=== PATIENT | male | born 1930 | race Caucasian/White ===

== ENCOUNTER 2018-03-15 15:57 | Emergency (ER) | END 2018-03-15 19:38 | disposition home or self-care (01) ==

== ENCOUNTER 2018-03-19 08:24 | Emergency (ER) | END 2018-03-19 12:03 | disposition home or self-care (01) ==

== ENCOUNTER 2018-10-06 16:06 | Inpatient (IN) | END 2018-10-08 11:30 | disposition home or self-care (01) | DRG 872 ==

== ENCOUNTER 2019-02-11 10:04 | Inpatient (IN) | payer MEDICARE, OTHER ==
[~2019-02-11] VITALS: Ht 182.9 cm; Wt 86.4 kg
[~2019-02-11 10:04] MED LIST: INSU100I12 SQ; LANT3I SC; METF-849 PO; OLME5TAB4 PO; SITA1TAB PO; TAMS-14 PO
[2019-02-11] MEDS ORDERED: FUROSEMIDE 40 MG INJ IV STA (10:15)
[2019-02-11] MEDS ORDERED: ASPIRIN 81 MG TAB PO STA (10:15)
[2019-02-11] MEDS ORDERED: NITROGLYCERIN 2% 1 GM OINT PKT TD STA (10:55)
[2019-02-11] MEDS ORDERED: METF500T24 PO (10:59)
[2019-02-11] MEDS ORDERED: INSU100I12 SQ (10:59)
[2019-02-11] MEDS ORDERED: LANT3I SC ×2 (10:59)
[2019-02-11] MEDS ORDERED: CARV6.25 PO (11:00)
[2019-02-11] MEDS ORDERED: TAMS0.4C2 PO (11:00)
[2019-02-11] MEDS ORDERED: LOSA50TA2 PO (11:00)
[2019-02-11] MEDS ORDERED: ONDANSETRON 4 MG INJ IV PRN ×2 (13:00→13:30)
[2019-02-11] MEDS ORDERED: DEXTROSE 50% 50 ML SYRINGE IV PRN ×2 (13:00)
[2019-02-11] MEDS ORDERED: NITROGLYCERIN (SL) 0.4 MG TAB SL PRN (13:00)
[2019-02-11] MEDS ORDERED: hydrALAzine 20 MG INJ IV PRN (13:00)
[2019-02-11] MEDS ORDERED: ACETAMINOPHEN 325 MG TAB PO PRN ×2 (13:00→13:30)
[2019-02-11] MEDS ORDERED: morphine 2 MG INJ IV PRN (13:00)
[2019-02-11] MEDS ORDERED: MAGNESIUM HYDROXIDE 30ML CUP PO PRN (13:00)
[2019-02-11] MEDS ORDERED: LORAZEPAM 2 MG INJ IV PRN (13:00)
[2019-02-11] MEDS ORDERED: HYDROCODONE/APAP (5/325) TAB PO PRN (13:00)
[2019-02-11] MEDS ORDERED: ALBUTEROL/IPRATROPIUM (NEB) 3 ML AMP HHN PRN (13:00)
[2019-02-11] MEDS ORDERED: GLUCAGON 1 MG INJ IM PRN (13:00)
[2019-02-11] MEDS ORDERED: GLUCOSE GEL 15 GRAM TUBE BUCCAL PRN (13:00)
[2019-02-11] MEDS ORDERED: DOCUSATE SODIUM 100 MG CAP PO PRN (13:00)
[2019-02-11] MEDS ORDERED: NACL 0.9% 3 ML SYG IV SCH (13:00)
[2019-02-11] MEDS ORDERED: GLUCOSE GEL 15 GRAM TUBE PO PRN ×2 (13:00)
--- NOTE | 2019-02-11 13:38 | ERD ---
ER Documentation Chief Complaint Chief Complaint cough, sob, x 1 month. recently dx with pna. HPI 88-year-old male who presents to the emergency room with proximal he 1 month of PND orthopnea lower extremity swelling. He was told that he might have pneumonia but had an abnormal EKG and went to a talcer. The patient has worsening symptoms over the past 24 hours without chest pain. She denies any pleuritic pain. Family reports that he does have a known history of prostate CA but is not currently being treated and he does not know or want to know about this diagnosis. ROS All systems reviewed and are negative except as per history of present illness. Medications Home Meds Reported Medications Carvedilol* (Coreg*) 6.25 Mg Tablet, 6.25 MG PO BID, #60 TAB 02/11/19 Losartan Potassium* (Cozaar*) 50 Mg Tablet, 50 MG PO DAILY, #30 TAB 02/11/19 Tamsulosin Hcl* (Tamsulosin Hcl*) 0.4 Mg Cap.er.24h, 0.4 MG PO HS, CAP 02/11/19 Metformin Hcl* (Metformin Hcl*) 500 Mg Tablet, 500 MG PO WITH BREAKFAST DINNE, #60 TAB 02/11/19 Insulin Lispro (Humalog Kwikpen U-100) 100 Unit/1 Ml Insuln.pen, 10 UNIT SQ AC E, EA 02/11/19 Insulin Glargine* (Lantus*) 100 Unit/Ml Soln, 15-20 UNIT SC QHS, #1 VIAL 02/11/19 Insulin Glargine* (Lantus*) 100 Unit/Ml Soln, 35 UNIT SC QAM, #1 VIAL 02/11/19 Discontinued Reported Medications Olmesartan Medoxomil (Benicar) Unknown Strength Tablet, PO DAILY, #30 TAB 10/05/18 Tamsulosin Hcl* (Flomax*) 0.4 Mg Cap.er.24h, 0.4 MG PO HS, CAP 10/05/18 Metformin* (Glucophage*) 500 Mg Tab, 500 MG PO WITH BREAKFAST DINNE, #30 TAB 10/05/18 Insulin Glargine* (Lantus*) Unknown Strength Soln, SC QHS, #1 VIAL 10/05/18 Insulin Lispro (Humalog Kwikpen U-100) Unknown Strength Insuln.pen, SQ, EA 10/05/18 Sitagliptin Phos/Metformin HCl (Janumet 50-500 mg Tablet) Unknown Strength Tablet, PO, TAB 10/05/18 Allergies Allergies: Coded Allergies: No Known Allergy (Unverified , 02/11/19) PMhx/Soc Medical and Surgical Hx: pt denies Medical Hx, pt denies Surgical Hx History of Surgery: Yes Anesthesia Reaction: No Hx Neurological Disorder: No Hx Respiratory Disorders: No Hx Cardiac Disorders: Yes (chf, htn) Hx Psychiatric Problems: No Hx Miscellaneous Medical Probl: Yes (dm) Hx Alcohol Use: No Hx Substance Use: No Hx Tobacco Use: No Smoking Status: Never smoker FmHx Family History: No diabetes Physical Exam Vitals Vital Signs Date Temp Pulse Resp B/P (MAP) Pulse Ox O2 O2 Flow FiO2 Time Delivery Rate 02/11/19 94 22 122/82 100 Nasal 12:39 (95) Cannula 02/11/19 101 28 133/84 100 Nasal 11:40 (100) Cannula 02/11/19 98.0 101 18 138/89 Room Air 10:59 (105) 02/11/19 Nasal 2 10:18 Cannula 02/11/19 Nasal 2.0 10:18 Cannula 02/11/19 97.7 105 19 139/80 97 10:16 (99) Physical Exam General: Well developed, well nourished, no acute distress Head: Normocephalic, atraumatic. Eyes: Pupils equally reactive, EOM intact ENT: Moist mucous membranes Neck: Supple, no lymphadenopathy Respiratory: No distress, rales at the bases bilaterally Cardiovascular: RRR, no murmurs, rubs, or gallops Abdominal: Soft, non-tender, non-distended, no peritoneal signs : Deferred MSK: Bilateral lower extremity pitting edema, no unilateral swelling, 5/5 strength Neurologic: Alert and oriented, moving all extremities, normal speech, no focal weakness, no cerebellar signs Skin: No rash Psych: Normal mood Result Diagram: 02/11/19 1018 02/11/19 1018 Results 24 hrs Laboratory Tests Test 02/11/19 10:18 White Blood Count 9.0 10^3/ul Red Blood Count 4.08 10^6/ul Hemoglobin 9.9 g/dl Hematocrit 32.9 % Mean Corpuscular Volume 80.6 fl Mean Corpuscular Hemoglobin 24.3 pg Mean Corpuscular Hemoglobin Concent 30.1 g/dl Red Cell Distribution Width 15.2 % Platelet Count 360 10^3/UL Mean Platelet Volume 9.9 fl Immature Granulocytes % 0.400 % Neutrophils % 68.9 % Lymphocytes % 21.8 % Monocytes % 6.7 % Eosinophils % 1.5 % Basophils % 0.7 % Nucleated Red Blood Cells % 0.0 /100WBC Immature Granulocytes # 0.040 10^3/ul Neutrophils # 6.2 10^3/ul Lymphocytes # 2.0 10^3/ul Monocytes # 0.6 10^3/ul Eosinophils # 0.1 10^3/ul Basophils # 0.1 10^3/ul Nucleated Red Blood Cells # 0.0 10^3/ul Prothrombin Time 11.9 Sec Prothrombin Time Ratio 0.9 INR International Normalized Ratio 0.87 Activated Partial Thromboplast Time 27.5 Sec Sodium Level 139 mmol/L Potassium Level 4.2 mmol/L Chloride Level 102 mmol/L Carbon Dioxide Level 28 mmol/L Anion Gap 9 Blood Urea Nitrogen 26 mg/dl Creatinine 1.76 mg/dl Est Glomerular Filtrat Rate mL/min mL/min Glucose Level 315 mg/dl Calcium Level 8.7 mg/dl Troponin I < 0.012 ng/ml B-Type Natriuretic Peptide 6640 PG/ML Current Medications Medications Dose Sig/Clare Start Time Status Last (Trade) Ordered Route PRN Stop Time Admin Dose Reason Admin Aspirin 162 mg ONCE STAT 02/11/19 DC 02/11/19 (Aspirin) PO 10:15 10:35 02/11/19 10:16 Furosemide 40 mg ONCE STAT 02/11/19 DC 02/11/19 (Lasix) IV 10:15 10:42 02/11/19 10:16 1 inch ONCE STAT 02/11/19 DC 02/11/19 Nitroglycerin TD 10:55 11:08 02/11/19 10:56 (Nitroglyceri n 2% Oint) IV Flush 3 ml PER 02/11/19 (NS 3 ml) PROTOCOL IV 13:00 Ondansetron 4 mg Q6H PRN 02/11/19 HCl (Zofran IV 13:00 Inj) NAUSEA/VOMITI NG 650 mg Q6H PRN 02/11/19 Acetaminophen PO .PAIN 1-3 13:00 (Tylenol OR TEMP Tab) 1 tab Q6H PRN 02/11/19 Acetaminophen PO .MOD PAIN 13:00 / 4-6 Hydrocodone Bitart (Seibert (5/325)) Morphine 2 mg Q4H PRN 02/11/19 Sulfate IV .SEVERE 13:00 (morphine) PAIN 7-10 Docusate 100 mg Q12H PRN 02/11/19 Sodium PO 13:00 (Colace) .CONSTIPATION Magnesium 30 ml DAILY PRN 02/11/19 Hydroxide PO 13:00 (Milk Of Mag) .CONSTIPATION 40 mg DAILY@06 02/12/19 Pantoprazole PO 06:00 (Protonix Tab) Heparin 5,000 unit Q12 SC 02/11/19 DC Sodium 21:00 (Porcine) 02/11/19 21:00 (Heparin (5000 Units/1ml)) Lorazepam 0.5 mg Q6H PRN 02/11/19 (Ativan) IV ANXIETY 13:00 Albuterol/ 3 ml Q4H RESP 02/11/19 Ipratropium THERAPY PRN 13:00 (Duoneb) HHN SHORTNESS OF BREATH Hydralazine 10 mg Q6H PRN 02/11/19 HCl IV ELEVATED 13:00 (Apresoline) BLOOD PRESSURE 1 tab Q5M PRN 02/11/19 Nitroglycerin SL ANGINA 13:00 (Nitroglyceri n (Sl Tab) 0.4 Mg) Carvedilol 3.125 mg BID PO 02/11/19 (Coreg) 21:00 Insulin 15 units QHS SC 02/11/19 Glargine 21:00 (Lantus) Insulin 35 units QAM SC 02/12/19 Glargine 09:00 (Lantus) Tamsulosin 0.4 mg HS PO 02/11/19 HCl 21:00 (Flomax) Furosemide 40 mg DAILY IV 02/12/19 (Lasix) 09:00 1 ea NOTE XX 02/11/19 Miscellaneous 13:00 Information Glucose 15 gm Q15M PRN 02/11/19 (Glutose) PO DECREASED 13:00 GLUCOSE Glucose 22.5 gm Q15M PRN 02/11/19 (Glutose) PO DECREASED 13:00 GLUCOSE Dextrose 25 ml Q15M PRN 02/11/19 (D50w IV DECREASED 13:00 Syringe) GLUCOSE Dextrose 50 ml Q15M PRN 02/11/19 (D50w IV DECREASED 13:00 Syringe) GLUCOSE Glucagon 1 mg Q15M PRN 02/11/19 (Glucagen) IM DECREASED 13:00 GLUCOSE Glucose 15 gm Q15M PRN 02/11/19 (Glutose) BUCCAL 13:00 DECREASED GLUCOSE 750 mg DAILY@06 02/12/19 UNV Levofloxacin PO 06:00 (Levaquin) Ondansetron 4 mg ER BRIDGE 02/11/19 HCl (Zofran PRN IV 13:30 Inj) NAUSEA/VOMITI 02/12/19 13:29 NG 650 mg ER BRIDGE 02/11/19 Acetaminophen PRN PO 13:30 (Tylenol .MILD PAIN 02/12/19 13:29 Tab) 1-3 OR TEMP Discontinue ONCE ONCE 02/11/19 DC Miscellaneous current oral XX 13:30 sulfonylur... 02/11/19 13:33 Information (* Miscellaneous Pharmacy Order) Diagnostic 1 ea 02 XX 02/12/19 Test (Pha) 02:00 (Accu-Chek) ONCE ONCE 02/11/19 DC Miscellaneous HYPOGLYCEMIA XX 13:30 PROTOCOL 02/11/19 13:33 Information w... (* Miscellaneous Pharmacy Order) Insulin NOVOLOG WITH MEALS 02/11/19 Aspart *MILD* BEDTIME SC 18:00 (Novolog ALGORITHM Insulin Pen) Discontinue ONCE ONCE 02/11/19 DC Miscellaneous all previ... XX 13:30 02/11/19 13:33 Information (* Miscellaneous Pharmacy Order) Procedures/MDM EKG, MONITORS, & DIAGNOSTIC IMAGING: EKG: I reviewed and interpreted a 12-lead EKG. Rhythm: Normal sinus rhythm ST Changes: No contiguous ST segment elevations T waves: No contiguous T wave inversions Impression: [No evidence of acute cardiac ischemia] Chest x-ray: I reviewed and interpreted a 1 view of the chest Mediastinum: No enlargement Cardiac silhouette: cardiomegaly Airspace: Pulmonary edema bilaterally Bones: No evidence of fracture LAB INTERPRETATION: I reviewed the laboratory testing and it shows negative troponin, elevated BNP MEDICAL DECISION MAKING: Clinical signs and symptoms are very consistent with CHF that would likely be a new diagnosis. I do not believe this is consistent with pneumonia given no fever and no significant cough. Patient has clinical evidence of volume overload. I believe the patient would benefit from diuresis, preload and afterload redu ction and inpatient hospitalization for further workup of new onset CHF ER COURSE: * Aspirin provided, Lasix and nitroglycerin applied. * Patient is stabilized and does not require nitroglycerin drip or positive pressure ventilation. CONSULTATION: [None] DISPOSITION PLAN: Accepting care team and consultations: I discussed the current laboratory data, diagnostic imaging and emergency care provided. Admitting team: Dr. Aaron Admitting team indication: Insurance directed Departure Diagnosis: Primary Impression: New onset of congestive heart failure Additional Impressions: Acute renal insufficiency Anemia Anemia type: unspecified type Qualified Codes: D64.9 - Anemia, unspecified Condition: Stable BRANDI DELGADO MD Feb 11, 2019 13:38
--- NOTE | 2019-02-11 14:22 | HP ---
DATE OF ADMISSION: 02/11/2019 IDENTIFICATION: This is an 88-year-old male. CHIEF COMPLAINT: Shortness of breath. HISTORY OF PRESENT ILLNESS: An 88-year-old male with past medical history of type 2 diabetes, prior urinary tract infection, history of prostate issue possibly cancer status post TURP in the past, hype rtension, who has been having shortness of breath. Per patient and family, he has been having these symptoms off and on for the last 2 weeks, getting progressively worse. He has also noted some increa sing lower extremity swelling. Family does state that at one point they do not remember when he star quinn it, but he was supposed to be taking Lasix at home, but he has not been taking it and only takes it as needed for unclear reasons. Apparently, he does not like to "take a lot of medicines at home." In any event, he has been having some nausea symptoms. No vomiting. No fevers or chills. No uppe r or lower GI bleeding. No diarrhea or constipation. When he came in today, he was found on labs wi th an elevated BNP of 6600 and his chest x-ray did show signs of mild cardiomegaly with pulmonary vas cular congestion. He was given a dose of Lasix in the ER. Family does state the patient was recentl y treated as an outpatient with [facility] for minor upper respiratory infection, possible mild pneumonia. The patient was last here at our hospital from 10/06/2018 to 10/08/2018. At that time, he was tiana quinn for gross hematuria. PAST MEDICAL HISTORY: As stated above. ALLERGIES: NO KNOWN DRUG ALLERGIES. HOME MEDICATIONS: 1. Flomax 0.4 mg at bedtime. 2. Coreg 6.25 mg b.i.d. 3. Cozaar 50 mg daily. 4. Lantus 35 units in the morning and 15 to 20 units at night. 5. Lispro insulin 10 units subcutaneous. 6. Metformin 500 mg b.i.d. PAST SURGICAL HISTORY: TURP in 2014. SOCIAL HISTORY: Occasional alcohol use. Denies any IV drug abuse or smoking history. FAMILY HISTORY: Noncontributory. PHYSICAL EXAMINATION: VITAL SIGNS: Today, T-max 98.0, pulse 101 to 94, respirations 18 to 28, blood pressure is 138 to 122 systolic over 89 to 82 diastolic, satting 100% on 2 liters nasal cannula. GENERAL: The patient is sitting up in bed, family members at the bedside, alert and oriented x3, in no acute distress. HEENT: Pupils are equal, round, react to light. Extraocular muscles are intact. NECK: Supple. No thyromegaly. LUNGS: Slightly decreased breath sounds to bilateral bases. CARDIOVASCULAR: S1, S2 heard. No rubs or gallops. ABDOMEN: Soft, nontender, nondistended. Normal bowel sounds. No rebound or guarding. MUSCULOSKELETAL: A 1+ pitting edema to bilateral lower extremities to the mid calves. NEUROLOGIC: No focal deficits. LABORATORIES: CBC is completely normal. Sodium is 139, potassium 4.2, chloride 102, CO2 of 28, BUN 26, creatinine 1.76, glucose 315. Troponin is negative x1. BNP 6640. Coags are normal. DIAGNOSTIC DATA: We mentioned the chest x-ray results. ASSESSMENT AND PLAN: An 88-year-old male coming in with shortness of breath off and on for the last 2 weeks with signs of acute on likely chronic congestive heart failure exacerbation. 1. Shortness of breath again likely secondary to congestive heart failure exacerbation given his noe st x-ray findings, lower extremity pitting edema and the fact that he has not been taking Lasix regul noah at home. We do not have an echocardiogram on record however. We will admit the patient, keep t he head of the bed greater than 30 degrees, put him on Lasix, morphine, oxygen, nitroglycerin p.r.n. Monitor ins and outs. Get PT consult as well and OT consult. 2. History of likely prostate cancer with TURP in the past. Continue Flomax. Monitor for now. 3. History of type 2 diabetes. Sugars were elevated when he came in the mid 200 range, but no signs of diabetic ketoacidosis. Last A1c back in 09/2018 he was 8.9. We will follow up A1c. Put him brennan k on his home Lantus medications and sliding scale insulin. Monitor sugars carefully. 4. Hypertension. Again, see #1. Blood pressure is presently stable. Put him on low-dose Coreg. H old his ARB medication since he does have renal insufficiency for now. He will be on Lasix as well. 5. Prior history of urinary tract infection. No present issues. Continue to monitor for now. 6. Gastrointestinal prophylaxis. PPI. 7. Deep venous thrombosis prophylaxis. SCDs given his prior history of hematuria, although none pre sently. He was put on SCDs for now. Dictated By: BERTHA DAVIS Conf#: [id number] DID#: [id number] CC: BRANDI DELGADO MD;*End*
[2019-02-11 14:30] VITALS: Ht 182.9 cm; Wt 86.4 kg
[2019-02-11] MEDS ORDERED: LEVOFLOXACIN 750 MG TABLET PO SCH (15:00)
[2019-02-11 15:05] VITALS: PULSE 100
[2019-02-11 16:13] VITALS: PULSE 94
[2019-02-11 16:18] VITALS: BP 131/72; PULSE 96; RESP 22
--- NOTE | 2019-02-11 17:35 | RADRPT ---
Echocardiogram Report Patient Name: KESHIA BLACKWELLPatient ID: [id number] : 1930 (88y 9m)Study Date: 02/11/2019 1:12:02 PM Gender: MAccession #: [id number] Tech: Paul Aguilar RDCS Location: ER Ref.Physician: BERTHA FERRARI Height(Cm): BSA: Weight(Kg): Quality: Technically Difficult StudyAccount #: Procedures: Echocardiographic Report: Transthoracic echocardiogram with complete 2D, M-Mode, and doppler examination. Indications: Congestive Heart Failure. Measurements: 2D/M Mode Doppler Measurement Value Normal Range Measurement Value Normal Range LVIDd 2D 5.9 [ 4.2 - 5.8 ] cm AV Peak Marino 1.2 [ 100.0 - 170.0 ] cm/se c LVIDs 2D 4.9 [ 2.5 - 4.0 ] cm AV Peak PG 6.0 [ 2.0 - 9.0 ] mmHg LVPWd 2D 1.2 [ 0.6 - 1.0 ] cm LVOT Peak Marino 0.7 [ 70.0 - 110.0 ] cm/sec IVSd 2D 1.0 [ 0.6 - 1.0 ] cm LVOT Peak PG 2.0 [ 2.0 - 6.0 ] mmHg AoR Diam 2D 2.8 [ 2.6 - 3.4 ] cm MV E Peak Marino 0.8 [ 60.0 - 130.0 ] cm/sec EDV 2D 173.0 [ 62.0 - 150.0 ] ml MV A Peak Marino 0.7 [ 100.0 - 120.0 ] cm/se c ESV 2D 114.0 [ 21.0 - 61.0 ] ml MV E/A 1.1 [ 0.8 - 1.5 ] ratio EF 2D 34.1 [ 52.0 - 72.0 ] percent MV PHT 43.0 [ 20.0 - 100.0 ] msec LA Dimen 2D 3.9 [ 3.0 - 4.0 ] cm MV Decel Time 148 [ 104 - 258 ] msec MV Decel Chaves 5 Lat E` Marino 0.1 [ 10.0 - 15.0 ] cm/sec Lateral E/E` 12.1 [ 1.0 - 2.0 ] ratio Med E` Marino 0.1 cm/sec MV E/A 1.1 [ 0.8 - 1.5 ] ratio MVA PHT 5.1 [ 2.0 - 4.0 ] cm2 TR Peak Marino 2.1 [ 100.0 - 280.0 ] cm/se c TR Peak PG 18.0 mmHg PV Peak Marino 1.1 [ 40.0 - 80.0 ] cm/sec PV Peak PG 4.0 mmHg Findings: Left Ventricle: Normal left ventricular cavity size. Severe global left ventricular systolic dysfunction. Ejection fraction is visually estimated at 25-30 %. Tissue Doppler/Mitral Doppler indices are consistent with pseudonormalization with mildly elevated left atrial pressure (Stage II diastolic dysfunction). Right Ventricle: Normal right ventricular size. Normal right ventricular systolic function. Left Atrium: The left atrium is normal in size. Right Atrium: The right atrium is normal in size. Atrial Septum: Normal atrial septum. Ventricular septum: Normal/intact ventricular septum. Mitral Valve: Normal appearance of the mitral valve. Trace mitral regurgitation. Aortic Valve: Normal appearance of the aortic valve. Trace aortic valve regurgitation. Tricuspid Valve: Normal appearance of the tricuspid valve. Unable to obtain RVSP due to minimal presence of tricuspid regurgitation. Estimated peak PA systolic pressure 18 mmHg. There is trace tricuspid regurgitation. Pulmonic Valve: Normal pulmonic valve appearance. There is trace pulmonic regurgitation. Pericardium: Pleural effusion seen. Aorta: Normal aortic root. IVC: The IVC is not well visualized. Conclusions: Severe global left ventricular systolic dysfunction. Tissue Doppler/Mitral Doppler indices are consistent with pseudonormalization with mildly elevated left atrial pressure (Stage II diastolic dysfunction). Electronically Signed By: Ventura Garcia 2019-02-11 17:34:47 PDT
[2019-02-11] MEDS: INSULIN ASPART [NOVOLOG] 3 ML PEN SC SCH ×4 (18:03→21:44)
[2019-02-11 20:00] VITALS: PULSE 95
[2019-02-11] MEDS ORDERED: HEPARIN 5,000 UNIT/1 ML VIAL SC SCH (21:00)
[2019-02-11] MEDS: TAMSULOSIN (SR) 0.4 MG CAP PO SCH (21:30)
[2019-02-11] MEDS: INSULIN GLARGINE [LANTus] (100 UNITS/ML) SYG SC SCH (21:44)
[2019-02-12] VITALS (9 sets, daily range): BP systolic 104–133; BP diastolic 54–65; PULSE 90–102; RESP 18
[2019-02-12] MEDS: ACCU-CHEK XX SCH (02:00)
[2019-02-12] MEDS: PANTOPRAZOLE (EC) 40 MG TAB PO SCH (05:35)
[2019-02-12] MEDS: INSULIN ASPART [NOVOLOG] 3 ML PEN SC SCH ×8 (08:06→20:50)
[2019-02-12] MEDS ORDERED: FUROSEMIDE 40 MG INJ IV SCH (09:00)
--- NOTE | 2019-02-12 13:16 | PN ---
Date/Time of Note Date/Time of Note DATE: 02/12/19 TIME: 13:14 Assessment/Plan VTE Prophylaxis Risk score (from Ns)>0 risk: 4 SCD applied (from Ns): Yes Pharmacological prophylaxis: heparin Lines/Catheters IV Catheter Type (from Rust): Saline Lock Urinary Cath still in place: No Assessment/Plan Assessment/Plan 1. CHF, systolic, acute on chronic, lasix, coreg, losartan 2. Dilated cardiomyopathy, ?etiology, TSH, cardiology consultation 3. HTN, controlled 4. DM, on insulin 5. History of likely prostate cancer with TURP in the past. Continue Flomax. Monitor for now.\ 6. Acute renal failure, US 7. Microcytic anemia, chronic, iron panel 8. DVT prophylaxis: heparin Result Diagram: 02/12/198 02/12/198 Results 24hrs Laboratory Tests Test 02/11/19 16:28 02/11/19 17:33 02/11/19 21:28 02/11/19 22:27 Creatine Kinase 61 65 Creatine Kinase 1.6 1.6 Index Creatinine Kinase MB 0.96 1.06 (Mass) Troponin I < 0.012 < 0.012 Bedside Glucose 367 H 222 H Test 02/12/19 02:22 02/12/19 04:58 02/12/19 05:58 02/12/19 08:00 Bedside Glucose 247 H 291 H 308 H White Blood Count 7.1 # Red Blood Count 2.96 #L Hemoglobin 7.3 #L Hematocrit 23.7 #L Mean Corpuscular 80.1 L Volume Mean Corpuscular 24.7 L Hemoglobin Mean Corpuscular 30.8 L Hemoglobin Concent Red Cell 15.4 H Distribution Width Platelet Count 247 # Mean Platelet Volume 10.5 H Immature 0.300 Granulocytes % Neutrophils % 61.9 Lymphocytes % 28.5 Monocytes % 7.9 Eosinophils % 1.0 Basophils % 0.4 Nucleated Red Blood 0.0 Cells % Immature 0.020 Granulocytes # Neutrophils # 4.4 Lymphocytes # 2.0 Monocytes # 0.6 Eosinophils # 0.1 Basophils # 0.0 Nucleated Red Blood 0.0 Cells # Sodium Level 143 Potassium Level 4.2 Chloride Level 105 Carbon Dioxide Level 26 Anion Gap 12 Blood Urea Nitrogen 51 H Creatinine 1.86 H Est Glomerular Filtrat Rate mL/min Glucose Level 276 H Hemoglobin A1c 9.6 H Calcium Level 8.3 L Phosphorus Level 3.6 Magnesium Level 1.9 Triglycerides Level 203 H Cholesterol Level 159 LDL Cholesterol, 94 Calculated HDL Cholesterol 24 L Cholesterol/HDL 6.6 Ratio Thyroid Stimulating 1.540 Hormone (TSH) Test 02/12/19 11:46 Bedside Glucose 357 H Subjective 24 Hr Interval Summary Free Text/Dictation shortness of breath Exam/Review of Systems Exam Vitals Vital Signs Date Temp Pulse Resp B/P (MAP) Pulse Ox O2 O2 Flow FiO2 Time Delivery Rate 02/12/19 93 12:22 02/12/19 97.6 18 106/56 100 Nasal 11:16 (73) Cannula 02/11/19 2.0 21:00 02/11/19 27 20:11 Intake and Output 02/11/19 02/11/19 02/12/19 1515:00 23:00 07:00 IntakeIntake Total 360 ml 710 ml OutputOutput Total 320 ml 650 ml 1000 ml BalanceBalance -320 ml -290 ml -290 ml Constitutional: alert, oriented, well developed Psych: no complaints, nl mood/affect Head: normocephalic, atraumatic Eyes: nl conjunctiva, EOMI, nl lids, PERRL ENMT: nl external ears & nose, nl lips & teeth, nl nasal mucosa & septum Neck: supple, non-tender Respiratory: clear to auscultation, normal air movement; No congested cough, No crackles/rales, No diminished breath sounds, No intercostal retraction, No labored breathing, No respirations, No tactile fremit us, No wheezing, No other Cardiovascular: regular rate and rhythm, nl pulses; No bruits, No diastolic murmur, No edema, No gallop, No irregular rhythm, No jugular venous distention (JVD), No murmurs/extra sounds, No rub, No systolic murmur, No S3, No S4, No other Gastrointestinal: soft, nl liver, spleen, non-tender Musculoskeletal: nl extremities to inspection, nl gait and stance Extremities: normal pulses; No calf tenderness, No cyanosis, No clubbing, No pitting pedal edema, No palpable cord, No tenderness, No other Neurological: RECEIVING CHECKER II-XII intact, nl mental status, nl speech, nl strength Results Results 24hrs Laboratory Tests Test 02/11/19 16:28 02/11/19 17:33 02/11/19 21:28 02/11/19 22:27 Creatine Kinase 61 65 Creatine Kinase 1.6 1.6 Index Creatinine Kinase MB 0.96 1.06 (Mass) Troponin I < 0.012 < 0.012 Bedside Glucose 367 H 222 H Test 02/12/19 02:22 02/12/19 04:58 02/12/19 05:58 02/12/19 08:00 Bedside Glucose 247 H 291 H 308 H White Blood Count 7.1 # Red Blood Count 2.96 #L Hemoglobin 7.3 #L Hematocrit 23.7 #L Mean Corpuscular 80.1 L Volume Mean Corpuscular 24.7 L Hemoglobin Mean Corpuscular 30.8 L Hemoglobin Concent Red Cell 15.4 H Distribution Width Platelet Count 247 # Mean Platelet Volume 10.5 H Immature 0.300 Granulocytes % Neutrophils % 61.9 Lymphocytes % 28.5 Monocytes % 7.9 Eosinophils % 1.0 Basophils % 0.4 Nucleated Red Blood 0.0 Cells % Immature 0.020 Granulocytes # Neutrophils # 4.4 Lymphocytes # 2.0 Monocytes # 0.6 Eosinophils # 0.1 Basophils # 0.0 Nucleated Red Blood 0.0 Cells # Sodium Level 143 Potassium Level 4.2 Chloride Level 105 Carbon Dioxide Level 26 Anion Gap 12 Blood Urea Nitrogen 51 H Creatinine 1.86 H Est Glomerular Filtrat Rate mL/min Glucose Level 276 H Hemoglobin A1c 9.6 H Calcium Level 8.3 L Phosphorus Level 3.6 Magnesium Level 1.9 Triglycerides Level 203 H Cholesterol Level 159 LDL Cholesterol, 94 Calculated HDL Cholesterol 24 L Cholesterol/HDL 6.6 Ratio Thyroid Stimulating 1.540 Hormone (TSH) Test 02/12/19 11:46 Bedside Glucose 357 H Medications Medication Current Medications IV Flush (NS 3 ml) 3 ml PER PROTOCOL IV ; Start 02/11/19 at 13:00 Ondansetron HCl (Zofran Inj) 4 mg Q6H PRN IV NAUSEA/VOMITING; Start 02/11/19 at 13:00 Acetaminophen (Tylenol Tab) 650 mg Q6H PRN PO .PAIN 1-3 OR TEMP; Start 02/11/19 at 13:00 Acetaminophen/ Hydrocodone Bitart ([place] (5/325)) 1 tab Q6H PRN PO .MOD PAIN 4- 6; Start 02/11/19 at 13:00 Morphine Sulfate (morphine) 2 mg Q4H PRN IV .SEVERE PAIN 7-10; Start 02/11/19 at 13:00 Docusate Sodium (Colace) 100 mg Q12H PRN PO .CONSTIPATION; Start 02/11/19 at 13:00 Magnesium Hydroxide (Milk Of Mag) 30 ml DAILY PRN PO .CONSTIPATION; Start 02/11/19 at 13:00 Pantoprazole (Protonix Tab) 40 mg DAILY@06 PO Last administered on 02/12/19at 05:35; Admin Dose 40 MG; Start 02/12/19 at 06:00 Lorazepam (Ativan) 0.5 mg Q6H PRN IV ANXIETY; Start 02/11/19 at 13:00 Albuterol/ Ipratropium (Duoneb) 3 ml Q4H RESP THERAPY PRN HHN SHORTNESS OF BREATH; Start 02/11/19 at 13:00 Hydralazine HCl (Apresoline) 10 mg Q6H PRN IV ELEVATED BLOOD PRESSURE; Start 02/11/19 at 13:00 Nitroglycerin (Nitroglycerin (Sl Tab) 0.4 Mg) 1 tab Q5M PRN SL ANGINA; Start 02/11/19 at 13:00 Carvedilol (Coreg) 3.125 mg BID PO Last administered on 02/12/19at 08:47; Admin Dose 3.125 MG; Start 02/11/19 at 21:00 Insulin Glargine (Lantus) 15 units QHS SC Last administered on 02/11/19at 21:44; Admin Dose 15 UNITS; Start 02/11/19 at 21:00 Insulin Glargine (Lantus) 35 units QAM SC ; Start 02/12/19 at 09:00 Tamsulosin HCl (Flomax) 0.4 mg HS PO Last administered on 02/11/19at 21:30; Admin Dose 0.4 MG; Start 02/11/19 at 21:00 Furosemide (Lasix) 40 mg DAILY IV Last administered on 02/12/19at 08:47; Admin Dose 40 MG; Start 02/12/19 at 09:00 Miscellaneous Information 1 ea NOTE XX ; Start 02/11/19 at 13:00 Glucose (Glutose) 15 gm Q15M PRN PO DECREASED GLUCOSE; Start 02/11/19 at 13:00 Glucose (Glutose) 22.5 gm Q15M PRN PO DECREASED GLUCOSE; Start 02/11/19 at 13:00 Dextrose (D50w Syringe) 25 ml Q15M PRN IV DECREASED GLUCOSE; Start 02/11/19 at 13:00 Dextrose (D50w Syringe) 50 ml Q15M PRN IV DECREASED GLUCOSE; Start 02/11/19 at 13:00 Glucagon (Glucagen) 1 mg Q15M PRN IM DECREASED GLUCOSE; Start 02/11/19 at 13:00 Glucose (Glutose) 15 gm Q15M PRN BUCCAL DECREASED GLUCOSE; Start 02/11/19 at 13:00 Levofloxacin (Levaquin) 750 mg Q2D PO Last administered on 02/11/19at 16:19; Admin Dose 750 MG; Start 02/11/19 at 15:00 Ondansetron HCl (Zofran Inj) 4 mg ER BRIDGE PRN IV NAUSEA/VOMITING; Start 02/11/19 at 13:30; Stop 02/12/19 at 13:29 Acetaminophen (Tylenol Tab) 650 mg ER BRIDGE PRN PO .MILD PAIN 1-3 OR TEMP; Start 02/11/19 at 13:30; Stop 02/12/19 at 13:29 Diagnostic Test (Pha) (Accu-Chek) 1 ea 02 XX ; Start 02/12/19 at 02:00 Insulin Aspart (Novolog Insulin Pen) NOVOLOG *MILD* ALGORITHM WITH MEALS BEDTIME SC Last administered on 02/12/19at 11:52; Admin Dose 7 UNIT; Start 02/11/19 at 18:00 Insulin Aspart (Novolog Insulin Pen) 10 unit WITH MEALS BEDTIME SC Last administered on 02/12/19at 12:04; Admin Dose 10 UNIT; Start 02/11/19 at 18:00 HUSSEIN SHUKLA MD Feb 12, 2019 13:16
[2019-02-12] MEDS: LOSARTAN 25 MG TAB PO SCH (14:05)
[2019-02-12] MEDS: INSULIN GLARGINE [LANTus] (100 UNITS/ML) SYG SC SCH ×2 (14:31→22:07)
--- NOTE | 2019-02-12 15:48 | CONS ---
Assessment/Plan Assessment/Plan Hospital Course (Demo Recall) 1. Congestive heart failure: Acute secondary systolic heart failure 2. 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 Diabetes 4. Hypertension 5. 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 Abnormal EKG consistent with prior MIs 7. Rule out dyslipidemia 8. Dyspnea due to above 9. Renal failure 10. Anemia Commendations: Patient was started on aspirin daily. Monitor for bleeding including hematuria that he has had before with Written appropriate medical therapy including Coreg losartan and Lasix. I would also add Aldactone to his regimen Continue with diuresis and once his orthopnea has resolved we will schedule him for Lexiscan stress test to rule out significant reversible ischemia Thank you for his referral. We will continue to follow along with you [facility] Consultation Date/Type/Reason Admit Date/Time Feb 11, 2019 at 13:21 Date of Consultation: Feb 12, 2019 Type of Consult Cardiology Reason for Consultation CHF Requesting Provider: HUSSEIN SHUKLA MD Date/Time of Note DATE: 02/12/19 TIME: 15:38 Hx of Present Illness Interventional cardiology consultation note Chief complaint: SOB Reason for consult: History of present illness: Thank you for this referral. This is an 78-year-old male (patient reported that he is actually 78 and 988 as documented in his record and his records have been changed when he went to [place] as a child) with past medical history of type 2 diabetes, prior urinary tract infection, history of prostate issue prostate cancer status post TURP in the past pre review of old chart (although patient believes that he had no cancer) , hypertension, who came to emergency room with increasing shortness of breath. The breathing is worse when he lies down and sleeps at nighttime. When he is sitting he is okay. He states that he does not have any chest pain or pressure in activity when he lies down he feels pressure in his chest still. H is echo was obtained which showed ejection fraction 25-30%. Was kindly asked to evaluate his severe cardiomyopathy and CHF. Patient is unaware of any history of AL in the past His old records were reviewed. Patient has been admitted previously with hematuria has resolved PAST MEDICAL HISTORY: Hypertension, diabetes, prostate issues including BPH and probably prostate cancer per review of the old records status post TURP ALLERGIES: NO KNOWN DRUG ALLERGIES. HOME MEDICATIONS: 1. Flomax 0.4 mg at bedtime. 2. Coreg 6.25 mg b.i.d. 3. Cozaar 50 mg daily. 4. Lantus 35 units in the morning and 15 to 20 units at night. 5. Lispro insulin 10 units subcutaneous. 6. Metformin 500 mg b.i.d. PAST SURGICAL HISTORY: TURP in 2015. SOCIAL HISTORY: Occasional alcohol use. Denies any IV drug abuse or smoking history. Was born in [place]. Has [place] origin. Had moved to [place] when he was young FAMILY HISTORY: No history of early coronary artery disease Review of system: Patient denies all others except for above-mentioned Past Medical History Home Meds Reported Medications Carvedilol* (Coreg*) 6.25 Mg Tablet, 6.25 MG PO BID, #60 TAB 02/11/19 Losartan Potassium* (Cozaar*) 50 Mg Tablet, 50 MG PO DAILY, #30 TAB 02/11/19 Tamsulosin Hcl* (Tamsulosin Hcl*) 0.4 Mg Cap.er.24h, 0.4 MG PO HS, CAP 02/11/19 Metformin Hcl* (Metformin Hcl*) 500 Mg Tablet, 500 MG PO WITH BREAKFAST DINNE, # 60 TAB 02/11/19 Insulin Lispro (Humalog Kwikpen U-100) 100 Unit/1 Ml Insuln.pen, 10 UNIT SQ AC E, EA 02/11/19 Insulin Glargine* (Lantus*) 100 Unit/Ml Soln, 15-20 UNIT SC QHS, #1 VIAL 02/11/19 Insulin Glargine* (Lantus*) 100 Unit/Ml Soln, 35 UNIT SC QAM, #1 VIAL 02/11/19 Discontinued Reported Medications Olmesartan Medoxomil (Benicar) Unknown Strength Tablet, PO DAILY, #30 TAB 10/05/18 Tamsulosin Hcl* (Flomax*) 0.4 Mg Cap.er.24h, 0.4 MG PO HS, CAP 10/05/18 Metformin* (Glucophage*) 500 Mg Tab, 500 MG PO WITH BREAKFAST DINNE, #30 TAB 10/05/18 Insulin Glargine* (Lantus*) Unknown Strength Soln, SC QHS, #1 VIAL 10/05/18 Insulin Lispro (Humalog Kwikpen U-100) Unknown Strength Insuln.pen, SQ, EA 10/05/18 Sitagliptin Phos/Metformin HCl (Janumet 50-500 mg Tablet) Unknown Strength Tablet, PO, TAB 10/05/18 Medications Current Medications IV Flush (NS 3 ml) 3 ml PER PROTOCOL IV ; Start 02/11/19 at 13:00 Ondansetron HCl (Zofran Inj) 4 mg Q6H PRN IV NAUSEA/VOMITING; Start 02/11/19 at 13:00 Acetaminophen (Tylenol Tab) 650 mg Q6H PRN PO .PAIN 1-3 OR TEMP; Start 02/11/19 at 13:00 Acetaminophen/ Hydrocodone Bitart ([place] (5/325)) 1 tab Q6H PRN PO .MOD PAIN 4- 6; Start 02/11/19 at 13:00 Morphine Sulfate (morphine) 2 mg Q4H PRN IV .SEVERE PAIN 7-10; Start 02/11/19 a t 13:00 Docusate Sodium (Colace) 100 mg Q12H PRN PO .CONSTIPATION; Start 02/11/19 at 13:00 Magnesium Hydroxide (Milk Of Mag) 30 ml DAILY PRN PO .CONSTIPATION; Start 02/11/19 at 13:00 Pantoprazole (Protonix Tab) 40 mg DAILY@06 PO Last administered on 02/12/19at 05:35; Admin Dose 40 MG; Start 02/12/19 at 06:00 Lorazepam (Ativan) 0.5 mg Q6H PRN IV ANXIETY; Start 02/11/19 at 13:00 Albuterol/ Ipratropium (Duoneb) 3 ml Q4H RESP THERAPY PRN HHN SHORTNESS OF BREATH; Start 02/11/19 at 13:00 Hydralazine HCl (Apresoline) 10 mg Q6H PRN IV ELEVATED BLOOD PRESSURE; Start 02/11/19 at 13:00 Nitroglycerin (Nitroglycerin (Sl Tab) 0.4 Mg) 1 tab Q5M PRN SL ANGINA; Start 02/11/19 at 13:00 Carvedilol (Coreg) 3.125 mg BID PO Last administered on 02/12/19at 08:47; Admin Dose 3.125 MG; Start 02/11/19 at 21:00 Insulin Glargine (Lantus) 15 units QHS SC Last administered on 02/11/19at 21:44; Admin Dose 15 UNITS; Start 02/11/19 at 21:00 Insulin Glargine (Lantus) 35 units QAM SC Last administered on 02/12/19at 14:31; Admin Dose 35 UNITS; Start 02/12/19 at 09:00 Tamsulosin HCl (Flomax) 0.4 mg HS PO Last administered on 02/11/19at 21:30; Admin Dose 0.4 MG; Start 02/11/19 at 21:00 Miscellaneous Information 1 ea NOTE XX ; Start 02/11/19 at 13:00 Glucose (Glutose) 15 gm Q15M PRN PO DECREASED GLUCOSE; Start 02/11/19 at 13:00 Glucose (Glutose) 22.5 gm Q15M PRN PO DECREASED GLUCOSE; Start 02/11/19 at 13:00 Dextrose (D50w Syringe) 25 ml Q15M PRN IV DECREASED GLUCOSE; Start 02/11/19 at 13:00 Dextrose (D50w Syringe) 50 ml Q15M PRN IV DECREASED GLUCOSE; Start 02/11/19 at 13:00 Glucagon (Glucagen) 1 mg Q15M PRN IM DECREASED GLUCOSE; Start 02/11/19 at 13:00 Glucose (Glutose) 15 gm Q15M PRN BUCCAL DECREASED GLUCOSE; Start 02/11/19 at 13:00 Diagnostic Test (Pha) (Accu-Chek) 1 ea 02 XX ; Start 02/12/19 at 02:00 Insulin Aspart (Novolog Insulin Pen) NOVOLOG *MILD* ALGORITHM WITH MEALS BEDTIME SC Last administered on 02/12/19at 11:52; Admin Dose 7 UNIT; Start 02/11/19 at 18:00 Insulin Aspart (Novolog Insulin Pen) 10 unit WITH MEALS BEDTIME SC Last administered on 02/12/19at 12:04; Admin Dose 10 UNIT; Start 02/11/19 at 18:00 Furosemide (Lasix) 40 mg BID DIURETICS IV ; Start 02/12/19 at 18:00 Losartan Potassium (Cozaar) 25 mg DAILY PO Last administered on 02/12/19at 14:05; Admin Dose 25 MG; Start 02/12/19 at 13:30 Aspirin (Halfprin) 81 mg DAILY PO ; Start 02/12/19 at 16:00; Status UNV Allergies: Coded Allergies: No Known Allergy (Unverified , 02/11/19) Past Surgical History Past Surgical Hx: other Social History Smoking Status: Never smoker Exam/Review of Systems Vital Signs Vitals Vital Signs Date Temp Pulse Resp B/P (MAP) Pulse Ox O2 O2 Flow FiO2 Time Delivery Rate 02/12/19 97.5 95 18 104/59 97 Nasal 15:15 (74) Cannula 02/12/19 2.0 08:00 02/11/19 27 20:11 Intake and Output 02/11/19 02/11/19 02/12/19 1515:00 23:00 07:00 IntakeIntake Total 360 ml 710 ml OutputOutput Total 320 ml 650 ml 1000 ml BalanceBalance -320 ml -290 ml -290 ml Exam Exam General: no acute distress HEENT: NC/AT. pupils are equal. round. NECK: . no stridor. CV: RRR. systolic murmur; no gallop or rubs. PULM: no wheezing, rhonchi at the base. GI: SOFT, NT, ND, no rebound or guarding Extremity: 1+ B/L LE edema. no clubbing. neuro: awake and alert, OX3. Psych: calm and pleasant rectal: deferred : normal EKG done February 11, 2019 suddenly reviewed and shows: Normal sinus rhythm. Anteroseptal infarct age undetermined. PVC Echocardiogram done February 11, [address] Kaminski shows: Severe global left ventricular systolic dysfunction. Tissue Doppler/Mitral Doppler indices are consistent with pseudonormalization with mildly elevated left atrial pressure (Stage II diastolic dysfunction). Chest x-ray done February 01, 2019 shows:Mild cardiomegaly with pulmonary vascular congestion. Labs Result Diagram: 02/12/19 0458 02/12/19 0458 Results 24hrs Laboratory Tests Test 02/11/19 16:28 02/11/19 17:33 02/11/19 21:28 02/11/19 22:27 Creatine Kinase 61 65 Creatine Kinase 1.6 1.6 Index Creatinine Kinase MB 0.96 1.06 (Mass) Troponin I < 0.012 < 0.012 Bedside Glucose 367 H 222 H Test 02/12/19 02:22 02/12/19 04:58 02/12/19 05:58 02/12/19 08:00 Bedside Glucose 247 H 291 H 308 H White Blood Count 7.1 # Red Blood Count 2.96 #L Hemoglobin 7.3 #L Hematocrit 23.7 #L Mean Corpuscular 80.1 L Volume Mean Corpuscular 24.7 L Hemoglobin Mean Corpuscular 30.8 L Hemoglobin Concent Red Cell 15.4 H Distribution Width Platelet Count 247 # Mean Platelet Volume 10.5 H Immature 0.300 Granulocytes % Neutrophils % 61.9 Lymphocytes % 28.5 Monocytes % 7.9 Eosinophils % 1.0 Basophils % 0.4 Nucleated Red Blood 0.0 Cells % Immature 0.020 Granulocytes # Neutrophils # 4.4 Lymphocytes # 2.0 Monocytes # 0.6 Eosinophils # 0.1 Basophils # 0.0 Nucleated Red Blood 0.0 Cells # Sodium Level 143 Potassium Level 4.2 Chloride Level 105 Carbon Dioxide Level 26 Anion Gap 12 Blood Urea Nitrogen 51 H Creatinine 1.86 H Est Glomerular Filtrat Rate mL/min Glucose Level 276 H Hemoglobin A1c 9.6 H Calcium Level 8.3 L Phosphorus Level 3.6 Magnesium Level 1.9 Triglycerides Level 203 H Cholesterol Level 159 LDL Cholesterol, 94 Calculated HDL Cholesterol 24 L Cholesterol/HDL 6.6 Ratio Thyroid Stimulating 1.540 Hormone (TSH) Test 02/12/19 11:46 Bedside Glucose 357 H Medications Medications Current Medications IV Flush (NS 3 ml) 3 ml PER PROTOCOL IV ; Start 02/11/19 at 13:00 Ondansetron HCl (Zofran Inj) 4 mg Q6H PRN IV NAUSEA/VOMITING; Start 02/11/19 at 13:00 Acetaminophen (Tylenol Tab) 650 mg Q6H PRN PO .PAIN 1-3 OR TEMP; Start 02/11/19 at 13:00 Acetaminophen/ Hydrocodone Bitart ([place] (5/325)) 1 tab Q6H PRN PO .MOD PAIN 4- 6; Start 02/11/19 at 13:00 Morphine Sulfate (morphine) 2 mg Q4H PRN IV .SEVERE PAIN 7-10; Start 02/11/19 at 13:00 Docusate Sodium (Colace) 100 mg Q12H PRN PO .CONSTIPATION; Start 02/11/19 at 13:00 Magnesium Hydroxide (Milk Of Mag) 30 ml DAILY PRN PO .CONSTIPATION; Start 02/11/19 at 13:00 Pantoprazole (Protonix Tab) 40 mg DAILY@06 PO Last administered on 02/12/19at 05:35; Admin Dose 40 MG; Start 02/12/19 at 06:00 Lorazepam (Ativan) 0.5 mg Q6H PRN IV ANXIETY; Start 02/11/19 at 13:00 Albuterol/ Ipratropium (Duoneb) 3 ml Q4H RESP THERAPY PRN HHN SHORTNESS OF BREATH; Start 02/11/19 at 13:00 Hydralazine HCl (Apresoline) 10 mg Q6H PRN IV ELEVATED BLOOD PRESSURE; Start 02/11/19 at 13:00 Nitroglycerin (Nitroglycerin (Sl Tab) 0.4 Mg) 1 tab Q5M PRN SL ANGINA; Start 02/11/19 at 13:00 Carvedilol (Coreg) 3.125 mg BID PO Last administered on 02/12/19at 08:47; Admin Dose 3.125 MG; Start 02/11/19 at 21:00 Insulin Glargine (Lantus) 15 units QHS SC Last administered on 02/11/19at 21:44; Admin Dose 15 UNITS; Start 02/11/19 at 21:00 Insulin Glargine (Lantus) 35 units QAM SC Last administered on 02/12/19at 14:31; Admin Dose 35 UNITS; Start 02/12/19 at 09:00 Tamsulosin HCl (Flomax) 0.4 mg HS PO Last administered on 02/11/19at 21:30; Admin Dose 0.4 MG; Start 02/11/19 at 21:00 Miscellaneous Information 1 ea NOTE XX ; Start 02/11/19 at 13:00 Glucose (Glutose) 15 gm Q15M PRN PO DECREASED GLUCOSE; Start 02/11/19 at 13:00 Glucose (Glutose) 22.5 gm Q15M PRN PO DECREASED GLUCOSE; Start 02/11/19 at 13:00 Dextrose (D50w Syringe) 25 ml Q15M PRN IV DECREASED GLUCOSE; Start 02/11/19 at 13:00 Dextrose (D50w Syringe) 50 ml Q15M PRN IV DECREASED GLUCOSE; Start 02/11/19 at 13:00 Glucagon (Glucagen) 1 mg Q15M PRN IM DECREASED GLUCOSE; Start 02/11/19 at 13:00 Glucose (Glutose) 15 gm Q15M PRN BUCCAL DECREASED GLUCOSE; Start 02/11/19 at 13:00 Diagnostic Test (Pha) (Accu-Chek) 1 ea 02 XX ; Start 02/12/19 at 02:00 Insulin Aspart (Novolog Insulin Pen) NOVOLOG *MILD* ALGORITHM WITH MEALS BEDTIME SC Last administered on 02/12/19at 11:52; Admin Dose 7 UNIT; Start 02/11/19 at 18:00 Insulin Aspart (Novolog Insulin Pen) 10 unit WITH MEALS BEDTIME SC Last administered on 02/12/19at 12:04; Admin Dose 10 UNIT; Start 02/11/19 at 18:00 Furosemide (Lasix) 40 mg BID DIURETICS IV ; Start 02/12/19 at 18:00 Losartan Potassium (Cozaar) 25 mg DAILY PO Last administered on 02/12/19at 14:05; Admin Dose 25 MG; Start 02/12/19 at 13:30 Aspirin (Halfprin) 81 mg DAILY PO ; Start 02/12/19 at 16:00; Status PARTH GOMEZ MD Feb 12, 2019 15:48
[2019-02-12] MEDS: ASPIRIN (EC) 81 MG TAB PO SCH (16:24)
[2019-02-12] MEDS: FUROSEMIDE 40 MG INJ IV SCH (17:49)
[2019-02-12] MEDS: TAMSULOSIN (SR) 0.4 MG CAP PO SCH (20:18)
[2019-02-13] VITALS (12 sets, daily range): BP systolic 96–119; BP diastolic 53–62; PULSE 81–109; RESP 16–20
[2019-02-13] MEDS ORDERED: SOD CHLORIDE 0.9% 500 ML IV ONE (01:00)
[2019-02-13] MEDS: ACCU-CHEK XX SCH (01:24)
[2019-02-13] MEDS: FUROSEMIDE 40 MG INJ IV SCH (05:45)
[2019-02-13] MEDS: PANTOPRAZOLE (EC) 40 MG TAB PO SCH (05:45)
[2019-02-13] MEDS: INSULIN ASPART [NOVOLOG] 3 ML PEN SC SCH ×8 (08:08→22:17)
[2019-02-13] MEDS: LOSARTAN 25 MG TAB PO SCH (08:47)
[2019-02-13] MEDS: ASPIRIN (EC) 81 MG TAB PO SCH (08:47)
[2019-02-13] MEDS: SPIRONOLACTONE 25 MG TAB PO SCH (08:53)
[2019-02-13] MEDS: INSULIN GLARGINE [LANTus] (100 UNITS/ML) SYG SC SCH ×2 (10:31→22:17)
--- NOTE | 2019-02-13 12:59 | CONS ---
Consult Date/Type/Reason Admit Date/Time Feb 11, 2019 at 13:21 Initial Consult Date 02/12/19 Type of Consultation: cv Requesting Provider: HUSSEIN SHUKLA MD Date/Time of Note DATE: 02/13/19 TIME: 12:57 Subjective Cardiology follow-up progress note Subjective: Discussed with the staff and telemetry was reviewed. Patient with no chest pain or pressure. At this point denies any more PND orthopnea feels much better Patient denies any active bleeding to me \ Objective: General: no acute distress HEENT: NC/AT. pupils are equal. round. NECK: . no stridor. CV: RRR. systolic murmur; no gallop or rubs. PULM: no wheezing, rhonchi at the base. GI: SOFT, NT, ND, no rebound or guarding Extremity: 1+ B/L LE edema. no clubbing. neuro: awake and alert, OX3. Psych: calm and pleasant rectal: deferred : normal EKG done February 11, 2019 suddenly reviewed and shows: Normal sinus rhythm. Anteroseptal infarct age undetermined. PVC Echocardiogram done February 11, [address] Kaminski shows: Severe global left ventricular systolic dysfunction. Tissue Doppler/Mitral Doppler indices are consistent with pseudonormalization with mildly elevated left atrial pressure (Stage II diastolic dysfunction). Chest x-ray done February 01, 2019 shows:Mild cardiomegaly with pulmonary vascular congestion. Objective Vitals Vital Signs Date Temp Pulse Resp B/P (MAP) Pulse Ox O2 O2 Flow FiO2 Time Delivery Rate 02/13/19 81 12:15 02/13/19 97.5 18 116/58 98 Nasal 11:34 (77) Cannula 02/13/19 2.0 08:00 02/11/19 27 20:11 Intake and Output 02/12/19 02/12/19 02/13/19 1515:00 23:00 07:00 IntakeIntake Total 250 ml 750 ml 740 ml OutputOutput Total 800 ml 500 ml BalanceBalance 250 ml -50 ml 240 ml Results/Medications Result Diagram: 02/13/19 0541 02/13/19 0541 Results 24 hrs Laboratory Tests Test 02/12/19 17:47 02/12/19 20:17 02/13/19 01:20 02/13/19 05:41 Bedside Glucose 292 H 193 97 White Blood Count 6.1 Red Blood Count 2.43 L Hemoglobin 5.9 *L Hematocrit 19.8 L Mean Corpuscular 81.5 L Volume Mean Corpuscular 24.3 L Hemoglobin Mean Corpuscular 29.8 L Hemoglobin Concent Red Cell 15.8 H Distribution Width Platelet Count 236 Mean Platelet Volume 11.0 H Immature 0.300 Granulocytes % Neutrophils % 62.2 Lymphocytes % 30.1 Monocytes % 6.2 Eosinophils % 1.0 Basophils % 0.2 Nucleated Red Blood 0.0 Cells % Immature 0.020 Granulocytes # Neutrophils # 3.8 Lymphocytes # 1.8 Monocytes # 0.4 Eosinophils # 0.1 Basophils # 0.0 Nucleated Red Blood 0.0 Cells # Sodium Level 144 Potassium Level 4.0 Chloride Level 105 Carbon Dioxide Level 27 Anion Gap 12 Blood Urea Nitrogen 66 H Creatinine 2.14 H Est Glomerular Filtrat Rate mL/min Glucose Level 142 # Calcium Level 8.4 Magnesium Level 1.9 Iron Level 25 L Total Iron Binding 284 Capacity Percent Iron 9 L Saturation Total Bilirubin 0.1 L Direct Bilirubin 0.00 Indirect Bilirubin 0.1 Aspartate Amino 15 Transf (AST/SGOT) Alanine 17 Aminotransferase (AL T/SGPT) Alkaline Phosphatase 64 Creatine Kinase 37 Creatine Kinase 2.0 Index Creatinine Kinase MB 0.74 (Mass) Troponin I < 0.012 B-Type Natriuretic 5330 H Peptide Total Protein 6.1 Albumin 3.1 L Globulin 3.00 Albumin/Globulin 1.03 Ratio Thyroid Stimulating 2.670 Hormone (TSH) Free Thyroxine 1.24 Test 02/13/19 08:06 Bedside Glucose 250 H Home Meds Reported Medications Carvedilol* (Coreg*) 6.25 Mg Tablet, 6.25 MG PO BID, #60 TAB 02/11/19 Losartan Potassium* (Cozaar*) 50 Mg Tablet, 50 MG PO DAILY, #30 TAB 02/11/19 Tamsulosin Hcl* (Tamsulosin Hcl*) 0.4 Mg Cap.er.24h, 0.4 MG PO HS, CAP 02/11/19 Metformin Hcl* (Metformin Hcl*) 500 Mg Tablet, 500 MG PO WITH BREAKFAST DINNE, #60 TAB 02/11/19 Insulin Lispro (Humalog Kwikpen U-100) 100 Unit/1 Ml Insuln.pen, 10 UNIT SQ AC E, EA 3/17/19 Insulin Glargine* (Lantus*) 100 Unit/Ml Soln, 15-20 UNIT SC QHS, #1 VIAL 02/11/19 Insulin Glargine* (Lantus*) 100 Unit/Ml Soln, 35 UNIT SC QAM, #1 VIAL 02/11/19 Discontinued Reported Medications Olmesartan Medoxomil (Benicar) Unknown Strength Tablet, PO DAILY, #30 TAB 10/05/18 Tamsulosin Hcl* (Flomax*) 0.4 Mg Cap.er.24h, 0.4 MG PO HS, CAP 10/05/18 Metformin* (Glucophage*) 500 Mg Tab, 500 MG PO WITH BREAKFAST DINNE, #30 TAB 10/05/18 Insulin Glargine* (Lantus*) Unknown Strength Soln, SC QHS, #1 VIAL 10/05/18 Insulin Lispro (Humalog Kwikpen U-100) Unknown Strength Insuln.pen, SQ, EA 10/05/18 Sitagliptin Phos/Metformin HCl (Janumet 50-500 mg Tablet) Unknown Strength Tablet, PO, TAB 10/05/18 Medications Current Medications IV Flush (NS 3 ml) 3 ml PER PROTOCOL IV ; Start 02/11/19 at 13:00 Ondansetron HCl (Zofran Inj) 4 mg Q6H PRN IV NAUSEA/VOMITING; Start 02/11/19 at 13:00 Acetaminophen (Tylenol Tab) 650 mg Q6H PRN PO .PAIN 1-3 OR TEMP; Start 02/11/19 at 13:00 Acetaminophen/ Hydrocodone Bitart ([place] (5/325)) 1 tab Q6H PRN PO .MOD PAIN 4- 6; Start 02/11/19 at 13:00 Morphine Sulfate (morphine) 2 mg Q4H PRN IV .SEVERE PAIN 7-10; Start 02/11/19 at 13:00 Docusate Sodium (Colace) 100 mg Q12H PRN PO .CONSTIPATION; Start 02/11/19 at 13:00 Magnesium Hydroxide (Milk Of Mag) 30 ml DAILY PRN PO .CONSTIPATION; Start 02/11/19 at 13:00 Pantoprazole (Protonix Tab) 40 mg DAILY@06 PO Last administered on 02/13/19at 05:45; Admin Dose 40 MG; Start 02/12/19 at 06:00 Lorazepam (Ativan) 0.5 mg Q6H PRN IV ANXIETY; Start 02/11/19 at 13:00 Albuterol/ Ipratropium (Duoneb) 3 ml Q4H RESP THERAPY PRN HHN SHORTNESS OF BREATH; Start 02/11/19 at 13:00 Hydralazine HCl (Apresoline) 10 mg Q6H PRN IV ELEVATED BLOOD PRESSURE; Start 02/11/19 at 13:00 Nitroglycerin (Nitroglycerin (Sl Tab) 0.4 Mg) 1 tab Q5M PRN SL ANGINA; Start 02/11/19 at 13:00 Carvedilol (Coreg) 3.125 mg BID PO Last administered on 02/13/19at 08:48; Admin Dose 3.125 MG; Start 02/11/19 at 21:00 Insulin Glargine (Lantus) 15 units QHS SC Last administered on 02/12/19at 22:07; Admin Dose 15 UNITS; Start 02/11/19 at 21:00 Insulin Glargine (Lantus) 35 units QAM SC Last administered on 02/13/19at 10:31; Admin Dose 35 UNITS; Start 02/12/19 at 09:00 Tamsulosin HCl (Flomax) 0.4 mg HS PO Last administered on 02/12/19at 20:18; Admin Dose 0.4 MG; Start 02/11/19 at 21:00 Miscellaneous Information 1 ea NOTE XX ; Start 02/11/19 at 13:00 Glucose (Glutose) 15 gm Q15M PRN PO DECREASED GLUCOSE; Start 02/11/19 at 13:00 Glucose (Glutose) 22.5 gm Q15M PRN PO DECREASED GLUCOSE; Start 02/11/19 at 13:00 Dextrose (D50w Syringe) 25 ml Q15M PRN IV DECREASED GLUCOSE; Start 02/11/19 at 13:00 Dextrose (D50w Syringe) 50 ml Q15M PRN IV DECREASED GLUCOSE; Start 02/11/19 at 13:00 Glucagon (Glucagen) 1 mg Q15M PRN IM DECREASED GLUCOSE; Start 02/11/19 at 13:00 Glucose (Glutose) 15 gm Q15M PRN BUCCAL DECREASED GLUCOSE; Start 02/11/19 at 13:00 Diagnostic Test (Pha) (Accu-Chek) 1 ea 02 XX Last administered on 02/13/19 01:24; Admin Dose 1 EA; Start 02/12/19 at 02:00 Insulin Aspart (Novolog Insulin Pen) NOVOLOG *MILD* ALGORITHM WITH MEALS BEDTIME SC Last administered on 02/13/19 08:08; Admin Dose 3 UNIT; Start 02/11/19 at 18:00 Insulin Aspart (Novolog Insulin Pen) 10 unit WITH MEALS BEDTIME SC Last admini stered on 02/13/19 08:09; Admin Dose 10 UNIT; Start 02/11/19 at 18:00 Furosemide (Lasix) 40 mg BID DIURETICS IV Last administered on 02/13/19 05:45; Admin Dose 40 MG; Start 02/12/19 at 18:00 Losartan Potassium (Cozaar) 25 mg DAILY PO Last administered on 02/13/19 08:47; Admin Dose 25 MG; Start 02/12/19 at 13:30 Aspirin (Halfprin) 81 mg DAILY PO Last administered on 02/13/19 08:47; Admin Dose 81 MG; Start 02/12/19 at 16:00 Spironolactone (Aldactone) 25 mg DAILY PO Last administered on 02/13/19 08:53; Admin Dose 25 MG; Start 02/13/19 at 09:00 Assessment/Plan Hospital Course (Demo Recall) 1. Congestive heart failure: Acute secondary systolic heart failure 2. 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 Diabetes 4. Hypertension 5. 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 Abnormal EKG consistent with prior MIs 7. Rule out dyslipidemia 8. Dyspnea due to above 9. Renal failure 10. Severe and worsening anemia Commendations: We will hold aspirin given his worsening anemia Continue with Coreg will hold losartan and dec Lasix qd only . cont Aldactone \will hold off on ischemic work up until anemia has resolved. Consider renal consultation as well Thank you for his referral. We will continue to follow along with you PAR[facility] MERCER MD [facility] PARTH MERCER MD Feb 13, 2019 12:59
--- NOTE | 2019-02-13 14:13 | PN ---
Date/Time of Note Date/Time of Note DATE: 02/13/19 TIME: 14:01 Assessment/Plan VTE Prophylaxis Risk score (from [facility] [place]0 risk: 4 SCD applied (from [facility] [place]): Yes Pharmacological prophylaxis: other Pharm contraindication: other Lines/Catheters IV Catheter Type (from [facility] [place] Lock Urinary Cath still in place: No Assessment/Plan Assessment/Plan 1. CHF, systolic, acute on chronic, lasix, coreg, losartan, aldactone 2. Dilated cardiomyopathy, ?etiology, TSH, cardiology consultation 3. HTN, controlled 4. DM, on insulin, decrease evening lantus 5. History of likely prostate cancer with TURP in the past. Continue Flomax. Monitor for now.\ 6. Acute renal failure, US 7. Iron deficiency anemia, chronic, s/p 1 unti PRBC on 02/13/2019, GI consult Result Diagram: 02/13/19 0541 02/13/19 0541 Results 24hrs Laboratory Tests Test 02/12/19 17:47 02/12/19 20:17 02/13/19 01:20 02/13/19 05:41 Bedside Glucose 292 H 193 97 White Blood Count 6.1 Red Blood Count 2.43 L Hemoglobin 5.9 *L Hematocrit 19.8 L Mean Corpuscular 81.5 L Volume Mean Corpuscular 24.3 L Hemoglobin Mean Corpuscular 29.8 L Hemoglobin Concent Red Cell 15.8 H Distribution Width Platelet Count 236 Mean Platelet Volume 11.0 H Immature 0.300 Granulocytes % Neutrophils % 62.2 Lymphocytes % 30.1 Monocytes % 6.2 Eosinophils % 1.0 Basophils % 0.2 Nucleated Red Blood 0.0 Cells % Immature 0.020 Granulocytes # Neutrophils # 3.8 Lymphocytes # 1.8 Monocytes # 0.4 Eosinophils # 0.1 Basophils # 0.0 Nucleated Red Blood 0.0 Cells # Sodium Level 144 Potassium Level 4.0 Chloride Level 105 Carbon Dioxide Level 27 Anion Gap 12 Blood Urea Nitrogen 66 H Creatinine 2.14 H Est Glomerular Filtrat Rate mL/min Glucose Level 142 # Calcium Level 8.4 Magnesium Level 1.9 Iron Level 25 L Total Iron Binding 284 Capacity Percent Iron 9 L Saturation Total Bilirubin 0.1 L Direct Bilirubin 0.00 Indirect Bilirubin 0.1 Aspartate Amino 15 Transf (AST/SGOT) Alanine 17 Aminotransferase (AL T/SGPT) Alkaline Phosphatase 64 Creatine Kinase 37 Creatine Kinase 2.0 Index Creatinine Kinase MB 0.74 (Mass) Troponin I < 0.012 B-Type Natriuretic 5330 H Peptide Total Protein 6.1 Albumin 3.1 L Globulin 3.00 Albumin/Globulin 1.03 Ratio Thyroid Stimulating 2.670 Hormone (TSH) Free Thyroxine 1.24 Test 02/13/19 08:06 02/13/19 12:55 Bedside Glucose 250 H 111 Subjective 24 Hr Interval Summary Free Text/Dictation less shortness of breath. no black or bloody stool Exam/Review of Systems Exam Vitals Vital Signs Date Temp Pulse Resp B/P (MAP) Pulse Ox O2 O2 Flow FiO2 Time Delivery Rate 02/13/19 81 12:15 02/13/19 97.5 18 116/58 98 Nasal 11:34 (77) Cannula 02/13/19 2.0 08:00 02/11/19 27 20:11 Intake and Output 02/12/19 02/12/19 02/13/19 1515:00 23:00 07:00 IntakeIntake Total 250 ml 750 ml 740 ml OutputOutput Total 800 ml 500 ml BalanceBalance 250 ml -50 ml 240 ml Constitutional: alert, oriented, well developed Psych: no complaints, nl mood/affect Head: normocephalic, atraumatic Eyes: nl conjunctiva, EOMI, nl lids, PERRL ENMT: nl external ears & nose, nl lips & teeth, nl nasal mucosa & septum Neck: supple, non-tender Respiratory: clear to auscultation, normal air movement; No congested cough, No crackles/rales, No diminished breath sounds, No intercostal retraction, No labored breathing, No respirations, No tactile fremitus, No wheezing, No other Cardiovascular: regular rate and rhythm, nl pulses; No bruits, No diastolic murmur, No edema, No gallop, No irregular rhythm, No jugular venous distention (JVD), No murmurs/extra sounds, No rub, No systolic murmur, No S3, No S4, No other Gastrointestinal: soft, nl liver, spleen Musculoskeletal: nl extremities to inspection Extremities: normal pulses; No calf tenderness, No cyanosis, No clubbing, No edema, No pitting pedal edema, No palpable cord, No tenderness, No other Neurological: LEATHER REPAIRER II-XII intact, nl mental status, nl speech, nl strength Results Results 24hrs Laboratory Tests Test 02/12/19 17:47 02/12/19 20:17 02/13/19 01:20 02/13/19 05:41 Bedside Glucose 292 H 193 97 White Blood Count 6.1 Red Blood Count 2.43 L Hemoglobin 5.9 *L Hematocrit 19.8 L Mean Corpuscular 81.5 L Volume Mean Corpuscular 24.3 L Hemoglobin Mean Corpuscular 29.8 L Hemoglobin Concent Red Cell 15.8 H Distribution Width Platelet Count 236 Mean Platelet Volume 11.0 H Immature 0.300 Granulocytes % Neutrophils % 62.2 Lymphocytes % 30.1 Monocytes % 6.2 Eosinophils % 1.0 Basophils % 0.2 Nucleated Red Blood 0.0 Cells % Immature 0.020 Granulocytes # Neutrophils # 3.8 Lymphocytes # 1.8 Monocytes # 0.4 Eosinophils # 0.1 Basophils # 0.0 Nucleated Red Blood 0.0 Cells # Sodium Level 144 Potassium Level 4.0 Chloride Level 105 Carbon Dioxide Level 27 Anion Gap 12 Blood Urea Nitrogen 66 H Creatinine 2.14 H Est Glomerular Filtrat Rate mL/min Glucose Level 142 # Calcium Level 8.4 Magnesium Level 1.9 Iron Level 25 L Total Iron Binding 284 Capacity Percent Iron 9 L Saturation Total Bilirubin 0.1 L Direct Bilirubin 0.00 Indirect Bilirubin 0.1 Aspartate Amino 15 Transf (AST/SGOT) Alanine 17 Aminotransferase (AL T/SGPT) Alkaline Phosphatase 64 Creatine Kinase 37 Creatine Kinase 2.0 Index Creatinine Kinase MB 0.74 (Mass) Troponin I < 0.012 B-Type Natriuretic 5330 H Peptide Total Protein 6.1 Albumin 3.1 L Globulin 3.00 Albumin/Globulin 1.03 Ratio Thyroid Stimulating 2.670 Hormone (TSH) Free Thyroxine 1.24 Test 02/13/19 08:06 02/13/19 12:55 Bedside Glucose 250 H 111 Medications Medication Current Medications IV Flush (NS 3 ml) 3 ml PER PROTOCOL IV ; Start 02/11/19 at 13:00 Ondansetron HCl (Zofran Inj) 4 mg Q6H PRN IV NAUSEA/VOMITING; Start 02/11/19 at 13:00 Acetaminophen (Tylenol Tab) 650 mg Q6H PRN PO .PAIN 1-3 OR TEMP; Start 02/11/19 at 13:00 Acetaminophen/ Hydrocodone Bitart ([place] (5/325)) 1 tab Q6H PRN PO .MOD PAIN 4- 6; Start 02/11/19 at 13:00 Morphine Sulfate (morphine) 2 mg Q4H PRN IV .SEVERE PAIN 7-10; Start 02/11/19 at 13:00 Docusate Sodium (Colace) 100 mg Q12H PRN PO .CONSTIPATION; Start 02/11/19 at 13:00 Magnesium Hydroxide (Milk Of Mag) 30 ml DAILY PRN PO .CONSTIPATION; Start 02/11/19 at 13:00 Pantoprazole (Protonix Tab) 40 mg DAILY@06 PO Last administered on 02/13/19at 05:45; Admin Dose 40 MG; Start 02/12/19 at 06:00 Lorazepam (Ativan) 0.5 mg Q6H PRN IV ANXIETY; Start 02/11/19 at 13:00 Albuterol/ Ipratropium (Duoneb) 3 ml Q4H RESP THERAPY PRN HHN SHORTNESS OF BREATH; Start 02/11/19 at 13:00 Hydralazine HCl (Apresoline) 10 mg Q6H PRN IV ELEVATED BLOOD PRESSURE; Start 02/11/19 at 13:00 Nitroglycerin (Nitroglycerin (Sl Tab) 0.4 Mg) 1 tab Q5M PRN SL ANGINA; Start 02/11/19 at 13:00 Carvedilol (Coreg) 3.125 mg BID PO Last administered on 02/13/19at 08:48; Admin Dose 3.125 MG; Start 02/11/19 at 21:00 Insulin Glargine (Lantus) 15 units QHS SC Last administered on 02/12/19at 22:07; Admin Dose 15 UNITS; Start 02/11/19 at 21:00 Insulin Glargine (Lantus) 35 units QAM SC Last administered on 02/13/19at 10:31; Admin Dose 35 UNITS; Start 02/12/19 at 09:00 Tamsulosin HCl (Flomax) 0.4 mg HS PO Last administered on 02/12/19at 20:18; Admin Dose 0.4 MG; Start 02/11/19 at 21:00 Miscellaneous Information 1 ea NOTE XX ; Start 02/11/19 at 13:00 Glucose (Glutose) 15 gm Q15M PRN PO DECREASED GLUCOSE; Start 02/11/19 at 13:00 Glucose (Glutose) 22.5 gm Q15M PRN PO DECREASED GLUCOSE; Start 02/11/19 at 13:00 Dextrose (D50w Syringe) 25 ml Q15M PRN IV DECREASED GLUCOSE; Start 02/11/19 at 13:00 Dextrose (D50w Syringe) 50 ml Q15M PRN IV DECREASED GLUCOSE; Start 02/11/19 at 13:00 Glucagon (Glucagen) 1 mg Q15M PRN IM DECREASED GLUCOSE; Start 02/11/19 at 13:00 Glucose (Glutose) 15 gm Q15M PRN BUCCAL DECREASED GLUCOSE; Start 02/11/19 at 13:00 Diagnostic Test (Pha) (Accu-Chek) 1 ea 02 XX Last administered on 02/13/19at 01:24; Admin Dose 1 EA; Start 02/12/19 at 02:00 Insulin Aspart (Novolog Insulin Pen) NOVOLOG *MILD* ALGORITHM WITH MEALS BEDTIME SC Last administered on 02/13/19 08:08; Admin Dose 3 UNIT; Start 02/11/19 at 18:00 Insulin Aspart (Novolog Insulin Pen) 10 unit WITH MEALS BEDTIME SC Last administered on 02/13/19 08:09; Admin Dose 10 UNIT; Start 02/11/19 at 18:00 Losartan Potassium (Cozaar) 25 mg DAILY PO Last administered on 02/13/19 08:47; Admin Dose 25 MG; Start 02/12/19 at 13:30 Aspirin (Halfprin) 81 mg DAILY PO Last administered on 02/13/19 08:47; Admin Dose 81 MG; Start 02/12/19 at 16:00; Status Hold Spironolactone (Aldactone) 25 mg DAILY PO Last administered on 02/13/19 08:53; Admin Dose 25 MG; Start 02/13/19 at 09:00 Furosemide (Lasix) 40 mg DAILY IV ; Start 02/14/19 at 09:00 HUSSEIN SHUKLA MD Feb 13, 2019 14:12
--- NOTE | 2019-02-13 14:48 | CONS ---
Assessment/Plan Assessment/Plan Hospital Course (Demo Recall) Summary Assessment and Plan: Assessment: Microcytic anemia-likely multifactorial Congestive heart failure: Acute secondary systolic heart failure Cardiomyopathy EF 25-30% CHF, systolic HTN DM Renal insufficiency Plan: Stool for OB Monitor h/h, transfuse as needed Patient declines EGD/colonoscopy Patient seen in collaboration with Dr. Layne CC: MATIAS LAYNE MD ; Consultation Date/Type/Reason Admit Date/Time Feb 11, 2019 at 13:21 Date of Consultation: Feb 13, 2019 Type of Consult GI Reason for Consultation Microcytic anemia Date/Time of Note DATE: 02/13/19 TIME: 14:38 Hx of Present Illness This is a 78-year-old male (according to records patient actually reports that he is 78 years old documentations were changed when he went to [place] as a child) past medical history of type 2 diabetes, hypertension who presented to the hospital with complaints of shortness of breath workup revealed patient with CHF and cardiomyopathy additionally patient has renal insufficiency during hospitalization patient with hemoglobin trending down today was five-point 9 GI has been consulted for further evaluation. At time evaluation patient denies overt signs of GI bleed including hematemesis, melena, hematochezia confirmed with nursing staff who also denies overt signs of GI bleed he additionally denies nausea/vomiting, abdominal pain, diarrhea. Family at bedside to help translate. Discussed possibility for endoscopic evaluation to r/o GI source for anemia. Pt will decline at this time. However if overt signs of GI bleed occur. pt will consider endoscopies. Currently we will just order stool for OB. Review of Systems: A 12 system, review was conducted and is negative except as noted in the HPI or here. Past Medical History Home Meds Reported Medications Carvedilol* (Coreg*) 6.25 Mg Tablet, 6.25 MG PO BID, #60 TAB 02/11/19 Losartan Potassium* (Cozaar*) 50 Mg Tablet, 50 MG PO DAILY, #30 TAB 02/11/19 Tamsulosin Hcl* (Tamsulosin Hcl*) 0.4 Mg Cap.er.24h, 0.4 MG PO HS, CAP 02/11/19 Metformin Hcl* (Metformin Hcl*) 500 Mg Tablet, 500 MG PO WITH BREAKFAST DINNE, #60 TAB 02/11/19 Insulin Lispro (Humalog Kwikpen U-100) 100 Unit/1 Ml Insuln.pen, 10 UNIT SQ AC E, EA 02/11/19 Insulin Glargine* (Lantus*) 100 Unit/Ml Soln, 15-20 UNIT SC QHS, #1 VIAL 02/11/19 Insulin Glargine* (Lantus*) 100 Unit/Ml Soln, 35 UNIT SC QAM, #1 VIAL 02/11/19 Discontinued Reported Medications Olmesartan Medoxomil (Benicar) Unknown Strength Tablet, PO DAILY, #30 TAB 10/05/18 Tamsulosin Hcl* (Flomax*) 0.4 Mg Cap.er.24h, 0.4 MG PO HS, CAP 10/05/18 Metformin* (Glucophage*) 500 Mg Tab, 500 MG PO WITH BREAKFAST DINNE, #30 TAB 10/05/18 Insulin Glargine* (Lantus*) Unknown Strength Soln, SC QHS, #1 VIAL 10/05/18 Insulin Lispro (Humalog Kwikpen U-100) Unknown Strength Insuln.pen, SQ, EA 10/05/18 Sitagliptin Phos/Metformin HCl (Janumet 50-500 mg Tablet) Unknown Strength Tablet, PO, TAB 10/05/18 Medications Current Medications IV Flush (NS 3 ml) 3 ml PER PROTOCOL IV ; Start 02/11/19 at 13:00 Ondansetron HCl (Zofran Inj) 4 mg Q6H PRN IV NAUSEA/VOMITING; Start 02/11/19 at 13:00 Acetaminophen (Tylenol Tab) 650 mg Q6H PRN PO .PAIN 1-3 OR TEMP; Start 02/11/19 at 13:00 Acetaminophen/ Hydrocodone Bitart (Buhl (5/325)) 1 tab Q6H PRN PO .MOD PAIN 4- 6; Start 02/11/19 at 13:00 Morphine Sulfate (morphine) 2 mg Q4H PRN IV .SEVERE PAIN 7-10; Start 02/11/19 at 13:00 Docusate Sodium (Colace) 100 mg Q12H PRN PO .CONSTIPATION; Start 02/11/19 at 13:00 Magnesium Hydroxide (Milk Of Mag) 30 ml DAILY PRN PO .CONSTIPATION; Start 02/11/19 at 13:00 Pantoprazole (Protonix Tab) 40 mg DAILY@06 PO Last administered on 02/13/19at 05:45; Admin Dose 40 MG; Start 02/12/19 at 06:00 Lorazepam (Ativan) 0.5 mg Q6H PRN IV ANXIETY; Start 02/11/19 at 13:00 Albuterol/ Ipratropium (Duoneb) 3 ml Q4H RESP THERAPY PRN HHN SHORTNESS OF B REATH; Start 02/11/19 at 13:00 Hydralazine HCl (Apresoline) 10 mg Q6H PRN IV ELEVATED BLOOD PRESSURE; Start 02/11/19 at 13:00 Nitroglycerin (Nitroglycerin (Sl Tab) 0.4 Mg) 1 tab Q5M PRN SL ANGINA; Start 02/11/19 at 13:00 Carvedilol (Coreg) 3.125 mg BID PO Last administered on 02/13/19at 08:48; Admin Dose 3.125 MG; Start 02/11/19 at 21:00 Insulin Glargine (Lantus) 35 units QAM SC Last administered on 02/13/19at 10:31; Admin Dose 35 UNITS; Start 02/12/19 at 09:00 Tamsulosin HCl (Flomax) 0.4 mg HS PO Last administered on 02/12/19at 20:18; Admin Dose 0.4 MG; Start 02/11/19 at 21:00 Miscellaneous Information 1 ea NOTE XX ; Start 02/11/19 at 13:00 Glucose (Glutose) 15 gm Q15M PRN PO DECREASED GLUCOSE; Start 02/11/19 at 13:00 Glucose (Glutose) 22.5 gm Q15M PRN PO DECREASED GLUCOSE; Start 02/11/19 at 13:00 Dextrose (D50w Syringe) 25 ml Q15M PRN IV DECREASED GLUCOSE; Start 02/11/19 at 13:00 Dextrose (D50w Syringe) 50 ml Q15M PRN IV DECREASED GLUCOSE; Start 02/11/19 at 13:00 Glucagon (Glucagen) 1 mg Q15M PRN IM DECREASED GLUCOSE; Start 02/11/19 at 13:00 Glucose (Glutose) 15 gm Q15M PRN BUCCAL DECREASED GLUCOSE; Start 02/11/19 at 13:00 Diagnostic Test (Pha) (Accu-Chek) 1 ea 02 XX Last administered on 02/13/19at 01:24; Admin Dose 1 EA; Start 02/12/19 at 02:00 Insulin Aspart (Novolog Insulin Pen) NOVOLOG *MILD* ALGORITHM WITH MEALS BEDTIME SC Last administered on 02/13/19at 08:08; Admin Dose 3 UNIT; Start 02/11/19 at 18:00 Insulin Aspart (Novolog Insulin Pen) 10 unit WITH MEALS BEDTIME SC Last administered on 02/13/19at 14:00; Admin Dose 10 UNIT; Start 02/11/19 at 18:00 Losartan Potassium (Cozaar) 25 mg DAILY PO Last administered on 02/13/19 08:47; Admin Dose 25 MG; Start 02/12/19 at 13:30 Aspirin (Halfprin) 81 mg DAILY PO Last administered on 02/13/19 08:47; Admin Dose 81 MG; Start 02/12/19 at 16:00; Status Hold Spironolactone (Aldactone) 25 mg DAILY PO Last administered on 02/13/19 08:53; Admin Dose 25 MG; Start 02/13/19 at 09:00 Furosemide (Lasix) 40 mg DAILY IV ; Start 02/14/19 at 09:00 Insulin Glargine (Lantus) 10 units QHS SC ; Start 02/13/19 at 21:00 Allergies: Coded Allergies: No Known Allergy (Unverified , 02/11/19) Past Surgical History Past Surgical Hx: other Social History Smoking Status: Never smoker Exam/Review of Systems Exam Vitals Vital Signs Date Temp Pulse Resp B/P (MAP) Pulse Ox O2 O2 Flow FiO2 Time Delivery Rate 02/13/19 81 12:15 02/13/19 97.5 18 116/58 98 Nasal 11:34 (77) Cannula 02/13/19 2.0 08:00 02/11/19 27 20:11 Intake and Output 02/12/19 02/12/19 02/13/19 1515:00 23:00 07:00 IntakeIntake Total 250 ml 750 ml 740 ml OutputOutput Total 800 ml 500 ml BalanceBalance 250 ml -50 ml 240 ml Exam PHYSICAL EXAMINATION: GENERAL: Well developed, well nourished, alert & oriented x 3, O2 in place SKIN: No lesions HEAD: Normocephalic, atraumatic, no tenderness. EYES: Pupils equal reactive to light, no discharge. EARS/NOSE AND THROAT: Ears normal, nose normal NECK: Supple, no masses CHEST: Inspection within normal limits. CARDIOVASCULAR: Heart: Regular rate and rhythm RESPIRATORY: Lungs clear to auscultation s GASTROINTESTINAL AND LIVER: Abdomen: Soft, non tenderness, mildly distended, no hernias, no masses, no organomegaly, no ascites, no guarding, no rebound tenderness, normoactive bowel sounds. Rectal: Deferred. EXTREMITIES: No cyanosis, clubbing or edema. Results Result Diagram: 02/13/19 0541 02/13/19 0541 Results 24hrs Laboratory Tests Test 02/12/19 17:47 02/12/19 20:17 02/13/19 01:20 02/13/19 05:41 Bedside Glucose 292 H 193 97 White Blood Count 6.1 Red Blood Count 2.43 L Hemoglobin 5.9 *L Hematocrit 19.8 L Mean Corpuscular 81.5 L Volume Mean Corpuscular 24.3 L Hemoglobin Mean Corpuscular 29.8 L Hemoglobin Concent Red Cell 15.8 H Distribution Width Platelet Count 236 Mean Platelet Volume 11.0 H Immature 0.300 Granulocytes % Neutrophils % 62.2 Lymphocytes % 30.1 Monocytes % 6.2 Eosinophils % 1.0 Basophils % 0.2 Nucleated Red Blood 0.0 Cells % Immature 0.020 Granulocytes # Neutrophils # 3.8 Lymphocytes # 1.8 Monocytes # 0.4 Eosinophils # 0.1 Basophils # 0.0 Nucleated Red Blood 0.0 Cells # Sodium Level 144 Potassium Level 4.0 Chloride Level 105 Carbon Dioxide Level 27 Anion Gap 12 Blood Urea Nitrogen 66 H Creatinine 2.14 H Est Glomerular Filtrat Rate mL/min Glucose Level 142 # Calcium Level 8.4 Magnesium Level 1.9 Iron Level 25 L Total Iron Binding 284 Capacity Percent Iron 9 L Saturation Total Bilirubin 0.1 L Direct Bilirubin 0.00 Indirect Bilirubin 0.1 Aspartate Amino 15 Transf (AST/SGOT) Alanine 17 Aminotransferase (AL T/SGPT) Alkaline Phosphatase 64 Creatine Kinase 37 Creatine Kinase 2.0 Index Creatinine Kinase MB 0.74 (Mass) Troponin I < 0.012 B-Type Natriuretic 5330 H Peptide Total Protein 6.1 Albumin 3.1 L Globulin 3.00 Albumin/Globulin 1.03 Ratio Thyroid Stimulating 2.670 Hormone (TSH) Free Thyroxine 1.24 Test 02/13/19 08:06 02/13/19 12:55 02/13/19 13:56 02/13/19 14:31 Bedside Glucose 250 H 111 234 H White Blood Count Pending Red Blood Count Pending Hemoglobin Pending Hematocrit Pending Mean Corpuscular Pending Volume Mean Corpuscular Pending Hemoglobin Mean Corpuscular Pending Hemoglobin Concent Red Cell Pending Distribution Width Platelet Count Pending Mean Platelet Volume Pending Medications Medication Current Medications IV Flush (NS 3 ml) 3 ml PER PROTOCOL IV ; Start 02/11/19 at 13:00 Ondansetron HCl (Zofran Inj) 4 mg Q6H PRN IV NAUSEA/VOMITING; Start 02/11/19 at 13:00 Acetaminophen (Tylenol Tab) 650 mg Q6H PRN PO .PAIN 1-3 OR TEMP; Start 02/11/19 at 13:00 Acetaminophen/ Hydrocodone Bitart (Buhl (5/325)) 1 tab Q6H PRN PO .MOD PAIN 4- 6; Start 02/11/19 at 13:00 Morphine Sulfate (morphine) 2 mg Q4H PRN IV .SEVERE PAIN 7-10; Start 02/11/19 at 13:00 Docusate Sodium (Colace) 100 mg Q12H PRN PO .CONSTIPATION; Start 02/11/19 at 13:00 Magnesium Hydroxide (Milk Of Mag) 30 ml DAILY PRN PO .CONSTIPATION; Start 02/11/19 at 13:00 Pantoprazole (Protonix Tab) 40 mg DAILY@06 PO Last administered on 02/13/19at 05:45; Admin Dose 40 MG; Start 02/12/19 at 06:00 Lorazepam (Ativan) 0.5 mg Q6H PRN IV ANXIETY; Start 02/11/19 at 13:00 Albuterol/ Ipratropium (Duoneb) 3 ml Q4H RESP THERAPY PRN HHN SHORTNESS OF BREATH; Start 02/11/19 at 13:00 Hydralazine HCl (Apresoline) 10 mg Q6H PRN IV ELEVATED BLOOD PRESSURE; Start 02/11/19 at 13:00 Nitroglycerin (Nitroglycerin (Sl Tab) 0.4 Mg) 1 tab Q5M PRN SL ANGINA; Start 02/11/19 at 13:00 Carvedilol (Coreg) 3.125 mg BID PO Last administered on 02/13/19at 08:48; Admin Dose 3.125 MG; Start 02/11/19 at 21:00 Insulin Glargine (Lantus) 35 units QAM SC Last administered on 02/13/19at 10:31; Admin Dose 35 UNITS; Start 02/12/19 at 09:00 Tamsulosin HCl (Flomax) 0.4 mg HS PO Last administered on 02/12/19at 20:18; Admin Dose 0.4 MG; Start 02/11/19 at 21:00 Miscellaneous Information 1 ea NOTE XX ; Start 02/11/19 at 13:00 Glucose (Glutose) 15 gm Q15M PRN PO DECREASED GLUCOSE; Start 02/11/19 at 13:00 Glucose (Glutose) 22.5 gm Q15M PRN PO DECREASED GLUCOSE; Start 02/11/19 at 13:00 Dextrose (D50w Syringe) 25 ml Q15M PRN IV DECREASED GLUCOSE; Start 02/11/19 at 13:00 Dextrose (D50w Syringe) 50 ml Q15M PRN IV DECREASED GLUCOSE; Start 02/11/19 at 13:00 Glucagon (Glucagen) 1 mg Q15M PRN IM DECREASED GLUCOSE; Start 02/11/19 at 13:00 Glucose (Glutose) 15 gm Q15M PRN BUCCAL DECREASED GLUCOSE; Start 02/11/19 at 13:00 Diagnostic Test (Pha) (Accu-Chek) 1 ea 02 XX Last administered on 02/13/19at 0 1:24; Admin Dose 1 EA; Start 02/12/19 at 02:00 Insulin Aspart (Novolog Insulin Pen) NOVOLOG *MILD* ALGORITHM WITH MEALS BEDTIME SC Last administered on 02/13/19at 08:08; Admin Dose 3 UNIT; Start 01/26 06/15 at 18:00 Insulin Aspart (Novolog Insulin Pen) 10 unit WITH MEALS BEDTIME SC Last administered on 02/13/19at 14:00; Admin Dose 10 UNIT; Start 02/11/19 at 18:00 Losartan Potassium (Cozaar) 25 mg DAILY PO Last administered on 02/13/19at 08:47; Admin Dose 25 MG; Start 02/12/19 at 13:30 Aspirin (Halfprin) 81 mg DAILY PO Last administered on 02/13/19at 08:47; Admin Dose 81 MG; Start 02/12/19 at 16:00; Status Hold Spironolactone (Aldactone) 25 mg DAILY PO Last administered on 02/13/19at 08:53; Admin Dose 25 MG; Start 02/13/19 at 09:00 Furosemide (Lasix) 40 mg DAILY IV ; Start 02/14/19 at 09:00 Insulin Glargine (Lantus) 10 units QHS SC ; Start 02/13/19 at 21:00 FLACA ANTONY Feb 13, 2019 14:48
[2019-02-13] MEDS: POLYETHYLENE GLYCOL 17 GM PACKET NGT SCH (16:17)
--- NOTE | 2019-02-13 19:41 | CONS ---
DATE OF ADMISSION: 02/11/2019 DATE OF CONSULTATION: TYPE OF CONSULTATION: Nephrology. REASON FOR CONSULTATION: Acute kidney injury. PHYSICIAN REQUESTING CONSULT: Franklin Shukla MD HISTORY OF PRESENT ILLNESS: This is an 88-year-old male with past medical history of diabetes, histo ry of CKD with previous baseline creatinine around 1.1 to 1.4 mg/dL, history of prostatic cancer stat us post TURP, history of hypertension, who presents to [facility] with shortness of breath. The patient states over the past 2 weeks he has been having progressive shortness of breath , increased lower extremity edema, dyspnea on exertion, paroxysmal nocturnal dyspnea. The patient st ates that he has also been taking Lasix at home, but he was not taking it. The patient has also been complaining about nausea. Upon arrival to the emergency room, the patient had a chest x-ray which s howed findings of cardiomegaly and heart failure. The patient was subsequently admitted to telemetry and was started on diuretic therapy. In terms of patient's renal history, the patient's previous baseline creatinine ranges about 1.4 mg/d L. On admission, the patient's creatinine was 1.76 mg/dL which is increased to 2.14 mg/dL. During t his time, the patient has had hemodynamic fluctuations, has been on diuretic therapy. There have bee n no reports of any hemoptysis, hematemesis, hematochezia. PAST MEDICAL HISTORY: History of CKD, history of diabetes, history of hypertension, history of diabe tic retinopathy, history of prostate cancer. PAST SURGICAL HISTORY: Status post TURP. SOCIAL HISTORY: Does not drink, smoke or do drugs. MEDICATIONS: Have been reviewed. REVIEW OF SYSTEMS: A 14-point review of systems conducted. Pertinent positives stated in HPI, other hernandez negative. PHYSICAL EXAMINATION: VITAL SIGNS: Blood pressure is 119/59, respiration 18, pulse 97, temperature 97.8. HEENT: Head is normocephalic. NECK: Supple. HEART: Regular rate. LUNGS: Show diminished breath sounds at the base. ABDOMEN: Soft, nontender to palpation without rebound or guarding. EXTREMITIES: Negative for clubbing, cyanosis. Positive edema. DERMATOLOGIC: No rashes. MUSCULOSKELETAL: No joint effusions. NEUROLOGIC: No focal deficits. LABORATORY DATA: Show white count 8.8, hemoglobin 7.5, platelet count is 245. The patient's BMP was reviewed. IMAGING STUDIES: Renal ultrasound shows moderate bilateral hydronephrosis which is secondary to blad jey mass, echogenic vascular mass along the anterior bladder, may represent bladder neoplasm with inv asion to prostate, incidental bilateral pleural effusions, hepatomegaly and fatty changes. DIAGNOSTIC DATA: The patient's 2D echo showed global systolic function, mildly elevated left atrial pressure, type 2 diastolic dysfunction. ASSESSMENT AND PLAN: This is an 88-year-old male who presents with: 1. Nonoliguric acute kidney injury on top of chronic kidney disease with a baseline creatinine of 1. 4 mg/dL. Etiology of acute kidney injury is likely secondary to obstructive uropathy. The patient's renal ultrasound shows moderate bilateral hydronephrosis likely due to bladder mass. Recommendation at this point would be to get a CT scan of abdomen and pelvis for further delineation of mass. I wo amosd also recommend a urology evaluation. We will place a possible Martins catheter and/or possible nep hrostomy tubes. We would otherwise continue current treatment plan, supportive care and renally dose all medications. We will check UA with microanalysis to see if there are any contributing factors s uch as tubular injury or interstitial nephritis. 2. Acute heart failure. The patient's 2D echo showed significant systolic dysfunction. The patient is undergoing full evaluation. We will follow up with cardiology for recommendations. The patient will require ischemic workup once clinically stable. 3. Mineral bone disorder. Monitor calcium and phosphorus levels. 4. Anemia. The patient is microcytic. Etiology is unclear. Workup is ongoing. The patient's stoo l for OB is pending. GI evaluation is pending. Continue to monitor hemoglobin and hematocrit levels , transfuse as needed. 5. Hypertension. Continue current blood pressure regimen. 6. Diabetes. Continue current insulin regimen. 7. History of prostate cancer, now with bladder mass and renal ultrasound concerning for possible re currence of tumor. We would check a PSA level. Follow up a CT scan and consider urology evaluation. Thank you, Dr. Shukla, for this interesting consult. It will be a pleasure to follow the patient with you throughout the hospital course. Dictated By: MARTÍN BEAN/CATHI Conf#: [id number] DID#: [id number] CC: BERTHA FERRARI; FRANKLIN SHUKLA MD;*[facility]*
[2019-02-13] MEDS: TAMSULOSIN (SR) 0.4 MG CAP PO SCH (21:34)
[2019-02-14] VITALS (11 sets, daily range): BP systolic 93–125; BP diastolic 52–66; PULSE 19–111; RESP 18–20
[2019-02-14] MEDS: ACCU-CHEK XX SCH (02:00)
[2019-02-14] MEDS: PANTOPRAZOLE (EC) 40 MG TAB PO SCH (05:47)
[2019-02-14] MEDS: INSULIN ASPART [NOVOLOG] 3 ML PEN SC SCH ×8 (08:00→20:44)
[2019-02-14] MEDS ORDERED: SOD CHLORIDE 0.9% 250 ML IV* ONE (08:54)
--- NOTE | 2019-02-14 08:56 | CONS ---
Consult Date/Type/Reason Admit Date/Time Feb 11, 2019 at 13:21 Initial Consult Date 02/12/19 Type of Consultation: cv Requesting Provider: HUSSEIN SHUKLA MD Date/Time of Note DATE: 02/14/19 TIME: 08:55 Subjective Cardiology follow-up progress note Subjective: Discussed with the staff and telemetry was reviewed. Patient with no chest pain or pressure. He has no more PND orthopnea and feels much better Patient denies any active bleeding to me Patient states that he is able to urinate with no hematuria Objective: General: no acute distress HEENT: NC/AT. pupils are equal. round. NECK: . no stridor. CV: RRR. systolic murmur; no gallop or rubs. PULM: no wheezing, rhonchi at the base. GI: SOFT, NT, ND, no rebound or guarding Extremity: 1+ B/L LE edema. no clubbing. neuro: awake and alert, OX3. Psych: calm and pleasant rectal: deferred : normal EKG done February 11, 2019 suddenly reviewed and shows: Normal sinus rhythm. Anteroseptal infarct age undetermined. PVC Echocardiogram done February 11, [address] Kaminski shows: Severe global left ventricular systolic dysfunction. Tissue Doppler/Mitral Doppler indices are consistent with pseudonormalization with mildly elevated left atrial pressure (Stage II diastolic dysfunction). Chest x-ray done February 01, 2019 shows:Mild cardiomegaly with pulmonary vascular congestion. Objective Vitals Vital Signs Date Temp Pulse Resp B/P (MAP) Pulse Ox O2 O2 Flow FiO2 Time Delivery Rate 02/14/19 98.2 72 18 93/52 (66) 94 Nasal 07:38 Cannula 02/13/19 2.0 20:00 02/11/19 27 20:11 Intake and Output 02/13/19 02/13/19 02/14/19 1515:00 23:00 07:00 IntakeIntake Total 1150 ml 480 ml OutputOutput Total 320 ml 900 ml 600 ml BalanceBalance -320 ml 250 ml -120 ml Results/Medications Result Diagram: 02/14/19 0529 02/14/19 0529 Results 24 hrs Laboratory Tests Test 02/13/19 12:55 02/13/19 13:56 02/13/19 14:31 02/13/19 17:27 Bedside Glucose 111 234 H 226 H White Blood Count 8.8 # Red Blood Count 3.10 #L Hemoglobin 7.5 #L Hematocrit 24.9 #L Mean Corpuscular 80.3 L Volume Mean Corpuscular 24.2 L Hemoglobin Mean Corpuscular 30.1 L Hemoglobin Concent Red Cell 15.7 H Distribution Width Platelet Count 245 Mean Platelet Volume 10.2 Immature 0.300 Granulocytes % Neutrophils % 76.0 Lymphocytes % 17.1 Monocytes % 5.6 Eosinophils % 0.7 Basophils % 0.3 Nucleated Red Blood 0.0 Cells % Immature 0.030 Granulocytes # Neutrophils # 6.7 Lymphocytes # 1.5 Monocytes # 0.5 Eosinophils # 0.1 Basophils # 0.0 Nucleated Red Blood 0.0 Cells # Test 02/13/19 21:29 02/13/19 21:45 02/14/19 01:27 02/14/19 05:29 Bedside Glucose 216 96 Stool Occult Blood POSITIVE White Blood Count 6.5 # Red Blood Count 2.73 L Hemoglobin 6.9 *L Hematocrit 22.3 L Mean Corpuscular 81.7 L Volume Mean Corpuscular 25.3 L Hemoglobin Mean Corpuscular 30.9 L Hemoglobin Concent Red Cell 15.6 H Distribution Width Platelet Count 223 Mean Platelet Volume 11.2 H Immature 0.500 H Granulocytes % Neutrophils % 61.6 Lymphocytes % 27.6 Monocytes % 8.3 Eosinophils % 1.7 Basophils % 0.3 Nucleated Red Blood 0.0 Cells % Immature 0.030 Granulocytes # Neutrophils # 4.0 Lymphocytes # 1.8 Monocytes # 0.5 Eosinophils # 0.1 Basophils # 0.0 Nucleated Red Blood 0.0 Cells # Sodium Level 143 Potassium Level 4.3 Chloride Level 108 Carbon Dioxide Level 25 Anion Gap 10 Blood Urea Nitrogen 58 H Creatinine 2.26 H Est Glomerular Filtrat Rate mL/min Glucose Level 95 # Calcium Level 8.3 L Test 02/14/19 05:48 B-Type Natriuretic 4160 H Peptide Home Meds Reported Medications Carvedilol* (Coreg*) 6.25 Mg Tablet, 6.25 MG PO BID, #60 TAB 02/11/19 Losartan Potassium* (Cozaar*) 50 Mg Tablet, 50 MG PO DAILY, #30 TAB 02/11/19 Tamsulosin Hcl* (Tamsulosin Hcl*) 0.4 Mg Cap.er.24h, 0.4 MG PO HS, CAP 02/11/19 Metformin Hcl* (Metformin Hcl*) 500 Mg Tablet, 500 MG PO WITH BREAKFAST DINNE, #60 TAB 02/11/19 Insulin Lispro (Humalog Kwikpen U-100) 100 Unit/1 Ml Insuln.pen, 10 UNIT SQ AC E, EA 02/11/19 Insulin Glargine* (Lantus*) 100 Unit/Ml Soln, 15-20 UNIT SC QHS, #1 VIAL 02/11/19 Insulin Glargine* (Lantus*) 100 Unit/Ml Soln, 35 UNIT SC QAM, #1 VIAL 02/11/19 Discontinued Reported Medications Olmesartan Medoxomil (Benicar) Unknown Strength Tablet, PO DAILY, #30 TAB 10/05/18 Tamsulosin Hcl* (Flomax*) 0.4 Mg Cap.er.24h, 0.4 MG PO HS, CAP 10/05/18 Metformin* (Glucophage*) 500 Mg Tab, 500 MG PO WITH BREAKFAST DINNE, #30 TAB 10/05/18 Insulin Glargine* (Lantus*) Unknown Strength Soln, SC QHS, #1 VIAL 10/05/18 Insulin Lispro (Humalog Kwikpen U-100) Unknown Strength Insuln.pen, SQ, EA 10/05/18 Sitagliptin Phos/Metformin HCl (Janumet 50-500 mg Tablet) Unknown Strength Tablet, PO, TAB 10/05/18 Medications Current Medications IV Flush (NS 3 ml) 3 ml PER PROTOCOL IV ; Start 02/11/19 at 13:00 Ondansetron HCl (Zofran Inj) 4 mg Q6H PRN IV NAUSEA/VOMITING; Start 02/11/19 at 13:00 Acetaminophen (Tylenol Tab) 650 mg Q6H PRN PO .PAIN 1-3 OR TEMP; Start 02/11/19 at 13:00 Acetaminophen/ Hydrocodone Bitart ([place] (5/325)) 1 tab Q6H PRN PO .MOD PAIN 4- 6; Start 02/11/19 at 13:00 Morphine Sulfate (morphine) 2 mg Q4H PRN IV .SEVERE PAIN 7-10; Start 02/11/19 at 13:00 Docusate Sodium (Colace) 100 mg Q12H PRN PO .CONSTIPATION; Start 02/11/19 at 13:00 Magnesium Hydroxide (Milk Of Mag) 30 ml DAILY PRN PO .CONSTIPATION; Start 02/11/19 at 13:00 Pantoprazole (Protonix Tab) 40 mg DAILY@06 PO Last administered on 02/14/19at 05:47; Admin Dose 40 MG; Start 02/12/19 at 06:00 Lorazepam (Ativan) 0.5 mg Q6H PRN IV ANXIETY; Start 02/11/19 at 13:00 Albuterol/ Ipratropium (Duoneb) 3 ml Q4H RESP THERAPY PRN HHN SHORTNESS OF BREATH; Start 02/11/19 at 13:00 Hydralazine HCl (Apresoline) 10 mg Q6H PRN IV ELEVATED BLOOD PRESSURE; Start 02/11/19 at 13:00 Nitroglycerin (Nitroglycerin (Sl Tab) 0.4 Mg) 1 tab Q5M PRN SL ANGINA; Start 02/11/19 at 13:00 Carvedilol (Coreg) 3.125 mg BID PO Last administered on 02/13/19at 21:33; Admin Dose 3.125 MG; Start 02/11/19 at 21:00 Insulin Glargine (Lantus) 35 units QAM SC Last administered on 02/13/19at 10:31; Admin Dose 35 UNITS; Start 02/12/19 at 09:00 Tamsulosin HCl (Flomax) 0.4 mg HS PO Last administered on 02/13/19at 21:34; Admin Dose 0.4 MG; Start 02/11/19 at 21:00 Miscellaneous Information 1 ea NOTE XX ; Start 02/11/19 at 13:00 Glucose (Glutose) 15 gm Q15M PRN PO DECREASED GLUCOSE; Start 02/11/19 at 13:00 Glucose (Glutose) 22.5 gm Q15M PRN PO DECREASED GLUCOSE; Start 02/11/19 at 13:00 Dextrose (D50w Syringe) 25 ml Q15M PRN IV DECREASED GLUCOSE; Start 02/11/19 at 13:00 Dextrose (D50w Syringe) 50 ml Q15M PRN IV DECREASED GLUCOSE; Start 02/11/19 at 13:00 Glucagon (Glucagen) 1 mg Q15M PRN IM DECREASED GLUCOSE; Start 02/11/19 at 13:00 Glucose (Glutose) 15 gm Q15M PRN BUCCAL DECREASED GLUCOSE; Start 02/11/19 at 13:00 Diagnostic Test (Pha) (Accu-Chek) 1 ea 02 XX Last administered on 02/13/19 01:24; Admin Dose 1 EA; Start 02/12/19 at 02:00 Insulin Aspart (Novolog Insulin Pen) NOVOLOG *MILD* ALGORITHM WITH MEALS BEDTIME SC Last administered on 02/13/19 22:17; Admin Dose 1 UNIT; Start 02/11/19 at 18:00 Insulin Aspart (Novolog Insulin Pen) 10 unit WITH MEALS BEDTIME SC Last administered on 02/13/19 22:17; Admin Dose 10 UNIT; Start 02/11/19 at 18:00 Losartan Potassium (Cozaar) 25 mg DAILY PO Last administered on 02/13/19 08:47; Admin Dose 25 MG; Start 02/12/19 at 13:30; Status Hold Aspirin (Halfprin) 81 mg DAILY PO Last administered on 02/13/19 08:47; Admin Dose 81 MG; Start 02/12/19 at 16:00; Status Hold Spironolactone (Aldactone) 25 mg DAILY PO Last administered on 02/13/19 08:53; Admin Dose 25 MG; Start 02/13/19 at 09:00 Furosemide (Lasix) 40 mg DAILY IV ; Start 02/14/19 at 09:00 Insulin Glargine (Lantus) 10 units QHS SC Last administered on 02/13/19 22:17; Admin Dose 10 UNITS; Start 02/13/19 at 21:00 Polyethylene Glycol (Miralax) 17 gm DAILY NGT Last administered on 02/13/19at 16:17; Admin Dose 17 GM; Start 02/13/19 at 16:00 Assessment/Plan Hospital Course (Demo Recall) 1. Congestive heart failure: Acute secondary systolic heart failure 2. 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 Diabetes 4. Hypertension 5. 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 Abnormal EKG consistent with prior MIs 7. Rule out dyslipidemia 8. Dyspnea due to above 9. Renal failure 10. Severe and worsening anemia Commendations: Aspirin is on hold due to severe anemia Continue with Coreg will hold losartan and dec Lasix qd only . Recommendations cont Aldactone \will hold off on ischemic work up until anemia has resolved. Thank you for his referral. We will continue to follow along with you PAR[facility] MERCER MD [facility] PAR[facility] MERCER MD Feb 14, 2019 08:56
[2019-02-14] MEDS ORDERED: FUROSEMIDE 40 MG INJ IV PRN (09:00)
--- NOTE | 2019-02-14 09:47 | PN ---
DATE: 02/14/2019 SUBJECTIVE: The patient is stable, no events overnight. No fevers, chills, nausea, vomiting. OBJECTIVE: VITAL SIGNS: Blood pressure is 93/52, respiration 18, pulse 72, temperature 98.2. HEENT: Head is normocephalic. NECK: Supple. HEART: Regular rate. LUNGS: Show diminished breath sounds at the base. ABDOMEN: Soft, nontender to palpation without rebound or guarding. EXTREMITIES: Negative for clubbing, cyanosis, no edema. DERMATOLOGIC: No rashes. MUSCULOSKELETAL: No joint effusion. NEUROLOGIC: No change in exam. MEDICATIONS: The patient's medications have been reviewed. LABORATORY DATA: Shows a BUN 15, creatinine 2.26. White count 6.5. Hemoglobin 6.9, platelet count is 223. Imaging studies were reviewed. Urinalysis is pending. ASSESSMENT AND PLAN: 1. Nonoliguric acute kidney injury on top of chronic kidney disease with previous baseline creatinin e 1.4 mg/dL. Etiology of acute kidney injury is likely multifactorial secondary to hemodynamics from diuretic therapy with possible component of obstructive uropathy. The patient's renal ultrasound sh ows bilateral hydronephrosis secondary to bladder mass. The plan at this point is to get a CT scan o f abdomen and pelvis for further evaluation of hydronephrosis and bladder mass. Will consider urolog ic evaluation. Would consider a Martins catheter placement. Would otherwise continue current treatmen t plan, supportive care, renally dose all meds. We will follow up urinalysis. Agree with deescalatin g diuretic therapy. 2. Bilateral hydronephrosis. Etiology secondary to bladder mass, possible prostate cancer. The maxwell ent is pending CT scan of the abdomen and pelvis. Urology consult is pending. Will discuss with serena quiroz for possible placement of Martins catheter. 3. Acute heart failure. The patient is clinically improving. Continue medical management. 4. Mineral bone disorder, monitor calcium and phosphorus levels. 5. Anemia, microcytic, etiology is unclear. GI workup is ongoing. Follow up stool for OB. 6. Hypertension. Continue current blood pressure regimen. 7. Diabetes. Continue current insulin regimen. 8. History of prostate cancer, now with bladder mass concerning for possible metastatic disease. We will follow SENIOR ARCHITECT/DESIGN MANAGER level and followup CT scan. Dictated By: MARTÍN BEAN/CATHI Conf#: [id number] [facility]#: [id number] CC: HUSSEIN SHUKLA MD; BERTHA FERRARI;*End*
[2019-02-14] MEDS: POLYETHYLENE GLYCOL 17 GM PACKET NGT SCH (10:44)
[2019-02-14] MEDS: SPIRONOLACTONE 25 MG TAB PO SCH (10:49)
[2019-02-14] MEDS: FUROSEMIDE 40 MG INJ IV SCH (11:04)
--- NOTE | 2019-02-14 12:54 | PN ---
Date/Time of Note Date/Time of Note DATE: 02/14/19 TIME: 12:43 Assessment/Plan VTE Prophylaxis Risk score (from [facility] [place]0 risk: 4 SCD applied (from [facility] [place]): Yes Pharmacological prophylaxis: other Pharm contraindication: bleeding Lines/Catheters IV Catheter Type (from [facility]): [place] Lock Urinary Cath still in place: No Assessment/Plan Assessment/Plan 1. Upper GI melissa, protonix and follow up with GI 2. Iron deficiency anemia, acute on chronic, upper GI bleeding, follow up with H/H, transfusion as needed 3. CHF, systolic, acute on chronic, lasix, coreg, losartan, aldactone 4. Dilated cardiomyopathy, ?etiology, follow up with cardiology 5. Bladder mass with bilateral hydro, urology consultation, called 6. Acute renal failure, follow up with nephrology 7. HTN, controlled 8. DM, on insulin, decrease evening lantus 9. History of likely prostate cancer with TURP in the past. Continue Flomax. Monitor for now.\ Result Diagram: 02/14/19 0529 02/14/19 0529 Results 24hrs Laboratory Tests Test 02/13/19 12:55 02/13/19 13:56 02/13/19 14:31 02/13/19 17:27 Bedside Glucose 111 234 H 226 H White Blood Count 8.8 # Red Blood Count 3.10 #L Hemoglobin 7.5 #L Hematocrit 24.9 #L Mean Corpuscular 80.3 L Volume Mean Corpuscular 24.2 L Hemoglobin Mean Corpuscular 30.1 L Hemoglobin Concent Red Cell 15.7 H Distribution Width Platelet Count 245 Mean Platelet Volume 10.2 Immature 0.300 Granulocytes % Neutrophils % 76.0 Lymphocytes % 17.1 Monocytes % 5.6 Eosinophils % 0.7 Basophils % 0.3 Nucleated Red Blood 0.0 Cells % Immature 0.030 Granulocytes # Neutrophils # 6.7 Lymphocytes # 1.5 Monocytes # 0.5 Eosinophils # 0.1 Basophils # 0.0 Nucleated Red Blood 0.0 Cells # Test 02/13/19 21:29 02/13/19 21:45 02/14/19 01:27 02/14/19 05:29 Bedside Glucose 216 96 Stool Occult Blood POSITIVE White Blood Count 6.5 # Red Blood Count 2.73 L Hemoglobin 6.9 *L Hematocrit 22.3 L Mean Corpuscular 81.7 L Volume Mean Corpuscular 25.3 L Hemoglobin Mean Corpuscular 30.9 L Hemoglobin Concent Red Cell 15.6 H Distribution Width Platelet Count 223 Mean Platelet Volume 11.2 H Immature 0.500 H Granulocytes % Neutrophils % 61.6 Lymphocytes % 27.6 Monocytes % 8.3 Eosinophils % 1.7 Basophils % 0.3 Nucleated Red Blood 0.0 Cells % Immature 0.030 Granulocytes # Neutrophils # 4.0 Lymphocytes # 1.8 Monocytes # 0.5 Eosinophils # 0.1 Basophils # 0.0 Nucleated Red Blood 0.0 Cells # Sodium Level 143 Potassium Level 4.3 Chloride Level 108 Carbon Dioxide Level 25 Anion Gap 10 Blood Urea Nitrogen 58 H Creatinine 2.26 H Est Glomerular Filtrat Rate mL/min Glucose Level 95 # Calcium Level 8.3 L Test 02/14/19 05:48 02/14/19 10:42 B-Type Natriuretic 4160 H Peptide Bedside Glucose 189 Subjective 24 Hr Interval Summary Free Text/Dictation admitted black stool after admission that he denies when I asked him in the last two days Exam/Review of Systems Exam Vitals Vital Signs Date Temp Pulse Resp B/P (MAP) Pulse Ox O2 O2 Flow FiO2 Time Delivery Rate 02/14/19 97.8 69 18 124/60 94 Room Air 11:30 (81) 02/13/19 2.0 20:00 02/11/19 27 20:11 Intake and Output 02/13/19 02/13/19 02/14/19 1414:59 22:59 06:59 IntakeIntake Total 1150 ml 480 ml OutputOutput Total 320 ml 900 ml 600 ml BalanceBalance -320 ml 250 ml -120 ml Constitutional: alert, oriented, well developed Psych: no complaints, nl mood/affect Head: normocephalic, atraumatic Eyes: nl conjunctiva, EOMI, nl lids ENMT: nl external ears & nose, nl lips & teeth, nl nasal mucosa & septum Neck: supple, non-tender Respiratory: clear to auscultation, normal air movement; No congested cough, No crackles/rales, No diminished breath sounds, No intercostal retraction, No labored breathing, No respirations, No tactile fremitus, No wheezing, No other Cardiovascular: regular rate and rhythm, nl pulses; No bruits, No diastolic murmur, No edema, No gallop, No irregular rhythm, No jugular venous distention (JVD), No murmurs/extra sounds, No rub, No systolic murmur, No S3, No S4, No other Gastrointestinal: soft, nl liver, spleen, non-tender Musculoskeletal: nl extremities to inspection Extremities: normal pulses; No calf tenderness, No cyanosis, No clubbing, No edema, No pitting pedal edema, No palpable cord, No tenderness, No other Neurological: SUPERVISOR DUMPING II-XII intact, nl mental status, nl speech, nl strength Results Results 24hrs Laboratory Tests Test 02/13/19 12:55 02/13/19 13:56 02/13/19 14:31 02/13/19 17:27 Bedside Glucose 111 234 H 226 H White Blood Count 8.8 # Red Blood Count 3.10 #L Hemoglobin 7.5 #L Hematocrit 24.9 #L Mean Corpuscular 80.3 L Volume Mean Corpuscular 24.2 L Hemoglobin Mean Corpuscular 30.1 L Hemoglobin Concent Red Cell 15.7 H Distribution Width Platelet Count 245 Mean Platelet Volume 10.2 Immature 0.300 Granulocytes % Neutrophils % 76.0 Lymphocytes % 17.1 Monocytes % 5.6 Eosinophils % 0.7 Basophils % 0.3 Nucleated Red Blood 0.0 Cells % Immature 0.030 Granulocytes # Neutrophils # 6.7 Lymphocytes # 1.5 Monocytes # 0.5 Eosinophils # 0.1 Basophils # 0.0 Nucleated Red Blood 0.0 Cells # Test 02/13/19 21:29 02/13/19 21:45 02/14/19 01:27 02/14/19 05:29 Bedside Glucose 216 96 Stool Occult Blood POSITIVE White Blood Count 6.5 # Red Blood Count 2.73 L Hemoglobin 6.9 *L Hematocrit 22.3 L Mean Corpuscular 81.7 L Volume Mean Corpuscular 25.3 L Hemoglobin Mean Corpuscular 30.9 L Hemoglobin Concent Red Cell 15.6 H Distribution Width Platelet Count 223 Mean Platelet Volume 11.2 H Immature 0.500 H Granulocytes % Neutrophils % 61.6 Lymphocytes % 27.6 Monocytes % 8.3 Eosinophils % 1.7 Basophils % 0.3 Nucleated Red Blood 0.0 Cells % Immature 0.030 Granulocytes # Neutrophils # 4.0 Lymphocytes # 1.8 Monocytes # 0.5 Eosinophils # 0.1 Basophils # 0.0 Nucleated Red Blood 0.0 Cells # Sodium Level 143 Potassium Level 4.3 Chloride Level 108 Carbon Dioxide Level 25 Anion Gap 10 Blood Urea Nitrogen 58 H Creatinine 2.26 H Est Glomerular Filtrat Rate mL/min Glucose Level 95 # Calcium Level 8.3 L Test 02/14/19 05:48 02/14/19 10:42 B-Type Natriuretic 4160 H Peptide Bedside Glucose 189 Medications Medication Current Medications IV Flush (NS 3 ml) 3 ml PER PROTOCOL IV ; Start 02/11/19 at 13:00 Ondansetron HCl (Zofran Inj) 4 mg Q6H PRN IV NAUSEA/VOMITING; Start 02/11/19 at 13:00 Acetaminophen (Tylenol Tab) 650 mg Q6H PRN PO .PAIN 1-3 OR TEMP; Start 02/11/19 at 13:00 Acetaminophen/ Hydrocodone Bitart ([place] (5/325)) 1 tab Q6H PRN PO .MOD PAIN 4- 6; Start 02/11/19 at 13:00 Morphine Sulfate (morphine) 2 mg Q4H PRN IV .SEVERE PAIN 7-10; Start 02/11/19 at 13:00 Docusate Sodium (Colace) 100 mg Q12H PRN PO .CONSTIPATION; Start 02/11/19 at 13:00 Magnesium Hydroxide (Milk Of Mag) 30 ml DAILY PRN PO .CONSTIPATION; Start 02/11/19 at 13:00 Pantoprazole (Protonix Tab) 40 mg DAILY@06 PO Last administered on 02/14/19at 05:47; Admin Dose 40 MG; Start 02/12/19 at 06:00 Lorazepam (Ativan) 0.5 mg Q6H PRN IV ANXIETY; Start 02/11/19 at 13:00 Albuterol/ Ipratropium (Duoneb) 3 ml Q4H RESP THERAPY PRN HHN SHORTNESS OF BREATH; Start 02/11/19 at 13:00 Hydralazine HCl (Apresoline) 10 mg Q6H PRN IV ELEVATED BLOOD PRESSURE; Start 02/11/19 at 13:00 Nitroglycerin (Nitroglycerin (Sl Tab) 0.4 Mg) 1 tab Q5M PRN SL ANGINA; Start 02/11/19 at 13:00 Carvedilol (Coreg) 3.125 mg BID PO Last administered on 02/14/19 11:05; Admin Dose 3.125 MG; Start 02/11/19 at 21:00 Insulin Glargine (Lantus) 35 units QAM SC Last administered on 02/13/19 10:31; Admin Dose 35 UNITS; Start 02/12/19 at 09:00 Tamsulosin HCl (Flomax) 0.4 mg HS PO Last administered on 02/13/19 21:34; Admin Dose 0.4 MG; Start 02/11/19 at 21:00 Miscellaneous Information 1 ea NOTE XX ; Start 02/11/19 at 13:00 Glucose (Glutose) 15 gm Q15M PRN PO DECREASED GLUCOSE; Start 02/11/19 at 13:00 Glucose (Glutose) 22.5 gm Q15M PRN PO DECREASED GLUCOSE; Start 02/11/19 at 13:00 Dextrose (D50w Syringe) 25 ml Q15M PRN IV DECREASED GLUCOSE; Start 02/11/19 at 13:00 Dextrose (D50w Syringe) 50 ml Q15M PRN IV DECREASED GLUCOSE; Start 02/11/19 at 13:00 Glucagon (Glucagen) 1 mg Q15M PRN IM DECREASED GLUCOSE; Start 02/11/19 at 13:00 Glucose (Glutose) 15 gm Q15M PRN BUCCAL DECREASED GLUCOSE; Start 02/11/19 at 13:00 Diagnostic Test (Pha) (Accu-Chek) 1 ea 02 XX Last administered on 02/13/19 01:24; Admin Dose 1 EA; Start 02/12/19 at 02:00 Insulin Aspart (Novolog Insulin Pen) NOVOLOG *MILD* ALGORITHM WITH MEALS BEDT AILEEN SC Last administered on 02/14/19 11:33; Admin Dose 3 UNIT; Start 02/11/19 at 18:00 Insulin Aspart (Novolog Insulin Pen) 10 unit WITH MEALS BEDTIME SC Last administered on 02/13/19 22:17; Admin Dose 10 UNIT; Start 02/11/19 at 18:00 Losartan Potassium (Cozaar) 25 mg DAILY PO Last administered on 02/13/19 08:47; Admin Dose 25 MG; Start 02/12/19 at 13:30; Status Hold Aspirin (Halfprin) 81 mg DAILY PO Last administered on 02/13/19 08:47; Admin Dose 81 MG; Start 02/12/19 at 16:00; Status Hold Spironolactone (Aldactone) 25 mg DAILY PO Last administered on 02/14/19at 10:49; Admin Dose 25 MG; Start 02/13/19 at 09:00 Furosemide (Lasix) 40 mg DAILY IV Last administered on 02/14/19at 11:04; Admin Dose 40 MG; Start 02/14/19 at 09:00 Insulin Glargine (Lantus) 10 units QHS SC Last administered on 02/13/19at 22:17; Admin Dose 10 UNITS; Start 02/13/19 at 21:00 Polyethylene Glycol (Miralax) 17 gm DAILY NGT Last administered on 02/14/19at 10:44; Admin Dose 17 GM; Start 02/13/19 at 16:00 Furosemide (Lasix) 20 mg ONCE PRN IV AFTER TRANSFUSION; Start 02/14/19 at 09:00; Stop 02/15/19 at 08:59 HUSSEIN SHUKLA MD Feb 14, 2019 12:53
--- NOTE | 2019-02-14 14:23 | PN ---
Date/Time of Note Date/Time of Note DATE: 02/14/19 TIME: 14:20 Assessment/Plan VTE Prophylaxis Risk score (from Ns)>0 risk: 4 SCD applied (from Ns): Yes Pharmacological prophylaxis: other (scds) Lines/[facility] Urinary Cath still in place: No Assessment/Plan Hospital Course Summary Assessment and Plan: Assessment: Microcytic anemia-likely multifactorial Congestive heart failure: Acute secondary systolic heart failure Cardiomyopathy EF 25-30% CHF, systolic HTN DM Renal insufficiency Plan: Stool for OB- positive- I spoke to the patient's daughter Marilyn- to discuss stool ob + and hgb- currently pt will continue to decline EGD/colonoscopy However she will speak to him tonight. to reassess Monitor h/h, transfuse as needed Patient declines EGD/colonoscopy Patient seen in collaboration with Dr. Layne Subjective: Course reviewed with nursing staff Patient interviewed and examined All labs, imaging and other results reviewed The patient resting in bed, appears comfortable No c/o n/v or abd pain. Currently receiving his 1st unit of PRBCs Will continue to monitor PHYSICAL EXAMINATION: GENERAL: Well developed, well nourished, alert & oriented x 3, O2 in place SKIN: No lesions HEAD: Normocephalic, atraumatic, no tenderness. EYES: Pupils equal reactive to light, no discharge. EARS/NOSE AND THROAT: Ears normal, nose normal NECK: Supple, no masses CHEST: Inspection within normal limits. CARDIOVASCULAR: Heart: Regular rate and rhythm RESPIRATORY: Lungs clear to auscultation s GASTROINTESTINAL AND LIVER: Abdomen: Soft, non tenderness, mildly distended, no hernias, no masses, no organomegaly, no ascites, no guarding, no rebound tenderness, normoactive bowel sounds. Rectal: Deferred. EXTREMITIES: No cyanosis, clubbing or edema. Result Diagram: 02/14/19 0529 02/14/1929 Results 24hrs Laboratory Tests Test 02/13/19 14:31 02/13/19 17:27 02/13/19 21:29 02/13/19 21:45 White Blood Count 8.8 # Red Blood Count 3.10 #L Hemoglobin 7.5 #L Hematocrit 24.9 #L Mean Corpuscular 80.3 L Volume Mean Corpuscular 24.2 L Hemoglobin Mean Corpuscular 30.1 L Hemoglobin Concent Red Cell 15.7 H Distribution Width Platelet Count 245 Mean Platelet Volume 10.2 Immature 0.300 Granulocytes % Neutrophils % 76.0 Lymphocytes % 17.1 Monocytes % 5.6 Eosinophils % 0.7 Basophils % 0.3 Nucleated Red Blood 0.0 Cells % Immature 0.030 Granulocytes # Neutrophils # 6.7 Lymphocytes # 1.5 Monocytes # 0.5 Eosinophils # 0.1 Basophils # 0.0 Nucleated Red Blood 0.0 Cells # Bedside Glucose 226 H 216 Stool Occult Blood POSITIVE Test 02/14/19 01:27 02/14/19 05:29 02/14/19 05:48 02/14/19 10:42 Bedside Glucose 96 189 White Blood Count 6.5 # Red Blood Count 2.73 L Hemoglobin 6.9 *L Hematocrit 22.3 L Mean Corpuscular 81.7 L Volume Mean Corpuscular 25.3 L Hemoglobin Mean Corpuscular 30.9 L Hemoglobin Concent Red Cell 15.6 H Distribution Width Platelet Count 223 Mean Platelet Volume 11.2 H Immature 0.500 H Granulocytes % Neutrophils % 61.6 Lymphocytes % 27.6 Monocytes % 8.3 Eosinophils % 1.7 Basophils % 0.3 Nucleated Red Blood 0.0 Cells % Immature 0.030 Granulocytes # Neutrophils # 4.0 Lymphocytes # 1.8 Monocytes # 0.5 Eosinophils # 0.1 Basophils # 0.0 Nucleated Red Blood 0.0 Cells # Sodium Level 143 Potassium Level 4.3 Chloride Level 108 Carbon Dioxide Level 25 Anion Gap 10 Blood Urea Nitrogen 58 H Creatinine 2.26 H Est Glomerular Filtrat Rate mL/min Glucose Level 95 # Calcium Level 8.3 L B-Type Natriuretic 4160 H Peptide Test 02/14/19 13:21 Bedside Glucose 292 H Exam/Review of Systems Exam Vitals Vital Signs Date Temp Pulse Resp B/P (MAP) Pulse Ox O2 O2 Flow FiO2 Time Delivery Rate 02/14/19 102 12:00 02/14/19 97.8 18 124/60 94 Room Air 11:30 (81) 02/13/19 2.0 20:00 02/11/19 27 20:11 Intake and Output 02/13/19 02/13/19 02/14/19 1515:00 23:00 07:00 IntakeIntake Total 1150 ml 480 ml OutputOutput Total 320 ml 900 ml 600 ml BalanceBalance -320 ml 250 ml -120 ml Results Results 24hrs Laboratory Tests Test 02/13/19 14:31 02/13/19 17:27 02/13/19 21:29 02/13/19 21:45 White Blood Count 8.8 # Red Blood Count 3.10 #L Hemoglobin 7.5 #L Hematocrit 24.9 #L Mean Corpuscular 80.3 L Volume Mean Corpuscular 24.2 L Hemoglobin Mean Corpuscular 30.1 L Hemoglobin Concent Red Cell 15.7 H Distribution Width Platelet Count 245 Mean Platelet Volume 10.2 Immature 0.300 Granulocytes % Neutrophils % 76.0 Lymphocytes % 17.1 Monocytes % 5.6 Eosinophils % 0.7 Basophils % 0.3 Nucleated Red Blood 0.0 Cells % Immature 0.030 Granulocytes # Neutrophils # 6.7 Lymphocytes # 1.5 Monocytes # 0.5 Eosinophils # 0.1 Basophils # 0.0 Nucleated Red Blood 0.0 Cells # Bedside Glucose 226 H 216 Stool Occult Blood POSITIVE Test 02/14/19 01:27 02/14/19 05:29 02/14/19 05:48 02/14/19 10:42 Bedside Glucose 96 189 White Blood Count 6.5 # Red Blood Count 2.73 L Hemoglobin 6.9 *L Hematocrit 22.3 L Mean Corpuscular 81.7 L Volume Mean Corpuscular 25.3 L Hemoglobin Mean Corpuscular 30.9 L Hemoglobin Concent Red Cell 15.6 H Distribution Width Platelet Count 223 Mean Platelet Volume 11.2 H Immature 0.500 H Granulocytes % Neutrophils % 61.6 Lymphocytes % 27.6 Monocytes % 8.3 Eosinophils % 1.7 Basophils % 0.3 Nucleated Red Blood 0.0 Cells % Immature 0.030 Granulocytes # Neutrophils # 4.0 Lymphocytes # 1.8 Monocytes # 0.5 Eosinophils # 0.1 Basophils # 0.0 Nucleated Red Blood 0.0 Cells # Sodium Level 143 Potassium Level 4.3 Chloride Level 108 Carbon Dioxide Level 25 Anion Gap 10 Blood Urea Nitrogen 58 H Creatinine 2.26 H Est Glomerular Filtrat Rate mL/min Glucose Level 95 # Calcium Level 8.3 L B-Type Natriuretic 4160 H Peptide Test 02/14/19 13:21 Bedside Glucose 292 H Medications Medication Current Medications IV Flush (NS 3 ml) 3 ml PER PROTOCOL IV ; Start 02/11/19 at 13:00 Ondansetron HCl (Zofran Inj) 4 mg Q6H PRN IV NAUSEA/VOMITING; Start 02/11/19 at 13:00 Acetaminophen (Tylenol Tab) 650 mg Q6H PRN PO .PAIN 1-3 OR TEMP; Start 02/11/19 at 13:00 Acetaminophen/ Hydrocodone Bitart ([place] (5/325)) 1 tab Q6H PRN PO .MOD PAIN 4- 6; Start 02/11/19 at 13:00 Morphine Sulfate (morphine) 2 mg Q4H PRN IV .SEVERE PAIN 7-10; Start 02/11/19 at 13:00 Docusate Sodium (Colace) 100 mg Q12H PRN PO .CONSTIPATION; Start 02/11/19 at 13:00 Magnesium Hydroxide (Milk Of Mag) 30 ml DAILY PRN PO .CONSTIPATION; Start at 13:00 Lorazepam (Ativan) 0.5 mg Q6H PRN IV ANXIETY; Start 02/11/19 at 13:00 Albuterol/ Ipratropium (Duoneb) 3 ml Q4H RESP THERAPY PRN HHN SHORTNESS OF BREATH; Start 02/11/19 at 13:00 Hydralazine HCl (Apresoline) 10 mg Q6H PRN IV ELEVATED BLOOD PRESSURE; Start 02/11/19 at 13:00 Nitroglycerin (Nitroglycerin (Sl Tab) 0.4 Mg) 1 tab Q5M PRN SL ANGINA; Start 02/11/19 at 13:00 Carvedilol (Coreg) 3.125 mg BID PO Last administered on 02/14/19at 11:05; Admin Dose 3.125 MG; Start 02/11/19 at 21:00 Insulin Glargine (Lantus) 35 units QAM SC Last administered on 02/13/19at 10:31; Admin Dose 35 UNITS; Start 02/12/19 at 09:00 Tamsulosin HCl (Flomax) 0.4 mg HS PO Last administered on 02/13/19at 21:34; Admin Dose 0.4 MG; Start 02/11/19 at 21:00 Miscellaneous Information 1 ea NOTE XX ; Start 02/11/19 at 13:00 Glucose (Glutose) 15 gm Q15M PRN PO DECREASED GLUCOSE; Start 02/11/19 at 13:00 Glucose (Glutose) 22.5 gm Q15M PRN PO DECREASED GLUCOSE; Start 02/11/19 at 13:00 Dextrose (D50w Syringe) 25 ml Q15M PRN IV DECREASED GLUCOSE; Start 02/11/19 at 13:00 Dextrose (D50w Syringe) 50 ml Q15M PRN IV DECREASED GLUCOSE; Start 02/11/19 at 13:00 Glucagon (Glucagen) 1 mg Q15M PRN IM DECREASED GLUCOSE; Start 02/11/19 at 13:00 Glucose (Glutose) 15 gm Q15M PRN BUCCAL DECREASED GLUCOSE; Start 02/11/19 at 13:00 Diagnostic Test (Pha) (Accu-Chek) 1 ea 02 XX Last administered on 02/13/19at 01:24; Admin Dose 1 EA; Start 02/12/19 at 02:00 Insulin Aspart (Novolog Insulin Pen) NOVOLOG *MILD* ALGORITHM WITH MEALS BEDTIME SC Last administered on 02/14/19 13:30; Admin Dose 4 UNIT; Start 02/11/19 at 18:00 Insulin Aspart (Novolog Insulin Pen) 10 unit WITH MEALS BEDTIME SC Last administered on 02/14/19 13:30; Admin Dose 10 UNIT; Start 02/11/19 at 18:00 Losartan Potassium (Cozaar) 25 mg DAILY PO Last administered on 02/13/19 08:47; Admin Dose 25 MG; Start 02/12/19 at 13:30; Status Hold Spironolactone (Aldactone) 25 mg DAILY PO Last administered on 02/14/19at 10:49; Admin Dose 25 MG; Start 02/13/19 at 09:00 Furosemide (Lasix) 40 mg DAILY IV Last administered on 02/14/19at 11:04; Admin Dose 40 MG; Start 02/14/19 at 09:00 Insulin Glargine (Lantus) 10 units QHS SC Last administered on 02/13/19 22:17; Admin Dose 10 UNITS; Start 02/13/19 at 21:00 Polyethylene Glycol (Miralax) 17 gm DAILY NGT Last administered on 02/14/19at 10:44; Admin Dose 17 GM; Start 02/13/19 at 16:00 Furosemide (Lasix) 20 mg ONCE PRN IV AFTER TRANSFUSION; Start 02/14/19 at 09:00; Stop 02/15/19 at 08:59 Pantoprazole (Protonix Iv) 40 mg BID@06,18 IV ; Start 02/14/19 at 18:00 Potassium Chloride/Dextrose/ Sod Cl 1,000 ml @ 50 mls/hr Q20H IV ; Start 02/14/19 at 14:30 FLACA ANTONY Feb 14, 2019 14:23
[2019-02-14] MEDS: PANTOPRAZOLE 40 MG INJ IV SCH (18:41)
[2019-02-14] MEDS: INSULIN GLARGINE [LANTus] (100 UNITS/ML) SYG SC SCH ×3 (18:53→21:50)
[2019-02-14] MEDS: D5W-0.45 NACL + KCL 10 MEQ 1,000 ML IV SCH (19:04)
[2019-02-14] MEDS: TAMSULOSIN (SR) 0.4 MG CAP PO SCH (20:16)
--- NOTE | 2019-02-14 20:23 | CONS ---
Assessment/Plan Assessment/Plan Hospital Course (Demo Recall) 88-year-old male, his real age is 78 but on his papers it is 88, presented to the hospital with congestive heart failure. His creatinine was elevated. He had renal ultrasound and that showed a bladder mass in addition to bilateral hydronephrosis. The patient was here in September and I have seen him at that time. He is known to have a history of prostate cancer. He is under the care of a urologist in [place]. (DR Garcia) and has been getting Lupron injection one every 6 months. His next injection is due in March 2019. Patient now is voiding and his urine is clear. On the ultrasound it did not appear that he has urinary retention. His PSA is 534. He did have a CT scan of the abdomen and pelvis after and that still show large prostate growing into the bladder. The report is still pending. 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 The patient is on hormonal therapy but that is not controlling the cancer. He should continue the Lupron Depo injections and I will add bicalutamide for him 50 mg daily. He may need to also to follow-up with an oncologist. His urologist has recommended him to undergo another TURP to open the urethra but the patient did refuse. Consultation Date/Type/Reason Admit Date/Time Feb 11, 2019 at 13:21 Date of Consultation: Feb 14, 2019 Type of Consult Urology Reason for Consultation Bladder mass Requesting Provider: HUSSEIN SHUKLA MD Date/Time of Note DATE: 02/14/19 TIME: 20:12 Hx of Present Illness 88-year-old male, his real age is 78 but on his papers it is 88, presented to the hospital with congestive heart failure. His creatinine was elevated. He had renal ultrasound and that showed a bladder mass in addition to bilateral hydronephrosis. The patient was here in September and I have seen him at that time. He is known to have a history of prostate cancer. He is under the care of a urologist in [place]. (DR Garcai) and has been getting Lupron injection one every 6 months. His next injection is due in March 2019. Patient now is voiding and his urine is clear. On the ultrasound it did not appear that he has urinary retention. Constitutional: no complaints Eyes: no complaints ENT: no complaints Respiratory: No shortness of breath Gastrointestinal: no complaints Genitourinary: other (As per history of present illness); No dysuria, No hematuria Musculoskeletal: no complaints Skin: no complaints Neurologic: no complaints Endocrine: no complaints Lymphatic: no complaints Psychological: no complaints Past Medical History Medical History: congestive heart failure, diabetes, hypertension Home Meds Reported Medications Carvedilol* (Coreg*) 6.25 Mg Tablet, 6.25 MG PO BID, #60 TAB 02/11/19 Losartan Potassium* (Cozaar*) 50 Mg Tablet, 50 MG PO DAILY, #30 TAB 02/11/19 Tamsulosin Hcl* (Tamsulosin Hcl*) 0.4 Mg Cap.er.24h, 0.4 MG PO HS, CAP 02/11/19 Metformin Hcl* (Metformin Hcl*) 500 Mg Tablet, 500 MG PO WITH BREAKFAST DINNE, #60 TAB 02/11/19 Insulin Lispro (Humalog Kwikpen U-100) 100 Unit/1 Ml Insuln.pen, 10 UNIT SQ AC E, EA 02/11/19 Insulin Glargine* (Lantus*) 100 Unit/Ml Soln, 15-20 UNIT SC QHS, #1 VIAL 02/11/19 Insulin Glargine* (Lantus*) 100 Unit/Ml Soln, 35 UNIT SC QAM, #1 VIAL 02/11/19 Discontinued Reported Medications Olmesartan Medoxomil (Benicar) Unknown Strength Tablet, PO DAILY, #30 TAB 10/05/18 Tamsulosin Hcl* (Flomax*) 0.4 Mg Cap.er.24h, 0.4 MG PO HS, CAP 10/05/18 Metformin* (Glucophage*) 500 Mg Tab, 500 MG PO WITH BREAKFAST DINNE, #30 TAB 10/05/18 Insulin Glargine* (Lantus*) Unknown Strength Soln, SC QHS, #1 VIAL 10/05/18 Insulin Lispro (Humalog Kwikpen U-100) Unknown Strength Insuln.pen, SQ, EA 10/05/18 Sitagliptin Phos/Metformin HCl (Janumet 50-500 mg Tablet) Unknown Strength Tablet, PO, TAB 10/05/18 Medications Current Medications IV Flush (NS 3 ml) 3 ml PER PROTOCOL IV ; Start 02/11/19 at 13:00 Ondansetron HCl (Zofran Inj) 4 mg Q6H PRN IV NAUSEA/VOMITING; Start 02/11/19 at 13:00 Acetaminophen (Tylenol Tab) 650 mg Q6H PRN PO .PAIN 1-3 OR TEMP; Start 02/11/19 at 13:00 Acetaminophen/ Hydrocodone Bitart ([place] (5/325)) 1 tab Q6H PRN PO .MOD PAIN 4- 6; Start 02/11/19 at 13:00 Morphine Sulfate (morphine) 2 mg Q4H PRN IV .SEVERE PAIN 7-10; Start 02/11/19 at 13:00 Docusate Sodium (Colace) 100 mg Q12H PRN PO .CONSTIPATION; Start 02/11/19 at 13:00 Magnesium Hydroxide (Milk Of Mag) 30 ml DAILY PRN PO .CONSTIPATION; Start 02/11/19 at 13:00 Lorazepam (Ativan) 0.5 mg Q6H PRN IV ANXIETY; Start 02/11/19 at 13:00 Albuterol/ Ipratropium (Duoneb) 3 ml Q4H RESP THERAPY PRN HHN SHORTNESS OF BREATH; Start 02/11/19 at 13:00 Hydralazine HCl (Apresoline) 10 mg Q6H PRN IV ELEVATED BLOOD PRESSURE; Start 02/11/19 at 13:00 Nitroglycerin (Nitroglycerin (Sl Tab) 0.4 Mg) 1 tab Q5M PRN SL ANGINA; Start 02/11/19 at 13:00 Carvedilol (Coreg) 3.125 mg BID PO Last administered on 02/14/19at 11:05; Admin Dose 3.125 MG; Start 02/11/19 at 21:00 Insulin Glargine (Lantus) 35 units QAM SC Last administered on 02/14/19at 18:53; Admin Dose 35 UNITS; Start 02/12/19 at 09:00 Tamsulosin HCl (Flomax) 0.4 mg HS PO Last administered on 02/13/19at 21:34; Admin Dose 0.4 MG; Start 02/11/19 at 21:00 Miscellaneous Information 1 ea NOTE XX ; Start 02/11/19 at 13:00 Glucose (Glutose) 15 gm Q15M PRN PO DECREASED GLUCOSE; Start 02/11/19 at 13:00 Glucose (Glutose) 22.5 gm Q15M PRN PO DECREASED GLUCOSE; Start 02/11/19 at 13:00 Dextrose (D50w Syringe) 25 ml Q15M PRN IV DECREASED GLUCOSE; Start 02/11/19 at 13:00 Dextrose (D50w Syringe) 50 ml Q15M PRN IV DECREASED GLUCOSE; Start 02/11/19 at 13:00 Glucagon (Glucagen) 1 mg Q15M PRN IM DECREASED GLUCOSE; Start 02/11/19 at 13:00 Glucose (Glutose) 15 gm Q15M PRN BUCCAL DECREASED GLUCOSE; Start 02/11/19 at 13:00 Diagnostic Test (Pha) (Accu-Chek) 1 ea 02 XX Last administered on 02/13/19at 0 1:24; Admin Dose 1 EA; Start 02/12/19 at 02:00 Insulin Aspart (Novolog Insulin Pen) NOVOLOG *MILD* ALGORITHM WITH MEALS BEDTIME SC Last administered on 02/14/19 13:30; Admin Dose 4 UNIT; Start 01/26 06/15 at 18:00 Insulin Aspart (Novolog Insulin Pen) 10 unit WITH MEALS BEDTIME SC Last administered on 02/14/19 13:30; Admin Dose 10 UNIT; Start 02/11/19 at 18:00 Losartan Potassium (Cozaar) 25 mg DAILY PO Last administered on 02/13/19 08:47; Admin Dose 25 MG; Start 02/12/19 at 13:30; Status Hold Spironolactone (Aldactone) 25 mg DAILY PO Last administered on 02/14/19 10:49; Admin Dose 25 MG; Start 02/13/19 at 09:00 Furosemide (Lasix) 40 mg DAILY IV Last administered on 02/14/19at 11:04; Admin Dose 40 MG; Start 02/14/19 at 09:00 Insulin Glargine (Lantus) 10 units QHS SC Last administered on 02/13/19 22:17; Admin Dose 10 UNITS; Start 02/13/19 at 21:00 Polyethylene Glycol (Miralax) 17 gm DAILY NGT Last administered on 02/14/19at 10:44; Admin Dose 17 GM; Start 02/13/19 at 16:00 Furosemide (Lasix) 20 mg ONCE PRN IV AFTER TRANSFUSION; Start 02/14/19 at 09:00; Stop 02/15/19 at 08:59 Pantoprazole (Protonix Iv) 40 mg BID@06,18 IV Last administered on 02/14/19at 18:41; Admin Dose 40 MG; Start 02/14/19 at 18:00 Potassium Chloride/Dextrose/ Sod Cl 1,000 ml @ 50 mls/hr Q20H IV Last ad ministered on 02/14/19at 19:04; Admin Dose 50 MLS/HR; Start 02/14/19 at 14:30 Allergies: Coded Allergies: No Known Allergy (Unverified , 02/11/19) Past Surgical History Past Surgical Hx: other (History of TURP, his urologist has recommended to do another one but the patient refused) Social History Alcohol Use: none Smoking Status: Never smoker Exam/Review of Systems Exam Vitals Vital Signs Date Temp Pulse Resp B/P (MAP) Pulse Ox O2 O2 Flow FiO2 Time Delivery Rate 02/14/19 98.0 111 19 125/66 100 20:01 (85) 02/14/19 Room Air 15:22 02/14/19 2.0 09:00 02/11/19 27 20:11 Intake and Output 02/13/19 02/13/19 02/14/19 1515:00 23:00 07:00 IntakeIntake Total 1150 ml 480 ml OutputOutput Total 320 ml 900 ml 600 ml BalanceBalance -320 ml 250 ml -120 ml Constitutional: alert, oriented Psych: no complaints Head: normocephalic Eyes: other (Looks pale anemic) ENMT: nl external ears & nose Neck: supple Respiratory: normal air movement; No wheezing Cardiovascular: No jugular venous distention (JVD) Gastrointestinal: soft Genitourinary - Male: other (Rectal exam: Hard prostate and large); No CVA tenderness Musculoskeletal: nl extremities to inspection Extremities: No calf tenderness Results Result Diagram: 02/14/19 0529 02/14/19 0529 Results 24hrs Laboratory Tests Test 02/13/19 21:29 02/13/19 21:45 02/14/19 01:27 02/14/19 05:29 Bedside Glucose 216 96 Stool Occult Blood POSITIVE White Blood Count 6.5 # Red Blood Count 2.73 L Hemoglobin 6.9 *L Hematocrit 22.3 L Mean Corpuscular 81.7 L Volume Mean Corpuscular 25.3 L Hemoglobin Mean Corpuscular 30.9 L Hemoglobin Concent Red Cell 15.6 H Distribution Width Platelet Count 223 Mean Platelet Volume 11.2 H Immature 0.500 H Granulocytes % Neutrophils % 61.6 Lymphocytes % 27.6 Monocytes % 8.3 Eosinophils % 1.7 Basophils % 0.3 Nucleated Red Blood 0.0 Cells % Immature 0.030 Granulocytes # Neutrophils # 4.0 Lymphocytes # 1.8 Monocytes # 0.5 Eosinophils # 0.1 Basophils # 0.0 Nucleated Red Blood 0.0 Cells # Sodium Level 143 Potassium Level 4.3 Chloride Level 108 Carbon Dioxide Level 25 Anion Gap 10 Blood Urea Nitrogen 58 H Creatinine 2.26 H Est Glomerular Filtrat Rate mL/min Glucose Level 95 # Calcium Level 8.3 L Test 02/14/19 05:48 02/14/19 10:42 02/14/19 13:21 02/14/19 18:11 B-Type Natriuretic 4160 H Peptide Bedside Glucose 189 292 H 96 Serum PSA:534 Imaging Imaging Renal ultrasound: 1. Moderate bilateral hydronephrosis which is likely secondary to bladder mass. 2. 6 x 4.5 x 6 cm echogenic vascular mass along the inferior bladder. This may represent primary bladder neoplasm, or invasion from the prostate mass. Correlation with CT scan , cystoscopy, and PSA level is recommended. 3. Incidental bilateral pleural effusions. 4. Hepatomegaly and fatty change of the liver Medications Medication Current Medications IV Flush (NS 3 ml) 3 ml PER PROTOCOL IV ; Start 02/11/19 at 13:00 Ondansetron HCl (Zofran Inj) 4 mg Q6H PRN IV NAUSEA/VOMITING; Start 02/11/19 at 13:00 Acetaminophen (Tylenol Tab) 650 mg Q6H PRN PO .PAIN 1-3 OR TEMP; Start 02/11/19 at 13:00 Acetaminophen/ Hydrocodone Bitart ([place] (5/325)) 1 tab Q6H PRN PO .MOD PAIN 4- 6; Start 02/11/19 at 13:00 Morphine Sulfate (morphine) 2 mg Q4H PRN IV .SEVERE PAIN 7-10; Start 02/11/19 at 13:00 Docusate Sodium (Colace) 100 mg Q12H PRN PO .CONSTIPATION; Start 02/11/19 at 13:00 Magnesium Hydroxide (Milk Of Mag) 30 ml DAILY PRN PO .CONSTIPATION; Start 02/11/19 at 13:00 Lorazepam (Ativan) 0.5 mg Q6H PRN IV ANXIETY; Start 02/11/19 at 13:00 Albuterol/ Ipratropium (Duoneb) 3 ml Q4H RESP THERAPY PRN HHN SHORTNESS OF BREATH; Start 02/11/19 at 13:00 Hydralazine HCl (Apresoline) 10 mg Q6H PRN IV ELEVATED BLOOD PRESSURE; Start 02/11/19 at 13:00 Nitroglycerin (Nitroglycerin (Sl Tab) 0.4 Mg) 1 tab Q5M PRN SL ANGINA; Start 02/11/19 at 13:00 Carvedilol (Coreg) 3.125 mg BID PO Last administered on 02/14/19at 11:05; Admin Dose 3.125 MG; Start 02/11/19 at 21:00 Insulin Glargine (Lantus) 35 units QAM SC Last administered on 02/14/19at 18:53; Admin Dose 35 UNITS; Start 02/12/19 at 09:00 Tamsulosin HCl (Flomax) 0.4 mg HS PO Last administered on 02/13/19at 21:34; Admin Dose 0.4 MG; Start 02/11/19 at 21:00 Miscellaneous Information 1 ea NOTE XX ; Start 02/11/19 at 13:00 Glucose (Glutose) 15 gm Q15M PRN PO DECREASED GLUCOSE; Start 02/11/19 at 13:00 Glucose (Glutose) 22.5 gm Q15M PRN PO DECREASED GLUCOSE; Start 02/11/19 at 13:00 Dextrose (D50w Syringe) 25 ml Q15M PRN IV DECREASED GLUCOSE; Start 02/11/19 at 13:00 Dextrose (D50w Syringe) 50 ml Q15M PRN IV DECREASED GLUCOSE; Start 02/11/19 at 13:00 Glucagon (Glucagen) 1 mg Q15M PRN IM DECREASED GLUCOSE; Start 02/11/19 at 13:00 Glucose (Glutose) 15 gm Q15M PRN BUCCAL DECREASED GLUCOSE; Start 02/11/19 at 13:00 Diagnostic Test (Pha) (Accu-Chek) 1 ea 02 XX Last administered on 02/13/19at 01:24; Admin Dose 1 EA; Start 02/12/19 at 02:00 Insulin Aspart (Novolog Insulin Pen) NOVOLOG *MILD* ALGORITHM WITH MEALS BEDTIME SC Last administered on 02/14/19 13:30; Admin Dose 4 UNIT; Start 02/11/19 at 18:00 Insulin Aspart (Novolog Insulin Pen) 10 unit WITH MEALS BEDTIME SC Last administered on 02/14/19 13:30; Admin Dose 10 UNIT; Start 02/11/19 at 18:00 Losartan Potassium (Cozaar) 25 mg DAILY PO Last administered on 02/13/19 08:47; Admin Dose 25 MG; Start 02/12/19 at 13:30; Status Hold Spironolactone (Aldactone) 25 mg DAILY PO Last administered on 02/14/19 10:49; Admin Dose 25 MG; Start 02/13/19 at 09:00 Furosemide (Lasix) 40 mg DAILY IV Last administered on 02/14/19 11:04; Admin Dose 40 MG; Start 02/14/19 at 09:00 Insulin Glargine (Lantus) 10 units QHS SC Last administered on 02/13/19 22:17; Admin Dose 10 UNITS; Start 02/13/19 at 21:00 Polyethylene Glycol (Miralax) 17 gm DAILY NGT Last administered on 02/14/19 10:44; Admin Dose 17 GM; Start 02/13/19 at 16:00 Furosemide (Lasix) 20 mg ONCE PRN IV AFTER TRANSFUSION; Start 02/14/19 at 09:00; Stop 02/15/19 at 08:59 Pantoprazole (Protonix Iv) 40 mg BID@06,18 IV Last administered on 02/14/19 18:41; Admin Dose 40 MG; Start 02/14/19 at 18:00 Potassium Chloride/Dextrose/ Sod Cl 1,000 ml @ 50 mls/hr Q20H IV Last admin istered on 02/14/19 19:04; Admin Dose 50 MLS/HR; Start 02/14/19 at 14:30 SPARKLE BARBER MD Feb 14, 2019 20:23
[2019-02-14] MEDS: BICALUTAMIDE 50 MG TAB PO SCH (21:45)
[2019-02-15] VITALS (12 sets, daily range): BP systolic 94–119; BP diastolic 53–64; PULSE 81–103; RESP 18–19
[2019-02-15] MEDS: ACCU-CHEK XX SCH (02:34)
[2019-02-15] MEDS: PANTOPRAZOLE 40 MG INJ IV SCH ×2 (06:02→17:08)
[2019-02-15] MEDS: INSULIN ASPART [NOVOLOG] 3 ML PEN SC SCH ×8 (07:55→20:45)
[2019-02-15] MEDS: SPIRONOLACTONE 25 MG TAB PO SCH (07:58)
[2019-02-15] MEDS: POLYETHYLENE GLYCOL 17 GM PACKET NGT SCH (07:58)
[2019-02-15] MEDS: FUROSEMIDE 40 MG INJ IV SCH (07:58)
[2019-02-15] MEDS: BICALUTAMIDE 50 MG TAB PO SCH (08:00)
--- NOTE | 2019-02-15 09:36 | PN ---
DATE: 02/15/2019 SUBJECTIVE: The patient yesterday had CT scan of abdomen and pelvis, which showed [id number] bilateral hydronephrosis and hydroureter with a mass in the urinary bladder, extending to the ureter ovesical junction, soft tissue attenuating lesion at level of the prostate gland. Extensive retroper itoneal lymphadenopathy representing metastatic lymphadenopathy and diverticulosis with thickening of the sigmoid colon. The patient was seen by urology. No other events noted. OBJECTIVE: VITAL SIGNS: Blood pressure is 94/53, respirations 18, pulse 94, temperature 98.2. HEENT: Head is normocephalic. NECK: Supple. HEART: Regular rate. LUNGS: Show diminished breath sounds at the base. ABDOMEN: Soft, nontender to palpation without rebound or guarding. EXTREMITIES: Negative for clubbing, cyanosis. Trace edema. DERMATOLOGIC: No rashes. MUSCULOSKELETAL: No joint effusion. NEUROLOGIC: No change in exam. MEDICATIONS: Reviewed. LABORATORY DATA: Reviewed. ASSESSMENT AND PLAN: 1. Nonoliguric acute kidney injury on top of chronic kidney disease with previous baseline creatinin e of 1.4 mg/dL. Etiology of acute kidney injury is multifactorial secondary to obstructive uropathy due to bladder mass, prostate cancer. The patient's CT scan, renal ultrasound shows bilateral severe hydroureteronephrosis. Hemodynamics is also a contributing factor. The patient's renal function massey s improved in last 24 hours after being started on IV fluids. Recommendation at this point is to con tinue current medical management. We will follow up with urology to see if the patient is a candidat e for either a nephrostomy tube placement or Martins catheter placement. We will monitor closely. 2. Bilateral hydronephrosis. Etiology is secondary to prostate mass, bladder mass. The patient is seen by urology, we will follow up recommendations. 3. Acute heart failure. The patient appears compensated. Monitor closely and IV fluids. 4. Mineral bone disorder. Monitor calcium and phosphorus levels. 5. Anemia. Continue to monitor hemoglobin and hematocrit levels. 6. Hypertension. Continue current blood pressure regimen. 7. Diabetes. Continue current insulin regimen. 8. Metastatic prostate cancer. Continue medical management. Follow up with Urology. Dictated By: MARTÍN BEAN/CATHI Conf#: [id number] DID#: [id number] CC: BERTHA FERRARI; SPARKLE BARBER MD; HUSSEIN SHUKLA MD;*End*
--- NOTE | 2019-02-15 09:53 | CONS ---
Consult Date/Type/Reason Admit Date/Time Feb 11, 2019 at 13:21 Initial Consult Date 02/12/19 Type of Consultation: cv Requesting Provider: HUSSEIN SHUKLA MD Date/Time of Note DATE: 02/15/19 TIME: 09:46 Subjective Cardiology follow-up progress note Subjective: Discussed with the staff and telemetry was reviewed. Patient with no chest pain or pressure. He has no more PND orthopnea HE states he feels much better Patient denies any active bleeding to me Patient states that he is able to urinate with no hematuria Objective: General: no acute distress HEENT: NC/AT. pupils are equal. round. NECK: . no stridor. CV: RRR. systolic murmur; no gallop or rubs. PULM: no wheezing, rhonchi at the base. GI: SOFT, NT, ND, no rebound or guarding Extremity: 1+ B/L LE edema. no clubbing. neuro: awake and alert, OX3. Psych: calm and pleasant rectal: deferred : normal EKG done February 11, 2019 suddenly reviewed and shows: Normal sinus rhythm. Anteroseptal infarct age undetermined. PVC Echocardiogram done February 11, [address] Kaminski shows: Severe global left ventricular systolic dysfunction. Tissue Doppler/Mitral Doppler indices are consistent with pseudonormalization with mildly elevated left atrial pressure (Stage II diastolic dysfunction). Chest x-ray done February 01, 2019 shows:Mild cardiomegaly with pulmonary vascular congestion. Objective Vitals Vital Signs Date Temp Pulse Resp B/P (MAP) Pulse Ox O2 O2 Flow FiO2 Time Delivery Rate 02/15/19 98.2 94 18 94/53 (67) 100 Nasal 07:40 Cannula 02/15/19 2.0 02:00 02/11/19 27 20:11 Intake and Output 02/14/19 02/14/19 02/15/19 1515:00 23:00 07:00 IntakeIntake Total 1530 ml 1180 ml OutputOutput Total 400 ml 275 ml 1250 ml BalanceBalance -400 ml 1255 ml -70 ml Results/Medications Result Diagram: 02/15/19 0510 02/15/19 0510 Results 24 hrs Laboratory Tests Test 02/14/19 10:42 02/14/19 13:21 02/14/19 18:11 02/14/19 20:11 Bedside Glucose 189 292 H 96 193 Test 02/15/19 02:29 02/15/19 02:46 02/15/19 03:32 02/15/19 05:10 Bedside Glucose 47 *L 57 L 121 White Blood Count 9.5 # Red Blood Count 3.69 #L Hemoglobin 9.6 #L Hematocrit 30.4 #L Mean Corpuscular 82.4 Volume Mean Corpuscular 26.0 L Hemoglobin Mean Corpuscular 31.6 L Hemoglobin Concen t Red Cell 15.8 H Distribution Width Platelet Count 233 Mean Platelet 10.9 H Volume Immature 0.400 Granulocytes % Neutrophils % 77.8 H Lymphocytes % 14.8 L Monocytes % 6.5 Eosinophils % 0.2 Basophils % 0.3 Nucleated Red 0.0 Blood Cells % Immature 0.040 H Granulocytes # Neutrophils # 7.4 Lymphocytes # 1.4 Monocytes # 0.6 Eosinophils # 0.0 Basophils # 0.0 Nucleated Red 0.0 Blood Cells # Sodium Level 144 Potassium Level 4.4 Chloride Level 105 Carbon Dioxide 27 Level Anion Gap 12 Blood Urea 47 #H Nitrogen Creatinine 1.93 H Est Glomerular Filtrat Rate mL/min Glucose Level 105 Calcium Level 8.6 Test 02/15/19 07:53 02/15/19 08:25 Bedside Glucose 97 Lab Scanned BLOOD TRANSFUSIO Report N Home Meds Reported Medications Carvedilol* (Coreg*) 6.25 Mg Tablet, 6.25 MG PO BID, #60 TAB 02/11/19 Losartan Potassium* (Cozaar*) 50 Mg Tablet, 50 MG PO DAILY, #30 TAB 02/11/19 Tamsulosin Hcl* (Tamsulosin Hcl*) 0.4 Mg Cap.er.24h, 0.4 MG PO HS, CAP 02/11/19 Metformin Hcl* (Metformin Hcl*) 500 Mg Tablet, 500 MG PO WITH BREAKFAST DINNE, #60 TAB 02/11/19 Insulin Lispro (Humalog Kwikpen U-100) 100 Unit/1 Ml Insuln.pen, 10 UNIT SQ AC E, EA 02/11/19 Insulin Glargine* (Lantus*) 100 Unit/Ml Soln, 15-20 UNIT SC QHS, #1 VIAL 02/11/19 Insulin Glargine* (Lantus*) 100 Unit/Ml Soln, 35 UNIT SC QAM, #1 VIAL 02/11/19 Discontinued Reported Medications Olmesartan Medoxomil (Benicar) Unknown Strength Tablet, PO DAILY, #30 TAB 10/05/18 Tamsulosin Hcl* (Flomax*) 0.4 Mg Cap.er.24h, 0.4 MG PO HS, CAP 10/05/18 Metformin* (Glucophage*) 500 Mg Tab, 500 MG PO WITH BREAKFAST DINNE, #30 TAB 10/05/18 Insulin Glargine* (Lantus*) Unknown Strength Soln, SC QHS, #1 VIAL 10/05/18 Insulin Lispro (Humalog Kwikpen U-100) Unknown Strength Insuln.pen, SQ, EA 10/05/18 Sitagliptin Phos/Metformin HCl (Janumet 50-500 mg Tablet) Unknown Strength Tablet, PO, TAB 10/05/18 Medications Current Medications IV Flush (NS 3 ml) 3 ml PER PROTOCOL IV ; Start 02/11/19 at 13:00 Ondansetron HCl (Zofran Inj) 4 mg Q6H PRN IV NAUSEA/VOMITING; Start 02/11/19 at 13:00 Acetaminophen (Tylenol Tab) 650 mg Q6H PRN PO .PAIN 1-3 OR TEMP; Start 02/11/19 at 13:00 Acetaminophen/ Hydrocodone Bitart ([place] (5/325)) 1 tab Q6H PRN PO .MOD PAIN 4- 6; Start 02/11/19 at 13:00 Morphine Sulfate (morphine) 2 mg Q4H PRN IV .SEVERE PAIN 7-10; Start 02/11/19 at 13:00 Docusate Sodium (Colace) 100 mg Q12H PRN PO .CONSTIPATION; Start 02/11/19 at 13:00 Magnesium Hydroxide (Milk Of Mag) 30 ml DAILY PRN PO .CONSTIPATION; Start 02/11/19 at 13:00 Lorazepam (Ativan) 0.5 mg Q6H PRN IV ANXIETY; Start 02/11/19 at 13:00 Albuterol/ Ipratropium (Duoneb) 3 ml Q4H RESP THERAPY PRN HHN SHORTNESS OF BREATH; Start 02/11/19 at 13:00 Hydralazine HCl (Apresoline) 10 mg Q6H PRN IV ELEVATED BLOOD PRESSURE; Start 02/11/19 at 13:00 Nitroglycerin (Nitroglycerin (Sl Tab) 0.4 Mg) 1 tab Q5M PRN SL ANGINA; Start 02/11/19 at 13:00 Carvedilol (Coreg) 3.125 mg BID PO Last administered on 02/15/19at 07:58; Admin Dose 3.125 MG; Start 02/11/19 at 21:00 Insulin Glargine (Lantus) 35 units QAM SC Last administered on 02/14/19at 20:44; Admin Dose 35 UNITS; Start 02/12/19 at 09:00 Tamsulosin HCl (Flomax) 0.4 mg HS PO Last administered on 02/14/19at 20:16; Admin Dose 0.4 MG; Start 02/11/19 at 21:00 Miscellaneous Information 1 ea NOTE XX ; Start 02/11/19 at 13:00 Glucose (Glutose) 15 gm Q15M PRN PO DECREASED GLUCOSE; Start 02/11/19 at 13:00 Glucose (Glutose) 22.5 gm Q15M PRN PO DECREASED GLUCOSE; Start 02/11/19 at 13:00 Dextrose (D50w Syringe) 25 ml Q15M PRN IV DECREASED GLUCOSE; Start 02/11/19 at 13:00 Dextrose (D50w Syringe) 50 ml Q15M PRN IV DECREASED GLUCOSE; Start 02/11/19 at 13:00 Glucagon (Glucagen) 1 mg Q15M PRN IM DECREASED GLUCOSE; Start 02/11/19 at 13:00 Glucose (Glutose) 15 gm Q15M PRN BUCCAL DECREASED GLUCOSE; Start 02/11/19 at 13:00 Diagnostic Test (Pha) (Accu-Chek) 1 ea 02 XX Last administered on 02/15/19at 02:34; Admin Dose 1 EA; Start 02/12/19 at 02:00 Insulin Aspart (Novolog Insulin Pen) NOVOLOG *MILD* ALGORITHM WITH MEALS BED TIME SC Last administered on 02/14/19at 20:44; Admin Dose 1 UNIT; Start 02/11/19 at 18:00 Insulin Aspart (Novolog Insulin Pen) 10 unit WITH MEALS BEDTIME SC Last administered on 02/14/19at 20:44; Admin Dose 10 UNIT; Start 02/11/19 at 18:00 Losartan Potassium (Cozaar) 25 mg DAILY PO Last administered on 02/13/19 08:47; Admin Dose 25 MG; Start 02/12/19 at 13:30; Status Hold Spironolactone (Aldactone) 25 mg DAILY PO Last administered on 02/15/19 07:58; Admin Dose 25 MG; Start 02/13/19 at 09:00 Furosemide (Lasix) 40 mg DAILY IV Last administered on 02/15/19 07:58; Admin Dose 40 MG; Start 02/14/19 at 09:00 Insulin Glargine (Lantus) 10 units QHS SC Last administered on 02/14/19 21:50; Admin Dose 10 UNITS; Start 02/13/19 at 21:00 Polyethylene Glycol (Miralax) 17 gm DAILY NGT Last administered on 02/15/19 07:58; Admin Dose 17 GM; Start 02/13/19 at 16:00 Pantoprazole (Protonix Iv) 40 mg BID@06,18 IV Last administered on 02/15/19 06:02; Admin Dose 40 MG; Start 02/14/19 at 18:00 Potassium Chloride/Dextrose/ Sod Cl 1,000 ml @ 50 mls/hr Q20H IV Last administered on 02/14/19 19:04; Admin Dose 50 MLS/HR; Start 02/14/19 at 14:30 Bicalutamide (Casodex) 50 mg DAILY PO Last administered on 02/15/19 08:00; Admin Dose 50 MG; Start 02/14/19 at 20:30 Assessment/Plan Hospital Course (Demo Recall) 1. Congestive heart failure: Acute secondary systolic heart failure 2. 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 Diabetes 4. Hypertension 5. 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 Abnormal EKG consistent with prior MIs 7. Rule out dyslipidemia 8. Dyspnea due to above 9. Renal failure 10. Severe and worsening anemia Commendations: Aspirin is on hold due to severe anemia Continue with Coreg will hold losartan cont Lasix qd only . cont Aldactone will hold off on ischemic work up until anemia has resolved. F/U / GI rec but pt is refusing to accept he has prostate cancer even. Thank you for his referral. We will continue to follow along with you PARTH MERCER MD [facility] PARTH MERCER MD Feb 15, 2019 09:53
[2019-02-15] MEDS: D5W-0.45 NACL + KCL 10 MEQ 1,000 ML IV SCH (10:30)
--- NOTE | 2019-02-15 11:08 | PN ---
Date/Time of Note Date/Time of Note DATE: 02/15/19 TIME: 11:05 Assessment/Plan VTE Prophylaxis Risk score (from Ns)>0 risk: 6 SCD applied (from Ns): No SCD contraindicated: other (scds) Pharmacological prophylaxis: other (scds) Lines/Catheters IV [facility]ter [facility] (from [facility] Peripheral IV Urinary Cath still in place: No Assessment/Plan Hospital Course Summary Assessment and Plan: Assessment: Microcytic anemia-likely multifactorial Congestive heart failure: Acute secondary systolic heart failure Cardiomyopathy EF 25-30% CHF, systolic HTN DM Renal insufficiency Plan: family requesting bleeding scan- if positive will likely move forward with endoscopic evaluation. Monitor h/h, transfuse as needed Patient seen in collaboration with Dr. Layne/Kym Subjective: Course reviewed with nursing staff Patient interviewed and examined All labs, imaging and other results reviewed Diet as tolerated, I spoke to Marilyn in depth regarding father and plan. No overt signs of GI bleed, noted, HGB responded appropriately to blood transfusions. PHYSICAL EXAMINATION: GENERAL: Well developed, well nourished, alert & oriented x 3, O2 in place SKIN: No lesions HEAD: Normocephalic, atraumatic, no tenderness. EYES: Pupils equal reactive to light, no discharge. EARS/NOSE AND THROAT: Ears normal, nose normal NECK: Supple, no masses CHEST: Inspection within normal limits. CARDIOVASCULAR: Heart: Regular rate and rhythm RESPIRATORY: Lungs clear to auscultation s GASTROINTESTINAL AND LIVER: Abdomen: Soft, non tenderness, mildly distended, no hernias, no masses, no organomegaly, no ascites, no guarding, no rebound tenderness, normoactive bowel sounds. Rectal: Deferred. EXTREMITIES: No cyanosis, clubbing or edema. Result Diagram: 02/15/1910 02/15/1910 Results 24hrs Laboratory Tests Test 02/14/19 13:21 02/14/19 18:11 02/14/19 20:11 02/15/19 02:29 Bedside Glucose 292 H 96 193 47 *L Test 02/15/19 02:46 02/15/19 03:32 02/15/19 05:10 02/15/19 07:53 Bedside Glucose 57 L 121 97 White Blood Count 9.5 # Red Blood Count 3.69 #L Hemoglobin 9.6 #L Hematocrit 30.4 #L Mean Corpuscular 82.4 Volume Mean Corpuscular 26.0 L Hemoglobin Mean Corpuscular 31.6 L Hemoglobin Concen t Red Cell 15.8 H Distribution Width Platelet Count 233 Mean Platelet 10.9 H Volume Immature 0.400 Granulocytes % Neutrophils % 77.8 H Lymphocytes % 14.8 L Monocytes % 6.5 Eosinophils % 0.2 Basophils % 0.3 Nucleated Red 0.0 Blood Cells % Immature 0.040 H Granulocytes # Neutrophils # 7.4 Lymphocytes # 1.4 Monocytes # 0.6 Eosinophils # 0.0 Basophils # 0.0 Nucleated Red 0.0 Blood Cells # Sodium Level 144 Potassium Level 4.4 Chloride Level 105 Carbon Dioxide 27 Level Anion Gap 12 Blood Urea 47 #H Nitrogen Creatinine 1.93 H Est Glomerular Filtrat Rate mL/min Glucose Level 105 Calcium Level 8.6 Test 02/15/19 08:25 Lab Scanned BLOOD TRANSFUSIO Report N Exam/Review of Systems Exam Vitals Vital Signs Date Temp Pulse Resp B/P (MAP) Pulse Ox O2 O2 Flow FiO2 Time Delivery Rate 02/15/19 93 08:00 02/15/19 Nasal 2.0 08:00 Cannula 02/15/19 98.2 18 94/53 (67) 100 07:40 02/11/19 27 20:11 Intake and Output 02/14/19 02/14/19 02/15/19 1515:00 23:00 07:00 IntakeIntake Total 1530 ml 1180 ml OutputOutput Total 400 ml 275 ml 1250 ml BalanceBalance -400 ml 1255 ml -70 ml Results Results 24hrs Laboratory Tests Test 02/14/19 13:21 02/14/19 18:11 02/14/19 20:11 02/15/19 02:29 Bedside Glucose 292 H 96 193 47 *L Test 02/15/19 02:46 02/15/19 03:32 02/15/19 05:10 02/15/19 07:53 Bedside Glucose 57 L 121 97 White Blood Count 9.5 # Red Blood Count 3.69 #L Hemoglobin 9.6 #L Hematocrit 30.4 #L Mean Corpuscular 82.4 Volume Mean Corpuscular 26.0 L Hemoglobin Mean Corpuscular 31.6 L Hemoglobin Concen t Red Cell 15.8 H Distribution Width Platelet Count 233 Mean Platelet 10.9 H Volume Immature 0.400 Granulocytes % Neutrophils % 77.8 H Lymphocytes % 14.8 L Monocytes % 6.5 Eosinophils % 0.2 Basophils % 0.3 Nucleated Red 0.0 Blood Cells % Immature 0.040 H Granulocytes # Neutrophils # 7.4 Lymphocytes # 1.4 Monocytes # 0.6 Eosinophils # 0.0 Basophils # 0.0 Nucleated Red 0.0 Blood Cells # Sodium Level 144 Potassium Level 4.4 Chloride Level 105 Carbon Dioxide 27 Level Anion Gap 12 Blood Urea 47 #H Nitrogen Creatinine 1.93 H Est Glomerular Filtrat Rate mL/min Glucose Level 105 Calcium Level 8.6 Test 02/15/19 08:25 Lab Scanned BLOOD TRANSFUSIO Report N Medications Medication Current Medications IV Flush (NS 3 ml) 3 ml PER PROTOCOL IV ; Start 02/11/19 at 13:00 Ondansetron HCl (Zofran Inj) 4 mg Q6H PRN IV NAUSEA/VOMITING; Start 02/11/19 at 13:00 Acetaminophen (Tylenol Tab) 650 mg Q6H PRN PO .PAIN 1-3 OR TEMP; Start 02/11/19 at 13:00 Acetaminophen/ Hydrocodone Bitart ([place] (5/325)) 1 tab Q6H PRN PO .MOD PAIN 4- 6; Start 02/11/19 at 13:00 Morphine Sulfate (morphine) 2 mg Q4H PRN IV .SEVERE PAIN 7-10; Start 02/11/19 at 13:00 Docusate Sodium (Colace) 100 mg Q12H PRN PO .CONSTIPATION; Start 02/11/19 at 13:00 Magnesium Hydroxide (Milk Of Mag) 30 ml DAILY PRN PO .CONSTIPATION; Start at 13:00 Lorazepam (Ativan) 0.5 mg Q6H PRN IV ANXIETY; Start 02/11/19 at 13:00 Albuterol/ Ipratropium (Duoneb) 3 ml Q4H RESP THERAPY PRN HHN SHORTNESS OF BREATH; Start 02/11/19 at 13:00 Hydralazine HCl (Apresoline) 10 mg Q6H PRN IV ELEVATED BLOOD PRESSURE; Start 02/11/19 at 13:00 Nitroglycerin (Nitroglycerin (Sl Tab) 0.4 Mg) 1 tab Q5M PRN SL ANGINA; Start 02/11/19 at 13:00 Carvedilol (Coreg) 3.125 mg BID PO Last administered on 02/15/19at 07:58; Admin Dose 3.125 MG; Start 02/11/19 at 21:00 Insulin Glargine (Lantus) 35 units QAM SC Last administered on 02/14/19 20:44; Admin Dose 35 UNITS; Start 02/12/19 at 09:00 Tamsulosin HCl (Flomax) 0.4 mg HS PO Last administered on 02/14/19 20:16; Admin Dose 0.4 MG; Start 02/11/19 at 21:00 Miscellaneous Information 1 ea NOTE XX ; Start 02/11/19 at 13:00 Glucose (Glutose) 15 gm Q15M PRN PO DECREASED GLUCOSE; Start 02/11/19 at 13:00 Glucose (Glutose) 22.5 gm Q15M PRN PO DECREASED GLUCOSE; Start 02/11/19 at 13:00 Dextrose (D50w Syringe) 25 ml Q15M PRN IV DECREASED GLUCOSE; Start 02/11/19 at 13:00 Dextrose (D50w Syringe) 50 ml Q15M PRN IV DECREASED GLUCOSE; Start 02/11/19 at 13:00 Glucagon (Glucagen) 1 mg Q15M PRN IM DECREASED GLUCOSE; Start 02/11/19 at 13:00 Glucose (Glutose) 15 gm Q15M PRN BUCCAL DECREASED GLUCOSE; Start 02/11/19 at 13:00 Diagnostic Test (Pha) (Accu-Chek) 1 ea 02 XX Last administered on 02/15/19at 02:34; Admin Dose 1 EA; Start 02/12/19 at 02:00 Insulin Aspart (Novolog Insulin Pen) NOVOLOG *MILD* ALGORITHM WITH MEALS BEDTIME SC Last administered on 02/14/19at 20:44; Admin Dose 1 UNIT; Start 02/11/19 at 18:00 Insulin Aspart (Novolog Insulin Pen) 10 unit WITH MEALS BEDTIME SC Last administered on 02/14/19 20:44; Admin Dose 10 UNIT; Start 02/11/19 at 18:00 Losartan Potassium (Cozaar) 25 mg DAILY PO Last administered on 02/13/19 08:47; Admin Dose 25 MG; Start 02/12/19 at 13:30; Status Hold Spironolactone (Aldactone) 25 mg DAILY PO Last administered on 02/15/19 07:58; Admin Dose 25 MG; Start 02/13/19 at 09:00 Furosemide (Lasix) 40 mg DAILY IV Last administered on 02/15/19 07:58; Admin Dose 40 MG; Start 02/14/19 at 09:00 Insulin Glargine (Lantus) 10 units QHS SC Last administered on 02/14/19 21:50; Admin Dose 10 UNITS; Start 02/13/19 at 21:00 Polyethylene Glycol (Miralax) 17 gm DAILY NGT Last administered on 02/15/19 07:58; Admin Dose 17 GM; Start 02/13/19 at 16:00 Pantoprazole (Protonix Iv) 40 mg BID@06,18 IV Last administered on 02/15/19 06:02; Admin Dose 40 MG; Start 02/14/19 at 18:00 Potassium Chloride/Dextrose/ Sod Cl 1,000 ml @ 50 mls/hr Q20H IV Last administered on 02/14/19 19:04; Admin Dose 50 MLS/HR; Start 02/14/19 at 14:30 Bicalutamide (Casodex) 50 mg DAILY PO Last administered on 02/15/19 08:00; Admin Dose 50 MG; Start 02/14/19 at 20:30 FLACA ANTONY Feb 15, 2019 11:08
--- NOTE | 2019-02-15 13:44 | PN ---
Date/Time of Note Date/Time of Note DATE: 02/15/19 TIME: 13:36 Assessment/Plan VTE [place] [facility] [place]: 6 [place] [facility] [place] Yes Pharmacological prophylaxis: other Pharm contraindication: bleeding Lines/Catheters IV Catheter Type (from [facility]): Peripheral IV Urinary Cath still in place: No Assessment/Plan Assessment/Plan 1. Iron deficiency anemia, acute on chronic, likely upper GI bleeding, follow up with H/H, transfusion as needed, bleeding scan as requested, follow up with GI 2. CHF, systolic, acute on chronic, lasix, coreg, aldactone, losartan is held due to renal failure 3. Dilated cardiomyopathy, ?etiology, follow up with cardiology 4. 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 Acute renal failure, due to hydro, follow up with nephrology 7. HTN, controlled 8. DM, on insulin, decrease lantus due to renal failure Result Diagram: 02/15/19 0510 02/15/19 0510 Results 24hrs Laboratory Tests Test 02/14/19 18:11 02/14/19 20:11 02/15/19 02:29 02/15/19 02:46 Bedside Glucose 96 193 47 *L 57 L Test 02/15/19 03:32 02/15/19 05:10 02/15/19 07:53 02/15/19 08:25 Bedside Glucose 121 97 White Blood Count 9.5 # Red Blood Count 3.69 #L Hemoglobin 9.6 #L Hematocrit 30.4 #L Mean Corpuscular 82.4 Volume Mean Corpuscular 26.0 L Hemoglobin Mean Corpuscular 31.6 L Hemoglobin Concen t Red Cell 15.8 H Distribution Width Platelet Count 233 Mean Platelet 10.9 H Volume Immature 0.400 Granulocytes % Neutrophils % 77.8 H Lymphocytes % 14.8 L Monocytes % 6.5 Eosinophils % 0.2 Basophils % 0.3 Nucleated Red 0.0 Blood Cells % Immature 0.040 H Granulocytes # Neutrophils # 7.4 Lymphocytes # 1.4 Monocytes # 0.6 Eosinophils # 0.0 Basophils # 0.0 Nucleated Red 0.0 Blood Cells # Sodium Level 144 Potassium Level 4.4 Chloride Level 105 Carbon Dioxide 27 Level Anion Gap 12 Blood Urea 47 #H Nitrogen Creatinine 1.93 H Est Glomerular Filtrat Rate mL/min Glucose Level 105 Calcium Level 8.6 Lab Scanned BLOOD TRANSFUSIO Report N Test 02/15/19 12:00 Bedside Glucose 83 Subjective 24 Hr Interval Summary Free Text/Dictation no shortness of breath, no chest pain declines endoscopy, requests bleeding scan Exam/Review of Systems Exam Vitals Vital Signs Date Temp Pulse Resp B/P (MAP) Pulse Ox O2 O2 Flow FiO2 Time Delivery Rate 02/15/19 98.5 93 18 114/60 99 Room Air 11:27 (78) 02/15/19 2.0 08:00 02/11/19 27 20:11 Intake and Output 02/14/19 02/14/19 02/15/19 1515:00 23:00 07:00 IntakeIntake Total 1530 ml 1180 ml OutputOutput Total 400 ml 275 ml 1250 ml BalanceBalance -400 ml 1255 ml -70 ml Constitutional: alert, oriented, well developed Head: normocephalic, atraumatic Eyes: nl conjunctiva, EOMI, nl lids, PERRL ENMT: nl external ears & nose, nl lips & teeth, nl nasal mucosa & septum Neck: supple, non-tender Respiratory: clear to auscultation, normal air movement; No congested cough, No crackles/rales, No diminished breath sounds, No intercostal retraction, No labored breathing, No respirations, No tactile fremitus, No wheezing, No other Cardiovascular: regular rate and rhythm, nl pulses; No bruits, No diastolic murmur, No edema, No gallop, No irregular rhythm, No jugular venous distention (JVD), No murmurs/extra sounds, No rub, No systolic murmur, No S3, No S4, No other Gastrointestinal: soft, nl liver, spleen Musculoskeletal: nl extremities to inspection Extremities: normal pulses; No calf tenderness, No cyanosis, No clubbing, No edema, No pitting pedal edema, No palpable cord, No tenderness, No other Neurological: [employer]IST[employer] ASSOCIATE II-XII intact, nl mental status, nl speech, nl strength Results Results 24hrs Laboratory Tests Test 02/14/19 18:11 02/14/19 20:11 02/15/19 02:29 02/15/19 02:46 Bedside Glucose 96 193 47 *L 57 L Test 02/15/19 03:32 02/15/19 05:10 02/15/19 07:53 02/15/19 08:25 Bedside Glucose 121 97 White Blood Count 9.5 # Red Blood Count 3.69 #L Hemoglobin 9.6 #L Hematocrit 30.4 #L Mean Corpuscular 82.4 Volume Mean Corpuscular 26.0 L Hemoglobin Mean Corpuscular 31.6 L Hemoglobin Concen t Red Cell 15.8 H Distribution Width Platelet Count 233 Mean Platelet 10.9 H Volume Immature 0.400 Granulocytes % Neutrophils % 77.8 H Lymphocytes % 14.8 L Monocytes % 6.5 Eosinophils % 0.2 Basophils % 0.3 Nucleated Red 0.0 Blood Cells % Immature 0.040 H Granulocytes # Neutrophils # 7.4 Lymphocytes # 1.4 Monocytes # 0.6 Eosinophils # 0.0 Basophils # 0.0 Nucleated Red 0.0 Blood Cells # Sodium Level 144 Potassium Level 4.4 Chloride Level 105 Carbon Dioxide 27 Level Anion Gap 12 Blood Urea 47 #H Nitrogen Creatinine 1.93 H Est Glomerular Filtrat Rate mL/min Glucose Level 105 Calcium Level 8.6 Lab Scanned BLOOD TRANSFUSIO Report N Test 02/15/19 12:00 Bedside Glucose 83 Medications Medication Current Medications IV Flush (NS 3 ml) 3 ml PER PROTOCOL IV ; Start 02/11/19 at 13:00 Ondansetron HCl (Zofran Inj) 4 mg Q6H PRN IV NAUSEA/VOMITING; Start 02/11/19 at 13:00 Acetaminophen (Tylenol Tab) 650 mg Q6H PRN PO .PAIN 1-3 OR TEMP; Start 02/11/19 at 13:00 Acetaminophen/ Hydrocodone Bitart ([place] (5/325)) 1 tab Q6H PRN PO .MOD PAIN 4- 6; Start 02/11/19 at 13:00 Morphine Sulfate (morphine) 2 mg Q4H PRN IV .SEVERE PAIN 7-10; Start 02/11/19 at 13:00 Docusate Sodium (Colace) 100 mg Q12H PRN PO .CONSTIPATION; Start 02/11/19 at 13:00 Magnesium Hydroxide (Milk Of Mag) 30 ml DAILY PRN PO .CONSTIPATION; Start 02/11/19 at 13:00 Lorazepam (Ativan) 0.5 mg Q6H PRN IV ANXIETY; Start 02/11/19 at 13:00 Albuterol/ Ipratropium (Duoneb) 3 ml Q4H RESP THERAPY PRN HHN SHORTNESS OF B REATH; Start 02/11/19 at 13:00 Hydralazine HCl (Apresoline) 10 mg Q6H PRN IV ELEVATED BLOOD PRESSURE; Start 02/11/19 at 13:00 Nitroglycerin (Nitroglycerin (Sl Tab) 0.4 Mg) 1 tab Q5M PRN SL ANGINA; Start 02/11/19 at 13:00 Carvedilol (Coreg) 3.125 mg BID PO Last administered on 02/15/19at 07:58; Admin Dose 3.125 MG; Start 02/11/19 at 21:00 Insulin Glargine (Lantus) 35 units QAM SC Last administered on 02/14/19at 20:44; Admin Dose 35 UNITS; Start 02/12/19 at 09:00 Tamsulosin HCl (Flomax) 0.4 mg HS PO Last administered on 02/14/19at 20:16; Admin Dose 0.4 MG; Start 02/11/19 at 21:00 Miscellaneous Information 1 ea NOTE XX ; Start 02/11/19 at 13:00 Glucose (Glutose) 15 gm Q15M PRN PO DECREASED GLUCOSE; Start 02/11/19 at 13:00 Glucose (Glutose) 22.5 gm Q15M PRN PO DECREASED GLUCOSE; Start 02/11/19 at 13:00 Dextrose (D50w Syringe) 25 ml Q15M PRN IV DECREASED GLUCOSE; Start 02/11/19 at 13:00 Dextrose (D50w Syringe) 50 ml Q15M PRN IV DECREASED GLUCOSE; Start 02/11/19 at 13:00 Glucagon (Glucagen) 1 mg Q15M PRN IM DECREASED GLUCOSE; Start 02/11/19 at 13:00 Glucose (Glutose) 15 gm Q15M PRN BUCCAL DECREASED GLUCOSE; Start 02/11/19 at 13:00 Diagnostic Test (Pha) (Accu-Chek) 1 ea 02 XX Last administered on 02/15/19at 02:34; Admin Dose 1 EA; Start 02/12/19 at 02:00 Insulin Aspart (Novolog Insulin Pen) NOVOLOG *MILD* ALGORITHM WITH MEALS BEDTIME SC Last administered on 02/14/19at 20:44; Admin Dose 1 UNIT; Start 02/11/19 at 18:00 Insulin Aspart (Novolog Insulin Pen) 10 unit WITH MEALS BEDTIME SC Last administered on 02/14/19 20:44; Admin Dose 10 UNIT; Start 02/11/19 at 18:00 Losartan Potassium (Cozaar) 25 mg DAILY PO Last administered on 02/13/19 08:47; Admin Dose 25 MG; Start 02/12/19 at 13:30; Status Hold Spironolactone (Aldactone) 25 mg DAILY PO Last administered on 02/15/19 07:58; Admin Dose 25 MG; Start 02/13/19 at 09:00 Furosemide (Lasix) 40 mg DAILY IV Last administered on 02/15/19 07:58; Admin Dose 40 MG; Start 02/14/19 at 09:00 Insulin Glargine (Lantus) 10 units QHS SC Last administered on 02/14/19 21:50; Admin Dose 10 UNITS; Start 02/13/19 at 21:00 Polyethylene Glycol (Miralax) 17 gm DAILY NGT Last administered on 02/15/19 07:58; Admin Dose 17 GM; Start 02/13/19 at 16:00 Pantoprazole (Protonix Iv) 40 mg BID@06,18 IV Last administered on 02/15/19 06:02; Admin Dose 40 MG; Start 02/14/19 at 18:00 Potassium Chloride/Dextrose/ Sod Cl 1,000 ml @ 50 mls/hr Q20H IV Last administered on 02/14/19 19:04; Admin Dose 50 MLS/HR; Start 02/14/19 at 14:30 Bicalutamide (Casodex) 50 mg DAILY PO Last administered on 02/15/19 08:00; Admin Dose 50 MG; Start 02/14/19 at 20:30 HUSSEIN SHUKLA MD Feb 15, 2019 13:44
[2019-02-15] MEDS: TAMSULOSIN (SR) 0.4 MG CAP PO SCH (20:29)
[2019-02-15] MEDS: INSULIN GLARGINE [LANTus] (100 UNITS/ML) SYG SC SCH (20:45)
[2019-02-16] VITALS (10 sets, daily range): BP systolic 95–134; BP diastolic 55–69; PULSE 77–113; RESP 18–19
[2019-02-16] MEDS: ACCU-CHEK XX SCH (02:32)
[2019-02-16] MEDS: PANTOPRAZOLE 40 MG INJ IV SCH (06:11)
[2019-02-16] MEDS: INSULIN ASPART [NOVOLOG] 3 ML PEN SC SCH ×4 (08:00→12:12)
[2019-02-16] MEDS: SPIRONOLACTONE 25 MG TAB PO SCH (08:11)
[2019-02-16] MEDS: FUROSEMIDE 40 MG INJ IV SCH (08:11)
[2019-02-16] MEDS: POLYETHYLENE GLYCOL 17 GM PACKET NGT SCH (08:11)
[2019-02-16] MEDS: BICALUTAMIDE 50 MG TAB PO SCH (08:32)
[2019-02-16] MEDS ORDERED: INSULIN GLARGINE [LANTus] (100 UNITS/ML) SYG SC SCH (09:00)
--- NOTE | 2019-02-16 09:20 | PN ---
DATE: 02/16/2019 SUBJECTIVE: The patient is stable, no events overnight. No fevers, chills, nausea, or vomiting. OBJECTIVE: VITAL SIGNS: Blood pressure is 95/69, respirations 18, pulse 77, temperature 98.0. HEENT: Head is normocephalic. NECK: Supple. HEART: Regular rate. LUNGS: Show diminished breath sounds at the base. ABDOMEN: Soft, nontender to palpation without rebound or guarding. EXTREMITIES: Negative for clubbing, cyanosis, no edema. DERMATOLOGIC: No rashes. MUSCULOSKELETAL: No joint effusion. NEUROLOGIC: No change in exam. MEDICATIONS: Reviewed. LABORATORY DATA: Reviewed. Sodium 145, BUN 40, creatinine 2.0. CBC was reviewed. ASSESSMENT AND PLAN: 1. Nonoliguric acute kidney injury on top of chronic kidney disease with previous baseline creatinin e of 1.4 mg/dL. Etiology of acute kidney injury is multifactorial secondary to obstructive uropathy due to bladder mass, possible prostate cancer and hemodynamics. The patient's renal function has bee n fluctuating but appears to be stabilizing around a creatinine of 2.0 mg/dL. At this point, we woul d continue current treatment plan, supportive care, renally dose all medicines, monitor closely. The patient's ARB is currently on hold. 2. Bilateral hydronephrosis secondary to bladder mass, possibly metastatic prostate cancer. The pat ient has been seen by urology for followup recommendations. 3. Acute heart failure. The patient appears compensated. Continue medical management. 4. Mineral bone disorder, monitor calcium and phosphorus levels. 5. Anemia. Continue to monitor hemoglobin and hematocrit levels. 6. Hypertension. Continue current blood pressure regimen. 7. Diabetes. Continue current insulin regimen. 8. Metastatic prostate cancer. Continue chemotherapy and medical management. Follow up with urolog y. Dictated By: MARTÍN COSME DO NR/NTS Conf#: [id number] DID#: [id number] CC: SPARKLE BARBER MD; HUSSEIN SHUKLA MD; BERTHA FERRARI;*EndCC*
--- NOTE | 2019-02-16 15:16 | PN ---
Date/Time of Note Date/Time of Note DATE: 02/16/19 TIME: 15:10 Assessment/Plan VTE Prophylaxis Risk score (from [facility] [place]0 risk: 6 SCD applied (from [facility] [place]): No SCD contraindicated: low risk/ambulating Pharmacological prophylaxis: NA/contraindicated Pharm contraindication: bleeding Lines/Catheters [facility] (from [facility] Peripheral IV Urinary Cath still in place: No Assessment/Plan Assessment/Plan Assessment: Microcytic anemia-likely multifactorial Congestive heart failure: Acute secondary systolic heart failure Cardiomyopathy EF 25-30% CHF, systolic HTN DM Renal insufficiency Plan: Bleeding scan was negative Monitor h/h, transfuse as needed With no signs of overt GI bleeding endoscopic interventions are not warranted GI will sign off at this time. Patient seen in collaboration with Subjective: Course reviewed with nursing staff Patient interviewed and examined All labs, imaging and other results reviewed Patient is not feeling well. He requests to be seen by lead care manager. There is no signs of overt GI bleeding. Hemoglobin is stable. Results of bleeding scan reviewed with the patient has been negative. With no further recommendations GI will sign off and will be available to reconsult upon request. PHYSICAL EXAMINATION: GENERAL: Well developed, well nourished, alert & oriented x 3 SKIN: No lesions HEAD: Normocephalic, atraumatic, no tenderness. EYES: Pupils equal reactive to light, no discharge. EARS/NOSE AND THROAT: Ears normal, nose normal NECK: Supple, no masses CHEST: Inspection within normal limits. CARDIOVASCULAR: Heart: Regular rate and rhythm RESPIRATORY: Lungs clear to auscultation s GASTROINTESTINAL AND LIVER: Abdomen: Soft, non tenderness, mildly distended, no hernias, no masses, no organomegaly, no ascites, no guarding, no rebound tenderness, normoactive bowel sounds. Rectal: Deferred. EXTREMITIES: No cyanosis, clubbing or edema. Result Diagram: 02/16/19 0538 02/16/19 0538 Results 24hrs Laboratory Tests Test 02/15/19 17:07 02/15/19 20:27 02/16/19 01:45 02/16/19 03:44 Bedside Glucose 151 213 136 83 Test 02/16/19 05:38 02/16/19 08:08 02/16/19 11:55 White Blood Count 8.9 Red Blood Count 3.61 L Hemoglobin 9.4 L Hematocrit 30.4 L Mean Corpuscular 84.2 Volume Mean Corpuscular 26.0 L Hemoglobin Mean Corpuscular 30.9 L Hemoglobin Concent Red Cell 16.4 H Distribution Width Platelet Count 240 Mean Platelet Volume 10.9 H Immature 0.300 Granulocytes % Neutrophils % 63.9 Lymphocytes % 24.4 Monocytes % 9.3 Eosinophils % 1.5 Basophils % 0.6 Nucleated Red Blood 0.0 Cells % Immature 0.030 Granulocytes # Neutrophils # 5.7 Lymphocytes # 2.2 Monocytes # 0.8 Eosinophils # 0.1 Basophils # 0.1 Nucleated Red Blood 0.0 Cells # Sodium Level 145 H Potassium Level 4.6 Chloride Level 105 Carbon Dioxide Level 30 Anion Gap 10 Blood Urea Nitrogen 40 H Creatinine 2.00 H Est Glomerular Filtrat Rate mL/min Glucose Level 60 #L Calcium Level 8.7 Bedside Glucose 93 172 CC: UMM SANCHEZ ; Exam/Review of Systems Exam Vitals Vital Signs Date Temp Pulse Resp B/P (MAP) Pulse Ox O2 O2 Flow FiO2 Time Delivery Rate 02/16/19 96 12:00 02/16/19 98.1 19 112/62 99 11:36 (79) 02/16/19 Nasal 2.0 07:47 Cannula Intake and Output 02/15/19 02/15/19 02/16/19 1515:00 23:00 07:00 IntakeIntake Total 350 ml 350 ml OutputOutput Total 800 ml 500 ml BalanceBalance -450 ml -150 ml Results Results 24hrs Laboratory Tests Test 02/15/19 17:07 02/15/19 20:27 02/16/19 01:45 02/16/19 03:44 Bedside Glucose 151 213 136 83 Test 02/16/19 05:38 02/16/19 08:08 02/16/19 11:55 White Blood Count 8.9 Red Blood Count 3.61 L Hemoglobin 9.4 L Hematocrit 30.4 L Mean Corpuscular 84.2 Volume Mean Corpuscular 26.0 L Hemoglobin Mean Corpuscular 30.9 L Hemoglobin Concent Red Cell 16.4 H Distribution Width Platelet Count 240 Mean Platelet Volume 10.9 H Immature 0.300 Granulocytes % Neutrophils % 63.9 Lymphocytes % 24.4 Monocytes % 9.3 Eosinophils % 1.5 Basophils % 0.6 Nucleated Red Blood 0.0 Cells % Immature 0.030 Granulocytes # Neutrophils # 5.7 Lymphocytes # 2.2 Monocytes # 0.8 Eosinophils # 0.1 Basophils # 0.1 Nucleated Red Blood 0.0 Cells # Sodium Level 145 H Potassium Level 4.6 Chloride Level 105 Carbon Dioxide Level 30 Anion Gap 10 Blood Urea Nitrogen 40 H Creatinine 2.00 H Est Glomerular Filtrat Rate mL/min Glucose Level 60 #L Calcium Level 8.7 Bedside Glucose 93 172 Medications Medication Current Medications IV Flush (NS 3 ml) 3 ml PER PROTOCOL IV ; Start 02/11/19 at 13:00 Ondansetron HCl (Zofran Inj) 4 mg Q6H PRN IV NAUSEA/VOMITING; Start 02/11/19 at 13:00 Acetaminophen (Tylenol Tab) 650 mg Q6H PRN PO .PAIN 1-3 OR TEMP; Start 02/11/19 at 13:00 Acetaminophen/ Hydrocodone Bitart ([place] (5/325)) 1 tab Q6H PRN PO .MOD PAIN 4- 6; Start 02/11/19 at 13:00 Morphine Sulfate (morphine) 2 mg Q4H PRN IV .SEVERE PAIN 7-10; Start 02/11/19 at 13:00 Docusate Sodium (Colace) 100 mg Q12H PRN PO .CONSTIPATION; Start 02/11/19 at 13:00 Magnesium Hydroxide (Milk Of Mag) 30 ml DAILY PRN PO .CONSTIPATION; Start 02/11/19 at 13:00 Lorazepam (Ativan) 0.5 mg Q6H PRN IV ANXIETY; Start 02/11/19 at 13:00 Albuterol/ Ipratropium (Duoneb) 3 ml Q4H RESP THERAPY PRN HHN SHORTNESS OF BREATH; Start 02/11/19 at 13:00 Hydralazine HCl (Apresoline) 10 mg Q6H PRN IV ELEVATED BLOOD PRESSURE; Start 02/11/19 at 13:00 Nitroglycerin (Nitroglycerin (Sl Tab) 0.4 Mg) 1 tab Q5M PRN SL ANGINA; Start 02/11/19 at 13:00 Carvedilol (Coreg) 3.125 mg BID PO Last administered on 02/16/19at 08:12; Admin Dose 3.125 MG; Start 02/11/19 at 21:00 Tamsulosin HCl (Flomax) 0.4 mg HS PO Last administered on 02/15/19 20:29; Admin Dose 0.4 MG; Start 02/11/19 at 21:00 Miscellaneous Information 1 ea NOTE XX ; Start 02/11/19 at 13:00 Glucose (Glutose) 15 gm Q15M PRN PO DECREASED GLUCOSE; Start 02/11/19 at 13:00 Glucose (Glutose) 22.5 gm Q15M PRN PO DECREASED GLUCOSE; Start 02/11/19 at 13:00 Dextrose (D50w Syringe) 25 ml Q15M PRN IV DECREASED GLUCOSE; Start 02/11/19 at 13:00 Dextrose (D50w Syringe) 50 ml Q15M PRN IV DECREASED GLUCOSE; Start 02/11/19 at 13:00 Glucagon (Glucagen) 1 mg Q15M PRN IM DECREASED GLUCOSE; Start 02/11/19 at 13:00 Glucose (Glutose) 15 gm Q15M PRN BUCCAL DECREASED GLUCOSE; Start 02/11/19 at 13:00 Diagnostic Test (Pha) (Accu-Chek) 1 ea 02 XX Last administered on 02/16/19at 02:32; Admin Dose 1 EA; Start 02/12/19 at 02:00 Insulin Aspart (Novolog Insulin Pen) NOVOLOG *MILD* ALGORITHM WITH MEALS BEDTIME SC Last administered on 02/16/19 12:12; Admin Dose 1 UNIT; Start 02/11/19 at 18:00 Insulin Aspart (Novolog Insulin Pen) 10 unit WITH MEALS BEDTIME SC Last administered on 02/16/19 12:12; Admin Dose 10 UNIT; Start 02/11/19 at 18:00 Losartan Potassium (Cozaar) 25 mg DAILY PO Last administered on 02/13/19 08:47; Admin Dose 25 MG; Start 02/12/19 at 13:30; Status Hold Spironolactone (Aldactone) 25 mg DAILY PO Last administered on 02/16/19 08:11; Admin Dose 25 MG; Start 02/13/19 at 09:00 Furosemide (Lasix) 40 mg DAILY IV Last administered on 02/16/19 08:11; Admin Dose 40 MG; Start 02/14/19 at 09:00 Insulin Glargine (Lantus) 10 units QHS SC Last administered on 02/15/19at 20:45; Admin Dose 10 UNITS; Start 02/13/19 at 21:00 Polyethylene Glycol (Miralax) 17 gm DAILY NGT Last administered on 02/16/19at 08:11; Admin Dose 17 GM; Start 02/13/19 at 16:00 Bicalutamide (Casodex) 50 mg DAILY PO Last administered on 02/16/19at 08:32; Admin Dose 50 MG; Start 02/14/19 at 20:30 Insulin Glargine (Lantus) 30 units QAM SC Last administered on 02/16/19at 08:31; Admin Dose 30 UNITS; Start 02/16/19 at 09:00 Pantoprazole (Protonix Tab) 40 mg BID@0600,1800 PO ; Start 02/16/19 at 18:00 JAYESH BROOKS NP Feb 16, 2019 15:16
--- NOTE | 2019-02-16 15:24 | CONS ---
Consult Date/Type/Reason Admit Date/Time Feb 11, 2019 at 13:21 Initial Consult Date 02/12/19 Type of Consultation: cv Requesting Provider: HUSSEIN BRADLEY MD Date/Time of Note DATE: 02/16/19 TIME: 15:22 Subjective Cardiology follow-up progress note Subjective: Discussed with the staff and telemetry was reviewed. d/w Dr Bradley Patient with no chest pain or pressure. He has no more PND orthopnea HE states he feels much better Patient denies any active bleeding to me Patient states that he is able to urinate with no hematuria pt states he wants to go home Objective: General: no acute distress HEENT: NC/AT. pupils are equal. round. NECK: . no stridor. CV: RRR. systolic murmur; no gallop or rubs. PULM: no wheezing, rhonchi at the base. GI: SOFT, NT, ND, no rebound or guarding Extremity: 1+ B/L LE edema. no clubbing. neuro: awake and alert, OX3. Psych: calm and pleasant rectal: deferred : normal EKG done February 11, 2019 suddenly reviewed and shows: Normal sinus rhythm. Anteroseptal infarct age undetermined. PVC Echocardiogram done February 11, [address] Kaminski shows: Severe global left ventricular systolic dysfunction. Tissue Doppler/Mitral Doppler indices are consistent with pseudonormalization with mildly elevated left atrial pressure (Stage II diastolic dysfunction). Chest x-ray done February 01, 2019 shows:Mild cardiomegaly with pulmonary vascular congestion. Objective Vitals Vital Signs Date Temp Pulse Resp B/P (MAP) Pulse Ox O2 O2 Flow FiO2 Time Delivery Rate 02/16/19 96 12:00 02/16/19 98.1 19 112/62 99 11:36 (79) 02/16/19 Nasal 2.0 07:47 Cannula Intake and Output 02/15/19 02/15/19 02/16/19 1414:59 22:59 06:59 IntakeIntake Total 350 ml 350 ml OutputOutput Total 800 ml 500 ml BalanceBalance -450 ml -150 ml Results/Medications Result Diagram: 02/16/19 0538 02/16/19 0538 Results 24 hrs Laboratory Tests Test 02/15/19 17:07 02/15/19 20:27 02/16/19 01:45 02/16/19 03:44 Bedside Glucose 151 213 136 83 Test 02/16/19 05:38 02/16/19 08:08 02/16/19 11:55 White Blood Count 8.9 Red Blood Count 3.61 L Hemoglobin 9.4 L Hematocrit 30.4 L Mean Corpuscular 84.2 Volume Mean Corpuscular 26.0 L Hemoglobin Mean Corpuscular 30.9 L Hemoglobin Concent Red Cell 16.4 H Distribution Width Platelet Count 240 Mean Platelet Volume 10.9 H Immature 0.300 Granulocytes % Neutrophils % 63.9 Lymphocytes % 24.4 Monocytes % 9.3 Eosinophils % 1.5 Basophils % 0.6 Nucleated Red Blood 0.0 Cells % Immature 0.030 Granulocytes # Neutrophils # 5.7 Lymphocytes # 2.2 Monocytes # 0.8 Eosinophils # 0.1 Basophils # 0.1 Nucleated Red Blood 0.0 Cells # Sodium Level 145 H Potassium Level 4.6 Chloride Level 105 Carbon Dioxide Level 30 Anion Gap 10 Blood Urea Nitrogen 40 H Creatinine 2.00 H Est Glomerular Filtrat Rate mL/min Glucose Level 60 #L Calcium Level 8.7 Bedside Glucose 93 172 Home Meds Reported Medications Carvedilol* (Coreg*) 6.25 Mg Tablet, 6.25 MG PO BID, #60 TAB 02/11/19 Losartan Potassium* (Cozaar*) 50 Mg Tablet, 50 MG PO DAILY, #30 TAB 02/11/19 Tamsulosin Hcl* (Tamsulosin Hcl*) 0.4 Mg Cap.er.24h, 0.4 MG PO HS, CAP 02/11/19 Metformin Hcl* (Metformin Hcl*) 500 Mg Tablet, 500 MG PO WITH BREAKFAST DINNE, #60 TAB 02/11/19 Insulin Lispro (Humalog Kwikpen U-100) 100 Unit/1 Ml Insuln.pen, 10 UNIT SQ AC E, EA 02/11/19 Insulin Glargine* (Lantus*) 100 Unit/Ml Soln, 15-20 UNIT SC QHS, #1 VIAL 02/11/19 Insulin Glargine* (Lantus*) 100 Unit/Ml Soln, 35 UNIT SC QAM, #1 VIAL 02/11/19 Discontinued Reported Medications Olmesartan Medoxomil (Benicar) Unknown Strength Tablet, PO DAILY, #30 TAB 10/05/18 Tamsulosin Hcl* (Flomax*) 0.4 Mg Cap.er.24h, 0.4 MG PO HS, CAP 10/05/18 Metformin* (Glucophage*) 500 Mg Tab, 500 MG PO WITH BREAKFAST DINNE, #30 TAB 10/05/18 Insulin Glargine* (Lantus*) Unknown Strength Soln, SC QHS, #1 VIAL 10/05/18 Insulin Lispro (Humalog Kwikpen U-100) Unknown Strength Insuln.pen, SQ, EA 10/05/18 Sitagliptin Phos/Metformin HCl (Janumet 50-500 mg Tablet) Unknown Strength Tablet, PO, TAB 10/05/18 Medications Current Medications IV Flush (NS 3 ml) 3 ml PER PROTOCOL IV ; Start 02/11/19 at 13:00 Ondansetron HCl (Zofran Inj) 4 mg Q6H PRN IV NAUSEA/VOMITING; Start 02/11/19 at 13:00 Acetaminophen (Tylenol Tab) 650 mg Q6H PRN PO .PAIN 1-3 OR TEMP; Start 02/11/19 at 13:00 Acetaminophen/ Hydrocodone Bitart ([place] (5/325)) 1 tab Q6H PRN PO .MOD PAIN 4- 6; Start 02/11/19 at 13:00 Morphine Sulfate (morphine) 2 mg Q4H PRN IV .SEVERE PAIN 7-10; Start 02/11/19 at 13:00 Docusate Sodium (Colace) 100 mg Q12H PRN PO .CONSTIPATION; Start 02/11/19 at 13:00 Magnesium Hydroxide (Milk Of Mag) 30 ml DAILY PRN PO .CONSTIPATION; Start 02/11/19 at 13:00 Lorazepam (Ativan) 0.5 mg Q6H PRN IV ANXIETY; Start 02/11/19 at 13:00 Albuterol/ Ipratropium (Duoneb) 3 ml Q4H RESP THERAPY PRN HHN SHORTNESS OF BREATH; Start 02/11/19 at 13:00 Hydralazine HCl (Apresoline) 10 mg Q6H PRN IV ELEVATED BLOOD PRESSURE; Start 02/11/19 at 13:00 Nitroglycerin (Nitroglycerin (Sl Tab) 0.4 Mg) 1 tab Q5M PRN SL ANGINA; Start 02/11/19 at 13:00 Carvedilol (Coreg) 3.125 mg BID PO Last administered on 02/16/19 08:12; Admin Dose 3.125 MG; Start 02/11/19 at 21:00 Tamsulosin HCl (Flomax) 0.4 mg HS PO Last administered on 02/15/19 20:29; Admin Dose 0.4 MG; Start 02/11/19 at 21:00 Miscellaneous Information 1 ea NOTE XX ; Start 02/11/19 at 13:00 Glucose (Glutose) 15 gm Q15M PRN PO DECREASED GLUCOSE; Start 02/11/19 at 13:00 Glucose (Glutose) 22.5 gm Q15M PRN PO DECREASED GLUCOSE; Start 02/11/19 at 13:00 Dextrose (D50w Syringe) 25 ml Q15M PRN IV DECREASED GLUCOSE; Start 02/11/19 at 13:00 Dextrose (D50w Syringe) 50 ml Q15M PRN IV DECREASED GLUCOSE; Start 02/11/19 at 13:00 Glucagon (Glucagen) 1 mg Q15M PRN IM DECREASED GLUCOSE; Start 02/11/19 at 13:00 Glucose (Glutose) 15 gm Q15M PRN BUCCAL DECREASED GLUCOSE; Start 02/11/19 at 13:00 Diagnostic Test (Pha) (Accu-Chek) 1 ea 02 XX Last administered on 02/16/19at 02:32; Admin Dose 1 EA; Start 02/12/19 at 02:00 Insulin Aspart (Novolog Insulin Pen) NOVOLOG *MILD* ALGORITHM WITH MEALS BEDTIME SC Last administered on 02/16/19 12:12; Admin Dose 1 UNIT; Start 02/11/19 at 18:00 Insulin Aspart (Novolog Insulin Pen) 10 unit WITH MEALS BEDTIME SC Last administered on 02/16/19 12:12; Admin Dose 10 UNIT; Start 02/11/19 at 18:00 Losartan Potassium (Cozaar) 25 mg DAILY PO Last administered on 02/13/19 08:47; Admin Dose 25 MG; Start 02/12/19 at 13:30; Status Hold Spironolactone (Aldactone) 25 mg DAILY PO Last administered on 02/16/19 08:11; Admin Dose 25 MG; Start 02/13/19 at 09:00 Furosemide (Lasix) 40 mg DAILY IV Last administered on 3/22/19at 08:11; Admin Dose 40 MG; Start 02/14/19 at 09:00 Insulin Glargine (Lantus) 10 units QHS SC Last administered on 02/15/19at 20:45; Admin Dose 10 UNITS; Start 02/13/19 at 21:00 Polyethylene Glycol (Miralax) 17 gm DAILY NGT Last administered on 02/16/19at 08:11; Admin Dose 17 GM; Start 02/13/19 at 16:00 Bicalutamide (Casodex) 50 mg DAILY PO Last administered on 02/16/19at 08:32; Admin Dose 50 MG; Start 02/14/19 at 20:30 Pantoprazole (Protonix Tab) 40 mg BID@0600,1800 PO ; Start 02/16/19 at 18:00 Insulin Glargine (Lantus) 20 units QAM SC ; Start 02/17/19 at 09:00 Assessment/Plan Hospital Course (Demo Recall) 1. Congestive heart failure: Acute secondary systolic heart failure 2. 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 Diabetes 4. Hypertension 5. 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 Abnormal EKG consistent with prior MIs 7. Rule out dyslipidemia 8. Dyspnea due to above 9. Renal failure 10. Severe and worsening anemia: ? GI Bleed Commendations: Aspirin is on hold due to severe anemia Continue with Coreg losartan is on hold lasix to be adjusted by renal . cont Aldactone will hold off on ischemic work up until anemia has resolved. F/U / GI rec but pt is refusing to undergo any procedure . No further cardiac recommendation at this point. I will follow-up as needed over the weekend Thank you for his referral. PARTH MERCER MD [facility] PARTH MERCER MD Feb 16, 2019 15:24
[2019-02-16] MEDS ORDERED: CARV6.2579 PO (15:57)
[2019-02-16] MEDS ORDERED: SPIR25TA PO (15:57)
[2019-02-16] MEDS ORDERED: FER325 PO (15:57)
[2019-02-16] MEDS ORDERED: LOSA25TA2 PO (15:57)
[2019-02-16] MEDS ORDERED: PANT40TA3 PO (16:11)
--- NOTE | 2019-02-16 16:11 | DS ---
Date/Time of Note Date/Time of Note DATE: 02/16/19 TIME: 15:58 Discharge Summary Admission/Discharge Info Admit Date/Time Feb 11, 2019 at 13:21 Discharge Date/Time Discharge Diagnosis 1. CHF, systolic, acute on chronic, lasix, coreg, aldactone, losartan is held due to renal failure 2. Dilated cardiomyopathy, unclear etiology, patient declines [facility], follow up with cardiology 3. 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 Iron deficiency anemia, acute on chronic, likely upper GI bleeding, stable H/H, negative bleeding scan, patient declines endoscopy 5. Acute renal failure, due to hydro, follow up with nephrology 7. HTN, controlled 8. DM, on insulin Patient Condition: Stable Hospital Course An 88-year-old male with past medical history of type 2 diabetes, prior urinary tract infection, history of prostate issue possibly cancer status post TURP in the past, hypertension, who has been having shortness of breath. Per patient and family, he has been having these symptoms off and on for the last 2 weeks, getting progressively worse. He has also noted some increasing lower extremity swelling. Family does state that at one point they do not remember when he started it, but he was supposed to be taking Lasix at home, but he has not been taking it and only takes it as needed for unclear reasons. Apparently, he does not like to "take a lot of medicines at home." In any event, he has been having some nausea symptoms. No vomiting. No fevers or chills. No upper or lower GI bleeding. No diarrhea or constipation. When he came in today, he was found on labs with an elevated BNP of 6600 and his chest x-ray did show signs of mild cardiomegaly with pulmonary vascular congestion. He was given a dose of Lasix in the ER. Family does state the patient was recently treated as an outpatient with Z-Cong for minor upper respiratory infection, possible mild pneumonia. The patient was last here at our hospital from 10/06/2018 to 10/08/2018. At that time, he was treated for gross hematuria. Echocardiography with LVEF 25-30%. For etiology work up patient is recommended [facility] that he strongly declined. Family is aware of this. He is treated with aggressive diuretics and coreg, losartan. Shortness of breath improved. Cr needed to be closely monitored for losartan and aldactone. Patient had black stool in the first several days of admission, that he late denied to GI service. Bleeding scan is negative. He declines endoscopy. H/H were 5.9/19.8 on 02/13/2019. It improved to 9.4/30.4 on 02/16/2019. H/H has been stable in the last two days. He will be on iron supplement and protonix. Patient has prostate cancer that extends up to the bladder causing hydronephrosis and renal failure. BUN/Cr are 40/2 today. She will follow up with urology and nephrology outpatient. Metformin is stopped for renal failure. Procedures: Echocardiographic Report: Transthoracic echocardiogram with complete 2D, M-Mode, and doppler examination. Indications: Congestive Heart Failure. Measurements: 2D/M Mode Doppler Measurement Value Normal Range Measurement Value Normal Range LVIDd 2D 5.9 [ 4.2 - 5.8 ] cm AV Peak Marino 1.2 [ 100.0 - 170.0 ] cm/sec LVIDs 2D 4.9 [ 2.5 - 4.0 ] cm AV Peak PG 6.0 [ 2.0 - 9.0 ] mmHg LVPWd 2D 1.2 [ 0.6 - 1.0 ] cm LVOT Peak Marino 0.7 [ 70.0 - 110.0 ] cm/sec IVSd 2D 1.0 [ 0.6 - 1.0 ] cm LVOT Peak PG 2.0 [ 2.0 - 6.0 ] mmHg AoR Diam 2D 2.8 [ 2.6 - 3.4 ] cm MV E Peak Marino 0.8 [ 60.0 - 130.0 ] cm/sec EDV 2D 173.0 [ 62.0 - 150.0 ] ml MV A Peak Marino 0.7 [ 100.0 - 120.0 ] cm/sec ESV 2D 114.0 [ 21.0 - 61.0 ] ml MV E/A 1.1 [ 0.8 - 1.5 ] ratio EF 2D 34.1 [ 52.0 - 72.0 ] percent MV PHT 43.0 [ 20.0 - 100.0 ] msec LA Dimen 2D 3.9 [ 3.0 - 4.0 ] cm MV Decel Time 148 [ 104 - 258 ] msec MV Decel Gordon 5 Lat E` Marino 0.1 [ 10.0 - 15.0 ] cm/sec Lateral E/E` 12.1 [ 1.0 - 2.0 ] ratio Med E` Amrino 0.1 cm/sec MV E/A 1.1 [ 0.8 - 1.5 ] ratio MVA PHT 5.1 [ 2.0 - 4.0 ] cm2 TR Peak Marino 2.1 [ 100.0 - 280.0 ] cm/sec TR Peak PG 18.0 mmHg PV Peak Marino 1.1 [ 40.0 - 80.0 ] cm/sec PV Peak PG 4.0 mmHg Findings: Left Ventricle: Normal left ventricular cavity size. Severe global left ventricular systolic dysfunction. Ejection fraction is visually estimated at 25-30 %. Tissue Doppler/Mitral Doppler indices are consistent with pseudonormalization with mildly elevated left atrial pressure (Stage II diastolic dysfunction). Right Ventricle: Normal right ventricular size. Normal right ventricular systolic function. Left Atrium: The left atrium is normal in size. Right Atrium: The right atrium is normal in size. Atrial Septum: Normal atrial septum. Ventricular septum: Normal/intact ventricular septum. Mitral Valve: Normal appearance of the mitral valve. Trace mitral regurgitation. Aortic Valve: Normal appearance of the aortic valve. Trace aortic valve regurgitation. Tricuspid Valve: Normal appearance of the tricuspid valve. Unable to obtain RVSP due to minimal presence of tricuspid regurgitation. Estimated peak PA systolic pressure 18 mmHg. There is trace tricuspid regurgitation. Pulmonic Valve: Normal pulmonic valve appearance. There is trace pulmonic regurgitation. Pericardium: Pleural effusion seen. Aorta: Normal aortic root. IVC: The IVC is not well visualized. Conclusions: Severe global left ventricular systolic dysfunction. Tissue Doppler/Mitral Doppler indices are consistent with pseudonormalization with mildly elevated left atrial pressure (Stage II diastolic dysfunction). Electronically Signed By: Ventura Garcia 2019-02-11 17:34:47 PDT Home Meds Active Scripts Ferrous Sulfate* (Ferrous Sulfate*) 325 Mg Tabec, 325 MG PO BID for 30 Days, TAB Prov:HUSSEIN SHUKLA MD 02/16/19 Spironolactone* (Aldactone*) 25 Mg Tablet, 25 MG PO DAILY for 30 Days, TAB Prov:HUSSEIN SHUKLA MD 02/16/19 Losartan Potassium* (Cozaar*) 25 Mg Tablet, 25 MG PO DAILY for 30 Days, TAB Prov:HUSSEIN SHUKLA MD 02/16/19 Carvedilol* (Carvedilol*) 6.25 Mg Tablet, 3.125 MG PO BID for 60 Days, TAB Prov:HUSSEIN SHUKLA MD 02/16/19 Reported Medications Carvedilol* (Coreg*) 6.25 Mg Tablet, 6.25 MG PO BID, #60 TAB 02/11/19 Losartan Potassium* (Cozaar*) 50 Mg Tablet, 50 MG PO DAILY, #30 TAB 02/11/19 Tamsulosin Hcl* (Tamsulosin Hcl*) 0.4 Mg Cap.er.24h, 0.4 MG PO HS, CAP 02/11/19 Metformin Hcl* (Metformin Hcl*) 500 Mg Tablet, 500 MG PO WITH BREAKFAST DINNE, #60 TAB 02/11/19 Insulin Lispro (Humalog Kwikpen U-100) 100 Unit/1 Ml Insuln.pen, 10 UNIT SQ AC E, EA 02/11/19 Insulin Glargine* (Lantus*) 100 Unit/Ml Soln, 15-20 UNIT SC QHS, #1 VIAL 02/11/19 Insulin Glargine* (Lantus*) 100 Unit/Ml Soln, 35 UNIT SC QAM, #1 VIAL 02/11/19 Discontinued Reported Medications Olmesartan Medoxomil (Benicar) Unknown Strength Tablet, PO DAILY, #30 TAB 10/05/18 Tamsulosin Hcl* (Flomax*) 0.4 Mg Cap.er.24h, 0.4 MG PO HS, CAP 10/05/18 Metformin* (Glucophage*) 500 Mg Tab, 500 MG PO WITH BREAKFAST DINNE, #30 TAB 10/05/18 Insulin Glargine* (Lantus*) Unknown Strength Soln, SC QHS, #1 VIAL 10/05/18 Insulin Lispro (Humalog Kwikpen U-100) Unknown Strength Insuln.pen, SQ, EA 10/05/18 Sitagliptin Phos/Metformin HCl (Janumet 50-500 mg Tablet) Unknown Strength Tablet, PO, TAB 10/05/18 Primary Care Provider Not On Staff Doctor Pending Labs Laboratory Tests Test 02/15/19 17:07 02/15/19 20:27 02/16/19 01:45 02/16/19 03:44 Bedside 151 213 136 83 Glucose mg/dL (70-220) mg/dL (70-220) mg/dL (70-220) mg/dL (70-220) Test 02/16/19 05:38 02/16/19 08:08 02/16/19 11:55 White Blood 8.9 Count 10^3/ul (4.8-10 .8) Red Blood 3.61 Count 10^6/ul (4.70-6 .10) Hemoglobin 9.4 g/dl (14.0-18.0 ) Hematocrit 30.4 % (42.0-52.0) Mean 84.2 Corpuscular fl (82.0-101.0) Volume Mean 26.0 Corpuscular pg (29.0-33.0) Hemoglobin Mean 30.9 Corpuscular g/dl (32.0-37.0 Hemoglobin Conc ) ent Red Cell 16.4 Distribution % (11.5-14.5) Width Platelet Count 240 10^3/UL (140-41 5) Mean Platelet 10.9 Volume fl (7.4-10.4) Immature 0.300 Granulocytes % % (0.001-0.429) Neutrophils % 63.9 % (39.0-77.0) Lymphocytes % 24.4 % (15.0-51.0) Monocytes % 9.3 % (0.0-11.0) Eosinophils % 1.5 % (0.0-7.0) Basophils % 0.6 % (0.0-2.0) Nucleated Red 0.0 Blood Cells % /100WBC (0.0-0. 0) Immature 0.030 Granulocytes # 10^3/ul (0.0-0. 031) Neutrophils # 5.7 10^3/ul (1.6-7. 5) Lymphocytes # 2.2 10^3/ul (0.8-2. 9) Monocytes # 0.8 10^3/ul (0.3-0. 9) Eosinophils # 0.1 10^3/ul (0.0-0. 5) Basophils # 0.1 10^3/ul (0.0-0. 1) Nucleated Red 0.0 Blood Cells # 10^3/ul (0.0-0. 0) Sodium Level 145 mmol/L (135-144 ) Potassium 4.6 Level mmol/L (3.5-5.1 ) Chloride Level 105 mmol/L (97-110) Carbon Dioxide 30 Level mmol/L (21-31) Anion Gap 10 (5-13) Blood Urea 40 mg/dl (7-20) Nitrogen Creatinine 2.00 mg/dl (0.61-1.2 4) Est Glomerular mL/min (>60) Filtrat Rate mL/min Glucose Level 60 mg/dl (70-220) Calcium Level 8.7 mg/dl (8.4-10.2 ) Bedside 93 172 Glucose mg/dL (70-220) mg/dL (70-220) HUSSEIN SHUKLA MD Feb 16, 2019 16:08
[2019-02-16] MEDS ORDERED: PANTOPRAZOLE (EC) 40 MG TAB PO SCH (18:00)
[2019-02-17] MEDS ORDERED: INSULIN GLARGINE [LANTus] (100 UNITS/ML) SYG SC SCH (09:00)
== END 2019-02-16 17:30 | disposition home or self-care (01) | DRG 291 ==
LOC: E/R 10:04 → 6WM 13:21
PROVIDERS: ADMIT Hospitalist; ATTEND Internal Medicine
PROC: 30233N1 Transfusion of Nonautologous Red Blood Cells into Peripheral Vein, Percutaneous Approach (ICD-10-PCS; principal; 2019-02-13)
DX: I13.0 Hypertensive heart and chronic kidney disease with heart failure and stage 1 through stage 4 chronic kidney disease, or unspecified chronic kidney disease (principal); I50.23 Acute on chronic systolic (congestive) heart failure; N17.9 Acute kidney failure, unspecified; K92.2 Gastrointestinal hemorrhage, unspecified; C79.11 Secondary malignant neoplasm of bladder; N13.1 Hydronephrosis with ureteral stricture, not elsewhere classified; N13.30 Unspecified hydronephrosis; E11.9 Type 2 diabetes mellitus without complications; D50.0 Iron deficiency anemia secondary to blood loss (chronic); N18.9 Chronic kidney disease, unspecified; Z85.46 Personal history of malignant neoplasm of prostate
CPT/HCPCS: 36415; 36430; 71045; 74176; 76775; 78278; 80048; 80053; 80061; 82270; 82550; 82553; 82962; 83036; 83540; 83735; 83880; 84100; 84153; 84154; 84439; 84443; 84484; 85025; 85610; 85730; 86850; 86900; 86901; 86920; 92610; 93005; 93306; 96374; 97116; 97162; 97167; A9560; C9113; J1815; J1940; J3480; J7040; P9016

== ENCOUNTER 2019-04-23 16:54 | Inpatient (IN) | payer MEDICARE, OTHER ==
[~2019-04-23] VITALS: Ht 175.3 cm; Wt 85.5 kg
[~2019-04-23 16:54] MED LIST changes: +CARV6.2579 PO; +FER325 PO; +LOSA25TA2 PO; -METF-849 PO; -OLME5TAB4 PO; +PANT40TA3 PO; -SITA1TAB PO; +SPIR25TA PO; -TAMS-14 PO; +TAMS0.4C2 PO
--- NOTE | 2019-04-23 17:08 | ERD ---
ER Documentation Chief Complaint Chief Complaint HPI This is a 88-year-old man with a history of invasive prostate carcinoma, CHF wit h EF of 25%, and multiple other medical problems presenting with 2 weeks of gross hematuria and increasing shortness of breath and dyspnea on exertion. He also has had a few days of orthopnea. He denies fevers or chills, no chest pain, no vomiting or diarrhea, no blood per rectum or melena. Patient denies weight loss. Patient has been noncompliant with his Lasix. ROS All systems reviewed and are negative except as per history of present illness. Medications Home Meds Active Scripts Pantoprazole* (Protonix*) 40 Mg Tablet.dr, 40 MG PO DAILY for 30 Days, TAB Prov:HUSSEIN SHUKLA MD 02/16/19 Ferrous Sulfate* (Ferrous Sulfate*) 325 Mg Tabec, 325 MG PO BID for 30 Days, TAB Prov:HUSSEIN SHUKLA MD 02/16/19 Spironolactone* (Aldactone*) 25 Mg Tablet, 25 MG PO DAILY for 30 Days, TAB Prov:HUSSEIN SHUKLA MD 02/16/19 Losartan Potassium* (Cozaar*) 25 Mg Tablet, 25 MG PO DAILY for 30 Days, TAB Prov:HUSSEIN SHUKLA MD 02/16/19 Carvedilol* (Carvedilol*) 6.25 Mg Tablet, 3.125 MG PO BID for 60 Days, TAB Prov:HUSSEIN SHUKLA MD 02/16/19 Reported Medications Tamsulosin Hcl* (Tamsulosin Hcl*) 0.4 Mg Cap.er.24h, 0.4 MG PO HS, CAP 02/11/19 Insulin Lispro (Humalog Kwikpen U-100) 100 Unit/1 Ml Insuln.pen, 10 UNIT SQ AC E, EA 02/11/19 Insulin Glargine* (Lantus*) 100 Unit/Ml Soln, 15-20 UNIT SC QHS, #1 VIAL 02/11/19 Insulin Glargine* (Lantus*) 100 Unit/Ml Soln, 35 UNIT SC QAM, #1 VIAL 02/11/19 Allergies Allergies: Coded Allergies: No Known Allergy (Unverified , 02/11/19) PMhx/Soc Systolic congestive heart failure with LVEF of 25%, prostate cancer with bladder invasion, hypertension, diabetes mellitus, anemia, history of acute renal failure, peripheral edema History of Surgery: Yes (TURP ) Anesthesia Reaction: No Hx Neurological Disorder: No Hx Respiratory Disorders: Yes (PNEUMONIA ) Hx Cardiac Disorders: No (CHF, HTN ) Hx Psychiatric Problems: No Hx Miscellaneous Medical Probl: Yes (HTN, CHF, DM) Hx Alcohol Use: No Hx Substance Use: No Hx Tobacco Use: No FmHx Family History: No diabetes Physical Exam Vitals Vital Signs Date Temp Pulse Resp B/P (MAP) Pulse Ox O2 O2 Flow FiO2 Time Delivery Rate 04/23/19 108 13 129/82 100 Room Air 18:17 (98) Nasal Cannula 04/23/19 98.5 108 20 125/77 100 17:31 (93) Physical Exam Const: Dyspneic, afebrile, well-developed well-nourished man HEENT: Pale conjunctive a, dry mucous membranes, no goiter Resp: Crackles at the bases no wheezing or stridor Cardio: Tachycardic and regular, no murmurs Abd: Soft, non tender, non distended. Skin: No petechiae or rashes, no hematomas or contusions Ext: No cyanosis, 2+ pitting edema in the lower extremities bilaterally, calves symmetrical Neur: Awake and alert x3, no focal deficits or facial asymmetry Psych: Anxious Result Diagram: 04/23/19 1735 04/23/19 1735 Results 24 hrs Laboratory Tests Test 04/23/19 17:35 White Blood Count 12.4 10^3/ul Red Blood Count 3.40 10^6/ul Hemoglobin 8.5 g/dl Hematocrit 27.6 % Mean Corpuscular Volume 81.2 fl Mean Corpuscular Hemoglobin 25.0 pg Mean Corpuscular Hemoglobin Concent 30.8 g/dl Red Cell Distribution Width 15.7 % Platelet Count 325 10^3/UL Mean Platelet Volume 10.6 fl Immature Granulocytes % 0.600 % Neutrophils % 74.8 % Lymphocytes % 15.0 % Monocytes % 9.1 % Eosinophils % 0.3 % Basophils % 0.2 % Nucleated Red Blood Cells % 0.0 /100WBC Immature Granulocytes # 0.080 10^3/ul Neutrophils # 9.3 10^3/ul Lymphocytes # 1.9 10^3/ul Monocytes # 1.1 10^3/ul Eosinophils # 0.0 10^3/ul Basophils # 0.0 10^3/ul Nucleated Red Blood Cells # 0.0 10^3/ul Prothrombin Time 14.2 Sec Prothrombin Time Ratio 1.1 INR International Normalized Ratio 1.09 Activated Partial Thromboplast Time 29.2 Sec Sodium Level 139 mmol/L Potassium Level 4.5 mmol/L Chloride Level 103 mmol/L Carbon Dioxide Level 28 mmol/L Anion Gap 8 Blood Urea Nitrogen 33 mg/dl Creatinine 1.73 mg/dl Est Glomerular Filtrat Rate mL/min mL/min Glucose Level 308 mg/dl Calcium Level 8.4 mg/dl Total Bilirubin 0.3 mg/dl Direct Bilirubin 0.00 mg/dl Indirect Bilirubin 0.3 mg/dl Aspartate Amino Transf (AST/SGOT) 19 IU/L Alanine Aminotransferase (ALT/SGPT) 14 IU/L Alkaline Phosphatase 96 IU/L Troponin I < 0.012 ng/ml B-Type Natriuretic Peptide 81193 PG/ML Total Protein 7.2 g/dl Albumin 3.6 g/dl Globulin 3.60 g/dl Albumin/Globulin Ratio 1.00 Lipase 37 U/L Current Medications Medications Dose Sig/Clare Start Time Status Last (Trade) Ordered Route PRN Stop Time Admin Dose Reason Admin Furosemide 40 mg ONCE ONCE 04/23/19 DC 04/23/19 (Lasix) IV 18:00 17:43 04/23/19 18:01 Procedures/MDM IV line was established patient was placed on court recording monitor rhythm strip revealed a sinus tachycardia at 110 bpm with upright P and T waves. Patient was afebrile EKG performed, read by me revealed a sinus tachycardia at 107 bpm, normal axis, narrow QRS complex, no concerning ST elevations or depressions noted 1 view chest x-ray performed, read by me reveals cardiomegaly and bilateral pulmonary vascular congestion worse on the right compared to the left I administered furosemide 40 mg IV x1 CBC reveals anemia 8.5, electrolytes reveal a BUN/creatinine of 33/1.7, liver function tests unremarkable, troponin negative, BNP elevated consistent with decompensated heart failure Urine analysis positive for RBCs and 2+ leukocyte esterase and elevated WBCs concerning for acute UTI, I treated him here with ceftriaxone 1 g IV Patient was placed on BiPAP for decompensated heart failure and continued SOB I also administered lorazepam 0.5 mg IV x1 for anxiety Critical Care: Time: 45 minutes, this was time separate from other billable procedures. Treatments/Evaluations: Close monitoring and treatment of unstable vital signs, cardiorespiratory, and neurologic status, while maintaining tight balance of fluid, respiratory, and cardiac interventions. Patient will be admitted to telemetry setting for continued medical management and possible PRBC transfusion although this will be deferred to admitting team. Departure Diagnosis: Primary Impression: CHF (congestive heart failure) Heart failure type: combined systolic and diastolic Heart failure chronicity: acute Qualified Codes: I50.41 - Acute combined systolic (congestive) and diastolic (congestive) heart failure Additional Impressions: Prostate cancer Hematuria Hematuria type: gross Qualified Codes: R31.0 - Gross hematuria Anemia Anemia type: iron deficiency Iron deficiency anemia type: chronic blood loss Qualified Codes: D50.0 - Iron deficiency anemia secondary to blood loss (chronic) Acute UTI Condition: CANDY Childs MD April 23, 2019 17:08
[2019-04-23] MEDS ORDERED: FUROSEMIDE 40 MG INJ IV ONE (18:00)
[2019-04-23] MEDS ORDERED: ONDANSETRON 4 MG INJ IV PRN (19:00)
[2019-04-23] MEDS ORDERED: NITROGLYCERIN (SL) 0.4 MG TAB SL PRN (19:00)
[2019-04-23] MEDS ORDERED: NACL 0.9% 3 ML SYG IV SCH (19:00)
[2019-04-23] MEDS ORDERED: DOCUSATE SODIUM 100 MG CAP PO PRN (19:00)
[2019-04-23] MEDS ORDERED: DEXTROSE 50% 50 ML SYRINGE IV PRN ×2 (19:30)
[2019-04-23] MEDS ORDERED: GLUCAGON 1 MG INJ IM PRN (19:30)
[2019-04-23] MEDS ORDERED: GLUCOSE GEL 15 GRAM TUBE PO PRN ×2 (19:30)
[2019-04-23] MEDS ORDERED: LORAZEPAM 2 MG INJ IV ONE (19:30)
[2019-04-23] MEDS ORDERED: GLUCOSE GEL 15 GRAM TUBE BUCCAL PRN (19:30)
[2019-04-23] MEDS ORDERED: CEFTRIAXONE 1 GM/50 ML (PMX) 50 ML IVPB ONE (19:30)
--- NOTE | 2019-04-23 19:46 | HP ---
Date/Time of Note Date/Time of Note DATE: 04/23/19 TIME: 19:46 Assessment/Plan VTE Prophylaxis SCD applied (from Nsg): Yes Pharmacological prophylaxis: NA/contraindicated Pharm contraindication: low risk/ambulating Lines/Catheters IV Catheter Type (from Nrsg): Saline Lock Assessment/Plan Hospital Course This is a 88-year-old male was being admitted to the telemetry floor for: 1 Dyspnea: Likely secondary to acute on chronic systolic CHF exacerbation, symptomatic anemia: Recent echocardiogram showed an ejection fraction of 25 to 30%. BNP elevated 14,300. Patient was given a dose of 40 mg of IV Lasix in the emergency department. We will give an additional dose of 20 mg IV right now given patient's CKD. We will continue 40 mg IV twice daily. Patient's previous hemoglobin was in the 9 range and at the current time it is 8.5. If his symptoms do not improve with diuresis, consider blood transfusion of packed red blood cells. Consult cardiology. 2 hematuria: Secondary to underlying prostate cancer. Previous CT scan did show prostate cancer extending into the bladder. With bilateral hydro. Will consult nephrology for further management. Will monitor patient's hemoglobin levels. Monitor hemoglobin levels. Consider blood transfusion if indicated 3 dilated cardiomyopathy: Recent ejection fraction of 25 to 30%. IV diuresis. 4. Prostate cancer extended to bladder with bilateral hydro. Urology has been consulted. Continue Lupron injections as outpatient. Continue Flomax 5. Iron deficiency anemia, acute on chronic: Hemoglobin is 8.5. He does have hematuria in his urine. Consider blood transfusion if indicated. 6. CKD: Appears at baseline. Continue to monitor while patient is receiving Lasix. Consult nephrology. 7. HTN: Continue home medications, hold losartan at the current time until seen by nephrology. 8. DM: We will check hemoglobin A 1C, continue home insulin, 9 DVT and GI prophylaxis: SCDs, home PPI Further treatment strategy will be implemented as per the clinical course CODE STATUS: DNR/DNI as discussed with the daughter. Result Diagram: 04/23/19 1735 04/23/19 1735 Results 24hrs Laboratory Tests Test 04/23/19 17:35 04/23/19 18:48 White Blood Count 12.4 #H Red Blood Count 3.40 L Hemoglobin 8.5 L Hematocrit 27.6 L Mean Corpuscular Volume 81.2 L Mean Corpuscular Hemoglobin 25.0 L Mean Corpuscular Hemoglobin Concent 30.8 L Red Cell Distribution Width 15.7 H Platelet Count 325 # Mean Platelet Volume 10.6 H Immature Granulocytes % 0.600 H Neutrophils % 74.8 Lymphocytes % 15.0 Monocytes % 9.1 Eosinophils % 0.3 Basophils % 0.2 Nucleated Red Blood Cells % 0.0 Immature Granulocytes # 0.080 H Neutrophils # 9.3 H Lymphocytes # 1.9 Monocytes # 1.1 H Eosinophils # 0.0 Basophils # 0.0 Nucleated Red Blood Cells # 0.0 Prothrombin Time 14.2 Prothrombin Time Ratio 1.1 INR International Normalized Ratio 1.09 Activated Partial Thromboplast Time 29.2 Sodium Level 139 Potassium Level 4.5 Chloride Level 103 Carbon Dioxide Level 28 Anion Gap 8 Blood Urea Nitrogen 33 H Creatinine 1.73 H Est Glomerular Filtrat Rate mL/min Glucose Level 308 H Calcium Level 8.4 Total Bilirubin 0.3 Direct Bilirubin 0.00 Indirect Bilirubin 0.3 Aspartate Amino Transf (AST/SGOT) 19 Alanine Aminotransferase (ALT/SGPT) 14 Alkaline Phosphatase 96 Troponin I < 0.012 B-Type Natriuretic Peptide 68615 H Total Protein 7.2 Albumin 3.6 Globulin 3.60 H Albumin/Globulin Ratio 1.00 Lipase 37 Urine Color JUVENAL Urine Clarity CLOUDY A Urine pH 6.0 Urine Specific [place] 1.013 Urine Ketones NEGATIVE Urine Nitrite NEGATIVE Urine Bilirubin NEGATIVE Urine Urobilinogen NEGATIVE Urine Leukocyte Esterase 2+ H Urine Microscopic RBC > 182 H Urine Microscopic WBC > 182 H Urine Squamous Epithelial Cells FEW Urine Bacteria FEW A Urine Mucus FEW A Urine Hemoglobin 3+ H Urine Glucose 2+ H Urine Total Protein 2+ H HPI/ROS Admit Date/Time Admit Date/Time Hx of Present Illness Chief complaint: Shortness of breath, dyspnea This is a 88-year-old man with a history of prostate cancer, CHF with EF of 25%, and multiple other medical problems presenting with 2 weeks of gross hematuria and increasing shortness of breath and dyspnea on exertion. He also has had a few days of orthopnea. He denies fevers or chills, no chest pain, no vomiting or diarrhea, no blood per rectum or melena. Patient denies weight loss. Patient has been noncompliant with his Lasix. Daughters are with him at the bedside. I did speak to 1 of his daughters privately who did report that the patient has been told he has a prostate issue but he does not know that he actually has prostate cancer. T he is seeing a urologist as an outpatient and currently undergoing treatment, however the family did not want to burden him with this diagnosis so they have requested that we do not mention that to him. The daughter also reported that the patient is a DNR/DNI. Allergies: NKDA Medications: See MAR ROS Const: As per HPI Eyes : No pain discharge or redness or change in visual acuity ENT: No pain, sore throat, congestion, congestion, dysphagia or discharge Respiratory: As per HPI Cardiovascular: As per HPI GI : no change in appetite, abdominal pain, nausea, vomiting, diarrhea, constipation, or change in the color his stool Genitourinary: As per HPI Musculoskeletal: No joint pain, back pain, neck pain, restricted range of motion in neck or joints Skin: No rash, bruising or hives Neuro: No headache, dizziness, syncope, seizure, focal weakness Endocrine: No polyuria, polydipsia, temperature intolerance Psych: No hallucination, depression, anxiety or suicidal ideation PMH/Family/Social Past Medical History 1. CHF, systolic, acute on chronic, 2. Dilated cardiomyopathy, 3. Prostate cancer extended to bladder with bilateral hydro, follow up with uro logy 4. Iron deficiency anemia, acute on chronic, 5. CKD 7. HTN, 8. DM Medications Current Medications Carvedilol (Coreg) 3.125 mg BID PO ; Start 04/23/19 at 21:00 Ferrous Sulfate (Ferrous Sulfate (Ec)) 325 mg BID PO ; Start 04/23/19 at 21:00 Insulin Glargine (Lantus) 35 units QAM SC ; Start 04/24/19 at 09:00; Status UNV Pantoprazole (Protonix Tab) 40 mg DAILY@0600 PO ; Start 04/24/19 at 06:00 Tamsulosin HCl (Flomax) 0.4 mg HS PO ; Start 04/23/19 at 21:00 Insulin Aspart (Novolog Insulin Pen) 10 unit WITH MEALS SC ; Start 04/24/19 at 08:00; Status UNV IV Flush (NS 3 ml) 3 ml PER PROTOCOL IV ; Start 04/23/19 at 19:00 Ondansetron HCl (Zofran Inj) 4 mg Q6H PRN IV NAUSEA/VOMITING; Start 04/23/19 at 19:00 Nitroglycerin (Nitroglycerin (Sl Tab) 0.4 Mg) 1 tab Q5M PRN SL .CHEST PAIN; Start 04/23/19 at 19:00 Acetaminophen (Tylenol Tab) 650 mg Q6H PRN PO .PAIN 1-3 OR TEMP; Start 04/23/19 at 19:00 Docusate Sodium (Colace) 100 mg Q12H PRN PO .CONSTIPATION; Start 04/23/19 at 19:00 Magnesium Hydroxide (Milk Of Mag) 30 ml DAILY PRN PO .CONSTIPATION; Start 04/23/19 at 19:00 Furosemide (Lasix) 20 mg BID DIURETICS IV ; Start 04/24/19 at 06:00 Miscellaneous Information 1 ea NOTE XX ; Start 04/23/19 at 19:30 Glucose (Glutose) 15 gm Q15M PRN PO DECREASED GLUCOSE; Start 04/23/19 at 19:30 Glucose (Glutose) 22.5 gm Q15M PRN PO DECREASED GLUCOSE; Start 04/23/19 at 19:30 Dextrose (D50w Syringe) 25 ml Q15M PRN IV DECREASED GLUCOSE; Start 04/23/19 at 19:30 Dextrose (D50w Syringe) 50 ml Q15M PRN IV DECREASED GLUCOSE; Start 04/23/19 at 19:30 Glucagon (Glucagen) 1 mg Q15M PRN IM DECREASED GLUCOSE; Start 04/23/19 at 19:30 Glucose (Glutose) 15 gm Q15M PRN BUCCAL DECREASED GLUCOSE; Start 04/23/19 at 19:30 Ceftriaxone Sodium 50 ml @ 100 mls/hr ONCE ONCE IVPB ; Start 04/23/19 at 19:30; Stop 04/23/19 at 19:59 Coded Allergies: No Known Allergy (Unverified , 02/11/19) Past Surgical History [id number] Past Surgical Hx: other Family History Significant Family History: no pertinent family hx Social History Alcohol Use: none Smoking Status: Never smoker Drug Use: none Exam/Review of Systems Vital Signs Vitals Vital Signs Date Temp Pulse Resp B/P (MAP) Pulse Ox O2 O2 Flow FiO2 Time Delivery Rate 04/23/19 103 100 40 19:26 04/23/19 13 129/82 Room Air 18:17 (98) Nasal Cannula 5/27/19 98.5 17:31 Exam Exam General: Patient is a pleasant male currently lying in bed in no acute distress HEENT: Atraumatic, normocephalic. The pupils are equal, round and reactive. Extraocular motor are intact Neck: Supple with full range of motion. No rigidity or meningismus Chest: Nontender Lungs: Wheezing/rales bilaterally, mild increased work of breathing Heart: Sinus tachycardia Abdomen: Soft , nontender, nondistended , bowel sounds are present. No guarding no rebound tenderness , No masses or organomegaly. No costovertebral temporal angle mass Extremities: Trace pitting edema to bilateral lower extremities Neurologic: Normal mental status, speech normal, cranial nerves II through XII are intact, motor and sensory are intact, Additional Comments PROCEDURE: XR Chest, 1 View CLINICAL INDICATION: Pain. TECHNIQUE: Frontal view of the chest. COMPARISON: None FINDINGS: LUNGS: Increased pulmonary vascularity and increased interstitial markings noted. Mild bilateral air space disease. PLEURAL SPACE: Small right pleural effusion. No pneumothorax. HEART: Cardiomegaly is present. MEDIASTINUM: Unremarkable. BONES/JOINTS: Degenerative spine changes are noted. IMPRESSION: 1. Cardiomegaly is present. 2. Increased pulmonary vascularity and increased interstitial markings noted. Mild bilateral air space disease. The findings are consistent with mild pulmonary edema/CHF. 3. Small right pleural effusion. RPTAT: [facility] Enrique Bruno Physician [employer] Date Time Electronically viewed and signed by Enrique Bruno Physician [employer] on 04/23/2019 17:46 RmC/ CC: CANDY PEREZ MD [id number] EKG sinus tachycardia at 107 bpm, normal axis, narrow QRS complex, no concerning ST elevations or depressions notedConclusions: EF 25-30% Severe global left ventricular systolic dysfunction. Tissue Doppler/Mitral Doppler indices are consistent with pseudonormalization with mildly elevated left atrial pressure (Stage II diastolic dysfunction). Electronically Signed By: Ventura Garcia 2019-02-11 17:34:47 COLLIN DANIELSON April 23, 2019 19:46
[2019-04-23] MEDS ORDERED: HEPARIN 5,000 UNIT/1 ML VIAL SC SCH (21:00)
[2019-04-23] MEDS ORDERED: FUROSEMIDE 20 MG INJ IV ONE (22:00)
[2019-04-23 23:00] VITALS: BP 134/71; PULSE 102; RESP 18; Ht 175.3 cm; Wt 85.5 kg
[2019-04-23 23:04] VITALS: PULSE 110
[2019-04-23] MEDS: TAMSULOSIN (SR) 0.4 MG CAP PO SCH (23:40)
[2019-04-23] MEDS: FERROUS SULFATE (EC) 325 MG TAB PO SCH (23:40)
[2019-04-24] VITALS (11 sets, daily range): BP systolic 93–119; BP diastolic 46–67; PULSE 94–140; RESP 16–20
[2019-04-24] MEDS: FUROSEMIDE 40 MG INJ IV SCH ×2 (05:40→16:46)
[2019-04-24] MEDS: PANTOPRAZOLE (EC) 40 MG TAB PO SCH (05:40)
[2019-04-24] MEDS ORDERED: FUROSEMIDE 20 MG INJ IV SCH (06:00)
--- NOTE | 2019-04-24 08:24 | CONS ---
DATE OF ADMISSION: 04/23/2019 DATE OF CONSULTATION: 04/24/2019 TYPE OF CONSULTATION: Nephrology. REASON FOR CONSULTATION: Chronic kidney disease. PHYSICIAN REQUESTING CONSULT: Dr. Jalloh. HISTORY OF PRESENT ILLNESS: This is an 88-year-old male with a past medical history of chronic kidne y disease with previous baseline creatinine around 1.5 to 2.0 mg/dL, history of prostate cancer statu s post TURP, history of hypertension who presents to the [facility] with shortness of breath and gross hematuria. The patient states he has had 2 weeks of gross hematuria with increas ing shortness of breath and dyspnea on exertion. The patient upon arrival into emergency room had a chest x-ray, which showed findings of pulmonary vascular congestion and edema. The patient was given diuretic therapy and admitted to telemetry for further evaluation. In terms of patient's renal history, the patient has underlying chronic kidney disease with a baselin e creatinine around 1.5 to 2.0 mg/dL. Currently on presentation, the patient has creatinine of 1.9 m g/dL. The patient does admit to having gross hematuria. He denies any hemoptysis, hematemesis or he matochezia. PAST MEDICAL HISTORY: As stated above, history of chronic kidney disease stage IV, history of conges tive heart failure, cardiomyopathy, history of prostate cancer, history of bilateral hydronephrosis, history of anemia, history of hypertension, diabetes. PAST SURGICAL HISTORY: Status post TURP. FAMILY HISTORY: No family history of kidney disease. SOCIAL HISTORY: He does not drink, smoke or do drugs. MEDICATIONS: The patient's medications have been reviewed. REVIEW OF SYSTEMS: A 14-point review of systems was conducted. Pertinent positives stated in HPI, o therwise negative. PHYSICAL EXAMINATION: VITAL SIGNS: Blood pressure is 119/67, respirations 16, pulse 99, temperature 98.0. HEENT: Head is normocephalic. NECK: Supple. HEART: Regular rate. LUNGS: Show diminished breath sounds at the base. ABDOMEN: Soft, nontender to palpation. No rebound or guarding. EXTREMITIES: Negative for clubbing, cyanosis, positive edema. DERMATOLOGIC: No rashes. MUSCULOSKELETAL: No joint effusion. NEUROLOGIC: Limited exam due to lack of patient's cooperation. LABORATORY DATA: Reviewed. Urinalysis from 04/23/2019 was reviewed. IMAGING STUDIES: Reviewed. ASSESSMENT AND PLAN: This is an 88-year-old male who presents with: 1. Chronic kidney disease stage IV with a baseline creatinine around 1.5 to 2.0 mg/dL. The patient' s renal function currently appears to be at or near baseline. A urinalysis does show evidence of pyu pat, hematuria, which can be seen in setting of urinary tract infection, gross hematuria. Recommenda tion at this point is to continue current medical management. Continue diuretic therapy. Continue a ntibiotic therapy. We will monitor renal function closely and electrolytes. 2. Chronic bilateral hydronephrosis. Etiology is likely secondary to bladder mass. The patient is seen by urologist in outpatient setting. We would recommend a urologic evaluation. We will continue to monitor urinary output closely. Continue Martins catheter. 3. Anemia. Monitor hemoglobin and hematocrit levels. 4. Mineral bone disorder. Monitor calcium and phosphorus levels. 5. Acute on chronic systolic heart failure. The patient is currently decompensated. Continue diure tic regimen. May consider cardiology evaluation. 6. Acute hypoxemic respiratory failure secondary to congestive heart failure. Continue medical patel gement as stated above. Continue diuretic therapy. Continue supplemental oxygen. 7. Hematuria. Etiology is likely due to underlying prostate cancer. The patient will follow up [facility]. Continue to monitor. 8. Metastatic prostate cancer. Continue to monitor. Follow up with urology. Continue Lupron. 9. Hypertension. Continue current blood pressure regimen. 10. Diabetes. Continue current insulin regimen. 11. Gastrointestinal and deep vein thrombosis prophylaxis. Thank you, Dr. Jalloh for this interesting consult. It will be a pleasure to follow the patient darion silvestre throughout the hospital course. Dictated By: MARTÍN COSME DO NR/NTS Conf#: [id number] DID#: [id number] CC: SPARKLE BARBER MD; JOANA SO MD; COLLIN JALLOH MD;*End*
[2019-04-24] MEDS: FERROUS SULFATE (EC) 325 MG TAB PO SCH ×2 (08:43→20:16)
[2019-04-24] MEDS: INSULIN ASPART [NOVOLOG] 3 ML PEN SC SCH ×3 (08:50→17:04)
[2019-04-24] MEDS: INSULIN GLARGINE [LANTus] (100 UNITS/ML) SYG SC SCH (08:51)
--- NOTE | 2019-04-24 11:25 | CONS ---
Assessment/Plan Assessment/Plan Hospital Course (Demo Recall) 1. 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 Hematuria 3. Hypertension 4. Chronic kidney disease 5. History of prostate cancer and BPH 6. Anemia 7. Diabetes Recommendations: Unfortunately unable to give aspirin and Plavix given his recurrent hematuria Diuretic as per renal given his renal insufficiency. Currently appears to be euvolemic Continue with Coreg as tolerated Off of ARB or DAR inhibitor due to his renal insufficiency Antibiotic as per internal medicine recommendation Thank you for his referral. We will continue to follow along with you PARTH MERCER MD FAC Consultation Date/Type/Reason Admit Date/Time Date of Consultation: April 24, 2019 Type of Consult Cardiology Reason for Consultation CHF Requesting Provider: COLLIN JALLOH Date/Time of Note DATE: 04/24/19 TIME: 11:21 Hx of Present Illness Interventional cardiology consultation note Chief complaint: Hematuria Reason for consult: Congestive heart failure History of present illness: Thank you for this referral. History was informed the patient on review of the old chart. Patient also known to me from previous admission to the hospital This is a pleasant 88-year-old male with a past medical history of chronic kidney disease with previous baseline creatinine around 1.5 to 2.0 mg/dL, history of prostate cancer (although he tells us that he has no history of cancer ) status post TURP, history of severe cardiomyopathy history of hypertension who presents to the [facility] with shortness of breath and gross hematuria. The patient states he has had 2 weeks of gross hematuria with increasing shortness of breath and dyspnea on exertion. The patient upon arrival into emergency room had a chest x-ray, which showed findings of pulmonary vascular congestion and edema. The patient was given diuretic therapy and admitted to telemetry for further evaluation. He said that his hematuria has improved now. Denies any left-sided chest pain or pressure to me PAST MEDICAL HISTORY: As stated above, history of chronic kidney disease stage IV, history of congestive heart failure/cardiomyopathy, history of prostate cancer, history of bilateral hydronephrosis, history of anemia, history of hypertension, diabetes. PAST SURGICAL HISTORY: Status post TURP. FAMILY HISTORY: No family history of early coronary artery disease SOCIAL HISTORY: He does not drink, smoke or do drugs. Medications were reviewed as per medical reconciliation sheet Review of system: Patient denies all others except for above-mentioned Past Medical History Home Meds Active Scripts Pantoprazole* (Protonix*) 40 Mg Tablet.dr, 40 MG PO DAILY for 30 Days, TAB Prov:HUSSEIN SHUKLA MD 02/16/19 Ferrous Sulfate* (Ferrous Sulfate*) 325 Mg Tabec, 325 MG PO BID for 30 Days, TAB Prov:HUSSEIN SHUKLA MD 02/16/19 Spironolactone* (Aldactone*) 25 Mg Tablet, 25 MG PO DAILY for 30 Days, TAB Prov:HUSSEIN SHUKLA MD 02/16/19 Losartan Potassium* (Cozaar*) 25 Mg Tablet, 25 MG PO DAILY for 30 Days, TAB Prov:HUSSEIN SHUKLA MD 02/16/19 Carvedilol* (Carvedilol*) 6.25 Mg Tablet, 3.125 MG PO BID for 60 Days, TAB Prov:HUSSEIN SHUKLA MD 02/16/19 Reported Medications Tamsulosin Hcl* (Tamsulosin Hcl*) 0.4 Mg Cap.er.24h, 0.4 MG PO HS, CAP 02/11/19 Insulin Lispro (Humalog Kwikpen U-100) 100 Unit/1 Ml Insuln.pen, 10 UNIT SQ AC E, EA 02/11/19 Insulin Glargine* (Lantus*) 100 Unit/Ml Soln, 15-20 UNIT SC QHS, #1 VIAL 02/11/19 Insulin Glargine* (Lantus*) 100 Unit/Ml Soln, 35 UNIT SC QAM, #1 VIAL 02/11/19 Medications Current Medications Carvedilol (Coreg) 3.125 mg BID PO Last administered on 04/24/19at 08:43; Admin Dose 3.125 MG; Start 04/23/19 at 21:00 Ferrous Sulfate (Ferrous Sulfate (Ec)) 325 mg BID PO Last administered on 04/24/19at 08:43; Admin Dose 325 MG; Start 04/23/19 at 21:00 Insulin Glargine (Lantus) 35 units QAM SC Last administered on 04/24/19at 08:51; Admin Dose 35 UNITS; Start 04/24/19 at 09:00 Pantoprazole (Protonix Tab) 40 mg DAILY@0600 PO Last administered on 04/24/19at 05:40; Admin Dose 40 MG; Start 04/24/19 at 06:00 Tamsulosin HCl (Flomax) 0.4 mg HS PO Last administered on 04/23/19at 23:40; Admin Dose 0.4 MG; Start 04/23/19 at 21:00 Insulin Aspart (Novolog Insulin Pen) 10 unit WITH MEALS SC Last administered on 04/24/19at 08:50; Admin Dose 10 UNIT; Start 04/24/19 at 07:55 IV Flush (NS 3 ml) 3 ml PER PROTOCOL IV ; Start 04/23/19 at 19:00 Ondansetron HCl (Zofran Inj) 4 mg Q6H PRN IV NAUSEA/VOMITING; Start 04/23/19 at 19:00 Nitroglycerin (Nitroglycerin (Sl Tab) 0.4 Mg) 1 tab Q5M PRN SL .CHEST PAIN; Start 04/23/19 at 19:00 Acetaminophen (Tylenol Tab) 650 mg Q6H PRN PO .PAIN 1-3 OR TEMP; Start 04/23/19 at 19:00 Docusate Sodium (Colace) 100 mg Q12H PRN PO .CONSTIPATION; Start 04/23/19 at 19:00 Magnesium Hydroxide (Milk Of Mag) 30 ml DAILY PRN PO .CONSTIPATION; Start 04/23/19 at 19:00 Miscellaneous Information 1 ea NOTE XX ; Start 04/23/19 at 19:30 Glucose (Glutose) 15 gm Q15M PRN PO DECREASED GLUCOSE; Start 04/23/19 at 19:30 Glucose (Glutose) 22.5 gm Q15M PRN PO DECREASED GLUCOSE; Start 04/23/19 at 19:30 Dextrose (D50w Syringe) 25 ml Q15M PRN IV DECREASED GLUCOSE; Start 04/23/19 at 19:30 Dextrose (D50w Syringe) 50 ml Q15M PRN IV DECREASED GLUCOSE; Start 04/23/19 at 19:30 Glucagon (Glucagen) 1 mg Q15M PRN IM DECREASED GLUCOSE; Start 04/23/19 at 19:30 Glucose (Glutose) 15 gm Q15M PRN BUCCAL DECREASED GLUCOSE; Start 04/23/19 at 19:30 Ceftriaxone Sodium 50 ml @ 100 mls/hr Q24H IVPB ; Start 04/24/19 at 19:00 Furosemide (Lasix) 40 mg BID DIURETICS IV Last administered on 04/24/19at 05:40; Admin Dose 40 MG; Start 04/24/19 at 06:00 Allergies: Coded Allergies: No Known Allergy (Unverified , 02/11/19) Past Surgical History Past Surgical Hx: other Social History Alcohol Use: none Smoking Status: Never smoker Drug Use: none Exam/Review of Systems Vital Signs Vitals Vital Signs Date Temp Pulse Resp B/P (MAP) Pulse Ox O2 O2 Flow FiO2 Time Delivery Rate 04/24/19 99 08:01 04/24/19 98.0 16 119/67 96 07:32 (84) 04/24/19 2.0 04:32 04/24/19 Nasal 04:13 Cannula 04/23/19 40 19:26 Intake and Output 04/23/19 04/23/19 04/24/19 1515:00 23:00 07:00 IntakeIntake Total 750 ml OutputOutput Total 850 ml BalanceBalance -100 ml Exam Exam General: no acute distress HEENT: NC/AT. pupils are equal. round. NECK: NO JVD. no stridor. CV: RRR. systolic murmur; no gallop or rubs. PULM: no wheezing or rhonchi. GI: SOFT, NT, ND, no rebound or guarding Extremity: trace B/L LE edema. no clubbing. neuro: awake and alert, OX3. Psych: calm and pleasant rectal: deferred Echocardiogram done on February 11, 2019 shows: Normal left ventricular cavity size. Severe global left ventricular systolic dysfunction. Ejection fraction is visually estimated at 25-30 %. Tissue Doppler/Mitral Doppler indices are consistent with pseudonormalization with mildly elevated left atrial pressure (Stage II diastolic dysfunction). Labs Result Diagram: 04/24/19 0614 04/24/19 0614 Results 24hrs Laboratory Tests Test 04/23/19 17:35 04/23/19 18:48 04/23/19 20:15 04/24/19 06:14 White Blood Count 12.4 #H 9.8 # Red Blood Count 3.40 L 3.48 L Hemoglobin 8.5 L 8.6 L Hematocrit 27.6 L 28.8 L Mean Corpuscular 81.2 L 82.8 Volume Mean Corpuscular 25.0 L 24.7 L Hemoglobin Mean Corpuscular 30.8 L 29.9 L Hemoglobin Concen t Red Cell 15.7 H 15.7 H Distribution Width Platelet Count 325 # 269 Mean Platelet 10.6 H 10.2 Volume Immature 0.600 H 0.400 Granulocytes % Neutrophils % 74.8 78.1 H Lymphocytes % 15.0 13.5 L Monocytes % 9.1 7.2 Eosinophils % 0.3 0.2 Basophils % 0.2 0.6 Nucleated Red 0.0 0.0 Blood Cells % Immature 0.080 H 0.040 H Granulocytes # Neutrophils # 9.3 H 7.6 H Lymphocytes # 1.9 1.3 Monocytes # 1.1 H 0.7 Eosinophils # 0.0 0.0 Basophils # 0.0 0.1 Nucleated Red 0.0 0.0 Blood Cells # Prothrombin Time 14.2 Prothrombin Time 1.1 Ratio INR International 1.09 Normalized Ratio Activated 29.2 Partial Thrombopl ast Time Sodium Level 139 139 Potassium Level 4.5 4.3 Chloride Level 103 105 Carbon Dioxide 28 24 Level Anion Gap 8 10 Blood Urea 33 H 38 H Nitrogen Creatinine 1.73 H 1.89 H Est Glomerular Filtrat Rate mL/min Glucose Level 308 H 312 H Calcium Level 8.4 8.2 L Total Bilirubin 0.3 Direct Bilirubin 0.00 Indirect 0.3 Bilirubin Aspartate Amino 19 Transf (AST/SGOT) Alanine 14 Aminotransferase (ALT/SGPT) Alkaline 96 Phosphatase Troponin I < 0.012 B-Type 76789 H Natriuretic Peptide Total Protein 7.2 Albumin 3.6 Globulin 3.60 H Albumin/Globulin 1.00 Ratio Lipase 37 Urine Color JUVENAL Urine Clarity CLOUDY A Urine pH 6.0 Urine Specific 1.013 [place] Urine Ketones NEGATIVE Urine Nitrite NEGATIVE Urine Bilirubin NEGATIVE Urine NEGATIVE Urobilinogen Urine Leukocyte 2+ H Esterase Urine Microscopic > 182 H RBC Urine Microscopic > 182 H WBC Urine Squamous FEW Epithelial Cells Urine Bacteria FEW A Urine Mucus FEW A Urine Hemoglobin 3+ H Urine Glucose 2+ H Urine Total 2+ H Protein Blood Gas Blood arterial Specimen Source Arterial Blood 04/23/2019 8:15:3 Date Drawn 9 PM Arterial Blood pH 7.466 H (Temp corrected) Arterial Blood 36.3 pCO2 (Temp correct) Arterial Blood 157.4 H pO2 (Temp corrected) Arterial Blood 25.6 HCO3 Arterial Blood 1.9 Base Excess Arterial Blood 98.9 Oxygen Saturation Anthony Test ACCEPTAB Arterial Blood Right Radial Gas Puncture Site Arterial 0.3 Blood Carboxyhemo globin Arterial Blood 0.3 Methemoglobin Blood Gas A-a O2 86.1 H Differential Oxyhemoglobin 98.3 Percent Blood Gas 37.0 Temperature Blood Gas 16.0 Respiration Rate Blood Gas Actual 20 Respiration Rate Blood Gas MASK - BIPAP Modality FiO2 40.0 Blood Gas 10 Pressure Support Blood Gas 15 IPAP/EPAP Ratio Blood Gas KB Notified Whom Blood Gas 04/23/2019 8:31:5 Notified Time 2 PM Magnesium Level 1.8 Test 04/24/19 07:57 04/24/19 08:42 Bedside Glucose 324 H 349 H Medications Medications Current Medications Carvedilol (Coreg) 3.125 mg BID PO Last administered on 04/24/19 08:43; Admin Dose 3.125 MG; Start 04/23/19 at 21:00 Ferrous Sulfate (Ferrous Sulfate (Ec)) 325 mg BID PO Last administered on 04/24/19 08:43; Admin Dose 325 MG; Start 04/23/19 at 21:00 Insulin Glargine (Lantus) 35 units QAM SC Last administered on 04/24/19 08:51; Admin Dose 35 UNITS; Start 04/24/19 at 09:00 Pantoprazole (Protonix Tab) 40 mg DAILY@0600 PO Last administered on 04/24/19 05:40; Admin Dose 40 MG; Start 04/24/19 at 06:00 Tamsulosin HCl (Flomax) 0.4 mg HS PO Last administered on 04/23/19at 23:40; Admin Dose 0.4 MG; Start 04/23/19 at 21:00 Insulin Aspart (Novolog Insulin Pen) 10 unit WITH MEALS SC Last administered on 04/24/19 08:50; Admin Dose 10 UNIT; Start 04/24/19 at 07:55 IV Flush (NS 3 ml) 3 ml PER PROTOCOL IV ; Start 04/23/19 at 19:00 Ondansetron HCl (Zofran Inj) 4 mg Q6H PRN IV NAUSEA/VOMITING; Start 04/23/19 at 19:00 Nitroglycerin (Nitroglycerin (Sl Tab) 0.4 Mg) 1 tab Q5M PRN SL .CHEST PAIN; Start 04/23/19 at 19:00 Acetaminophen (Tylenol Tab) 650 mg Q6H PRN PO .PAIN 1-3 OR TEMP; Start 04/23/19 at 19:00 Docusate Sodium (Colace) 100 mg Q12H PRN PO .CONSTIPATION; Start 04/23/19 at 19:00 Magnesium Hydroxide (Milk Of Mag) 30 ml DAILY PRN PO .CONSTIPATION; Start 04/23/19 at 19:00 Miscellaneous Information 1 ea NOTE XX ; Start 04/23/19 at 19:30 Glucose (Glutose) 15 gm Q15M PRN PO DECREASED GLUCOSE; Start 04/23/19 at 19:30 Glucose (Glutose) 22.5 gm Q15M PRN PO DECREASED GLUCOSE; Start 04/23/19 at 19:30 Dextrose (D50w Syringe) 25 ml Q15M PRN IV DECREASED GLUCOSE; Start 04/23/19 at 19:30 Dextrose (D50w Syringe) 50 ml Q15M PRN IV DECREASED GLUCOSE; Start 04/23/19 at 19:30 Glucagon (Glucagen) 1 mg Q15M PRN IM DECREASED GLUCOSE; Start 04/23/19 at 19:30 Glucose (Glutose) 15 gm Q15M PRN BUCCAL DECREASED GLUCOSE; Start 04/23/19 at 19:30 Ceftriaxone Sodium 50 ml @ 100 mls/hr Q24H IVPB ; Start 04/24/19 at 19:00 Furosemide (Lasix) 40 mg BID DIURETICS IV Last administered on 04/24/19at 05:40; Admin Dose 40 MG; Start 04/24/19 at 06:00 PARTH MERCER MD April 24, 2019 11:25
--- NOTE | 2019-04-24 15:58 | PN ---
DATE: 04/24/2019 SUBJECTIVE: The patient was stable this morning. No respiratory distress. Breathing has improved f ollowing diuresis. Hematuria appears to be resolving. PHYSICAL EXAMINATION: VITAL SIGNS: Temperature 98, pulse 95, blood pressure 95/46, O2 saturation 96% on 2 liters. NECK: Supple, no JVD or lymphadenopathy. CARDIAC: S1, S2, no added sounds or murmurs. CHEST: Diminished air entry bilaterally. ABDOMEN: Soft and nontender. No guarding or rebound. EXTREMITIES: No cyanosis, clubbing, edema. NEUROLOGIC: Grossly intact. No focal deficits. LABORATORY DATA: White count now 9.8, hemoglobin 8.6, platelets of 269. BUN 38, creatinine 1.89. I NR 1.09. Urinalysis positive for UTI. IMPRESSION AND PLAN: 1. Urinary tract infection. 2. Mild congestive cardiac failure with evidence of LV systolic dysfunction. 3. History of cardiomyopathy, dilated. 4. History of prostate cancer with extension into bladder with bilateral hydronephrosis . 5. Chronic kidney disease with creatinine currently close to baseline. PLAN: 1. Continue antibiotics for UTI pending culture results. 2. Cardiology recommendations regarding acute on chronic systolic heart failure. 3. Monitor H and H, with history of chronic anemia. 4. Stable renal function at present, close to his baseline. 5. Await urology recommendations regarding obstructive uropathy from his prostate carcinoma. Antici briseno discharge soon once cleared by all consultants as the patient is currently euvolemic and once ur ine cultures are available. Dictated By: ISI CAMARA/CATHI Conf#: [id number] DID#: [id number]
[2019-04-24] MEDS: ACETAMINOPHEN 325 MG TAB PO PRN (17:06)
[2019-04-24] MEDS ORDERED: DILTIAZEM 25 MG INJ IV ONE (18:30)
[2019-04-24] MEDS ORDERED: DIGOXIN 500 MCG INJ IV ONE (18:30)
[2019-04-24] MEDS ORDERED: DILTIAZEM-D5W 125MG/125ML DRIP 125 ML IV SCH (18:30)
[2019-04-24] MEDS: CEFTRIAXONE 1 GM/50 ML (PMX) 50 ML IVPB SCH (19:29)
[2019-04-24] MEDS: DILTIAZEM 125 MG in SOD CHLORIDE 0.9% 100 ML IV SCH ×2 (19:56→21:58)
[2019-04-24] MEDS: TAMSULOSIN (SR) 0.4 MG CAP PO SCH (20:16)
[2019-04-25] VITALS (13 sets, daily range): BP systolic 95–120; BP diastolic 52–67; PULSE 90–124; RESP 18–20
[2019-04-25] MEDS: DILTIAZEM 125 MG in SOD CHLORIDE 0.9% 100 ML IV SCH (03:05)
[2019-04-25] MEDS: PANTOPRAZOLE (EC) 40 MG TAB PO SCH (05:35)
[2019-04-25] MEDS: FUROSEMIDE 40 MG INJ IV SCH (05:38)
--- NOTE | 2019-04-25 07:58 | CONS ---
Consult Date/Type/Reason Admit Date/Time April 23, 2019 at 19:06 Initial Consult Date 04/24/19 Type of Consultation: cv Requesting Provider: COLLIN JALLOH Date/Time of Note DATE: 04/25/19 TIME: 07:56 Subjective Interventional cardiology consultation Subjective: Case discussed with the staff telemetry was reviewed patient has converted to atrial fibrillation rapid ventricular response. Heart rate is under fair control with Cardizem and digoxin IV Discussed with patient daughter as well. Patient with no chest pain or pressure but does complain of shortness of breath and dyspnea on exertion on minimal activity No PND orthopnea Objective: General: no acute distress HEENT: NC/AT. pupils are equal. round. NECK: NO JVD. no stridor. CV: Irregularly irregular. systolic murmur; no gallop or rubs. PULM: no wheezing or rhonchi. GI: SOFT, NT, ND, no rebound or guarding Extremity: trace B/L LE edema. no clubbing. neuro: awake and alert, OX3. Psych: calm and pleasant rectal: deferred Echocardiogram done on February 11, 2019 shows: Normal left ventricular cavity size. Severe global left ventricular systolic dysfunction. Ejection fraction is visually estimated at 25-30 %. Tissue Doppler/Mitral Doppler indices are consistent with pseudonormalization with mildly elevated left atrial pressure (Stage II diastolic dysfunction). Objective Vitals Vital Signs Date Temp Pulse Resp B/P (MAP) Pulse Ox O2 O2 Flow FiO2 Time Delivery Rate 04/25/19 98.0 95 20 116/58 98 Nasal 07:40 (77) Cannula 04/25/19 2.0 00:43 04/23/19 40 19:26 Intake and Output 04/24/19 04/24/19 04/25/19 1515:00 23:00 07:00 IntakeIntake Total 715 ml 460 ml OutputOutput Total 490 ml 600 ml BalanceBalance 225 ml -140 ml Results/Medications Result Diagram: 04/25/1962604/25/19626 Results 24 hrs Laboratory Tests Test 04/24/19 07:57 04/24/19 08:42 04/24/19 11:50 04/24/19 16:43 Bedside Glucose 324 H 349 H 258 H 160 Test 04/24/19 20:14 04/25/19 02:08 04/25/19 06:27 Bedside Glucose 125 134 White Blood Count 7.9 Red Blood Count 3.23 L Hemoglobin 8.1 L Hematocrit 26.0 L Mean Corpuscular 80.5 L Volume Mean Corpuscular 25.1 L Hemoglobin Mean Corpuscular 31.2 L Hemoglobin Concent Red Cell 15.4 H Distribution Width Platelet Count 298 Mean Platelet Volume 10.7 H Immature 0.300 Granulocytes % Neutrophils % 67.4 Lymphocytes % 22.5 Monocytes % 8.4 Eosinophils % 0.9 Basophils % 0.5 Nucleated Red Blood 0.0 Cells % Immature 0.020 Granulocytes # Neutrophils # 5.3 Lymphocytes # 1.8 Monocytes # 0.7 Eosinophils # 0.1 Basophils # 0.0 Nucleated Red Blood 0.0 Cells # Sodium Level 141 Potassium Level 4.2 Chloride Level 104 Carbon Dioxide Level 28 Anion Gap 9 Blood Urea Nitrogen 42 H Creatinine 2.35 H Est Glomerular Filtrat Rate mL/min Glucose Level 165 # Calcium Level 8.3 L Phosphorus Level 4.9 Magnesium Level 1.7 Home Meds Active Scripts Pantoprazole* (Protonix*) 40 Mg Tablet.dr, 40 MG PO DAILY for 30 Days, TAB Prov:HUSSEIN SHUKLA MD 02/16/19 Ferrous Sulfate* (Ferrous Sulfate*) 325 Mg Tabec, 325 MG PO BID for 30 Days, TAB Prov:HUSSEIN SHUKLA MD 02/16/19 Spironolactone* (Aldactone*) 25 Mg Tablet, 25 MG PO DAILY for 30 Days, TAB Prov:HUSSEIN SHUKLA MD 02/16/19 Losartan Potassium* (Cozaar*) 25 Mg Tablet, 25 MG PO DAILY for 30 Days, TAB Prov:HUSSEIN SHUKLA MD 02/16/19 Carvedilol* (Carvedilol*) 6.25 Mg Tablet, 3.125 MG PO BID for 60 Days, TAB Prov:HUSSEIN SHUKLA MD 02/16/19 Reported Medications Tamsulosin Hcl* (Tamsulosin Hcl*) 0.4 Mg Cap.er.24h, 0.4 MG PO HS, CAP 02/11/19 Insulin Lispro (Humalog Kwikpen U-100) 100 Unit/1 Ml Insuln.pen, 10 UNIT SQ AC E, EA 02/11/19 Insulin Glargine* (Lantus*) 100 Unit/Ml Soln, 15-20 UNIT SC QHS, #1 VIAL 02/11/19 Insulin Glargine* (Lantus*) 100 Unit/Ml Soln, 35 UNIT SC QAM, #1 VIAL 02/11/19 Medications Current Medications Carvedilol (Coreg) 3.125 mg BID PO Last administered on 04/24/19 08:43; Admin Dose 3.125 MG; Start 04/23/19 at 21:00 Ferrous Sulfate (Ferrous Sulfate (Ec)) 325 mg BID PO Last administered on 04/24/19 20:16; Admin Dose 325 MG; Start 04/23/19 at 21:00 Insulin Glargine (Lantus) 35 units QAM SC Last administered on 04/24/19 08:51; Admin Dose 35 UNITS; Start 04/24/19 at 09:00 Pantoprazole (Protonix Tab) 40 mg DAILY@0600 PO Last administered on 04/25/19 05:35; Admin Dose 40 MG; Start 04/24/19 at 06:00 Tamsulosin HCl (Flomax) 0.4 mg HS PO Last administered on 04/24/19at 20:16; Admin Dose 0.4 MG; Start 04/23/19 at 21:00 Insulin Aspart (Novolog Insulin Pen) 10 unit WITH MEALS SC Last administered on 04/24/19 17:04; Admin Dose 10 UNIT; Start 04/24/19 at 07:55 IV Flush (NS 3 ml) 3 ml PER PROTOCOL IV ; Start 04/23/19 at 19:00 Ondansetron HCl (Zofran Inj) 4 mg Q6H PRN IV NAUSEA/VOMITING; Start 04/23/19 at 19:00 Nitroglycerin (Nitroglycerin (Sl Tab) 0.4 Mg) 1 tab Q5M PRN SL .CHEST PAIN; Start 04/23/19 at 19:00 Acetaminophen (Tylenol Tab) 650 mg Q6H PRN PO .PAIN 1-3 OR TEMP Last administered on 04/24/19at 17:06; Admin Dose 650 MG; Start 04/23/19 at 19:00 Docusate Sodium (Colace) 100 mg Q12H PRN PO .CONSTIPATION; Start 04/23/19 at 19:00 Magnesium Hydroxide (Milk Of Mag) 30 ml DAILY PRN PO .CONSTIPATION; Start 04/23 at 19:00 Miscellaneous Information 1 ea NOTE XX ; Start 04/23/19 at 19:30 Glucose (Glutose) 15 gm Q15M PRN PO DECREASED GLUCOSE; Start 04/23/19 at 19:30 Glucose (Glutose) 22.5 gm Q15M PRN PO DECREASED GLUCOSE; Start 04/23/19 at 19:30 Dextrose (D50w Syringe) 25 ml Q15M PRN IV DECREASED GLUCOSE; Start 04/23/19 at 19:30 Dextrose (D50w Syringe) 50 ml Q15M PRN IV DECREASED GLUCOSE; Start 04/23/19 at 19:30 Glucagon (Glucagen) 1 mg Q15M PRN IM DECREASED GLUCOSE; Start 04/23/19 at 19:30 Glucose (Glutose) 15 gm Q15M PRN BUCCAL DECREASED GLUCOSE; Start 04/23/19 at 19:30 Ceftriaxone Sodium 50 ml @ 100 mls/hr Q24H IVPB Last administered on 04/24/19at 19:29; Admin Dose 100 MLS/HR; Start 04/24/19 at 19:00 Diltiazem HCl 125 mg/Sodium Chloride 125 ml @ 5 mls/hr TITRATE IV Last administered on 04/25/19at 03:05; Admin Dose 5 MLS/HR; Start 04/24/19 at 19:30 Furosemide (Lasix) 20 mg DAILY IV ; Start 04/26/19 at 09:00 Assessment/Plan Hospital Course (Demo Recall) 1. 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 Hematuria 3. Hypertension 4. Chronic kidney disease 5. History of prostate cancer and BPH 6. Anemia 7. Diabetes 8. Paroxysmal atrial fibrillation rapid ventricular response Recommendations: Unfortunately unable to give aspirin and Plavix for anticoagulation at this point given his recurrent hematuria Diuretic as per renal given his renal insufficiency. Currently appears to be euvolemic Continue with Coreg as tolerated Off of ARB or DAR inhibitor due to his renal insufficiency Antibiotic as per internal medicine recommendation I will start the patient amiodarone drip to try to keep him in sinus rhythm. Magnesium will be replaced as well. Thank you for his referral. We will continue to follow along with you PARTH MERCER MD [facility] PARTH MERCER MD April 25, 2019 07:58
[2019-04-25] MEDS ORDERED: AMIODARONE 900 MG in DEXTROSE 5% 482 ML IV SCH ×4 (08:00)
[2019-04-25] MEDS: FERROUS SULFATE (EC) 325 MG TAB PO SCH ×2 (08:26→20:07)
[2019-04-25] MEDS: INSULIN GLARGINE [LANTus] (100 UNITS/ML) SYG SC SCH (08:31)
[2019-04-25] MEDS: INSULIN ASPART [NOVOLOG] 3 ML PEN SC SCH ×3 (08:31→17:33)
[2019-04-25] MEDS ORDERED: MAGNESIUM SULFATE 3 GM in DEXTROSE 5% 100 ML IVPB ONE (09:00)
--- NOTE | 2019-04-25 09:04 | PN ---
DATE: 04/25/2019 SUBJECTIVE: The patient is stable. Continues to have mild episodes of shortness of breath. The pat ient was placed on diltiazem drip due to rapid atrial fibrillation with rapid rate. The patient's he maturia is slowly improving. No other events noted. OBJECTIVE: VITAL SIGNS: Blood pressure is 112/57, respirations 18, pulse 99, temperature 97.8. HEENT: Head is normocephalic. NECK: Supple. HEART: Regular rate. LUNGS: Show diminished breath sounds at the base. ABDOMEN: Soft, nontender to palpation. No rebound or guarding. EXTREMITIES: Negative for clubbing, cyanosis. Trace edema. DERMATOLOGIC: No rashes. MUSCULOSKELETAL: No joint effusion. NEUROLOGIC: No change in exam. MEDICATIONS: Reviewed. LABORATORY DATA: Reviewed. ASSESSMENT AND PLAN: 1. Nonoliguric acute kidney injury on top of chronic kidney disease stage IV with previous baseline creatinine of 1.5 to 2.0 mg/dL. Etiology of acute kidney injury is secondary to hemodynamics, possib le cardiorenal syndrome, diuretics. The patient's renal function has declined in the last 48 hours w ith diuretic therapy. Plan at this point is to deescalate Lasix 20 mg IV b.i.d., monitor renal funct ion closely. If further declines we would consider holding diuretics to enable fluid to mobilize. 2. Chronic bilateral hydronephrosis. Etiology is secondary to bladder mass. The patient has been p ending a urology evaluation. Continue to monitor. May consider Martins catheter placement. 3. Anemia. Monitor hemoglobin and hematocrit levels. 4. Mineral bone disorder. Monitor calcium and phosphorus levels. 5. Acute on chronic systolic heart failure. The patient is decompensated, but clinically improving. We will deescalate diuretic therapy as stated above, due to worsening renal function. Monitor clos cici. Follow up with Cardiology for recommendations. 6. Acute hypoxemic respiratory failure secondary to congestive heart failure. The patient is clinic ally improving, currently stable on nasal cannula. Continue diuretic therapy, adjust as above. Cont inue supplemental oxygen. Continue nebulizers. 7. Hematuria, likely due to prostate cancer, bladder mass. Continue to monitor. Follow up with uro logy. 8. Metastatic prostate cancer. Continue to monitor. The patient was previously on Lupron. 9. Hypertension. Continue current blood pressure regimen. 10. Diabetes. Continue current insulin regimen. 11. Gastrointestinal and deep vein thrombosis prophylaxis. Dictated By: MARTÍN COSME DO NR/CATHI Conf#: [id number] DID#: [id number] CC: JOANA SO MD; SPARKLE BARBER MD;*EndCC*
[2019-04-25] MEDS ORDERED: DILTIAZEM 125 MG in SOD CHLORIDE 0.9% 100 ML IV SCH (10:30)
--- NOTE | 2019-04-25 16:44 | PN ---
Date/Time of Note Date/Time of Note DATE: 04/25/19 TIME: 16:34 Assessment/Plan VTE Prophylaxis Risk score (from N[facility])>0 risk: 6 SCD applied (from [place]): Yes Pharmacological prophylaxis: NA/contraindicated Pharm contraindication: bleeding Lines/Catheters IV C[facility]ter Type (from [facility]): Peripheral IV Urinary Cath still in place: No Assessment/Plan Assessment/Plan 1. Acute dyspnea - most likely secondary to Afib with RVR and CHF - Cardiology on board and appreciate recommendations 2. Hematuria - resolving - urology consulted for further recommendations - hgb slowly dropping but no need for transfusion at this time - antiplatelets on hold 3. Acute on chronic systolic heart failure - Cardiology on board and appreciate recommendations - nephrology assisting with diuretics in setting of CKD 4. Dilated cardiomyopathy - Recent ejection fraction of 25 to 30% 5. 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 Iron deficiency anemia, acute on chronic - blood loss contributing to anemia as well - no need for transfusions at this time 7. CKD - Nephrology on board and appreciate recommendations 8. HTN - Continue home medications 9. DM - A1c ordered - hugous on board - ISS and accuchecks 10. Disposition - started on amiodarone drip for better rate control Result Diagram: 04/25/1962604/25/19 06 Results 24hrs Laboratory Tests Test 04/24/19 16:43 04/24/19 20:14 04/25/19 02:08 04/25/19 06:27 Bedside Glucose 160 125 134 White Blood Count 7.9 Red Blood Count 3.23 L Hemoglobin 8.1 L Hematocrit 26.0 L Mean Corpuscular 80.5 L Volume Mean Corpuscular 25.1 L Hemoglobin Mean Corpuscular 31.2 L Hemoglobin Concent Red Cell 15.4 H Distribution Width Platelet Count 298 Mean Platelet Volume 10.7 H Immature 0.300 Granulocytes % Neutrophils % 67.4 Lymphocytes % 22.5 Monocytes % 8.4 Eosinophils % 0.9 Basophils % 0.5 Nucleated Red Blood 0.0 Cells % Immature 0.020 Granulocytes # Neutrophils # 5.3 Lymphocytes # 1.8 Monocytes # 0.7 Eosinophils # 0.1 Basophils # 0.0 Nucleated Red Blood 0.0 Cells # Sodium Level 141 Potassium Level 4.2 Chloride Level 104 Carbon Dioxide Level 28 Anion Gap 9 Blood Urea Nitrogen 42 H Creatinine 2.35 H Est Glomerular Filtrat Rate mL/min Glucose Level 165 # Calcium Level 8.3 L Phosphorus Level 4.9 Magnesium Level 1.7 Test 04/25/19 08:03 04/25/19 11:53 04/25/19 11:55 Bedside Glucose 212 71 Urine Color YELLOW Urine Clarity CLOUDY A Urine pH 6.0 Urine Specific 1.008 [place] Urine Ketones NEGATIVE Urine Nitrite NEGATIVE Urine Bilirubin NEGATIVE Urine Urobilinogen NEGATIVE Urine Leukocyte 2+ H Esterase Urine Microscopic 71 H RBC Urine Microscopic > 182 H WBC Urine Hemoglobin 3+ H Urine Random 44.65 Creatinine Urine Random Sodium 87 Urine Glucose NEGATIVE Urine Total Protein 79.0 H Subjective 24 Hr Interval Summary Free Text/Dictation Patient is complaining of shortness of breath but denies any chest pain. No further hematuria per nursing. Exam/Review of Systems Exam Vitals Vital Signs Date Temp Pulse Resp B/P (MAP) Pulse Ox O2 O2 Flow FiO2 Time Delivery Rate 04/25/19 97.9 102 20 101/58 94 Nasal 15:17 (72) Cannula 04/25/19 2.0 14:27 04/23/19 40 19:26 Intake and Output 04/24/19 04/24/19 04/25/19 1515:00 23:00 07:00 IntakeIntake Total 715 ml 460 ml OutputOutput Total 490 ml 600 ml BalanceBalance 225 ml -140 ml Exam General: mild distress secondary to dyspnea Neck: Supple Chest: Nontender Lungs: Coarse breath sounds. no wheezing Heart: S1, S2, irregularly irregular, tachycardia, systolic murmur Abdomen: Soft , nontender, nondistended , bowel sounds are present. No guarding no rebound tenderness Extremities: Trace pitting edema to bilateral lower extremities Results Results 24hrs Laboratory Tests Test 04/24/19 16:43 04/24/19 20:14 04/25/19 02:08 04/25/19 06:27 Bedside Glucose 160 125 134 White Blood Count 7.9 Red Blood Count 3.23 L Hemoglobin 8.1 L Hematocrit 26.0 L Mean Corpuscular 80.5 L Volume Mean Corpuscular 25.1 L Hemoglobin Mean Corpuscular 31.2 L Hemoglobin Concent Red Cell 15.4 H Distribution Width Platelet Count 298 Mean Platelet Volume 10.7 H Immature 0.300 Granulocytes % Neutrophils % 67.4 Lymphocytes % 22.5 Monocytes % 8.4 Eosinophils % 0.9 Basophils % 0.5 Nucleated Red Blood 0.0 Cells % Immature 0.020 Granulocytes # Neutrophils # 5.3 Lymphocytes # 1.8 Monocytes # 0.7 Eosinophils # 0.1 Basophils # 0.0 Nucleated Red Blood 0.0 Cells # Sodium Level 141 Potassium Level 4.2 Chloride Level 104 Carbon Dioxide Level 28 Anion Gap 9 Blood Urea Nitrogen 42 H Creatinine 2.35 H Est Glomerular Filtrat Rate mL/min Glucose Level 165 # Calcium Level 8.3 L Phosphorus Level 4.9 Magnesium Level 1.7 Test 04/25/19 08:03 04/25/19 11:53 04/25/19 11:55 Bedside Glucose 212 71 Urine Color YELLOW Urine Clarity CLOUDY A Urine pH 6.0 Urine Specific 1.008 [place] Urine Ketones NEGATIVE Urine Nitrite NEGATIVE Urine Bilirubin NEGATIVE Urine Urobilinogen NEGATIVE Urine Leukocyte 2+ H Esterase Urine Microscopic 71 H RBC Urine Microscopic > 182 H WBC Urine Hemoglobin 3+ H Urine Random 44.65 Creatinine Urine Random Sodium 87 Urine Glucose NEGATIVE Urine Total Protein 79.0 H Medications Medication Current Medications Carvedilol (Coreg) 3.125 mg BID PO Last administered on 04/25/19 08:26; Admin Dose 3.125 MG; Start 04/23/19 at 21:00 Ferrous Sulfate (Ferrous Sulfate (Ec)) 325 mg BID PO Last administered on 03/29 08:26; Admin Dose 325 MG; Start 04/23/19 at 21:00 Insulin Glargine (Lantus) 35 units QAM SC Last administered on 04/25/19 08:31; Admin Dose 35 UNITS; Start 04/24/19 at 09:00 Pantoprazole (Protonix Tab) 40 mg DAILY@0600 PO Last administered on 04/25/19 05:35; Admin Dose 40 MG; Start 04/24/19 at 06:00 Tamsulosin HCl (Flomax) 0.4 mg HS PO Last administered on 04/24/19 20:16; Admin Dose 0.4 MG; Start 04/23/19 at 21:00 Insulin Aspart (Novolog Insulin Pen) 10 unit WITH MEALS SC Last administered on 04/25/19 08:31; Admin Dose 10 UNIT; Start 04/24/19 at 07:55 IV Flush (NS 3 ml) 3 ml PER PROTOCOL IV ; Start 04/23/19 at 19:00 Ondansetron HCl (Zofran Inj) 4 mg Q6H PRN IV NAUSEA/VOMITING; Start 04/23/19 at 19:00 Nitroglycerin (Nitroglycerin (Sl Tab) 0.4 Mg) 1 tab Q5M PRN SL .CHEST PAIN; Start 04/23/19 at 19:00 Acetaminophen (Tylenol Tab) 650 mg Q6H PRN PO .PAIN 1-3 OR TEMP Last ad ministered on 04/24/19at 17:06; Admin Dose 650 MG; Start 04/23/19 at 19:00 Docusate Sodium (Colace) 100 mg Q12H PRN PO .CONSTIPATION; Start 04/23/19 at 19:00 Magnesium Hydroxide (Milk Of Mag) 30 ml DAILY PRN PO .CONSTIPATION; Start 04/23/19 at 19:00 Miscellaneous Information 1 ea NOTE XX ; Start 04/23/19 at 19:30 Glucose (Glutose) 15 gm Q15M PRN PO DECREASED GLUCOSE; Start 04/23/19 at 19:30 Glucose (Glutose) 22.5 gm Q15M PRN PO DECREASED GLUCOSE; Start 04/23/19 at 19:30 Dextrose (D50w Syringe) 25 ml Q15M PRN IV DECREASED GLUCOSE; Start 04/23/19 at 19:30 Dextrose (D50w Syringe) 50 ml Q15M PRN IV DECREASED GLUCOSE; Start 04/23/19 at 19:30 Glucagon (Glucagen) 1 mg Q15M PRN IM DECREASED GLUCOSE; Start 04/23/19 at 19:30 Glucose (Glutose) 15 gm Q15M PRN BUCCAL DECREASED GLUCOSE; Start 04/23/19 at 19:30 Ceftriaxone Sodium 50 ml @ 100 mls/hr Q24H IVPB Last administered on 04/24/19at 19:29; Admin Dose 100 MLS/HR; Start 04/24/19 at 19:00 Diltiazem HCl 125 mg/Sodium Chloride 125 ml @ 5 mls/hr TITRATE IV Last administered on 04/25/19at 03:05; Admin Dose 5 MLS/HR; Start 04/24/19 at 19:30 Furosemide (Lasix) 20 mg DAILY IV ; Start 04/26/19 at 09:00 Amiodarone HCl 900 mg/Dextrose 500 ml @ 0 mls/hr Q0M IV Last administered on 04/25/19at 14:41; Admin Dose 33.3 MLS/HR; Start 04/25/19 at 08:00 JOANA SO MD April 25, 2019 16:44
[2019-04-25] MEDS: CEFTRIAXONE 1 GM/50 ML (PMX) 50 ML IVPB SCH (20:00)
[2019-04-25] MEDS: TAMSULOSIN (SR) 0.4 MG CAP PO SCH (20:07)
--- NOTE | 2019-04-25 20:48 | CONS ---
Assessment/Plan Assessment/Plan Hospital Course (Demo Recall) 88-year-old man has a history of prostate cancer on Lupron Depot injections. He is also known to have a history of CHF with EF of 25%, and multiple other medical problems. He presented to the emergency room with a history of gross hematuria for 2 weeks and increasing shortness of breath and dyspnea on exertion. He also has had a few days of orthopnea. He denies fevers or chills, no chest pain, no vomiting or diarrhea, no blood per rectum or melena. Patient denies weight loss. The patient did receive his Lupron injection at his urologist in [place] about 2 weeks earlier. At the time of his admission he was having gross hematuria on and off. However at the present time his urine is clear and he is voiding well and denies having any dysuria. For now continue the present treatment, antibiotic, hydration and Lupron Depot to be given to him by his urologist in [place]. Consultation Date/Type/Reason Admit Date/Time April 23, 2019 at 19:06 Date of Consultation: April 25, 2019 Type of Consult Urology Reason for Consultation Prostate cancer and gross hematuria Requesting Provider: JOANA SO MD Date/Time of Note DATE: 04/25/19 TIME: 20:36 Hx of Present Illness 88-year-old man has a history of prostate cancer on Lupron Depot injections. He is also known to have a history of CHF with EF of 25%, and multiple other medical problems. He presented to the emergency room with a history of gross hematuria for 2 weeks and increasing shortness of breath and dyspnea on exertion. He also has had a few days of orthopnea. He denies fevers or chills, no chest pain, no vomiting or diarrhea, no blood per rectum or melena. Patient denies weight loss. The patient did receive his Lupron injection at his urologist in [place] about 2 weeks earlier. Past Medical History Medical History: cancer (Prostate), coronary artery disease, diabetes, hypertension, renal disease Home Meds Active Scripts Pantoprazole* (Protonix*) 40 Mg Tablet.dr, 40 MG PO DAILY for 30 Days, TAB Prov:HUSSEIN SHUKLA MD 02/16/19 Ferrous Sulfate* (Ferrous Sulfate*) 325 Mg Tabec, 325 MG PO BID for 30 Days, TAB Prov:HUSSEIN SHUKLA MD 02/16/19 Spironolactone* (Aldactone*) 25 Mg Tablet, 25 MG PO DAILY for 30 Days, TAB Prov:HUSSEIN SHUKLA MD 02/16/19 Losartan Potassium* (Cozaar*) 25 Mg Tablet, 25 MG PO DAILY for 30 Days, TAB Prov:HUSSEIN SHUKLA MD 02/16/19 Carvedilol* (Carvedilol*) 6.25 Mg Tablet, 3.125 MG PO BID for 60 Days, TAB Prov:HUSSEIN SHUKLA MD 02/16/19 Reported Medications Tamsulosin Hcl* (Tamsulosin Hcl*) 0.4 Mg Cap.er.24h, 0.4 MG PO HS, CAP 02/11/19 Insulin Lispro (Humalog Kwikpen U-100) 100 Unit/1 Ml Insuln.pen, 10 UNIT SQ AC E, EA 02/11/19 Insulin Glargine* (Lantus*) 100 Unit/Ml Soln, 15-20 UNIT SC QHS, #1 VIAL 02/11/19 Insulin Glargine* (Lantus*) 100 Unit/Ml Soln, 35 UNIT SC QAM, #1 VIAL 02/11/19 Medications Current Medications Carvedilol (Coreg) 3.125 mg BID PO Last administered on 04/25/19at 20:09; Admin Dose 3.125 MG; Start 04/23/19 at 21:00 Ferrous Sulfate (Ferrous Sulfate (Ec)) 325 mg BID PO Last administered on 04/25/19at 20:07; Admin Dose 325 MG; Start 04/23/19 at 21:00 Insulin Glargine (Lantus) 35 units QAM SC Last administered on 04/25/19at 08:31; Admin Dose 35 UNITS; Start 04/24/19 at 09:00 Pantoprazole (Protonix Tab) 40 mg DAILY@0600 PO Last administered on 04/25/19at 05:35; Admin Dose 40 MG; Start 04/24/19 at 06:00 Tamsulosin HCl (Flomax) 0.4 mg HS PO Last administered on 04/25/19at 20:07; Admin Dose 0.4 MG; Start 04/23/19 at 21:00 Insulin Aspart (Novolog Insulin Pen) 10 unit WITH MEALS SC Last administered on 04/25/19at 17:33; Admin Dose 10 UNIT; Start 04/24/19 at 07:55 IV Flush (NS 3 ml) 3 ml PER PROTOCOL IV ; Start 04/23/19 at 19:00 Ondansetron HCl (Zofran Inj) 4 mg Q6H PRN IV NAUSEA/VOMITING; Start 04/23/19 at 19:00 Nitroglycerin (Nitroglycerin (Sl Tab) 0.4 Mg) 1 tab Q5M PRN SL .CHEST PAIN; Start 04/23/19 at 19:00 Acetaminophen (Tylenol Tab) 650 mg Q6H PRN PO .PAIN 1-3 OR TEMP Last administered on 04/24/19at 17:06; Admin Dose 650 MG; Start 04/23/19 at 19:00 Docusate Sodium (Colace) 100 mg Q12H PRN PO .CONSTIPATION; Start 04/23/19 at 19:00 Magnesium Hydroxide (Milk Of Mag) 30 ml DAILY PRN PO .CONSTIPATION; Start 04/23/19 at 19:00 Miscellaneous Information 1 ea NOTE XX ; Start 04/23/19 at 19:30 Glucose (Glutose) 15 gm Q15M PRN PO DECREASED GLUCOSE; Start 04/23/19 at 19:30 Glucose (Glutose) 22.5 gm Q15M PRN PO DECREASED GLUCOSE; Start 04/23/19 at 19:30 Dextrose (D50w Syringe) 25 ml Q15M PRN IV DECREASED GLUCOSE; Start 04/23/19 at 19:30 Dextrose (D50w Syringe) 50 ml Q15M PRN IV DECREASED GLUCOSE; Start 04/23/19 at 19:30 Glucagon (Glucagen) 1 mg Q15M PRN IM DECREASED GLUCOSE; Start 04/23/19 at 19:30 Glucose (Glutose) 15 gm Q15M PRN BUCCAL DECREASED GLUCOSE; Start 04/23/19 at 19:30 Ceftriaxone Sodium 50 ml @ 100 mls/hr Q24H IVPB Last administered on 04/25/19at 20:00; Admin Dose 100 MLS/HR; Start 04/24/19 at 19:00 Diltiazem HCl 125 mg/Sodium Chloride 125 ml @ 5 mls/hr TITRATE IV Last admin istered on 04/25/19at 03:05; Admin Dose 5 MLS/HR; Start 04/24/19 at 19:30 Furosemide (Lasix) 20 mg DAILY IV ; Start 04/26/19 at 09:00 Amiodarone HCl 900 mg/Dextrose 500 ml @ 0 mls/hr Q0M IV Last administered on 04/25/19at 14:41; Admin Dose 33.3 MLS/HR; Start 04/25/19 at 08:00 Allergies: Coded Allergies: No Known Allergy (Unverified , 02/11/19) Past Surgical History Past Surgical Hx: other (Transurethral resection of the prostate) Social History Alcohol Use: none Smoking Status: Never smoker Drug Use: none Exam/Review of Systems Exam Vitals Vital Signs Date Temp Pulse Resp B/P (MAP) Pulse Ox O2 O2 Flow FiO2 Time Delivery Rate 04/25/19 110 16:00 04/25/19 97.9 20 101/58 94 Nasal 15:17 (72) Cannula 04/25/19 2.0 14:27 04/23/19 40 19:26 Intake and Output 04/24/19 04/24/19 04/25/19 1515:00 23:00 07:00 IntakeIntake Total 715 ml 460 ml OutputOutput Total 490 ml 600 ml BalanceBalance 225 ml -140 ml Constitutional: alert Psych: no complaints Head: normocephalic Eyes: nl conjunctiva ENMT: nl external ears & nose Neck: supple Respiratory: normal air movement; No wheezing Cardiovascular: No jugular venous distention (JVD) Gastrointestinal: soft, non-tender Genitourinary - Male: nl penis, nl scrotum, other (Urine is now clear) Musculoskeletal: nl extremities to inspection Extremities: No calf tenderness Neurological: nl mental status Results Result Diagram: 04/25/1962604/25/19 06 Results 24hrs Laboratory Tests Test 04/25/19 02:08 04/25/19 06:27 04/25/19 08:03 04/25/19 11:53 Bedside Glucose 134 212 White Blood Count 7.9 Red Blood Count 3.23 L Hemoglobin 8.1 L Hematocrit 26.0 L Mean Corpuscular 80.5 L Volume Mean Corpuscular 25.1 L Hemoglobin Mean Corpuscular 31.2 L Hemoglobin Concent Red Cell 15.4 H Distribution Width Platelet Count 298 Mean Platelet Volume 10.7 H Immature 0.300 Granulocytes % Neutrophils % 67.4 Lymphocytes % 22.5 Monocytes % 8.4 Eosinophils % 0.9 Basophils % 0.5 Nucleated Red Blood 0.0 Cells % Immature 0.020 Granulocytes # Neutrophils # 5.3 Lymphocytes # 1.8 Monocytes # 0.7 Eosinophils # 0.1 Basophils # 0.0 Nucleated Red Blood 0.0 Cells # Sodium Level 141 Potassium Level 4.2 Chloride Level 104 Carbon Dioxide Level 28 Anion Gap 9 Blood Urea Nitrogen 42 H Creatinine 2.35 H Est Glomerular Filtrat Rate mL/min Glucose Level 165 # Calcium Level 8.3 L Phosphorus Level 4.9 Magnesium Level 1.7 Urine Color YELLOW Urine Clarity CLOUDY A Urine pH 6.0 Urine Specific 1.008 [place] Urine Ketones NEGATIVE Urine Nitrite NEGATIVE Urine Bilirubin NEGATIVE Urine Urobilinogen NEGATIVE Urine Leukocyte 2+ H Esterase Urine Microscopic 71 H RBC Urine Microscopic > 182 H WBC Urine Hemoglobin 3+ H Urine Random 44.65 Creatinine Urine Random Sodium 87 Urine Glucose NEGATIVE Urine Total Protein 79.0 H Test 04/25/19 11:55 04/25/19 17:30 04/25/19 20:11 Bedside Glucose 71 303 H 212 Imaging Imaging Renal ultrasound: Unchanged moderate bilateral hydronephrosis. Unchanged large lobulated mass in the base of the urinary bladder, suspicious for an enlarged prostate extending into the urinary bladder, possible prostatic cancer or an urinary bladder mass. Medications Medication Current Medications Carvedilol (Coreg) 3.125 mg BID PO Last administered on 04/25/19at 20:09; Admin Dose 3.125 MG; Start 04/23/19 at 21:00 Ferrous Sulfate (Ferrous Sulfate (Ec)) 325 mg BID PO Last administered on 04/25/19at 20:07; Admin Dose 325 MG; Start 04/23/19 at 21:00 Insulin Glargine (Lantus) 35 units QAM SC Last administered on 04/25/19 08:31; Admin Dose 35 UNITS; Start 04/24/19 at 09:00 Pantoprazole (Protonix Tab) 40 mg DAILY@0600 PO Last administered on 04/25/19at 05:35; Admin Dose 40 MG; Start 04/24/19 at 06:00 Tamsulosin HCl (Flomax) 0.4 mg HS PO Last administered on 04/25/19at 20:07; Admin Dose 0.4 MG; Start 04/23/19 at 21:00 Insulin Aspart (Novolog Insulin Pen) 10 unit WITH MEALS SC Last administered on 04/25/19at 17:33; Admin Dose 10 UNIT; Start 04/24/19 at 07:55 IV Flush (NS 3 ml) 3 ml PER PROTOCOL IV ; Start 04/23/19 at 19:00 Ondansetron HCl (Zofran Inj) 4 mg Q6H PRN IV NAUSEA/VOMITING; Start 04/23/19 at 19:00 Nitroglycerin (Nitroglycerin (Sl Tab) 0.4 Mg) 1 tab Q5M PRN SL .CHEST PAIN; Start 04/23/19 at 19:00 Acetaminophen (Tylenol Tab) 650 mg Q6H PRN PO .PAIN 1-3 OR TEMP Last administered on 04/24/19at 17:06; Admin Dose 650 MG; Start 04/23/19 at 19:00 Docusate Sodium (Colace) 100 mg Q12H PRN PO .CONSTIPATION; Start 04/23/19 at 19:00 Magnesium Hydroxide (Milk Of Mag) 30 ml DAILY PRN PO .CONSTIPATION; Start 04/23/19 at 19:00 Miscellaneous Information 1 ea NOTE XX ; Start 04/23/19 at 19:30 Glucose (Glutose) 15 gm Q15M PRN PO DECREASED GLUCOSE; Start 04/23/19 at 19:30 Glucose (Glutose) 22.5 gm Q15M PRN PO DECREASED GLUCOSE; Start 04/23/19 at 19:30 Dextrose (D50w Syringe) 25 ml Q15M PRN IV DECREASED GLUCOSE; Start 04/23/19 at 19:30 Dextrose (D50w Syringe) 50 ml Q15M PRN IV DECREASED GLUCOSE; Start 04/23/19 at 19:30 Glucagon (Glucagen) 1 mg Q15M PRN IM DECREASED GLUCOSE; Start 04/23/19 at 19:30 Glucose (Glutose) 15 gm Q15M PRN BUCCAL DECREASED GLUCOSE; Start 04/23/19 at 19:30 Ceftriaxone Sodium 50 ml @ 100 mls/hr Q24H IVPB Last administered on 04/25/19at 20:00; Admin Dose 100 MLS/HR; Start 04/24/19 at 19:00 Diltiazem HCl 125 mg/Sodium Chloride 125 ml @ 5 mls/hr TITRATE IV Last administered on 04/25/19at 03:05; Admin Dose 5 MLS/HR; Start 04/24/19 at 19:30 Furosemide (Lasix) 20 mg DAILY IV ; Start 04/26/19 at 09:00 Amiodarone HCl 900 mg/Dextrose 500 ml @ 0 mls/hr Q0M IV Last administered on 04/25/19at 14:41; Admin Dose 33.3 MLS/HR; Start 04/25/19 at 08:00 SPARKLE BARBER MD April 25, 2019 20:48
[2019-04-25] MEDS ORDERED: traZODone 50 MG TAB PO ONE (23:30)
[2019-04-25] MEDS: ACETAMINOPHEN 325 MG TAB PO PRN (23:59)
[2019-04-26] VITALS (9 sets, daily range): BP systolic 103–118; BP diastolic 55–63; PULSE 74–96; RESP 18–19
[2019-04-26] MEDS: PANTOPRAZOLE (EC) 40 MG TAB PO SCH (06:15)
[2019-04-26] MEDS: INSULIN GLARGINE [LANTus] (100 UNITS/ML) SYG SC SCH (07:56)
[2019-04-26] MEDS: INSULIN ASPART [NOVOLOG] 3 ML PEN SC SCH ×6 (07:56→21:00)
--- NOTE | 2019-04-26 08:07 | CONS ---
Consult Date/Type/Reason Admit Date/Time April 23, 2019 at 19:06 Initial Consult Date 04/24/19 Type of Consultation: cv Requesting Provider: JOANA SO MD Date/Time of Note DATE: 04/26/19 TIME: 08:03 Subjective Interventional cardiology consultation Subjective: Case discussed with the staff telemetry was reviewed patient has converted BACK TO NSR last night Patient with no chest pain or pressure he has LESS shortness of breath and dyspnea and wants to go home now No PND orthopnea no bleeding now Objective: General: no acute distress HEENT: NC/AT. pupils are equal. round. NECK: NO JVD. no stridor. CV:RRR. systolic murmur; no gallop or rubs. PULM: no wheezing or rhonchi. GI: SOFT, NT, ND, no rebound or guarding Extremity: trace B/L LE edema. no clubbing. neuro: awake and alert, OX3. Psych: calm and pleasant rectal: deferred Echocardiogram done on February 11, 2019 shows: Normal left ventricular cavity size. Severe global left ventricular systolic dysfunction. Ejection fraction is visually estimated at 25-30 %. Tissue Doppler/Mitral Doppler indices are consistent with pseudonormalization with mildly elevated left atrial pressure (Stage II diastolic dysfunction). Objective Vitals Vital Signs Date Temp Pulse Resp B/P (MAP) Pulse Ox O2 O2 Flow FiO2 Time Delivery Rate 04/26/19 98.0 84 18 118/56 96 07:26 (76) 04/25/19 2.0 21:19 04/25/19 Nasal 20:00 Cannula 04/23/19 40 19:26 Intake and Output 04/25/19 04/25/19 04/26/19 1515:00 23:00 07:00 IntakeIntake Total 1209 ml 567 ml OutputOutput Total 1000 ml 500 ml BalanceBalance 209 ml 67 ml Results/Medications Result Diagram: 04/25/1962604/25/19626 Results 24 hrs Laboratory Tests Test 04/25/19 11:53 04/25/19 11:55 04/25/19 17:30 04/25/19 20:11 Urine Color YELLOW Urine Clarity CLOUDY A Urine pH 6.0 Urine Specific 1.008 [place] Urine Ketones NEGATIVE Urine Nitrite NEGATIVE Urine Bilirubin NEGATIVE Urine Urobilinogen NEGATIVE Urine Leukocyte 2+ H Esterase Urine Microscopic 71 H RBC Urine Microscopic > 182 H WBC Urine Hemoglobin 3+ H Urine Random 44.65 Creatinine Urine Random Sodium 87 Urine Glucose NEGATIVE Urine Total Protein 79.0 H Bedside Glucose 71 303 H 212 Test 04/26/19 06:58 White Blood Count Pending Red Blood Count Pending Hemoglobin Pending Hematocrit Pending Mean Corpuscular Pending Volume Mean Corpuscular Pending Hemoglobin Mean Corpuscular Pending Hemoglobin Concent Red Cell Pending Distribution Width Platelet Count Pending Mean Platelet Volume Pending Home Meds Active Scripts Pantoprazole* (Protonix*) 40 Mg Tablet.dr, 40 MG PO DAILY for 30 Days, TAB Prov:HUSSEIN SHUKLA MD 02/16/19 Ferrous Sulfate* (Ferrous Sulfate*) 325 Mg Tabec, 325 MG PO BID for 30 Days, TAB Prov:HUSSEIN SHUKLA MD 02/16/19 Spironolactone* (Aldactone*) 25 Mg Tablet, 25 MG PO DAILY for 30 Days, TAB Prov:HUSSEIN SHUKLA MD 02/16/19 Losartan Potassium* (Cozaar*) 25 Mg Tablet, 25 MG PO DAILY for 30 Days, TAB Prov:HUSSEIN SHUKLA MD 02/16/19 Carvedilol* (Carvedilol*) 6.25 Mg Tablet, 3.125 MG PO BID for 60 Days, TAB Prov:HUSSEIN SHUKLA MD 02/16/19 Reported Medications Tamsulosin Hcl* (Tamsulosin Hcl*) 0.4 Mg Cap.er.24h, 0.4 MG PO HS, CAP 02/11/19 Insulin Lispro (Humalog Kwikpen U-100) 100 Unit/1 Ml Insuln.pen, 10 UNIT SQ AC E, EA 02/11/19 Insulin Glargine* (Lantus*) 100 Unit/Ml Soln, 15-20 UNIT SC QHS, #1 VIAL 02/11/19 Insulin Glargine* (Lantus*) 100 Unit/Ml Soln, 35 UNIT SC QAM, #1 VIAL 02/11/19 Medications Current Medications Carvedilol (Coreg) 3.125 mg BID PO Last administered on 04/25/19at 20:09; Admin Dose 3.125 MG; Start 04/23/19 at 21:00 Ferrous Sulfate (Ferrous Sulfate (Ec)) 325 mg BID PO Last administered on 04/25/19 20:07; Admin Dose 325 MG; Start 04/23/19 at 21:00 Insulin Glargine (Lantus) 35 units QAM SC Last administered on 04/26/19 07:56; Admin Dose 35 UNITS; Start 04/24/19 at 09:00 Pantoprazole (Protonix Tab) 40 mg DAILY@0600 PO Last administered on 04/26/19 06:15; Admin Dose 40 MG; Start 04/24/19 at 06:00 Tamsulosin HCl (Flomax) 0.4 mg HS PO Last administered on 04/25/19 20:07; Admin Dose 0.4 MG; Start 04/23/19 at 21:00 Insulin Aspart (Novolog Insulin Pen) 10 unit WITH MEALS SC Last administered on 04/26/19 07:56; Admin Dose 10 UNIT; Start 04/24/19 at 07:55 IV Flush (NS 3 ml) 3 ml PER PROTOCOL IV ; Start 04/23/19 at 19:00 Ondansetron HCl (Zofran Inj) 4 mg Q6H PRN IV NAUSEA/VOMITING; Start 04/23/19 at 19:00 Nitroglycerin (Nitroglycerin (Sl Tab) 0.4 Mg) 1 tab Q5M PRN SL .CHEST PAIN; Start 04/23/19 at 19:00 Acetaminophen (Tylenol Tab) 650 mg Q6H PRN PO .PAIN 1-3 OR TEMP Last administered on 04/25/19at 23:59; Admin Dose 650 MG; Start 04/23/19 at 19:00 Docusate Sodium (Colace) 100 mg Q12H PRN PO .CONSTIPATION; Start 04/23/19 at 19:00 Magnesium Hydroxide (Milk Of Mag) 30 ml DAILY PRN PO .CONSTIPATION; Start 04/23/19 at 19:00 Miscellaneous Information 1 ea NOTE XX ; Start 04/23/19 at 19:30 Glucose (Glutose) 15 gm Q15M PRN PO DECREASED GLUCOSE; Start 04/23/19 at 19:30 Glucose (Glutose) 22.5 gm Q15M PRN PO DECREASED GLUCOSE; Start 04/23/19 at 19:30 Dextrose (D50w Syringe) 25 ml Q15M PRN IV DECREASED GLUCOSE; Start 04/23/19 at 19:30 Dextrose (D50w Syringe) 50 ml Q15M PRN IV DECREASED GLUCOSE; Start 04/23/19 at 19:30 Glucagon (Glucagen) 1 mg Q15M PRN IM DECREASED GLUCOSE; Start 04/23/19 at 19:30 Glucose (Glutose) 15 gm Q15M PRN BUCCAL DECREASED GLUCOSE; Start 04/23/19 at 19:30 Ceftriaxone Sodium 50 ml @ 100 mls/hr Q24H IVPB Last administered on 04/25/19at 20:00; Admin Dose 100 MLS/HR; Start 04/24/19 at 19:00 Diltiazem HCl 125 mg/Sodium Chloride 125 ml @ 5 mls/hr TITRATE IV Last administered on 04/25/19at 03:05; Admin Dose 5 MLS/HR; Start 04/24/19 at 19:30 Furosemide (Lasix) 20 mg DAILY IV ; Start 04/26/19 at 09:00 Amiodarone HCl 900 mg/Dextrose 500 ml @ 0 mls/hr Q0M IV Last administered on 04/25/19at 14:41; Admin Dose 33.3 MLS/HR; Start 04/25/19 at 08:00 Assessment/Plan Hospital Course (Demo Recall) 1. 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 Hematuria 3. Hypertension 4. Chronic kidney disease 5. History of prostate cancer and BPH 6. Anemia 7. Diabetes 8. Paroxysmal atrial fibrillation rapid ventricular response: Converted back to NSR on amiodarone drip Recommendations: Unfortunately unable to give aspirin and Plavix or full anticoagulation at this point given his recurrent hematuria Diuretic as per renal given his renal insufficiency. Currently appears to be euvolemic Continue with Coreg as tolerated Off of ARB or DAR inhibitor due to his renal insufficiency Antibiotic as per internal medicine recommendation I will start the patient amiodarone po to try to keep him in sinus rhythm. Correct electrolytes to keep magnesium more than 2.0 and potassium more than 4.0 Thank you for his referral. We will continue to follow along with you PARTH MERCER MD [facility] PARTH MERCER MD April 26, 2019 08:07
[2019-04-26] MEDS: FUROSEMIDE 20 MG INJ IV SCH (08:21)
[2019-04-26] MEDS: FERROUS SULFATE (EC) 325 MG TAB PO SCH ×2 (08:21→21:42)
[2019-04-26] MEDS: AMIODARONE 200 MG TAB PO SCH ×2 (08:27→21:42)
--- NOTE | 2019-04-26 09:23 | PN ---
DATE: 04/26/2019 SUBJECTIVE: The patient is stable, no events overnight. OBJECTIVE: VITAL SIGNS: Blood pressure is 118/56, pulse 84, respirations 18, temperature 98.0. HEENT: Head is normocephalic. NECK: Supple. HEART: Regular rate. LUNGS: Show diminished breath sounds at the base. ABDOMEN: Soft, nontender to palpation without rebound or guarding. EXTREMITIES: Negative for clubbing, cyanosis, no edema. DERMATOLOGIC: No rashes. MUSCULOSKELETAL: No joint effusion. NEUROLOGIC: No change in exam. MEDICATIONS: Reviewed. LABORATORY DATA: Reviewed. ASSESSMENT AND PLAN: 1. Nonoliguric acute kidney injury on top of chronic kidney disease stage IV with previous baseline creatinine of 1.5 to 2.0 mg/dL. Etiology of acute kidney injury is secondary to hemodynamics, cardio renal syndrome. The patient's diuretic therapy was deescalated due to worsening renal function. Rashmi n is to continue current diuretic regimen at this time. We will follow up renal panel. We will serenity tor closely. If renal function should further decline, we will consider holding Lasix. Otherwise, c ontinue supportive care, renally dose all medications and avoid nephrotoxins. 2. 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 The patient was seen by urology. We will continue to monitor. No plan for Martins catheter insertion. 3. Anemia. Continue to monitor hemoglobin and hematocrit levels. 4. Mineral bone disorder. Monitor calcium and phosphorus levels. 5. Acute on chronic systolic heart failure. The patient is clinically improving. Appears compensat ed. Continue to monitor. Continue low-dose diuretic therapy as stated above. Monitor renal functio n, and electrolytes closely. 6. Acute hypoxemic respiratory failure secondary to congestive heart failure exacerbation. The maxwell ent is currently stable on nasal cannula. Continue to monitor. Continue current treatment plan. 7. Hematuria, likely secondary to prostate cancer. Continue to monitor. 8. Metastatic prostate cancer. The patient remains on Lupron. 9. Hypertension. Continue current blood pressure regimen. 10. Diabetes. Continue current insulin regimen. 11. Gastrointestinal and deep vein thrombosis prophylaxis. 12. Urinary tract infection. The patient's urine cultures are positive. Continue antibiotic therap y. 13. Paroxysmal atrial fibrillation with rapid rate. The patient is currently controlled on amiodaro ne. We will continue. Follow up with Cardiology. Dictated By: MARTÍN COSME DO NR/NTS Conf#: [id number] DID#: [id number] CC: SPARKLE BARBER MD; JOANA SO MD;*EndCC*
[2019-04-26] MEDS: ACETAMINOPHEN 325 MG TAB PO PRN (13:42)
[2019-04-26] MEDS ORDERED: traMADol 50 MG TAB PO PRN (16:30)
--- NOTE | 2019-04-26 16:43 | PN ---
Date/Time of Note Date/Time of Note DATE: 04/26/19 TIME: 16:39 Assessment/Plan VTE Prophylaxis Risk score (from Ns)>0 risk: 7 SCD applied (from Ns): Yes Pharmacological prophylaxis: NA/contraindicated Pharm contraindication: low risk/ambulating Lines/Catheters IV Catheter Type (from Nrs): Peripheral IV Urinary Cath still in place: No Assessment/Plan Assessment/Plan 1. Acute dyspnea- improved - most likely secondary to Afib with RVR and CHF - Cardiology on board and appreciate recommendations 2. Hematuria- on and off - Urology consultation appreciated - Hgb levels continue to drop slowly but no need for transfusion at this time - antiplatelets on hold - will need to follow up with outpatient Urologist 3. Acute on chronic systolic heart failure - Cardiology on board and appreciate recommendations - nephrology assisting with diuretics in setting of CKD 4. Dilated cardiomyopathy - Recent ejection fraction of 25 to 30% 5. 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 Iron deficiency anemia, acute on chronic - blood loss contributing to anemia as well - no need for transfusions at this time 7. CKD - Nephrology on board and appreciate recommendations 8. HTN - Continue home medications 9. DM - A1c noted - lantus on board - sugars controlled - ISS and accuchecks 10. Disposition - continues with drop in hemoglobin and monitor for further hematuria - will need HR and hgb stable prior to discharge Result Diagram: 04/26/19 0658 04/26/19 0658 Results 24hrs Laboratory Tests Test 04/25/19 17:30 04/25/19 20:11 04/26/19 06:58 04/26/19 07:49 Bedside Glucose 303 H 212 105 White Blood Count 7.6 Red Blood Count 3.11 L Hemoglobin 7.7 L Hematocrit 25.4 L Mean Corpuscular 81.7 L Volume Mean Corpuscular 24.8 L Hemoglobin Mean Corpuscular 30.3 L Hemoglobin Concent Red Cell 15.4 H Distribution Width Platelet Count 284 Mean Platelet Volume 10.6 H Immature 0.400 Granulocytes % Neutrophils % 57.3 Lymphocytes % 29.3 Monocytes % 10.5 Eosinophils % 2.0 Basophils % 0.5 Nucleated Red Blood 0.0 Cells % Immature 0.030 Granulocytes # Neutrophils # 4.4 Lymphocytes # 2.2 Monocytes # 0.8 Eosinophils # 0.2 Basophils # 0.0 Nucleated Red Blood 0.0 Cells # Sodium Level 140 Potassium Level 4.0 Chloride Level 104 Carbon Dioxide Level 30 Anion Gap 6 Blood Urea Nitrogen 42 H Creatinine 2.41 H Est Glomerular Filtrat Rate mL/min Glucose Level 96 # Hemoglobin A1c 10.1 H Calcium Level 8.3 L Phosphorus Level 5.1 H Magnesium Level 2.2 Total Bilirubin 0.2 Direct Bilirubin 0.00 Indirect Bilirubin 0.2 Aspartate Amino 27 Transf (AST/SGOT) Alanine 16 Aminotransferase (AL T/SGPT) Alkaline Phosphatase 75 Creatine Kinase 27 Total Protein 6.7 Albumin 3.1 L Globulin 3.60 H Albumin/Globulin 0.86 Ratio Test 04/26/19 12:24 04/26/19 16:05 Bedside Glucose 122 104 Subjective 24 Hr Interval Summary Free Text/Dictation Patient states hes feeling better but now with discomfort around right eye. Rate controlled on amiodarone. Exam/Review of Systems Exam Vitals Vital Signs Date Temp Pulse Resp B/P (MAP) Pulse Ox O2 O2 Flow FiO2 Time Delivery Rate 04/26/19 98.5 87 18 116/59 95 15:10 (78) 04/25/19 2.0 21:19 04/25/19 Nasal 20:00 Cannula 04/23/19 40 19:26 Intake and Output 04/25/19 04/25/19 04/26/19 1515:00 23:00 07:00 IntakeIntake Total 1209 ml 567 ml OutputOutput Total 1000 ml 500 ml BalanceBalance 209 ml 67 ml Exam General: mild distress secondary to dyspnea Lungs: Coarse breath sounds. no wheezing Heart: S1, S2, irregularly irregular, regular rate, systolic murmur Abdomen: Soft , nontender, nondistended , bowel sounds are present. No guarding no rebound tenderness Extremities: Trace pitting edema to bilateral lower extremities Results Results 24hrs Laboratory Tests Test 04/25/19 17:30 04/25/19 20:11 04/26/19 06:58 04/26/19 07:49 Bedside Glucose 303 H 212 105 White Blood Count 7.6 Red Blood Count 3.11 L Hemoglobin 7.7 L Hematocrit 25.4 L Mean Corpuscular 81.7 L Volume Mean Corpuscular 24.8 L Hemoglobin Mean Corpuscular 30.3 L Hemoglobin Concent Red Cell 15.4 H Distribution Width Platelet Count 284 Mean Platelet Volume 10.6 H Immature 0.400 Granulocytes % Neutrophils % 57.3 Lymphocytes % 29.3 Monocytes % 10.5 Eosinophils % 2.0 Basophils % 0.5 Nucleated Red Blood 0.0 Cells % Immature 0.030 Granulocytes # Neutrophils # 4.4 Lymphocytes # 2.2 Monocytes # 0.8 Eosinophils # 0.2 Basophils # 0.0 Nucleated Red Blood 0.0 Cells # Sodium Level 140 Potassium Level 4.0 Chloride Level 104 Carbon Dioxide Level 30 Anion Gap 6 Blood Urea Nitrogen 42 H Creatinine 2.41 H Est Glomerular Filtrat Rate mL/min Glucose Level 96 # Hemoglobin A1c 10.1 H Calcium Level 8.3 L Phosphorus Level 5.1 H Magnesium Level 2.2 Total Bilirubin 0.2 Direct Bilirubin 0.00 Indirect Bilirubin 0.2 Aspartate Amino 27 Transf (AST/SGOT) Alanine 16 Aminotransferase (AL T/SGPT) Alkaline Phosphatase 75 Creatine Kinase 27 Total Protein 6.7 Albumin 3.1 L Globulin 3.60 H Albumin/Globulin 0.86 Ratio Test 04/26/19 12:24 04/26/19 16:05 Bedside Glucose 122 104 Medications Medication Current Medications Carvedilol (Coreg) 3.125 mg BID PO Last administered on 04/26/19 08:21; Admin Dose 3.125 MG; Start 04/23/19 at 21:00 Ferrous Sulfate (Ferrous Sulfate (Ec)) 325 mg BID PO Last administered on 04/26/19 08:21; Admin Dose 325 MG; Start 04/23/19 at 21:00 Insulin Glargine (Lantus) 35 units QAM SC Last administered on 04/26/19 07:56; Admin Dose 35 UNITS; Start 04/24/19 at 09:00 Pantoprazole (Protonix Tab) 40 mg DAILY@0600 PO Last administered on 04/26/19 06:15; Admin Dose 40 MG; Start 04/24/19 at 06:00 Tamsulosin HCl (Flomax) 0.4 mg HS PO Last administered on 04/25/19 20:07; Admin Dose 0.4 MG; Start 04/23/19 at 21:00 Insulin Aspart (Novolog Insulin Pen) 10 unit WITH MEALS SC Last administered on 04/26/19 12:29; Admin Dose 10 UNIT; Start 04/24/19 at 07:55 IV Flush (NS 3 ml) 3 ml PER PROTOCOL IV ; Start 04/23/19 at 19:00 Ondansetron HCl (Zofran Inj) 4 mg Q6H PRN IV NAUSEA/VOMITING; Start 04/23/19 at 19:00 Nitroglycerin (Nitroglycerin (Sl Tab) 0.4 Mg) 1 tab Q5M PRN SL .CHEST PAIN; Start 04/23/19 at 19:00 Acetaminophen (Tylenol Tab) 650 mg Q6H PRN PO .PAIN 1-3 OR TEMP Last administered on 04/26/19at 13:42; Admin Dose 650 MG; Start 04/23/19 at 19:00 Docusate Sodium (Colace) 100 mg Q12H PRN PO .CONSTIPATION; Start 04/23/19 at 19:00 Magnesium Hydroxide (Milk Of Mag) 30 ml DAILY PRN PO .CONSTIPATION; Start 04/23/19 at 19:00 Miscellaneous Information 1 ea NOTE XX ; Start 04/23/19 at 19:30 Glucose (Glutose) 15 gm Q15M PRN PO DECREASED GLUCOSE; Start 04/23/19 at 19:30 Glucose (Glutose) 22.5 gm Q15M PRN PO DECREASED GLUCOSE; Start 04/23/19 at 19:30 Dextrose (D50w Syringe) 25 ml Q15M PRN IV DECREASED GLUCOSE; Start 04/23/19 at 19:30 Dextrose (D50w Syringe) 50 ml Q15M PRN IV DECREASED GLUCOSE; Start 04/23/19 at 19:30 Glucagon (Glucagen) 1 mg Q15M PRN IM DECREASED GLUCOSE; Start 04/23/19 at 19:30 Glucose (Glutose) 15 gm Q15M PRN BUCCAL DECREASED GLUCOSE; Start 04/23/19 at 19:30 Ceftriaxone Sodium 50 ml @ 100 mls/hr Q24H IVPB Last administered on 04/25/19at 20:00; Admin Dose 100 MLS/HR; Start 04/24/19 at 19:00 Diltiazem HCl 125 mg/Sodium Chloride 125 ml @ 5 mls/hr TITRATE IV Last administered on 04/25/19at 03:05; Admin Dose 5 MLS/HR; Start 04/24/19 at 19:30 Furosemide (Lasix) 20 mg DAILY IV Last administered on 04/26/19at 08:21; Admin Dose 20 MG; Start 04/26/19 at 09:00 Amiodarone HCl (Cordarone) 200 mg BID PO Last administered on 04/26/19at 08:27; Admin Dose 200 MG; Start 04/26/19 at 09:00 Insulin Aspart (Novolog Insulin Pen) NOVOLOG *MILD* ALGORITHM WITH MEALS BEDTIME SC ; Start 04/26/19 at 11:50 Tramadol HCl (Ultram) 50 mg Q6H PRN PO MODERATE PAIN LEVEL 4-6; Start 04/26/19 at 16:30 JOANA SO MD April 26, 2019 16:43
[2019-04-26] MEDS: MAGNESIUM HYDROXIDE 30ML CUP PO PRN (16:58)
[2019-04-26] MEDS: CEFTRIAXONE 1 GM/50 ML (PMX) 50 ML IVPB SCH (17:57)
[2019-04-26] MEDS: TAMSULOSIN (SR) 0.4 MG CAP PO SCH (21:42)
[2019-04-27] VITALS (13 sets, daily range): BP systolic 104–130; BP diastolic 55–64; PULSE 83–94; RESP 18–20
[2019-04-27] MEDS: PANTOPRAZOLE (EC) 40 MG TAB PO SCH (05:29)
--- NOTE | 2019-04-27 07:09 | RADRPT ---
Vent Rate: 84 bpm RR Interval: 0 msec MI Interval: 202 msec QRS Duration: 88 msec QT Interval: 402 msec QTC Interval: 475 msec P-R-T [place]: 58 - 55 - 123 degrees Sinus rhythm with occasional premature ventricular complexes and premature atrial complexes Anterior infarct , age undetermined Abnormal ECG Electronically Signed By: Gino Dale
--- NOTE | 2019-04-27 07:50 | CONS ---
Consult Date/Type/Reason Admit Date/Time April 23, 2019 at 19:06 Initial Consult Date 04/24/19 Type of Consultation: cv Requesting Provider: JOANA SO MD Date/Time of Note DATE: 04/27/19 TIME: 07:48 Subjective Interventional cardiology consultation Subjective: Case discussed with the staff telemetry was reviewed patient has remained in NSR Patient with no chest pain or pressure he has NO shortness of breath and dyspnea No PND orthopnea no bleeding now PT C/O N/V today Objective: General: no acute distress HEENT: NC/AT. pupils are equal. round. NECK: NO JVD. no stridor. CV:RRR. systolic murmur; no gallop or rubs. PULM: no wheezing or rhonchi. GI: SOFT, NT, ND, no rebound or guarding Extremity: trace B/L LE edema. no clubbing. neuro: awake and alert, OX3. Psych: calm and pleasant rectal: deferred Echocardiogram done on February 11, 2019 shows: Normal left ventricular cavity size. Severe global left ventricular systolic dysfunction. Ejection fraction is visually estimated at 25-30 %. Tissue Doppler/Mitral Doppler indices are consistent with pseudonormalization with mildly elevated left atrial pressure (Stage II diastolic dysfunction). Objective Vitals Vital Signs Date Temp Pulse Resp B/P (MAP) Pulse Ox O2 O2 Flow FiO2 Time Delivery Rate 04/27/19 97.6 87 20 130/64 97 Room Air 07:45 (86) 04/26/19 21 20:41 04/25/19 2.0 21:19 Intake and Output 04/26/19 04/26/19 04/27/19 1515:00 23:00 07:00 IntakeIntake Total 650 ml OutputOutput Total 600 ml BalanceBalance 50 ml Results/Medications Result Diagram: 04/27/19 0601 04/27/19 0601 Results 24 hrs Laboratory Tests Test 04/26/19 07:49 04/26/19 12:24 04/26/19 16:05 04/26/19 17:01 Bedside Glucose 105 122 104 139 Test 04/26/19 20:42 04/27/19 06:01 04/27/19 07:44 Bedside Glucose 129 149 White Blood Count 7.6 Red Blood Count 3.26 L Hemoglobin 8.1 L Hematocrit 26.3 L Mean Corpuscular 80.7 L Volume Mean Corpuscular 24.8 L Hemoglobin Mean Corpuscular 30.8 L Hemoglobin Concent Red Cell 15.1 H Distribution Width Platelet Count 288 Mean Platelet Volume 10.2 Immature 0.400 Granulocytes % Neutrophils % 67.4 Lymphocytes % 20.6 Monocytes % 9.5 Eosinophils % 1.6 Basophils % 0.5 Nucleated Red Blood 0.0 Cells % Immature 0.030 Granulocytes # Neutrophils # 5.1 Lymphocytes # 1.6 Monocytes # 0.7 Eosinophils # 0.1 Basophils # 0.0 Nucleated Red Blood 0.0 Cells # Sodium Level 139 Potassium Level 4.2 Chloride Level 104 Carbon Dioxide Level 28 Anion Gap 7 Blood Urea Nitrogen 44 H Creatinine 2.25 H Est Glomerular Filtrat Rate mL/min Glucose Level 127 Calcium Level 8.3 L Phosphorus Level 5.0 H Magnesium Level 2.2 B-Type Natriuretic 19186 H Peptide Home Meds Active Scripts Pantoprazole* (Protonix*) 40 Mg Tablet.dr, 40 MG PO DAILY for 30 Days, TAB Prov:HUSSEIN SHUKLA MD 02/16/19 Ferrous Sulfate* (Ferrous Sulfate*) 325 Mg Tabec, 325 MG PO BID for 30 Days, TAB Prov:HUSSEIN SHUKLA MD 02/16/19 Spironolactone* (Aldactone*) 25 Mg Tablet, 25 MG PO DAILY for 30 Days, TAB Prov:HUSSEIN SHUKLA MD 02/16/19 Losartan Potassium* (Cozaar*) 25 Mg Tablet, 25 MG PO DAILY for 30 Days, TAB Prov:HUSSEIN SHUKLA MD 02/16/19 Carvedilol* (Carvedilol*) 6.25 Mg Tablet, 3.125 MG PO BID for 60 Days, TAB Prov:HUSSEIN SHUKLA MD 02/16/19 Reported Medications Tamsulosin Hcl* (Tamsulosin Hcl*) 0.4 Mg Cap.er.24h, 0.4 MG PO HS, CAP 02/11/19 Insulin Lispro (Humalog Kwikpen U-100) 100 Unit/1 Ml Insuln.pen, 10 UNIT SQ AC E, EA 02/11/19 Insulin Glargine* (Lantus*) 100 Unit/Ml Soln, 15-20 UNIT SC QHS, #1 VIAL 02/11/19 Insulin Glargine* (Lantus*) 100 Unit/Ml Soln, 35 UNIT SC QAM, #1 VIAL 02/11/19 Medications Current Medications Carvedilol (Coreg) 3.125 mg BID PO Last administered on 04/26/19 21:43; Admin Dose 3.125 MG; Start 04/23/19 at 21:00 Ferrous Sulfate (Ferrous Sulfate (Ec)) 325 mg BID PO Last administered on 03/30 21:42; Admin Dose 325 MG; Start 04/23/19 at 21:00 Insulin Glargine (Lantus) 35 units QAM SC Last administered on 04/26/19 07:56; Admin Dose 35 UNITS; Start 04/24/19 at 09:00 Pantoprazole (Protonix Tab) 40 mg DAILY@0600 PO Last administered on 04/27/19 05:29; Admin Dose 40 MG; Start 04/24/19 at 06:00 Tamsulosin HCl (Flomax) 0.4 mg HS PO Last administered on 04/26/19 21:42; Admin Dose 0.4 MG; Start 04/23/19 at 21:00 Insulin Aspart (Novolog Insulin Pen) 10 unit WITH MEALS SC Last administered on 04/26/19 17:05; Admin Dose 10 UNIT; Start 04/24/19 at 07:55 IV Flush (NS 3 ml) 3 ml PER PROTOCOL IV ; Start 04/23/19 at 19:00 Ondansetron HCl (Zofran Inj) 4 mg Q6H PRN IV NAUSEA/VOMITING; Start 04/23/19 at 19:00 Nitroglycerin (Nitroglycerin (Sl Tab) 0.4 Mg) 1 tab Q5M PRN SL .CHEST PAIN; Start 04/23/19 at 19:00 Acetaminophen (Tylenol Tab) 650 mg Q6H PRN PO .PAIN 1-3 OR TEMP Last ad ministered on 04/26/19 13:42; Admin Dose 650 MG; Start 04/23/19 at 19:00 Docusate Sodium (Colace) 100 mg Q12H PRN PO .CONSTIPATION; Start 04/23/19 at 19:00 Magnesium Hydroxide (Milk Of Mag) 30 ml DAILY PRN PO .CONSTIPATION Last administered on 04/26/19 16:58; Admin Dose 30 ML; Start 04/23/19 at 19:00 Miscellaneous Information 1 ea NOTE XX ; Start 04/23/19 at 19:30 Glucose (Glutose) 15 gm Q15M PRN PO DECREASED GLUCOSE; Start 04/23/19 at 19:30 Glucose (Glutose) 22.5 gm Q15M PRN PO DECREASED GLUCOSE; Start 04/23/19 at 19:30 Dextrose (D50w Syringe) 25 ml Q15M PRN IV DECREASED GLUCOSE; Start 04/23/19 at 19:30 Dextrose (D50w Syringe) 50 ml Q15M PRN IV DECREASED GLUCOSE; Start 04/23/19 at 19:30 Glucagon (Glucagen) 1 mg Q15M PRN IM DECREASED GLUCOSE; Start 04/23/19 at 19:30 Glucose (Glutose) 15 gm Q15M PRN BUCCAL DECREASED GLUCOSE; Start 04/23/19 at 19:30 Ceftriaxone Sodium 50 ml @ 100 mls/hr Q24H IVPB Last administered on 04/26/19at 17:57; Admin Dose 100 MLS/HR; Start 04/24/19 at 19:00 Diltiazem HCl 125 mg/Sodium Chloride 125 ml @ 5 mls/hr TITRATE IV Last administered on 04/25/19at 03:05; Admin Dose 5 MLS/HR; Start 04/24/19 at 19:30 Furosemide (Lasix) 20 mg DAILY IV Last administered on 04/26/19at 08:21; Admin Dose 20 MG; Start 04/26/19 at 09:00 Amiodarone HCl (Cordarone) 200 mg BID PO Last administered on 04/26/19at 21:42; Admin Dose 200 MG; Start 04/26/19 at 09:00 Insulin Aspart (Novolog Insulin Pen) NOVOLOG *MILD* ALGORITHM WITH MEALS BEDTIME SC ; Start 04/26/19 at 11:50 Tramadol HCl (Ultram) 50 mg Q6H PRN PO MODERATE PAIN LEVEL 4-6 Last administered on 04/26/19at 16:56; Admin Dose 50 MG; Start 04/26/19 at 16:30 Assessment/Plan Hospital Course (Demo Recall) 1. 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 Hematuria 3. Hypertension 4. Chronic kidney disease 5. History of prostate cancer and BPH 6. Anemia 7. Diabetes 8. Paroxysmal atrial fibrillation rapid ventricular response: Converted back to NSR on amiodarone drip Recommendations: Unfortunately unable to give aspirin and Plavix or full anticoagulation at this point given his recurrent hematuria Diuretic as per renal given his renal insufficiency. Currently appears to be euvolemic Continue with Coreg as tolerated Off of ARB or DAR inhibitor due to his renal insufficiency Antibiotic as per internal medicine recommendation cont amiodarone po to try to keep him in sinus rhythm. Correct electrolytes to keep magnesium more than 2.0 and potassium more than 4.0 No further cardiac recommendation at this point we will follow-up as needed over the weekend Thank you for his referral. PARTH MERCER MD [facility] PARTH MERCER MD April 27, 2019 07:50
[2019-04-27] MEDS: INSULIN GLARGINE [LANTus] (100 UNITS/ML) SYG SC SCH (07:51)
[2019-04-27] MEDS: INSULIN ASPART [NOVOLOG] 3 ML PEN SC SCH ×7 (07:51→21:10)
[2019-04-27] MEDS: FUROSEMIDE 20 MG INJ IV SCH (08:47)
[2019-04-27] MEDS: FERROUS SULFATE (EC) 325 MG TAB PO SCH ×2 (08:47→21:04)
[2019-04-27] MEDS: AMIODARONE 200 MG TAB PO SCH ×2 (08:47→21:05)
--- NOTE | 2019-04-27 09:23 | PN ---
DATE: 04/27/2019 SUBJECTIVE: The patient is stable, no events overnight. No fevers or chills. OBJECTIVE: VITAL SIGNS: Blood pressure is 130/64, respirations 20, pulse 87, temperature 97.6. HEENT: Head is normocephalic. NECK: Supple. HEART: Regular rate. LUNGS: Show diminished breath sounds at the base. ABDOMEN: Soft, nontender to palpation without rebound or guarding. EXTREMITIES: Negative for clubbing, cyanosis, no edema. DERMATOLOGIC: No rashes. MUSCULOSKELETAL: No joint effusion. NEUROLOGIC: No change in exam. MEDICATIONS: Reviewed. LABORATORY DATA: Reviewed. IMAGING STUDIES: Reviewed. ASSESSMENT AND PLAN: 1. Nonoliguric acute kidney injury on top of chronic kidney disease stage IV with previous baseline creatinine of 1.5 to 2.0 mg/dL. Etiology of acute kidney injury is secondary to hemodynamics, cardio renal syndrome. The patient's renal function is fluctuating, but stable in the last 24 hours. At th is point, continue current treatment plan. Continue supportive care, renally dose all medications, c ontinue low dose diuretic therapy, monitor renal function and electrolytes closely. 2. 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 The patient is seen by urology. Ramin avila to monitor. 3. Anemia. Continue to monitor hemoglobin and hematocrit levels. We will give Epogen as needed. 4. Mineral bone disorder, monitor calcium and phosphorus levels. 5. Acute on chronic systolic heart failure. The patient is clinically improving. Continue low-dose diuretic therapy. Continue to monitor renal function and electrolytes closely. 6. Acute hypoxemic respiratory failure secondary to congestive heart failure, improving. Continue t o monitor. Continue medical management. 7. Hematuria secondary to prostate cancer. Continue to monitor. Follow up with urology. 8. Metastatic prostate cancer. The patient is on Lupron. 9. Hypertension. Continue current blood pressure regimen. 10. Diabetes. Continue current insulin regimen. 11. Gastrointestinal and deep vein thrombosis prophylaxis. 12. Urinary tract infection. Continue current antibiotic therapy. 13. Paroxysmal atrial fibrillation. Currently, rate controlled. Continue medical management. Foll ow up with cardiology. Dictated By: MARTÍN BEAN/NTS Conf#: [id number] DID#: [id number] CC: JOANA SO MD; SPARKLE BARBER MD;*End*
--- NOTE | 2019-04-27 10:01 | PN ---
Date/Time of Note Date/Time of Note DATE: 04/27/19 TIME: 10:01 Assessment/Plan VTE Prophylaxis Risk score (from Ns)>0 risk: 7 SCD applied (from Ns): Yes Pharmacological prophylaxis: NA/contraindicated Pharm contraindication: bleeding Lines/Catheters IV [facility]from [facility] Urinary Cath still in place: No Assessment/Plan Assessment/Plan 1. Acute dyspnea- resolved 2. Hematuria- on and off - Urology consultation appreciated - Hgb levels continue to drop slowly but no need for transfusion at this time - antiplatelets on hold - will need to follow up with outpatient Urologist 3. Acute on chronic systolic heart failure - Cardiology on board and appreciate recommendations - nephrology assisting with diuretics in setting of CKD 4. Dilated cardiomyopathy - Recent ejection fraction of 25 to 30% 5. 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 Iron deficiency anemia, acute on chronic - blood loss contributing to anemia as well - no need for transfusions at this time 7. CASEY on CKD - Nephrology on board and appreciate recommendations 8. HTN - Continue home medications 9. DM - A1c noted - pitatus on board - sugars controlled - ISS and accuchecks 10. Disposition - Once renal function closer to baseline, will d/c home. Discussed with patient and daughter Result Diagram: 04/27/19 0601 04/27/19 0601 Results 24hrs Laboratory Tests Test 04/26/19 12:24 04/26/19 16:05 04/26/19 17:01 04/26/19 20:42 Bedside Glucose 122 104 139 129 Test 04/27/19 06:01 04/27/19 07:44 White Blood Count 7.6 Red Blood Count 3.26 L Hemoglobin 8.1 L Hematocrit 26.3 L Mean Corpuscular 80.7 L Volume Mean Corpuscular 24.8 L Hemoglobin Mean Corpuscular 30.8 L Hemoglobin Concent Red Cell 15.1 H Distribution Width Platelet Count 288 Mean Platelet Volume 10.2 Immature 0.400 Granulocytes % Neutrophils % 67.4 Lymphocytes % 20.6 Monocytes % 9.5 Eosinophils % 1.6 Basophils % 0.5 Nucleated Red Blood 0.0 Cells % Immature 0.030 Granulocytes # Neutrophils # 5.1 Lymphocytes # 1.6 Monocytes # 0.7 Eosinophils # 0.1 Basophils # 0.0 Nucleated Red Blood 0.0 Cells # Sodium Level 139 Potassium Level 4.2 Chloride Level 104 Carbon Dioxide Level 28 Anion Gap 7 Blood Urea Nitrogen 44 H Creatinine 2.25 H Est Glomerular Filtrat Rate mL/min Glucose Level 127 Calcium Level 8.3 L Phosphorus Level 5.0 H Magnesium Level 2.2 B-Type Natriuretic 92325 H Peptide Bedside Glucose 149 Subjective 24 Hr Interval Summary Free Text/Dictation Patient states hes feeling better. Still with dark lm urine but denies any discomfort. Plan of care discussed with daughter over the phone at patients request. Exam/Review of Systems Exam Vitals Vital Signs Date Temp Pulse Resp B/P (MAP) Pulse Ox O2 O2 Flow FiO2 Time Delivery Rate 04/27/19 97.6 87 20 130/64 97 Room Air 07:45 (86) 04/26/19 21 20:41 04/25/19 2.0 21:19 Intake and Output 04/26/19 04/26/19 04/27/19 1515:00 23:00 07:00 IntakeIntake Total 650 ml OutputOutput Total 600 ml BalanceBalance 50 ml Exam General: no acute distress. awake and answering questions appropriately Lungs: clear, no wheezing or rhonchi Heart: S1, S2, sinus rhythm, regular rate, systolic murmur Abdomen: Soft , nontender, nondistended , bowel sounds are present. No guarding no rebound tenderness Extremities: Trace pitting edema to bilateral lower extremities Results Results 24hrs Laboratory Tests Test 04/26/19 12:24 04/26/19 16:05 04/26/19 17:01 04/26/19 20:42 Bedside Glucose 122 104 139 129 Test 04/27/19 06:01 04/27/19 07:44 White Blood Count 7.6 Red Blood Count 3.26 L Hemoglobin 8.1 L Hematocrit 26.3 L Mean Corpuscular 80.7 L Volume Mean Corpuscular 24.8 L Hemoglobin Mean Corpuscular 30.8 L Hemoglobin Concent Red Cell 15.1 H Distribution Width Platelet Count 288 Mean Platelet Volume 10.2 Immature 0.400 Granulocytes % Neutrophils % 67.4 Lymphocytes % 20.6 Monocytes % 9.5 Eosinophils % 1.6 Basophils % 0.5 Nucleated Red Blood 0.0 Cells % Immature 0.030 Granulocytes # Neutrophils # 5.1 Lymphocytes # 1.6 Monocytes # 0.7 Eosinophils # 0.1 Basophils # 0.0 Nucleated Red Blood 0.0 Cells # Sodium Level 139 Potassium Level 4.2 Chloride Level 104 Carbon Dioxide Level 28 Anion Gap 7 Blood Urea Nitrogen 44 H Creatinine 2.25 H Est Glomerular Filtrat Rate mL/min Glucose Level 127 Calcium Level 8.3 L Phosphorus Level 5.0 H Magnesium Level 2.2 B-Type Natriuretic 73708 H Peptide Bedside Glucose 149 Medications Medication Current Medications Carvedilol (Coreg) 3.125 mg BID PO Last administered on 04/27/19 08:48; Admin Dose 3.125 MG; Start 04/23/19 at 21:00 Ferrous Sulfate (Ferrous Sulfate (Ec)) 325 mg BID PO Last administered on 04/27/19 08:47; Admin Dose 325 MG; Start 04/23/19 at 21:00 Insulin Glargine (Lantus) 35 units QAM SC Last administered on 04/27/19 07:51; Admin Dose 35 UNITS; Start 04/24/19 at 09:00 Pantoprazole (Protonix Tab) 40 mg DAILY@0600 PO Last administered on 04/27/19 05:29; Admin Dose 40 MG; Start 04/24/19 at 06:00 Tamsulosin HCl (Flomax) 0.4 mg HS PO Last administered on 04/26/19 21:42; Admin Dose 0.4 MG; Start 04/23/19 at 21:00 Insulin Aspart (Novolog Insulin Pen) 10 unit WITH MEALS SC Last administered on 04/27/19 07:51; Admin Dose 10 UNIT; Start 04/24/19 at 07:55 IV Flush (NS 3 ml) 3 ml PER PROTOCOL IV ; Start 04/23/19 at 19:00 Ondansetron HCl (Zofran Inj) 4 mg Q6H PRN IV NAUSEA/VOMITING Last administered on 04/27/19 08:46; Admin Dose 4 MG; Start 04/23/19 at 19:00 Nitroglycerin (Nitroglycerin (Sl Tab) 0.4 Mg) 1 tab Q5M PRN SL .CHEST PAIN; Start 04/23/19 at 19:00 Acetaminophen (Tylenol Tab) 650 mg Q6H PRN PO .PAIN 1-3 OR TEMP Last administered on 04/26/19 13:42; Admin Dose 650 MG; Start 04/23/19 at 19:00 Docusate Sodium (Colace) 100 mg Q12H PRN PO .CONSTIPATION; Start 04/23/19 at 19:00 Magnesium Hydroxide (Milk Of Mag) 30 ml DAILY PRN PO .CONSTIPATION Last adm inistered on 04/26/19at 16:58; Admin Dose 30 ML; Start 04/23/19 at 19:00 Miscellaneous Information 1 ea NOTE XX ; Start 04/23/19 at 19:30 Glucose (Glutose) 15 gm Q15M PRN PO DECREASED GLUCOSE; Start 04/23/19 at 19:30 Glucose (Glutose) 22.5 gm Q15M PRN PO DECREASED GLUCOSE; Start 04/23/19 at 19:30 Dextrose (D50w Syringe) 25 ml Q15M PRN IV DECREASED GLUCOSE; Start 04/23/19 at 19:30 Dextrose (D50w Syringe) 50 ml Q15M PRN IV DECREASED GLUCOSE; Start 04/23/19 at 19:30 Glucagon (Glucagen) 1 mg Q15M PRN IM DECREASED GLUCOSE; Start 04/23/19 at 19:30 Glucose (Glutose) 15 gm Q15M PRN BUCCAL DECREASED GLUCOSE; Start 04/23/19 at 19:30 Ceftriaxone Sodium 50 ml @ 100 mls/hr Q24H IVPB Last administered on 04/26/19at 17:57; Admin Dose 100 MLS/HR; Start 04/24/19 at 19:00 Diltiazem HCl 125 mg/Sodium Chloride 125 ml @ 5 mls/hr TITRATE IV Last administered on 04/25/19at 03:05; Admin Dose 5 MLS/HR; Start 04/24/19 at 19:30 Furosemide (Lasix) 20 mg DAILY IV Last administered on 04/27/19at 08:47; Admin Dose 20 MG; Start 04/26/19 at 09:00 Amiodarone HCl (Cordarone) 200 mg BID PO Last administered on 04/27/19 08:47; Admin Dose 200 MG; Start 04/26/19 at 09:00 Insulin Aspart (Novolog Insulin Pen) NOVOLOG *MILD* ALGORITHM WITH MEALS BEDTIME SC Last administered on 04/27/19at 07:51; Admin Dose 1 UNIT; Start 04/26/19 at 11:50 Tramadol HCl (Ultram) 50 mg Q6H PRN PO MODERATE PAIN LEVEL 4-6 Last admin istered on 04/26/19at 16:56; Admin Dose 50 MG; Start 04/26/19 at 16:30 JOANA SO MD April 27, 2019 10:01
[2019-04-27] MEDS: MAGNESIUM HYDROXIDE 30ML CUP PO PRN (18:07)
[2019-04-27] MEDS: CEFTRIAXONE 1 GM/50 ML (PMX) 50 ML IVPB SCH (18:07)
[2019-04-27] MEDS: TAMSULOSIN (SR) 0.4 MG CAP PO SCH (21:04)
[2019-04-28] VITALS (11 sets, daily range): BP systolic 100–115; BP diastolic 51–56; PULSE 74–94; RESP 18–20
[2019-04-28] MEDS: PANTOPRAZOLE (EC) 40 MG TAB PO SCH (06:23)
[2019-04-28] MEDS: FERROUS SULFATE (EC) 325 MG TAB PO SCH ×2 (09:06→20:48)
[2019-04-28] MEDS: AMIODARONE 200 MG TAB PO SCH ×2 (09:06→20:40)
[2019-04-28] MEDS: FUROSEMIDE 20 MG INJ IV SCH (09:07)
[2019-04-28] MEDS: INSULIN GLARGINE [LANTus] (100 UNITS/ML) SYG SC SCH (10:46)
[2019-04-28] MEDS: INSULIN ASPART [NOVOLOG] 3 ML PEN SC SCH ×7 (10:46→20:53)
[2019-04-28] MEDS ORDERED: LACTULOSE 30ML CUP PO ONE (11:00)
[2019-04-28] MEDS ORDERED: BISACODYL 10 MG SUPP PR PRN (11:00)
--- NOTE | 2019-04-28 11:55 | CONS ---
Assessment/Plan Assessment/Plan Hospital Course (Demo Recall) 1. Nonoliguric acute kidney injury on top of chronic kidney disease stage IV with previous baseline creatinine of 1.5 to 2.0 mg/dL. Etiology of acute kidney injury is secondary to hemodynamics, cardiorenal syndrome. The patient's renal function is fluctuating. At this point, continue current treatment plan. Continue supportive care, renally dose all medications, continue low dose diuret ic therapy, monitor renal function and electrolytes closely. 2. 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 The patient is seen by urology. Continue to monitor. 3. Anemia. Continue to monitor hemoglobin and hematocrit levels. We will give Epogen as needed. 4. Mineral bone disorder, monitor calcium and phosphorus levels. 5. Acute on chronic systolic heart failure. The patient is clinically improving. Continue low-dose diuretic therapy. Continue to monitor renal function and electrolytes closely. 6. Acute hypoxemic respiratory failure secondary to congestive heart failure, improving. Continue to monitor. Continue medical management. 7. Hematuria secondary to prostate cancer. Continue to monitor. Follow up with urology. 8. Metastatic prostate cancer. The patient is on Lupron. 9. Hypertension. Continue current blood pressure regimen. 10. Diabetes. Continue current insulin regimen. 11. Gastrointestinal and deep vein thrombosis prophylaxis. 12. Urinary tract infection. Continue current antibiotic therapy. 13. Paroxysmal atrial fibrillation. Currently, rate controlled. Continue medical management. Follow up with cardiology. Consultation Date/Type/Reason Admit Date/Time April 23, 2019 at 19:06 Initial Consult Date 04/25/19 Requesting Provider: JOANA SO MD Date/Time of Note DATE: 04/28/19 TIME: 11:54 24 HR Interval Summary Free Text/Dictation shortness of breath improving denies n/v or urinary issues d/w rn gen nad cv rrr pulm bibasilar rales abd soft, nd, nt +bs ext: no edema Exam/Review of Systems Exam Vitals Vital Signs Date Temp Pulse Resp B/P (MAP) Pulse Ox O2 O2 Flow FiO2 Time Delivery Rate 04/28/19 97.9 82 18 102/56 96 11:18 (71) 04/27/19 21 23:58 04/27/19 Room Air 15:10 04/25/19 2.0 21:19 Intake and Output 04/27/19 04/27/19 04/28/19 1515:00 23:00 07:00 IntakeIntake Total 720 ml OutputOutput Total 1000 ml BalanceBalance -280 ml Results Result Diagram: 04/28/1961804/28/19618 Results 24hrs Laboratory Tests Test 04/27/19 12:42 04/27/19 17:19 04/27/19 20:56 04/28/19 01:56 Bedside Glucose 106 72 197 103 Test 04/28/19 06:19 04/28/19 08:47 04/28/19 10:39 White Blood Count 8.7 Red Blood Count 3.02 L Hemoglobin 7.5 L Hematocrit 24.5 L Mean Corpuscular 81.1 L Volume Mean Corpuscular 24.8 L Hemoglobin Mean Corpuscular 30.6 L Hemoglobin Concent Red Cell Distribution 15.2 H Width Platelet Count 285 Mean Platelet Volume 9.7 Immature Granulocytes 0.300 % Neutrophils % 70.7 Lymphocytes % 19.9 Monocytes % 8.1 Eosinophils % 0.7 Basophils % 0.3 Nucleated Red Blood 0.0 Cells % Immature Granulocytes 0.030 # Neutrophils # 6.1 Lymphocytes # 1.7 Monocytes # 0.7 Eosinophils # 0.1 Basophils # 0.0 Nucleated Red Blood 0.0 Cells # Sodium Level 137 Potassium Level 5.0 Chloride Level 103 Carbon Dioxide Level 28 Anion Gap 6 Blood Urea Nitrogen 40 H Creatinine 2.39 H Est Glomerular Filtrat Rate mL/min Glucose Level 191 Calcium Level 8.1 L Phosphorus Level 4.3 Magnesium Level 2.2 Bedside Glucose 233 H 208 Medications Medication Current Medications Carvedilol (Coreg) 3.125 mg BID PO Last administered on 04/28/19at 09:06; Admin Dose 3.125 MG; Start 04/23/19 at 21:00 Ferrous Sulfate (Ferrous Sulfate (Ec)) 325 mg BID PO Last administered on 04/28/19at 09:06; Admin Dose 325 MG; Start 04/23/19 at 21:00 Insulin Glargine (Lantus) 35 units QAM SC Last administered on 04/28/19at 10:46; Admin Dose 35 UNITS; Start 04/24/19 at 09:00 Pantoprazole (Protonix Tab) 40 mg DAILY@0600 PO Last administered on 04/28/19at 06:23; Admin Dose 40 MG; Start 04/24/19 at 06:00 Tamsulosin HCl (Flomax) 0.4 mg HS PO Last administered on 04/27/19 21:04; Admin Dose 0.4 MG; Start 04/23/19 at 21:00 Insulin Aspart (Novolog Insulin Pen) 10 unit WITH MEALS SC Last administered on 04/28/19 10:46; Admin Dose 10 UNIT; Start 04/24/19 at 07:55 IV Flush (NS 3 ml) 3 ml PER PROTOCOL IV ; Start 04/23/19 at 19:00 Ondansetron HCl (Zofran Inj) 4 mg Q6H PRN IV NAUSEA/VOMITING Last administered on 04/27/19 08:46; Admin Dose 4 MG; Start 04/23/19 at 19:00 Nitroglycerin (Nitroglycerin (Sl Tab) 0.4 Mg) 1 tab Q5M PRN SL .CHEST PAIN; Start 04/23/19 at 19:00 Acetaminophen (Tylenol Tab) 650 mg Q6H PRN PO .PAIN 1-3 OR TEMP Last administered on 04/26/19 13:42; Admin Dose 650 MG; Start 04/23/19 at 19:00 Docusate Sodium (Colace) 100 mg Q12H PRN PO .CONSTIPATION Last administered on 04/27/19 18:07; Admin Dose 100 MG; Start 04/23/19 at 19:00 Magnesium Hydroxide (Milk Of Mag) 30 ml DAILY PRN PO .CONSTIPATION Last administered on 04/27/19 18:07; Admin Dose 30 ML; Start 04/23/19 at 19:00 Miscellaneous Information 1 ea NOTE XX ; Start 04/23/19 at 19:30 Glucose (Glutose) 15 gm Q15M PRN PO DECREASED GLUCOSE; Start 04/23/19 at 19:30 Glucose (Glutose) 22.5 gm Q15M PRN PO DECREASED GLUCOSE; Start 04/23/19 at 19:30 Dextrose (D50w Syringe) 25 ml Q15M PRN IV DECREASED GLUCOSE; Start 04/23/19 at 19:30 Dextrose (D50w Syringe) 50 ml Q15M PRN IV DECREASED GLUCOSE; Start 04/23/19 at 19:30 Glucagon (Glucagen) 1 mg Q15M PRN IM DECREASED GLUCOSE; Start 04/23/19 at 19:30 Glucose (Glutose) 15 gm Q15M PRN BUCCAL DECREASED GLUCOSE; Start 04/23/19 at 19:30 Ceftriaxone Sodium 50 ml @ 100 mls/hr Q24H IVPB Last administered on 04/27/19 18:07; Admin Dose 100 MLS/HR; Start 04/24/19 at 19:00 Diltiazem HCl 125 mg/Sodium Chloride 125 ml @ 5 mls/hr TITRATE IV Last administered on 04/25/19 03:05; Admin Dose 5 MLS/HR; Start 04/24/19 at 19:30 Furosemide (Lasix) 20 mg DAILY IV Last administered on 04/28/19 09:07; Admin Dose 20 MG; Start 04/26/19 at 09:00 Amiodarone HCl (Cordarone) 200 mg BID PO Last administered on 04/28/19 09:06; Admin Dose 200 MG; Start 04/26/19 at 09:00 Insulin Aspart (Novolog Insulin Pen) NOVOLOG *MILD* ALGORITHM WITH MEALS BEDTIME SC Last administered on 04/28/19at 10:46; Admin Dose 2 UNIT; Start at 11:50 Tramadol HCl (Ultram) 50 mg Q6H PRN PO MODERATE PAIN LEVEL 4-6 Last administered on 04/26/19 16:56; Admin Dose 50 MG; Start 04/26/19 at 16:30 Bisacodyl (Dulcolax Supp) 10 mg DAILY PRN [place] CONSTIPATION; Start 04/28/19 at 11:00 MADALYN RONQUILLO MD Apr 28, 2019 11:55
--- NOTE | 2019-04-28 13:39 | PN ---
Date/Time of Note Date/Time of Note DATE: 04/28/19 TIME: 13:35 Assessment/Plan VTE Prophylaxis Risk score (from Ns)>0 risk: 7 SCD applied (from Ns): Yes Pharmacological prophylaxis: NA/contraindicated Pharm contraindication: bleeding Lines/Catheters IV Catheter Type (from [facility] Saline [facility] Urinary Cath still in place: No Assessment/Plan Assessment/Plan 1. Hematuria- on and off - Urology consultation appreciated - Hgb levels still keep fluctuating. Still with tea colored urine but no danielle bleeding - antiplatelets on hold - will need to follow up with outpatient Urologist 3. Acute on chronic systolic heart failure - Cardiology on board and appreciate recommendations - nephrology assisting with diuretics in setting of CKD 4. Dilated cardiomyopathy - Recent ejection fraction of 25 to 30% 5. 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 Iron deficiency anemia, acute on chronic - blood loss as well as renal function most likely contributing to anemia - no need for transfusions at this time 7. CASEY on CKD - Nephrology on board and appreciate recommendations 8. HTN - Continue home medications 9. DM - A1c noted - Cheot on board - sugars controlled - ISS and accuchecks 10. Constipation - will give bowel regime - discussed if daughter brings Linzess, can take while inhouse 11. Disposition - Once renal function closer to baseline, will d/c home. Discussed with patient and daughter Result Diagram: 04/28/1961804/28/19618 Results 24hrs Laboratory Tests Test 04/27/19 17:19 04/27/19 20:56 04/28/19 01:56 04/28/19 06:19 Bedside Glucose 72 197 103 White Blood Count 8.7 Red Blood Count 3.02 L Hemoglobin 7.5 L Hematocrit 24.5 L Mean Corpuscular 81.1 L Volume Mean Corpuscular 24.8 L Hemoglobin Mean Corpuscular 30.6 L Hemoglobin Concent Red Cell Distribution 15.2 H Width Platelet Count 285 Mean Platelet Volume 9.7 Immature Granulocytes 0.300 % Neutrophils % 70.7 Lymphocytes % 19.9 Monocytes % 8.1 Eosinophils % 0.7 Basophils % 0.3 Nucleated Red Blood 0.0 Cells % Immature Granulocytes 0.030 # Neutrophils # 6.1 Lymphocytes # 1.7 Monocytes # 0.7 Eosinophils # 0.1 Basophils # 0.0 Nucleated Red Blood 0.0 Cells # Sodium Level 137 Potassium Level 5.0 Chloride Level 103 Carbon Dioxide Level 28 Anion Gap 6 Blood Urea Nitrogen 40 H Creatinine 2.39 H Est Glomerular Filtrat Rate mL/min Glucose Level 191 Calcium Level 8.1 L Phosphorus Level 4.3 Magnesium Level 2.2 Test 04/28/19 08:47 04/28/19 10:39 04/28/19 12:20 Bedside Glucose 233 H 208 102 Subjective 24 Hr Interval Summary Free Text/Dictation Patient is complaining of constipation and states takes Linzess at home with helps. Exam/Review of Systems Exam Vitals Vital Signs Date Temp Pulse Resp B/P (MAP) Pulse Ox O2 O2 Flow FiO2 Time Delivery Rate 04/28/19 74 12:01 04/28/19 97.9 18 102/56 96 11:18 (71) 04/27/19 21 23:58 04/27/19 Room Air 15:10 04/25/19 2.0 21:19 Intake and Output 04/27/19 04/27/19 04/28/19 1515:00 23:00 07:00 IntakeIntake Total 720 ml OutputOutput Total 1000 ml BalanceBalance -280 ml Exam General: no acute distress. awake and answering questions appropriately Neck: supple Lungs: clear bilaterally, no wheezing or rhonchi Heart: S1, S2, sinus rhythm, regular rate, systolic murmur Abdomen: Soft , nontender, nondistended , bowel sounds are present. No guarding no rebound tenderness Extremities: Trace pitting edema to bilateral lower extremities Results Results 24hrs Laboratory Tests Test 04/27/19 17:19 04/27/19 20:56 04/28/19 01:56 04/28/19 06:19 Bedside Glucose 72 197 103 White Blood Count 8.7 Red Blood Count 3.02 L Hemoglobin 7.5 L Hematocrit 24.5 L Mean Corpuscular 81.1 L Volume Mean Corpuscular 24.8 L Hemoglobin Mean Corpuscular 30.6 L Hemoglobin Concent Red Cell Distribution 15.2 H Width Platelet Count 285 Mean Platelet Volume 9.7 Immature Granulocytes 0.300 % Neutrophils % 70.7 Lymphocytes % 19.9 Monocytes % 8.1 Eosinophils % 0.7 Basophils % 0.3 Nucleated Red Blood 0.0 Cells % Immature Granulocytes 0.030 # Neutrophils # 6.1 Lymphocytes # 1.7 Monocytes # 0.7 Eosinophils # 0.1 Basophils # 0.0 Nucleated Red Blood 0.0 Cells # Sodium Level 137 Potassium Level 5.0 Chloride Level 103 Carbon Dioxide Level 28 Anion Gap 6 Blood Urea Nitrogen 40 H Creatinine 2.39 H Est Glomerular Filtrat Rate mL/min Glucose Level 191 Calcium Level 8.1 L Phosphorus Level 4.3 Magnesium Level 2.2 Test 04/28/19 08:47 04/28/19 10:39 04/28/19 12:20 Bedside Glucose 233 H 208 102 Medications Medication Current Medications Carvedilol (Coreg) 3.125 mg BID PO Last administered on 04/28/19 09:06; Admin Dose 3.125 MG; Start 04/23/19 at 21:00 Ferrous Sulfate (Ferrous Sulfate (Ec)) 325 mg BID PO Last administered on 04/28/19 09:06; Admin Dose 325 MG; Start 04/23/19 at 21:00 Insulin Glargine (Lantus) 35 units QAM SC Last administered on 04/28/19 10:46; Admin Dose 35 UNITS; Start 04/24/19 at 09:00 Pantoprazole (Protonix Tab) 40 mg DAILY@0600 PO Last administered on 04/28/19 06:23; Admin Dose 40 MG; Start 04/24/19 at 06:00 Tamsulosin HCl (Flomax) 0.4 mg HS PO Last administered on 04/27/19 21:04; Admin Dose 0.4 MG; Start 04/23/19 at 21:00 Insulin Aspart (Novolog Insulin Pen) 10 unit WITH MEALS SC Last administered on 04/28/19 10:46; Admin Dose 10 UNIT; Start 04/24/19 at 07:55 IV Flush (NS 3 ml) 3 ml PER PROTOCOL IV ; Start 04/23/19 at 19:00 Ondansetron HCl (Zofran Inj) 4 mg Q6H PRN IV NAUSEA/VOMITING Last administered on 04/27/19 08:46; Admin Dose 4 MG; Start 04/23/19 at 19:00 Nitroglycerin (Nitroglycerin (Sl Tab) 0.4 Mg) 1 tab Q5M PRN SL .CHEST PAIN; Start 04/23/19 at 19:00 Acetaminophen (Tylenol Tab) 650 mg Q6H PRN PO .PAIN 1-3 OR TEMP Last administered on 04/26/19 13:42; Admin Dose 650 MG; Start 04/23/19 at 19:00 Docusate Sodium (Colace) 100 mg Q12H PRN PO .CONSTIPATION Last administered on 04/27/19 18:07; Admin Dose 100 MG; Start 04/23/19 at 19:00 Magnesium Hydroxide (Milk Of Mag) 30 ml DAILY PRN PO .CONSTIPATION Last admini stered on 04/27/19 18:07; Admin Dose 30 ML; Start 04/23/19 at 19:00 Miscellaneous Information 1 ea NOTE XX ; Start 04/23/19 at 19:30 Glucose (Glutose) 15 gm Q15M PRN PO DECREASED GLUCOSE; Start 04/23/19 at 19:30 Glucose (Glutose) 22.5 gm Q15M PRN PO DECREASED GLUCOSE; Start 04/23/19 at 19:30 Dextrose (D50w Syringe) 25 ml Q15M PRN IV DECREASED GLUCOSE; Start 04/23/19 at 19:30 Dextrose (D50w Syringe) 50 ml Q15M PRN IV DECREASED GLUCOSE; Start 04/23/19 at 19:30 Glucagon (Glucagen) 1 mg Q15M PRN IM DECREASED GLUCOSE; Start 04/23/19 at 19:30 Glucose (Glutose) 15 gm Q15M PRN BUCCAL DECREASED GLUCOSE; Start 04/23/19 at 19:30 Ceftriaxone Sodium 50 ml @ 100 mls/hr Q24H IVPB Last administered on 04/27/19 18:07; Admin Dose 100 MLS/HR; Start 04/24/19 at 19:00 Diltiazem HCl 125 mg/Sodium Chloride 125 ml @ 5 mls/hr TITRATE IV Last administered on 04/25/19 03:05; Admin Dose 5 MLS/HR; Start 04/24/19 at 19:30 Furosemide (Lasix) 20 mg DAILY IV Last administered on 04/28/19 09:07; Admin Dose 20 MG; Start 04/26/19 at 09:00 Amiodarone HCl (Cordarone) 200 mg BID PO Last administered on 04/28/19 09:06; Admin Dose 200 MG; Start 04/26/19 at 09:00 Insulin Aspart (Novolog Insulin Pen) NOVOLOG *MILD* ALGORITHM WITH MEALS BEDTIME SC Last administered on 04/28/19at 10:46; Admin Dose 2 UNIT; Start 04/26/19 at 11:50 Tramadol HCl (Ultram) 50 mg Q6H PRN PO MODERATE PAIN LEVEL 4-6 Last administere d on 04/26/19at 16:56; Admin Dose 50 MG; Start 04/26/19 at 16:30 Bisacodyl (Dulcolax Supp) 10 mg DAILY PRN [place] CONSTIPATION; Start 04/28/19 at 11:00 JOANA SO MD Apr 28, 2019 13:38
--- NOTE | 2019-04-28 14:46 | CONS ---
Consult Date/Type/Reason Admit Date/Time April 23, 2019 at 19:06 Initial Consult Date 04/25/19 Type of Consultation: Urology Reason for Consultation Gross hematuria Requesting Provider: JOANA SO MD Date/Time of Note DATE: 04/28/19 TIME: 14:41 Subjective Patient is comfortable. He is sitting on the chair and complaining of constipat ion. He did bring his own medications from home and took 1 pill and states that he did have a bowel movement. He is urinating and the urine is dark old blood. There are no clots. The renal ultrasound did show bilateral hydronephrosis and also very large prostatic mass protruding into the bladder and that could be causing the obstruction of his ureters and the hydronephrosis. Objective Vitals Vital Signs Date Temp Pulse Resp B/P (MAP) Pulse Ox O2 O2 Flow FiO2 Time Delivery Rate 04/28/19 74 12:01 04/28/19 97.9 18 102/56 96 11:18 (71) 04/27/19 21 23:58 04/27/19 Room Air 15:10 04/25/19 2.0 21:19 Intake and Output 04/27/19 04/27/19 04/28/19 1515:00 23:00 07:00 IntakeIntake Total 720 ml OutputOutput Total 1000 ml BalanceBalance -280 ml Exam Abdomen is soft and the urine is dark. It has old blood rather than fresh bleeding Results/Medications Result Diagram: 04/28/1961804/28/19618 Results 24 hrs Laboratory Tests Test 04/27/19 17:19 04/27/19 20:56 04/28/19 01:56 04/28/19 06:19 Bedside Glucose 72 197 103 White Blood Count 8.7 Red Blood Count 3.02 L Hemoglobin 7.5 L Hematocrit 24.5 L Mean Corpuscular 81.1 L Volume Mean Corpuscular 24.8 L Hemoglobin Mean Corpuscular 30.6 L Hemoglobin Concent Red Cell Distribution 15.2 H Width Platelet Count 285 Mean Platelet Volume 9.7 Immature Granulocytes 0.300 % Neutrophils % 70.7 Lymphocytes % 19.9 Monocytes % 8.1 Eosinophils % 0.7 Basophils % 0.3 Nucleated Red Blood 0.0 Cells % Immature Granulocytes 0.030 # Neutrophils # 6.1 Lymphocytes # 1.7 Monocytes # 0.7 Eosinophils # 0.1 Basophils # 0.0 Nucleated Red Blood 0.0 Cells # Sodium Level 137 Potassium Level 5.0 Chloride Level 103 Carbon Dioxide Level 28 Anion Gap 6 Blood Urea Nitrogen 40 H Creatinine 2.39 H Est Glomerular Filtrat Rate mL/min Glucose Level 191 Calcium Level 8.1 L Phosphorus Level 4.3 Magnesium Level 2.2 Test 04/28/19 08:47 04/28/19 10:39 04/28/19 12:20 Bedside Glucose 233 H 208 102 Home Meds Active Scripts Pantoprazole* (Protonix*) 40 Mg Tablet.dr, 40 MG PO DAILY for 30 Days, TAB Prov:HUSSEIN SHUKLA MD 02/16/19 Ferrous Sulfate* (Ferrous Sulfate*) 325 Mg Tabec, 325 MG PO BID for 30 Days, TAB Prov:HUSSEIN SHUKLA MD 02/16/19 Spironolactone* (Aldactone*) 25 Mg Tablet, 25 MG PO DAILY for 30 Days, TAB Prov:HUSSEIN SHUKLA MD 02/16/19 Losartan Potassium* (Cozaar*) 25 Mg Tablet, 25 MG PO DAILY for 30 Days, TAB Prov:HUSSEIN SHUKLA MD 02/16/19 Carvedilol* (Carvedilol*) 6.25 Mg Tablet, 3.125 MG PO BID for 60 Days, TAB Prov:HUSSEIN SHUKLA MD 02/16/19 Reported Medications Tamsulosin Hcl* (Tamsulosin Hcl*) 0.4 Mg Cap.er.24h, 0.4 MG PO HS, CAP 02/11/19 Insulin Lispro (Humalog Kwikpen U-100) 100 Unit/1 Ml Insuln.pen, 10 UNIT SQ AC E, EA 02/11/19 Insulin Glargine* (Lantus*) 100 Unit/Ml Soln, 15-20 UNIT SC QHS, #1 VIAL 02/11/19 Insulin Glargine* (Lantus*) 100 Unit/Ml Soln, 35 UNIT SC QAM, #1 VIAL 02/11/19 Medications Current Medications Carvedilol (Coreg) 3.125 mg BID PO Last administered on 04/28/19at 09:06; Admin Dose 3.125 MG; Start 04/23/19 at 21:00 Ferrous Sulfate (Ferrous Sulfate (Ec)) 325 mg BID PO Last administered on 04/28/19 09:06; Admin Dose 325 MG; Start 04/23/19 at 21:00 Insulin Glargine (Lantus) 35 units QAM SC Last administered on 04/28/19 10:46; Admin Dose 35 UNITS; Start 04/24/19 at 09:00 Pantoprazole (Protonix Tab) 40 mg DAILY@0600 PO Last administered on 04/28/19 06:23; Admin Dose 40 MG; Start 04/24/19 at 06:00 Tamsulosin HCl (Flomax) 0.4 mg HS PO Last administered on 04/27/19 21:04; Admin Dose 0.4 MG; Start 04/23/19 at 21:00 Insulin Aspart (Novolog Insulin Pen) 10 unit WITH MEALS SC Last administered on 04/28/19 10:46; Admin Dose 10 UNIT; Start 04/24/19 at 07:55 IV Flush (NS 3 ml) 3 ml PER PROTOCOL IV ; Start 04/23/19 at 19:00 Ondansetron HCl (Zofran Inj) 4 mg Q6H PRN IV NAUSEA/VOMITING Last administered on 04/27/19 08:46; Admin Dose 4 MG; Start 04/23/19 at 19:00 Nitroglycerin (Nitroglycerin (Sl Tab) 0.4 Mg) 1 tab Q5M PRN SL .CHEST PAIN; Start 04/23/19 at 19:00 Acetaminophen (Tylenol Tab) 650 mg Q6H PRN PO .PAIN 1-3 OR TEMP Last administered on 04/26/19 13:42; Admin Dose 650 MG; Start 04/23/19 at 19:00 Docusate Sodium (Colace) 100 mg Q12H PRN PO .CONSTIPATION Last administered on 04/27/19 18:07; Admin Dose 100 MG; Start 04/23/19 at 19:00 Magnesium Hydroxide (Milk Of Mag) 30 ml DAILY PRN PO .CONSTIPATION Last administered on 04/27/19 18:07; Admin Dose 30 ML; Start 04/23/19 at 19:00 Miscellaneous Information 1 ea NOTE XX ; Start 04/23/19 at 19:30 Glucose (Glutose) 15 gm Q15M PRN PO DECREASED GLUCOSE; Start 04/23/19 at 19:30 Glucose (Glutose) 22.5 gm Q15M PRN PO DECREASED GLUCOSE; Start 04/23/19 at 19:30 Dextrose (D50w Syringe) 25 ml Q15M PRN IV DECREASED GLUCOSE; Start 04/23/19 at 19:30 Dextrose (D50w Syringe) 50 ml Q15M PRN IV DECREASED GLUCOSE; Start 04/23/19 at 19:30 Glucagon (Glucagen) 1 mg Q15M PRN IM DECREASED GLUCOSE; Start 04/23/19 at 19:30 Glucose (Glutose) 15 gm Q15M PRN BUCCAL DECREASED GLUCOSE; Start 04/23/19 at 19:30 Ceftriaxone Sodium 50 ml @ 100 mls/hr Q24H IVPB Last administered on 04/27/19at 18:07; Admin Dose 100 MLS/HR; Start 04/24/19 at 19:00 Diltiazem HCl 125 mg/Sodium Chloride 125 ml @ 5 mls/hr TITRATE IV Last administered on 04/25/19at 03:05; Admin Dose 5 MLS/HR; Start 04/24/19 at 19:30 Furosemide (Lasix) 20 mg DAILY IV Last administered on 04/28/19at 09:07; Admin Dose 20 MG; Start 04/26/19 at 09:00 Amiodarone HCl (Cordarone) 200 mg BID PO Last administered on 04/28/19at 09:06; Admin Dose 200 MG; Start 04/26/19 at 09:00 Insulin Aspart (Novolog Insulin Pen) NOVOLOG *MILD* ALGORITHM WITH MEALS BEDTIME SC Last administered on 04/28/19at 10:46; Admin Dose 2 UNIT; Start 04/26/19 at 11:50 Tramadol HCl (Ultram) 50 mg Q6H PRN PO MODERATE PAIN LEVEL 4-6 Last a dministered on 04/26/19at 16:56; Admin Dose 50 MG; Start 04/26/19 at 16:30 Bisacodyl (Dulcolax Supp) 10 mg DAILY PRN [place] CONSTIPATION; Start 04/28/19 at 11:00 Docusate Sodium (Colace) 100 mg BID PO ; Start 04/28/19 at 15:00; Status UNV Assessment/Plan Hospital Course (Demo Recall) 88-year-old man has a history of prostate cancer on Lupron Depot injections. He is also known to have a history of CHF with EF of 25%, and multiple other medical problems. He presented to the emergency room with a history of gross hematuria for 2 weeks and increasing shortness of breath and dyspnea on exertion. He also has had a few days of orthopnea. He denies fevers or chills, no chest pain, no vomiting or diarrhea, no blood per rectum or melena. Patient denies weight loss. The patient did receive his Lupron injection at his urologist in [place] about 2 weeks earlier. At the time of his admission he was having gross hematuria on and off. That did clear however he has gross hematuria again today. It appears to be dark old blood. He underwent renal ultrasound that showed bilateral hydronephrosis and a very large prostate protruding into the bladder base and that may be the reason for his hydronephrosis. The prostate cancer in the bladder may be obstructing his ureters. I will check his PSA and he may need to be placed on bicalutamide and may end up needing a TURP to unblock his ureters. He was complaining of constipation and he got his own medications from home and took it so he had a 1 bowel movement. I did order for him Colace 100 mg twice a day. SPARKLE BARBER MD Apr 28, 2019 14:46
[2019-04-28] MEDS: DOCUSATE SODIUM 100 MG CAP PO SCH ×2 (15:00→20:42)
[2019-04-28] MEDS ORDERED: LINA290C PO (15:30)
[2019-04-28] MEDS ORDERED: PATIENT'S OWN MEDICATION PO PRN (16:00)
[2019-04-28] MEDS: BICALUTAMIDE 50 MG TAB PO SCH (16:13)
[2019-04-28] MEDS: CEFTRIAXONE 1 GM/50 ML (PMX) 50 ML IVPB SCH (18:25)
[2019-04-28] MEDS: TAMSULOSIN (SR) 0.4 MG CAP PO SCH (20:45)
[2019-04-29] VITALS (12 sets, daily range): BP systolic 110–118; BP diastolic 53–60; PULSE 78–90; RESP 18–20
[2019-04-29] MEDS: PANTOPRAZOLE (EC) 40 MG TAB PO SCH (05:29)
[2019-04-29] MEDS: INSULIN GLARGINE [LANTus] (100 UNITS/ML) SYG SC SCH (08:27)
[2019-04-29] MEDS: INSULIN ASPART [NOVOLOG] 3 ML PEN SC SCH ×7 (08:27→20:22)
[2019-04-29] MEDS: DOCUSATE SODIUM 100 MG CAP PO SCH ×2 (09:09→20:11)
[2019-04-29] MEDS: AMIODARONE 200 MG TAB PO SCH ×2 (09:10→20:12)
[2019-04-29] MEDS: FERROUS SULFATE (EC) 325 MG TAB PO SCH ×2 (09:10→20:12)
[2019-04-29] MEDS: FUROSEMIDE 20 MG INJ IV SCH (09:11)
[2019-04-29] MEDS: BICALUTAMIDE 50 MG TAB PO SCH (09:17)
--- NOTE | 2019-04-29 12:16 | CONS ---
Assessment/Plan Assessment/Plan Hospital Course (Demo Recall) 1. Nonoliguric acute kidney injury on top of chronic kidney disease stage IV with previous baseline creatinine of 1.5 to 2.0 mg/dL. Etiology of acute kidney injury is secondary to hemodynamics, cardiorenal syndrome. The patient's renal function is fluctuating, labs from today pending. At this point, continue current treatment plan. Continue supportive care, renally dose all medications, continue low dose diuretic therapy, monitor renal function and electrolytes closely. 2. 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 The patient is seen by urology. Continue to monitor. 3. Anemia. Continue to monitor hemoglobin and hematocrit levels. We will give Epogen as needed. 4. Mineral bone disorder, monitor calcium and phosphorus levels. 5. Acute on chronic systolic heart failure. The patient is clinically improving. Continue low-dose diuretic therapy. Continue to monitor renal function and electrolytes closely. 6. Acute hypoxemic respiratory failure secondary to congestive heart failure, improving. Continue to monitor. Continue medical management. 7. Hematuria secondary to prostate cancer. Continue to monitor. Follow up with urology. 8. Metastatic prostate cancer. The patient is on Lupron. 9. Hypertension. Continue current blood pressure regimen. 10. Diabetes. Continue current insulin regimen. 11. Gastrointestinal and deep vein thrombosis prophylaxis. 12. Urinary tract infection. Continue current antibiotic therapy. 13. Paroxysmal atrial fibrillation. Currently, rate controlled. Continue medical management. Follow up with cardiology. Consultation Date/Type/Reason Admit Date/Time April 23, 2019 at 19:06 Initial Consult Date 04/25/19 Requesting Provider: JOANA SO MD Date/Time of Note DATE: 04/29/19 TIME: 12:16 24 HR Interval Summary Free Text/Dictation denies n/v, shortness of breath or urinary issues d/w rn gen nad cv rrr pulm ctab abd soft, nd, nt +bs ext: no edema Exam/Review of Systems Exam Vitals Vital Signs Date Temp Pulse Resp B/P (MAP) Pulse Ox O2 O2 Flow FiO2 Time Delivery Rate 04/29/19 78 08:01 04/29/19 98.7 18 112/56 99 07:13 (74) 04/27/19 21 23:58 04/27/19 Room Air 15:10 04/25/19 2.0 21:19 Intake and Output 604/28/19 04/29/19 1515:00 23:00 07:00 IntakeIntake Total 600 ml 500 ml OutputOutput Total 700 ml 600 ml BalanceBalance -100 ml -100 ml Results Result Diagram: 04/28/1961804/28/19618 Results 24hrs Laboratory Tests Test 04/28/19 12:20 04/28/19 17:19 04/28/19 20:38 04/29/19 05:55 Bedside Glucose 102 192 201 Prostate Specific 642.0 H Antigen Test 04/29/19 08:13 04/29/19 11:51 Bedside Glucose 238 H 198 Medications Medication Current Medications Carvedilol (Coreg) 3.125 mg BID PO Last administered on 04/29/19 09:10; Admin Dose 3.125 MG; Start 04/23/19 at 21:00 Ferrous Sulfate (Ferrous Sulfate (Ec)) 325 mg BID PO Last administered on 04/29/19 09:10; Admin Dose 325 MG; Start 04/23/19 at 21:00 Pantoprazole (Protonix Tab) 40 mg DAILY@0600 PO Last administered on 04/29/19 05:29; Admin Dose 40 MG; Start 04/24/19 at 06:00 Tamsulosin HCl (Flomax) 0.4 mg HS PO Last administered on 04/27/19 21:04; Admin Dose 0.4 MG; Start 04/23/19 at 21:00 IV Flush (NS 3 ml) 3 ml PER PROTOCOL IV ; Start 04/23/19 at 19:00 Ondansetron HCl (Zofran Inj) 4 mg Q6H PRN IV NAUSEA/VOMITING Last administered on 04/27/19 08:46; Admin Dose 4 MG; Start 04/23/19 at 19:00 Nitroglycerin (Nitroglycerin (Sl Tab) 0.4 Mg) 1 tab Q5M PRN SL .CHEST PAIN; Start 04/23/19 at 19:00 Acetaminophen (Tylenol Tab) 650 mg Q6H PRN PO .PAIN 1-3 OR TEMP Last administered on 04/26/19 13:42; Admin Dose 650 MG; Start 04/23/19 at 19:00 Docusate Sodium (Colace) 100 mg Q12H PRN PO .CONSTIPATION Last administered on 04/27/19 18:07; Admin Dose 100 MG; Start 04/23/19 at 19:00 Magnesium Hydroxide (Milk Of Mag) 30 ml DAILY PRN PO .CONSTIPATION Last administered on 04/27/19 18:07; Admin Dose 30 ML; Start 04/23/19 at 19:00 Miscellaneous Information 1 ea NOTE XX ; Start 04/23/19 at 19:30 Glucose (Glutose) 15 gm Q15M PRN PO DECREASED GLUCOSE; Start 04/23/19 at 19:30 Glucose (Glutose) 22.5 gm Q15M PRN PO DECREASED GLUCOSE; Start 04/23/19 at 19:30 Dextrose (D50w Syringe) 25 ml Q15M PRN IV DECREASED GLUCOSE; Start 04/23/19 at 19:30 Dextrose (D50w Syringe) 50 ml Q15M PRN IV DECREASED GLUCOSE; Start 04/23/19 at 19:30 Glucagon (Glucagen) 1 mg Q15M PRN IM DECREASED GLUCOSE; Start 04/23/19 at 19:30 Glucose (Glutose) 15 gm Q15M PRN BUCCAL DECREASED GLUCOSE; Start 04/23/19 at 19:30 Ceftriaxone Sodium 50 ml @ 100 mls/hr Q24H IVPB Last administered on 04/28/19 18:25; Admin Dose 100 MLS/HR; Start 04/24/19 at 19:00 Diltiazem HCl 125 mg/Sodium Chloride 125 ml @ 5 mls/hr TITRATE IV Last administered on 04/25/19 03:05; Admin Dose 5 MLS/HR; Start 04/24/19 at 19:30 Furosemide (Lasix) 20 mg DAILY IV Last administered on 04/29/19 09:11; Admin Dose 20 MG; Start 04/26/19 at 09:00 Amiodarone HCl (Cordarone) 200 mg BID PO Last administered on 04/29/19 09:10; Admin Dose 200 MG; Start 04/26/19 at 09:00 Insulin Aspart (Novolog Insulin Pen) NOVOLOG *MILD* ALGORITHM WITH MEALS BEDTIME SC Last administered on 04/29/19 12:04; Admin Dose 2 UNIT; Start 04/26/19 at 11:50 Tramadol HCl (Ultram) 50 mg Q6H PRN PO MODERATE PAIN LEVEL 4-6 Last administered on 04/26/19 16:56; Admin Dose 50 MG; Start 04/26/19 at 16:30 Bisacodyl (Dulcolax Supp) 10 mg DAILY PRN [place] CONSTIPATION; Start 04/28/19 at 11:00 Docusate Sodium (Colace) 100 mg BID PO Last administered on 04/29/19at 09:09; Admin Dose 100 MG; Start 04/28/19 at 15:00 Bicalutamide (Casodex) 50 mg DAILY PO Last administered on 04/29/19at 09:17; Admin Dose 50 MG; Start 04/28/19 at 16:00 Patient Own Medication 1 ea DAILY PRN PO CONSTIPATION; Start 04/28/19 at 16:00 Insulin Aspart (Novolog Insulin Pen) 12 unit WITH MEALS SC ; Start 04/29/19 at 11:50 Insulin Glargine (Lantus) 38 units QAM SC ; Start 04/30/19 at 09:00 MADALYN RONQUILLO MD Apr 29, 2019 12:16
--- NOTE | 2019-04-29 12:53 | PN ---
Date/Time of Note Date/Time of Note DATE: 04/29/19 TIME: 12:48 Assessment/Plan VTE Prophylaxis Risk score (from Ns)>0 risk: 7 SCD applied (from Ns): Yes Pharmacological prophylaxis: NA/contraindicated Pharm contraindication: bleeding Lines/Catheters [facility] [place] [facility] Urinary Cath still in place: No Assessment/Plan Assessment/Plan 1. 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 May need TURP to help relieve pressure and improve renal function 2. Hematuria- on and off - Urology consultation appreciated. - Hgb levels still keep fluctuating - antiplatelets on hold 3. Acute on chronic systolic heart failure - Cardiology on board and appreciate recommendations - nephrology assisting with diuretics in setting of CKD 4. Dilated cardiomyopathy - Recent ejection fraction of 25 to 30% 5. Iron deficiency anemia, acute on chronic - blood loss as well as renal function most likely contributing to anemia - no need for transfusions at this time 6. CASEY on CKD - Nephrology on board and appreciate recommendations. #1 most likely contributing to renal impairment. Labs from today pending 7. HTN - Continue home medications 8. DM - A1c noted - [place] on board - sugars controlled - ISS and accuchecks 9. Constipation- resolved 10. Disposition - Awaiting further recommendations from Urology. Discussed with daughter and patient need for possible TURP given b/l hydro Result Diagram: 04/28/19 0619 04/29/19 0552 Results 24hrs Laboratory Tests Test 04/28/19 17:19 04/28/19 20:38 04/29/19 05:52 04/29/19 05:55 Bedside Glucose 192 201 Sodium Level 138 Potassium Level 5.5 H Chloride Level 102 Carbon Dioxide Level 27 Anion Gap 9 Blood Urea Nitrogen 42 H Creatinine 2.20 H Glucose Level 172 Calcium Level 8.4 Phosphorus Level 4.1 Albumin 3.2 L Prostate Specific 642.0 H Antigen Test 04/29/19 08:13 04/29/19 11:51 Bedside Glucose 238 H 198 Subjective 24 Hr Interval Summary Free Text/Dictation Patient denies any acute issues and more comfortable following bowel movement yesterday. Exam/Review of Systems Exam Vitals Vital Signs Date Temp Pulse Resp B/P (MAP) Pulse Ox O2 O2 Flow FiO2 Time Delivery Rate 04/29/19 98.2 84 18 118/58 99 Room Air 12:13 (78) 04/27/19 21 23:58 04/25/19 2.0 21:19 Intake and Output 04/28/19 04/28/19 04/29/19 1515:00 23:00 07:00 IntakeIntake Total 600 ml 500 ml OutputOutput Total 700 ml 600 ml BalanceBalance -100 ml -100 ml Exam General: no acute distress. awake and answering questions appropriately Neck: supple Lungs: clear bilaterally, no wheezing or rhonchi Heart: S1, S2, sinus rhythm, regular rate, systolic murmur Abdomen: Soft , nontender, nondistended , bowel sounds are present. No guarding no rebound tenderness Extremities: Trace pitting edema to bilateral lower extremities Results Results 24hrs Laboratory Tests Test 04/28/19 17:19 04/28/19 20:38 04/29/19 05:52 04/29/19 05:55 Bedside Glucose 192 201 Sodium Level 138 Potassium Level 5.5 H Chloride Level 102 Carbon Dioxide Level 27 Anion Gap 9 Blood Urea Nitrogen 42 H Creatinine 2.20 H Glucose Level 172 Calcium Level 8.4 Phosphorus Level 4.1 Albumin 3.2 L Prostate Specific 642.0 H Antigen Test 04/29/19 08:13 04/29/19 11:51 Bedside Glucose 238 H 198 Medications Medication Current Medications Carvedilol (Coreg) 3.125 mg BID PO Last administered on 04/29/19at 09:10; Admin Dose 3.125 MG; Start 04/23/19 at 21:00 Ferrous Sulfate (Ferrous Sulfate (Ec)) 325 mg BID PO Last administered on 04/29/19at 09:10; Admin Dose 325 MG; Start 04/23/19 at 21:00 Pantoprazole (Protonix Tab) 40 mg DAILY@0600 PO Last administered on 04/29/19at 05:29; Admin Dose 40 MG; Start 04/24/19 at 06:00 Tamsulosin HCl (Flomax) 0.4 mg HS PO Last administered on 04/27/19at 21:04; Admin Dose 0.4 MG; Start 04/23/19 at 21:00 IV Flush (NS 3 ml) 3 ml PER PROTOCOL IV ; Start 04/23/19 at 19:00 Ondansetron HCl (Zofran Inj) 4 mg Q6H PRN IV NAUSEA/VOMITING Last administered on 04/27/19 08:46; Admin Dose 4 MG; Start 04/23/19 at 19:00 Nitroglycerin (Nitroglycerin (Sl Tab) 0.4 Mg) 1 tab Q5M PRN SL .CHEST PAIN; Start 04/23/19 at 19:00 Acetaminophen (Tylenol Tab) 650 mg Q6H PRN PO .PAIN 1-3 OR TEMP Last administered on 04/26/19 13:42; Admin Dose 650 MG; Start 04/23/19 at 19:00 Docusate Sodium (Colace) 100 mg Q12H PRN PO .CONSTIPATION Last administered on 04/27/19 18:07; Admin Dose 100 MG; Start 04/23/19 at 19:00 Magnesium Hydroxide (Milk Of Mag) 30 ml DAILY PRN PO .CONSTIPATION Last a dministered on 04/27/19 18:07; Admin Dose 30 ML; Start 04/23/19 at 19:00 Miscellaneous Information 1 ea NOTE XX ; Start 04/23/19 at 19:30 Glucose (Glutose) 15 gm Q15M PRN PO DECREASED GLUCOSE; Start 04/23/19 at 19:30 Glucose (Glutose) 22.5 gm Q15M PRN PO DECREASED GLUCOSE; Start 04/23/19 at 19:30 Dextrose (D50w Syringe) 25 ml Q15M PRN IV DECREASED GLUCOSE; Start 04/23/19 at 19:30 Dextrose (D50w Syringe) 50 ml Q15M PRN IV DECREASED GLUCOSE; Start 04/23/19 at 19:30 Glucagon (Glucagen) 1 mg Q15M PRN IM DECREASED GLUCOSE; Start 04/23/19 at 19:30 Glucose (Glutose) 15 gm Q15M PRN BUCCAL DECREASED GLUCOSE; Start 04/23/19 at 19:30 Ceftriaxone Sodium 50 ml @ 100 mls/hr Q24H IVPB Last administered on 04/28/19 18:25; Admin Dose 100 MLS/HR; Start 04/24/19 at 19:00 Diltiazem HCl 125 mg/Sodium Chloride 125 ml @ 5 mls/hr TITRATE IV Last administered on 04/25/19 03:05; Admin Dose 5 MLS/HR; Start 04/24/19 at 19:30 Furosemide (Lasix) 20 mg DAILY IV Last administered on 04/29/19 09:11; Admin Dose 20 MG; Start 04/26/19 at 09:00 Amiodarone HCl (Cordarone) 200 mg BID PO Last administered on 04/29/19 09:10; Admin Dose 200 MG; Start 04/26/19 at 09:00 Insulin Aspart (Novolog Insulin Pen) NOVOLOG *MILD* ALGORITHM WITH MEALS BEDTIME SC Last administered on 04/29/19 12:04; Admin Dose 2 UNIT; Start 04/26/19 at 11:50 Tramadol HCl (Ultram) 50 mg Q6H PRN PO MODERATE PAIN LEVEL 4-6 Last adminis tered on 04/26/19 16:56; Admin Dose 50 MG; Start 04/26/19 at 16:30 Bisacodyl (Dulcolax Supp) 10 mg DAILY PRN [place] CONSTIPATION; Start 04/28/19 at 11:00 Docusate Sodium (Colace) 100 mg BID PO Last administered on 04/29/19 09:09; Admin Dose 100 MG; Start 04/28/19 at 15:00 Bicalutamide (Casodex) 50 mg DAILY PO Last administered on 04/29/19 09:17; Admin Dose 50 MG; Start 04/28/19 at 16:00 Patient Own Medication 1 ea DAILY PRN PO CONSTIPATION; Start 04/28/19 at 16:00 Insulin Aspart (Novolog Insulin Pen) 12 unit WITH MEALS SC ; Start 04/29/19 at 11:50 Insulin Glargine (Lantus) 38 units QAM SC ; Start 04/30/19 at 09:00 JOANA SO MD Apr 29, 2019 12:52
[2019-04-29] MEDS ORDERED: SODIUM POLYSTYRENE 15 GM KIT (POWDER + SORBITOL) PO ONE (15:30)
--- NOTE | 2019-04-29 18:23 | CONS ---
Consult Date/Type/Reason Admit Date/Time April 23, 2019 at 19:06 Initial Consult Date 04/25/19 Type of Consultation: Urology Reason for Consultation Hematuria Requesting Provider: JOANA SO MD Date/Time of Note DATE: 04/29/19 TIME: 18:19 Subjective Patient states to area today and also passed a blood clot He also states that his bowel movements are black and that is because of the ferrous sulfate that he is on Objective Vitals Vital Signs Date Temp Pulse Resp B/P (MAP) Pulse Ox O2 O2 Flow FiO2 Time Delivery Rate 04/29/19 97.8 83 19 116/58 99 Room Air 16:03 (77) 04/27/19 21 23:58 04/25/19 2.0 21:19 Intake and Output 04/28/19 04/28/19 04/29/19 1515:00 23:00 07:00 IntakeIntake Total 600 ml 500 ml OutputOutput Total 700 ml 600 ml BalanceBalance -100 ml -100 ml Exam Abdomen is soft. There is no tenderness. Results/Medications Result Diagram: 04/28/19 0619 04/29/19 0552 Results 24 hrs Laboratory Tests Test 04/28/19 20:38 04/29/19 05:52 04/29/19 05:55 04/29/19 08:13 Bedside Glucose 201 238 H Sodium Level 138 Potassium Level 5.5 H Chloride Level 102 Carbon Dioxide Level 27 Anion Gap 9 Blood Urea Nitrogen 42 H Creatinine 2.20 H Glucose Level 172 Calcium Level 8.4 Phosphorus Level 4.1 Albumin 3.2 L Prostate Specific 642.0 H Antigen Test 04/29/19 11:51 04/29/19 17:11 Bedside Glucose 198 184 Home Meds Active Scripts Pantoprazole* (Protonix*) 40 Mg Tablet.dr, 40 MG PO DAILY for 30 Days, TAB Prov:HUSSEIN SHUKLA MD 02/16/19 Ferrous Sulfate* (Ferrous Sulfate*) 325 Mg Tabec, 325 MG PO BID for 30 Days, TAB Prov:HUSSEIN SHUKLA MD 02/16/19 Spironolactone* (Aldactone*) 25 Mg Tablet, 25 MG PO DAILY for 30 Days, TAB Prov:HUSSEIN SHUKLA MD 02/16/19 Losartan Potassium* (Cozaar*) 25 Mg Tablet, 25 MG PO DAILY for 30 Days, TAB Prov:HUSSEIN SHUKLA MD 02/16/19 Carvedilol* (Carvedilol*) 6.25 Mg Tablet, 3.125 MG PO BID for 60 Days, TAB Prov:HUSSEIN SHUKLA MD 02/16/19 Reported Medications Linaclotide (LINZESS) 290 Mcg Capsule, 290 MCG PO DAILY, #30 CAP 04/28/19 Tamsulosin Hcl* (Tamsulosin Hcl*) 0.4 Mg Cap.er.24h, 0.4 MG PO HS, CAP 02/11/19 Insulin Lispro (Humalog Kwikpen U-100) 100 Unit/1 Ml Insuln.pen, 10 UNIT SQ AC E, EA 02/11/19 Insulin Glargine* (Lantus*) 100 Unit/Ml Soln, 15-20 UNIT SC QHS, #1 VIAL 02/11/19 Insulin Glargine* (Lantus*) 100 Unit/Ml Soln, 35 UNIT SC QAM, #1 VIAL 02/11/19 Medications Current Medications Carvedilol (Coreg) 3.125 mg BID PO Last administered on 04/29/19at 09:10; Admin Dose 3.125 MG; Start 04/23/19 at 21:00 Ferrous Sulfate (Ferrous Sulfate (Ec)) 325 mg BID PO Last administered on 04/29/19at 09:10; Admin Dose 325 MG; Start 04/23/19 at 21:00 Pantoprazole (Protonix Tab) 40 mg DAILY@0600 PO Last administered on 04/29/19at 05:29; Admin Dose 40 MG; Start 04/24/19 at 06:00 Tamsulosin HCl (Flomax) 0.4 mg HS PO Last administered on 04/27/19at 21:04; Admin Dose 0.4 MG; Start 04/23/19 at 21:00 IV Flush (NS 3 ml) 3 ml PER PROTOCOL IV ; Start 04/23/19 at 19:00 Ondansetron HCl (Zofran Inj) 4 mg Q6H PRN IV NAUSEA/VOMITING Last administered on 04/27/19at 08:46; Admin Dose 4 MG; Start 04/23/19 at 19:00 Nitroglycerin (Nitroglycerin (Sl Tab) 0.4 Mg) 1 tab Q5M PRN SL .CHEST PAIN; Start 04/23/19 at 19:00 Acetaminophen (Tylenol Tab) 650 mg Q6H PRN PO .PAIN 1-3 OR TEMP Last a dministered on 04/26/19 13:42; Admin Dose 650 MG; Start 04/23/19 at 19:00 Docusate Sodium (Colace) 100 mg Q12H PRN PO .CONSTIPATION Last administered on 04/27/19 18:07; Admin Dose 100 MG; Start 04/23/19 at 19:00 Magnesium Hydroxide (Milk Of Mag) 30 ml DAILY PRN PO .CONSTIPATION Last administered on 04/27/19 18:07; Admin Dose 30 ML; Start 04/23/19 at 19:00 Miscellaneous Information 1 ea NOTE XX ; Start 04/23/19 at 19:30 Glucose (Glutose) 15 gm Q15M PRN PO DECREASED GLUCOSE; Start 04/23/19 at 19:30 Glucose (Glutose) 22.5 gm Q15M PRN PO DECREASED GLUCOSE; Start 04/23/19 at 19:30 Dextrose (D50w Syringe) 25 ml Q15M PRN IV DECREASED GLUCOSE; Start 04/23/19 at 19:30 Dextrose (D50w Syringe) 50 ml Q15M PRN IV DECREASED GLUCOSE; Start 04/23/19 at 19:30 Glucagon (Glucagen) 1 mg Q15M PRN IM DECREASED GLUCOSE; Start 04/23/19 at 19:30 Glucose (Glutose) 15 gm Q15M PRN BUCCAL DECREASED GLUCOSE; Start 04/23/19 at 19:30 Ceftriaxone Sodium 50 ml @ 100 mls/hr Q24H IVPB Last administered on 04/28/19 18:25; Admin Dose 100 MLS/HR; Start 04/24/19 at 19:00 Diltiazem HCl 125 mg/Sodium Chloride 125 ml @ 5 mls/hr TITRATE IV Last administered on 04/25/19 03:05; Admin Dose 5 MLS/HR; Start 04/24/19 at 19:30 Furosemide (Lasix) 20 mg DAILY IV Last administered on 04/29/19 09:11; Admin Dose 20 MG; Start 04/26/19 at 09:00 Amiodarone HCl (Cordarone) 200 mg BID PO Last administered on 04/29/19 09:10; Admin Dose 200 MG; Start 04/26/19 at 09:00 Insulin Aspart (Novolog Insulin Pen) NOVOLOG *MILD* ALGORITHM WITH MEALS BEDTIME SC Last administered on 04/29/19at 17:31; Admin Dose 2 UNIT; Start 04/26 at 11:50 Tramadol HCl (Ultram) 50 mg Q6H PRN PO MODERATE PAIN LEVEL 4-6 Last administered on 04/26/19at 16:56; Admin Dose 50 MG; Start 04/26/19 at 16:30 Bisacodyl (Dulcolax Supp) 10 mg DAILY PRN [place] CONSTIPATION; Start 04/28/19 at 11:00 Docusate Sodium (Colace) 100 mg BID PO Last administered on 04/29/19at 09:09; Admin Dose 100 MG; Start 04/28/19 at 15:00 Bicalutamide (Casodex) 50 mg DAILY PO Last administered on 04/29/19at 09:17; Admin Dose 50 MG; Start 04/28/19 at 16:00 Patient Own Medication 1 ea DAILY PRN PO CONSTIPATION; Start 04/28/19 at 16:00 Insulin Aspart (Novolog Insulin Pen) 12 unit WITH MEALS SC Last administered on 04/29/19 17:31; Admin Dose 12 UNIT; Start 04/29/19 at 11:50 Insulin Glargine (Lantus) 38 units QAM SC ; Start 04/30/19 at 09:00 Assessment/Plan Hospital Course (Demo Recall) 88-year-old man has a history of prostate cancer on Lupron Depot injections. He is also known to have a history of CHF with EF of 25%, and multiple other med ical problems. He presented to the emergency room with a history of gross hematuria for 2 weeks and increasing shortness of breath and dyspnea on exertion. He also has had a few days of orthopnea. He denies fevers or chills, no chest pain, no vomiting or diarrhea, no blood per rectum or melena. Patient denies weight loss. The patient did receive his Lupron injection at his urologist in [place] about 2 weeks earlier. At the time of his admission he was having gross hematuria on and off. That did clear however he has gross hematuria again today and he passed a blood clot. He underwent renal ultrasound that showed bilateral hydronephrosis and a very large prostate protruding into the bladder base and that may be the reason for his hydronephrosis. The prostate cancer in the bladder may be obstructing his ureters. PSA is 642. He was a started on bicalutamide and may end up needing a TURP to unblock his ureters. I did discuss all of the above with him and his family who were at his bedside. SPARKLE BARBER MD Apr 29, 2019 18:23
[2019-04-29] MEDS: CEFTRIAXONE 1 GM/50 ML (PMX) 50 ML IVPB SCH (18:37)
[2019-04-29] MEDS: TAMSULOSIN (SR) 0.4 MG CAP PO SCH (20:11)
[2019-04-30] VITALS (11 sets, daily range): BP systolic 111–139; BP diastolic 53–64; PULSE 77–87; RESP 18–20
[2019-04-30] MEDS: PANTOPRAZOLE (EC) 40 MG TAB PO SCH (05:44)
[2019-04-30] MEDS: BUMETANIDE 1 MG TAB PO SCH (08:27)
[2019-04-30] MEDS: FERROUS SULFATE (EC) 325 MG TAB PO SCH ×2 (08:28→21:09)
[2019-04-30] MEDS: AMIODARONE 200 MG TAB PO SCH ×2 (08:28→21:10)
[2019-04-30] MEDS: DOCUSATE SODIUM 100 MG CAP PO SCH ×2 (09:00→21:09)
[2019-04-30] MEDS: BICALUTAMIDE 50 MG TAB PO SCH (09:30)
[2019-04-30] MEDS: INSULIN GLARGINE [LANTus] (100 UNITS/ML) SYG SC SCH (09:30)
[2019-04-30] MEDS: INSULIN ASPART [NOVOLOG] 3 ML PEN SC SCH ×7 (09:30→21:16)
--- NOTE | 2019-04-30 11:35 | PN ---
Date/Time of Note Date/Time of Note DATE: 04/30/19 TIME: 11:35 Objective Vitals Vital Signs Date Temp Pulse Resp B/P (MAP) Pulse Ox O2 O2 Flow FiO2 Time Delivery Rate 04/30/19 81 08:01 04/30/19 97.4 18 118/59 98 Room Air 07:54 (78) 04/29/19 21 20:12 Intake and Output 04/29/19 04/29/19 04/30/19 1515:00 23:00 07:00 IntakeIntake Total 1000 ml 800 ml OutputOutput Total 1600 ml BalanceBalance 1000 ml -800 ml Results Result Diagram: 04/30/1961804/30/19618 Medications Medications Current Medications Carvedilol (Coreg) 3.125 mg BID PO Last administered on 04/30/19 08:29; Admin Dose 3.125 MG; Start 04/23/19 at 21:00 Ferrous Sulfate (Ferrous Sulfate (Ec)) 325 mg BID PO Last administered on 08:28; Admin Dose 325 MG; Start 04/23/19 at 21:00 Pantoprazole (Protonix Tab) 40 mg DAILY@0600 PO Last administered on 04/30/19 05:44; Admin Dose 40 MG; Start 04/24/19 at 06:00 Tamsulosin HCl (Flomax) 0.4 mg HS PO Last administered on 04/27/19 21:04; Admin Dose 0.4 MG; Start 04/23/19 at 21:00 IV Flush (NS 3 ml) 3 ml PER PROTOCOL IV ; Start 04/23/19 at 19:00 Ondansetron HCl (Zofran Inj) 4 mg Q6H PRN IV NAUSEA/VOMITING Last administered on 04/27/19 08:46; Admin Dose 4 MG; Start 04/23/19 at 19:00 Nitroglycerin (Nitroglycerin (Sl Tab) 0.4 Mg) 1 tab Q5M PRN SL .CHEST PAIN; Start 04/23/19 at 19:00 Acetaminophen (Tylenol Tab) 650 mg Q6H PRN PO .PAIN 1-3 OR TEMP Last administered on 04/26/19 13:42; Admin Dose 650 MG; Start 04/23/19 at 19:00 Docusate Sodium (Colace) 100 mg Q12H PRN PO .CONSTIPATION Last administered on 04/27/19 18:07; Admin Dose 100 MG; Start 04/23/19 at 19:00 Magnesium Hydroxide (Milk Of Mag) 30 ml DAILY PRN PO .CONSTIPATION Last administered on 04/27/19 18:07; Admin Dose 30 ML; Start 04/23/19 at 19:00 Miscellaneous Information 1 ea NOTE XX ; Start 04/23/19 at 19:30 Glucose (Glutose) 15 gm Q15M PRN PO DECREASED GLUCOSE; Start 04/23/19 at 19:30 Glucose (Glutose) 22.5 gm Q15M PRN PO DECREASED GLUCOSE; Start 04/23/19 at 19:30 Dextrose (D50w Syringe) 25 ml Q15M PRN IV DECREASED GLUCOSE; Start 04/23/19 at 19:30 Dextrose (D50w Syringe) 50 ml Q15M PRN IV DECREASED GLUCOSE; Start 04/23/19 at 19:30 Glucagon (Glucagen) 1 mg Q15M PRN IM DECREASED GLUCOSE; Start 04/23/19 at 19:30 Glucose (Glutose) 15 gm Q15M PRN BUCCAL DECREASED GLUCOSE; Start 04/23/19 at 19:30 Ceftriaxone Sodium 50 ml @ 100 mls/hr Q24H IVPB Last administered on 04/29/19 18:37; Admin Dose 100 MLS/HR; Start 04/24/19 at 19:00 Diltiazem HCl 125 mg/Sodium Chloride 125 ml @ 5 mls/hr TITRATE IV Last administered on 04/25/19at 03:05; Admin Dose 5 MLS/HR; Start 04/24/19 at 19:30 Amiodarone HCl (Cordarone) 200 mg BID PO Last administered on 04/30/19 08:28; Admin Dose 200 MG; Start 04/26/19 at 09:00 Insulin Aspart (Novolog Insulin Pen) NOVOLOG *MILD* ALGORITHM WITH MEALS BEDTIME SC Last administered on 04/30/19 09:30; Admin Dose 4 UNIT; Start 04/26/19 at 11:50 Tramadol HCl (Ultram) 50 mg Q6H PRN PO MODERATE PAIN LEVEL 4-6 Last administered on 04/26/19at 16:56; Admin Dose 50 MG; Start 04/26/19 at 16:30 Bisacodyl (Dulcolax Supp) 10 mg DAILY PRN [place] CONSTIPATION; Start 04/28/19 at 11:00 Docusate Sodium (Colace) 100 mg BID PO Last administered on 04/29/19 09:09; Admin Dose 100 MG; Start 04/28/19 at 15:00 Bicalutamide (Casodex) 50 mg DAILY PO Last administered on 04/30/19 09:30; Admin Dose 50 MG; Start 04/28/19 at 16:00 Patient Own Medication 1 ea DAILY PRN PO CONSTIPATION; Start 04/28/19 at 16:00 Insulin Aspart (Novolog Insulin Pen) 12 unit WITH MEALS SC Last administered on 04/30/19 09:30; Admin Dose 12 UNIT; Start 04/29/19 at 11:50 Insulin Glargine (Lantus) 38 units QAM SC Last administered on 04/30/19 09:30; Admin Dose 38 UNITS; Start 04/30/19 at 09:00 Bumetanide (Bumex) 1 mg DAILY PO Last administered on 04/30/19 08:27; Admin Dose 1 MG; Start 04/30/19 at 09:00 VTE Prophylaxis Risk score (from Ns)>0 risk: 6 SCD applied (from [facility] [place] No SCD contraindication: other Lines/Catheters IV Catheter Type: Martins in Place: No Assessment/Plan Hospital Course Subjective Patient had a reoccurrence of hematuria overnight Objective Physical exam General: Patient is laying in bed and answers questions appropriately Mentation: Patient is alert and oriented 4, Head: Normocephalic atraumatic Eyes: EOMI, pupils reactive to light Neck: Supple, nontender, midline Respiratory: Clear to auscultation bilaterally Cardiovascular: regular rate, no obvious murmurs Gastrointestinal: non-tender to palpation, bowel sounds heard. Neurological: Moves all extremities spontaneously Skin: No new skin lesions Assessment/Plan 1. 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 May need TURP to help relieve pressure and improve renal function 2. Hematuria- on and off - Urology consultation appreciated. - Hgb levels still keep fluctuating - antiplatelets on hold 3. Acute on chronic systolic heart failure - Cardiology on board and appreciate recommendations - nephrology assisting with diuretics in setting of CKD 4. Dilated cardiomyopathy - Recent ejection fraction of 25 to 30% 5. Iron deficiency anemia, acute on chronic - blood loss as well as renal function most likely contributing to anemia - no need for transfusions at this time 6. CASEY on CKD - Nephrology on board and appreciate recommendations. #1 most likely contributing to renal impairment. 7. HTN - Continue home medications 8. DM - A1c noted - Lantus on board - sugars controlled - ISS and accuchecks 9. Constipation- resolved 10. Disposition -need further urology recommendations. patient had recurrence of hematuria today. CANDY RONQUILLO Apr 30, 2019 11:35
--- NOTE | 2019-04-30 13:25 | PN ---
DATE: 04/30/2019 SUBJECTIVE: The patient is stable, continues to have hematuria. No other events noted. OBJECTIVE: VITAL SIGNS: Blood pressure is 116/56, respiratory rate 20, pulse 87, temperature 98.4. HEENT: Head is normocephalic. NECK: Supple. HEART: Regular rate. LUNGS: Show diminished breath sounds at the base. ABDOMEN: Soft, nontender to palpation without rebound or guarding. EXTREMITIES: Negative for clubbing, cyanosis. No edema. DERMATOLOGIC: No rashes. MUSCULOSKELETAL: No joint effusions. NEUROLOGIC: No change in exam. MEDICATIONS: Have been reviewed. LABORATORY DATA: Have been reviewed. ASSESSMENT AND PLAN: 1. Nonoliguric acute kidney injury on top of chronic kidney disease stage IV with previous baseline creatinine of 1.5 to 2.0 mg/dL. Etiology of acute kidney injury is secondary to hemodynamics, cardio renal syndrome. The patient's renal function has been fluctuating but overall stable. At this point , continue current treatment plans, supportive care, renally dose all medications. 2. 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 Continue to monitor. Follow up with urology. 3. Anemia. Monitor hemoglobin and hematocrit levels. Give Epogen as needed. 4. Mineral bone disorder. Monitor calcium and phosphorus levels. 5. Acute on chronic systolic heart failure. The patient is clinically improving. Continue low-dose diuretic therapy. 6. Acute hypoxic respiratory failure secondary to congestive heart failure, improving. Continue med ical management. 7. Hematuria secondary to prostate cancer. Continue to monitor. 8. Metastatic prostate cancer. Continue Lupron per urology. 9. Hypertension. Continue current blood pressure regimen. 10. Diabetes. Continue current insulin regimen. 11. Urinary tract infection. Continue current antibiotic regimen. 12. Paroxysmal atrial fibrillation. Continue medical management. 13. Gastrointestinal and deep vein thrombosis prophylaxis. Dictated By: MARTÍN COSME DO NR/NTS Conf#: [id number] DID#: [id number] CC: JOANA SO MD; CANDY RONQUILLO MD; SPARKLE BARBER MD;*EndCC*
[2019-04-30] MEDS: CEFTRIAXONE 1 GM/50 ML (PMX) 50 ML IVPB SCH (18:18)
[2019-04-30] MEDS: TAMSULOSIN (SR) 0.4 MG CAP PO SCH (21:09)
--- NOTE | 2019-04-30 21:37 | CONS ---
Consult Date/Type/Reason Admit Date/Time April 23, 2019 at 19:06 Initial Consult Date 04/25/19 Type of Consultation: Urology Reason for Consultation Gross hematuria Requesting Provider: JOANA SO MD Date/Time of Note DATE: 04/30/19 TIME: 21:31 Subjective The patient is very comfortable and he is asking that we let him go home. He de nies any dysuria but he still have hematuria. The color of the urine is dark indicating old blood. Objective Vitals Vital Signs Date Temp Pulse Resp B/P (MAP) Pulse Ox O2 O2 Flow FiO2 Time Delivery Rate 04/30/19 21 20:46 04/30/19 98.4 20 139/64 97 20:12 (89) 04/30/19 83 20:00 04/30/19 Room Air 15:06 Intake and Output 04/29/19 04/29/19 04/30/19 1515:00 23:00 07:00 IntakeIntake Total 1000 ml 800 ml OutputOutput Total 1600 ml BalanceBalance 1000 ml -800 ml Exam The urine remains bloody with old blood. He is anemic Results/Medications Result Diagram: 04/30/1961804/30/19618 Results 24 hrs Laboratory Tests Test 04/30/19 01:39 04/30/19 06:19 04/30/19 08:07 04/30/19 11:49 Bedside Glucose 158 285 H 65 L White Blood Count 7.3 Red Blood Count 3.06 L Hemoglobin 7.5 L Hematocrit 24.8 L Mean Corpuscular Volume 81.0 L Mean Corpuscular 24.5 L Hemoglobin Mean Corpuscular 30.2 L Hemoglobin Concent Red Cell Distribution 15.3 H Width Platelet Count 338 Mean Platelet Volume 10.2 Immature Granulocytes % 0.500 H Neutrophils % 60.3 Lymphocytes % 26.2 Monocytes % 10.0 Eosinophils % 2.5 Basophils % 0.5 Nucleated Red Blood 0.0 Cells % Immature Granulocytes # 0.040 H Neutrophils # 4.4 Lymphocytes # 1.9 Monocytes # 0.7 Eosinophils # 0.2 Basophils # 0.0 Nucleated Red Blood 0.0 Cells # Sodium Level 139 Potassium Level 4.4 Chloride Level 105 Carbon Dioxide Level 27 Anion Gap 7 Blood Urea Nitrogen 36 H Creatinine 2.10 H Glucose Level 187 Calcium Level 8.3 L Phosphorus Level 4.2 Magnesium Level 2.1 Albumin 3.3 Test 04/30/19 12:07 04/30/19 12:28 04/30/19 17:26 04/30/19 21:08 Bedside Glucose 81 87 237 H 263 H Home Meds Active Scripts Pantoprazole* (Protonix*) 40 Mg Tablet.dr, 40 MG PO DAILY for 30 Days, TAB Prov:HUSSEIN SHUKLA MD 02/16/19 Ferrous Sulfate* (Ferrous Sulfate*) 325 Mg Tabec, 325 MG PO BID for 30 Days, TAB Prov:HUSSEIN SHUKLA MD 02/16/19 Spironolactone* (Aldactone*) 25 Mg Tablet, 25 MG PO DAILY for 30 Days, TAB Prov:HUSSEIN SHUKLA MD 02/16/19 Losartan Potassium* (Cozaar*) 25 Mg Tablet, 25 MG PO DAILY for 30 Days, TAB Prov:HUSSEIN SHUKLA MD 02/16/19 Carvedilol* (Carvedilol*) 6.25 Mg Tablet, 3.125 MG PO BID for 60 Days, TAB Prov:HUSSEIN SHUKLA MD 02/16/19 Reported Medications Linaclotide (LINZESS) 290 Mcg Capsule, 290 MCG PO DAILY, #30 CAP 04/28/19 Tamsulosin Hcl* (Tamsulosin Hcl*) 0.4 Mg Cap.er.24h, 0.4 MG PO HS, CAP 02/11/19 Insulin Lispro (Humalog Kwikpen U-100) 100 Unit/1 Ml Insuln.pen, 10 UNIT SQ AC E, EA 02/11/19 Insulin Glargine* (Lantus*) 100 Unit/Ml Soln, 15-20 UNIT SC QHS, #1 VIAL 02/11/19 Insulin Glargine* (Lantus*) 100 Unit/Ml Soln, 35 UNIT SC QAM, #1 VIAL 02/11/19 Medications Current Medications Carvedilol (Coreg) 3.125 mg BID PO Last administered on 04/30/19at 21:10; Admin Dose 3.125 MG; Start 04/23/19 at 21:00 Ferrous Sulfate (Ferrous Sulfate (Ec)) 325 mg BID PO Last administered on 04/30/19at 21:09; Admin Dose 325 MG; Start 04/23/19 at 21:00 Pantoprazole (Protonix Tab) 40 mg DAILY@0600 PO Last administered on 04/30/19 05:44; Admin Dose 40 MG; Start 04/24/19 at 06:00 Tamsulosin HCl (Flomax) 0.4 mg HS PO Last administered on 04/30/19 21:09; Admin Dose 0.4 MG; Start 04/23/19 at 21:00 IV Flush (NS 3 ml) 3 ml PER PROTOCOL IV ; Start 04/23/19 at 19:00 Ondansetron HCl (Zofran Inj) 4 mg Q6H PRN IV NAUSEA/VOMITING Last administered on 04/27/19 08:46; Admin Dose 4 MG; Start 04/23/19 at 19:00 Nitroglycerin (Nitroglycerin (Sl Tab) 0.4 Mg) 1 tab Q5M PRN SL .CHEST PAIN; Start 04/23/19 at 19:00 Acetaminophen (Tylenol Tab) 650 mg Q6H PRN PO .PAIN 1-3 OR TEMP Last administered on 04/26/19 13:42; Admin Dose 650 MG; Start 04/23/19 at 19:00 Docusate Sodium (Colace) 100 mg Q12H PRN PO .CONSTIPATION Last administered on 04/27/19 18:07; Admin Dose 100 MG; Start 04/23/19 at 19:00 Magnesium Hydroxide (Milk Of Mag) 30 ml DAILY PRN PO .CONSTIPATION Last adminis tered on 04/27/19 18:07; Admin Dose 30 ML; Start 04/23/19 at 19:00 Miscellaneous Information 1 ea NOTE XX ; Start 04/23/19 at 19:30 Glucose (Glutose) 15 gm Q15M PRN PO DECREASED GLUCOSE; Start 04/23/19 at 19:30 Glucose (Glutose) 22.5 gm Q15M PRN PO DECREASED GLUCOSE; Start 04/23/19 at 19:30 Dextrose (D50w Syringe) 25 ml Q15M PRN IV DECREASED GLUCOSE; Start 04/23/19 at 19:30 Dextrose (D50w Syringe) 50 ml Q15M PRN IV DECREASED GLUCOSE; Start 04/23/19 at 19:30 Glucagon (Glucagen) 1 mg Q15M PRN IM DECREASED GLUCOSE; Start 04/23/19 at 19:30 Glucose (Glutose) 15 gm Q15M PRN BUCCAL DECREASED GLUCOSE; Start 04/23/19 at 19:30 Ceftriaxone Sodium 50 ml @ 100 mls/hr Q24H IVPB Last administered on 04/30/19 18:18; Admin Dose 100 MLS/HR; Start 04/24/19 at 19:00 Diltiazem HCl 125 mg/Sodium Chloride 125 ml @ 5 mls/hr TITRATE IV Last administered on 04/25/19 03:05; Admin Dose 5 MLS/HR; Start 04/24/19 at 19:30 Amiodarone HCl (Cordarone) 200 mg BID PO Last administered on 04/30/19 21:10; Admin Dose 200 MG; Start 04/26/19 at 09:00 Insulin Aspart (Novolog Insulin Pen) NOVOLOG *MILD* ALGORITHM WITH MEALS BEDTIME SC Last administered on 04/30/19 21:16; Admin Dose 3 UNIT; Start 04/26/19 at 11:50 Tramadol HCl (Ultram) 50 mg Q6H PRN PO MODERATE PAIN LEVEL 4-6 Last administered on 04/26/19 16:56; Admin Dose 50 MG; Start 04/26/19 at 16:30 Bisacodyl (Dulcolax Supp) 10 mg DAILY PRN [place] CONSTIPATION; Start 04/28/19 at 11:00 Docusate Sodium (Colace) 100 mg BID PO Last administered on 04/30/19 21:09; Admin Dose 100 MG; Start 04/28/19 at 15:00 Bicalutamide (Casodex) 50 mg DAILY PO Last administered on 04/30/19 09:30; Admin Dose 50 MG; Start 04/28/19 at 16:00 Patient Own Medication 1 ea DAILY PRN PO CONSTIPATION; Start 04/28/19 at 16:00 Insulin Aspart (Novolog Insulin Pen) 12 unit WITH MEALS SC Last administered on 04/30/19 18:02; Admin Dose 12 UNIT; Start 04/29/19 at 11:50 Insulin Glargine (Lantus) 38 units QAM SC Last administered on 04/30/19 09:30; Admin Dose 38 UNITS; Start 04/30/19 at 09:00 Bumetanide (Bumex) 1 mg DAILY PO Last administered on 04/30/19 08:27; Admin Dose 1 MG; Start 04/30/19 at 09:00 Assessment/Plan Hospital Course (Demo Recall) 88-year-old man has a history of prostate cancer on Lupron Depot injections. He is also known to have a history of CHF with EF of 25%, and multiple other medical problems. He presented to the emergency room with a history of gross hematuria for 2 weeks and increasing shortness of breath and dyspnea on exertion. He also has had a few days of orthopnea. He denies fevers or chills, no chest pain, no vomiting or diarrhea, no blood per rectum or melena. Patient denies weight loss. The patient did receive his Lupron injection at his urologist in [place] about 2 weeks earlier. At the time of his admission he was having gross hematuria on and off. That did clear however he has gross hematuria again . He underwent renal ultrasound that showed bilateral hydronephrosis and a very large prostate protruding into the bladder base and that may be the reason for his hydronephrosis. The prostate cancer in the bladder may be obstructing his ureters. PSA is 642. He was a started on bicalutamide and may end up needing a TURP to unblock his ureters. The patient is anxious to go home and he is comfortable. I did discuss with his son who was at his bedside the different options. If one was to operate on him with his heart condition and ejection fraction of 25% he may not make it through the procedure. And the procedure is not a guarantee that he will not bleed again because of his cancer and if we operate and do a TURP may have to do a JJ stent to drain the kidney. All of that makes it too complicated to operate in his situation. Therefore I recommend that he be discharged and if he needs a transfusion before he leaves and then he will follow-up with his primary care doctor and his own urologist and should he have a problem that needs to go back to the hospital he could come back here or go to any hospital closer to him. The son and the patient are agreeable for this plan. SPARKLE BARBER MD Apr 30, 2019 21:37
[2019-05-01] VITALS (12 sets, daily range): BP systolic 116–139; BP diastolic 56–68; PULSE 71–91; RESP 18–20
[2019-05-01] MEDS: PANTOPRAZOLE (EC) 40 MG TAB PO SCH (06:02)
[2019-05-01] MEDS: INSULIN ASPART [NOVOLOG] 3 ML PEN SC SCH ×7 (07:55→21:00)
--- NOTE | 2019-05-01 08:22 | CONS ---
Consult Date/Type/Reason Admit Date/Time April 23, 2019 at 19:06 Initial Consult Date 04/24/19 Type of Consultation: cv Requesting Provider: JOANA SO MD Date/Time of Note DATE: 05/01/19 TIME: 08:21 Subjective Interventional cardiology consultation Subjective: Case discussed with the staff telemetry was reviewed patient has remained in NSR Patient with no chest pain or pressure he has NO shortness of breath and dyspnea No PND orthopnea no bleeding now no n/v he wants to go home Objective: General: no acute distress HEENT: NC/AT. pupils are equal. round. NECK: NO JVD. no stridor. CV:RRR. systolic murmur; no gallop or rubs. PULM: no wheezing or rhonchi. GI: SOFT, NT, ND, no rebound or guarding Extremity: 1+ B/L LE edema. no clubbing. neuro: awake and alert, OX3. Psych: calm and pleasant rectal: deferred Echocardiogram done on February 11, 2019 shows: Normal left ventricular cavity size. Severe global left ventricular systolic dysfunction. Ejection fraction is visually estimated at 25-30 %. Tissue Doppler/Mitral Doppler indices are consistent with pseudonormalization with mildly elevated left atrial pressure (Stage II diastolic dysfunction). Objective Vitals Vital Signs Date Temp Pulse Resp B/P (MAP) Pulse Ox O2 O2 Flow FiO2 Time Delivery Rate 05/01/19 79 08:05 05/01/19 97.9 18 116/56 97 07:10 (76) 04/30/19 21 20:46 04/30/19 Room Air 15:06 Intake and Output 04/30/19 04/30/19 05/01/19 1515:00 23:00 07:00 IntakeIntake Total 500 ml 560 ml OutputOutput Total 500 ml 500 ml BalanceBalance 0 ml 60 ml Results/Medications Result Diagram: 04/30/1961804/30/19618 Results 24 hrs Laboratory Tests Test 04/30/19 11:49 04/30/19 12:07 04/30/19 12:28 04/30/19 17:26 Bedside Glucose 65 L 81 87 237 H Test 04/30/19 21:08 05/01/19 02:02 Bedside Glucose 263 H 267 H Home Meds Active Scripts Pantoprazole* (Protonix*) 40 Mg Tablet., 40 MG PO DAILY for 30 Days, TAB Prov:HUSSEIN SHUKLA MD 02/16/19 Ferrous Sulfate* (Ferrous Sulfate*) 325 Mg Tabec, 325 MG PO BID for 30 Days, TAB Prov:HUSSEIN SHUKLA MD 02/16/19 Spironolactone* (Aldactone*) 25 Mg Tablet, 25 MG PO DAILY for 30 Days, TAB Prov:HUSSEIN SHUKLA MD 02/16/19 Losartan Potassium* (Cozaar*) 25 Mg Tablet, 25 MG PO DAILY for 30 Days, TAB Prov:HUSSEIN SHUKLA MD 02/16/19 Carvedilol* (Carvedilol*) 6.25 Mg Tablet, 3.125 MG PO BID for 60 Days, TAB Prov:HUSSEIN SHUKLA MD 02/16/19 Reported Medications Linaclotide (LINZESS) 290 Mcg Capsule, 290 MCG PO DAILY, #30 CAP 04/28/19 Tamsulosin Hcl* (Tamsulosin Hcl*) 0.4 Mg Cap.er.24h, 0.4 MG PO HS, CAP 02/11/19 Insulin Lispro (Humalog Kwikpen U-100) 100 Unit/1 Ml Insuln.pen, 10 UNIT SQ AC E, EA 02/11/19 Insulin Glargine* (Lantus*) 100 Unit/Ml Soln, 15-20 UNIT SC QHS, #1 VIAL 02/11/19 Insulin Glargine* (Lantus*) 100 Unit/Ml Soln, 35 UNIT SC QAM, #1 VIAL 02/11/19 Medications Current Medications Carvedilol (Coreg) 3.125 mg BID PO Last administered on 04/30/19at 21:10; Admin Dose 3.125 MG; Start 04/23/19 at 21:00 Ferrous Sulfate (Ferrous Sulfate (Ec)) 325 mg BID PO Last administered on 04/30/19at 21:09; Admin Dose 325 MG; Start 04/23/19 at 21:00 Pantoprazole (Protonix Tab) 40 mg DAILY@0600 PO Last administered on 05/01/19at 06:02; Admin Dose 40 MG; Start 04/24/19 at 06:00 Tamsulosin HCl (Flomax) 0.4 mg HS PO Last administered on 04/30/19at 21:09; Admin Dose 0.4 MG; Start 04/23/19 at 21:00 IV Flush (NS 3 ml) 3 ml PER PROTOCOL IV ; Start 04/23/19 at 19:00 Ondansetron HCl (Zofran Inj) 4 mg Q6H PRN IV NAUSEA/VOMITING Last administered on 04/27/19 08:46; Admin Dose 4 MG; Start 04/23/19 at 19:00 Nitroglycerin (Nitroglycerin (Sl Tab) 0.4 Mg) 1 tab Q5M PRN SL .CHEST PAIN; Start 04/23/19 at 19:00 Acetaminophen (Tylenol Tab) 650 mg Q6H PRN PO .PAIN 1-3 OR TEMP Last administered on 04/26/19 13:42; Admin Dose 650 MG; Start 04/23/19 at 19:00 Docusate Sodium (Colace) 100 mg Q12H PRN PO .CONSTIPATION Last administered on 04/27/19 18:07; Admin Dose 100 MG; Start 04/23/19 at 19:00 Magnesium Hydroxide (Milk Of Mag) 30 ml DAILY PRN PO .CONSTIPATION Last administered on 04/27/19 18:07; Admin Dose 30 ML; Start 04/23/19 at 19:00 Miscellaneous Information 1 ea NOTE XX ; Start 04/23/19 at 19:30 Glucose (Glutose) 15 gm Q15M PRN PO DECREASED GLUCOSE; Start 04/23/19 at 19:30 Glucose (Glutose) 22.5 gm Q15M PRN PO DECREASED GLUCOSE; Start 04/23/19 at 19:30 Dextrose (D50w Syringe) 25 ml Q15M PRN IV DECREASED GLUCOSE; Start 04/23/19 at 19:30 Dextrose (D50w Syringe) 50 ml Q15M PRN IV DECREASED GLUCOSE; Start 04/23/19 at 19:30 Glucagon (Glucagen) 1 mg Q15M PRN IM DECREASED GLUCOSE; Start 04/23/19 at 19:30 Glucose (Glutose) 15 gm Q15M PRN BUCCAL DECREASED GLUCOSE; Start 04/23/19 at 19:30 Ceftriaxone Sodium 50 ml @ 100 mls/hr Q24H IVPB Last administered on 04/30/19 18:18; Admin Dose 100 MLS/HR; Start 04/24/19 at 19:00 Diltiazem HCl 125 mg/Sodium Chloride 125 ml @ 5 mls/hr TITRATE IV Last administered on 04/25/19 03:05; Admin Dose 5 MLS/HR; Start 04/24/19 at 19:30 Amiodarone HCl (Cordarone) 200 mg BID PO Last administered on 04/30/19 21:10; Admin Dose 200 MG; Start 04/26/19 at 09:00 Insulin Aspart (Novolog Insulin Pen) NOVOLOG *MILD* ALGORITHM WITH MEALS BEDTIME SC Last administered on 04/30/19 21:16; Admin Dose 3 UNIT; Start 04/26/19 at 11:50 Tramadol HCl (Ultram) 50 mg Q6H PRN PO MODERATE PAIN LEVEL 4-6 Last administered on 04/26/19 16:56; Admin Dose 50 MG; Start 04/26/19 at 16:30 Bisacodyl (Dulcolax Supp) 10 mg DAILY PRN [place] CONSTIPATION; Start 04/28/19 at 11:00 Docusate Sodium (Colace) 100 mg BID PO Last administered on 04/30/19 21:09; Admin Dose 100 MG; Start 04/28/19 at 15:00 Bicalutamide (Casodex) 50 mg DAILY PO Last administered on 04/30/19 09:30; Admin Dose 50 MG; Start 04/28/19 at 16:00 Patient Own Medication 1 ea DAILY PRN PO CONSTIPATION; Start 04/28/19 at 16:00 Insulin Aspart (Novolog Insulin Pen) 12 unit WITH MEALS SC Last administered on 04/30/19 18:02; Admin Dose 12 UNIT; Start 04/29/19 at 11:50 Insulin Glargine (Lantus) 38 units QAM SC Last administered on 04/30/19 09:30; Admin Dose 38 UNITS; Start 04/30/19 at 09:00 Bumetanide (Bumex) 1 mg DAILY PO Last administered on 04/30/19 08:27; Admin Dose 1 MG; Start 04/30/19 at 09:00 Assessment/Plan Hospital Course (Demo Recall) 1. 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 Hematuria 3. Hypertension 4. Chronic kidney disease 5. History of prostate cancer and BPH 6. Anemia 7. Diabetes 8. Paroxysmal atrial fibrillation rapid ventricular response: Converted back to NSR on amiodarone now Recommendations: Unfortunately unable to give aspirin and Plavix or full anticoagulation at this point given his recurrent hematuria Diuretic as per renal given his renal insufficiency. Currently appears to be euvolemic Continue with Coreg as tolerated Off of ARB or DAR inhibitor due to his renal insufficiency Antibiotic as per internal medicine recommendation cont amiodarone po to try to keep him in sinus rhythm. Correct electrolytes to keep magnesium more than 2.0 and potassium more than 4.0 dc planning as per IM Thank you for his referral. PARTH MERCER MD [facility] PARTH MERCER MD May 01, 2019 08:22
[2019-05-01] MEDS: DOCUSATE SODIUM 100 MG CAP PO SCH ×2 (09:00→21:20)
--- NOTE | 2019-05-01 09:14 | PN ---
DATE: 05/01/2019 SUBJECTIVE: The patient is stable, continues to have episodes of hematuria. No other events noted. OBJECTIVE: VITAL SIGNS: Blood pressure is 116/56, pulse 73, respirations 18, temperature 97.9. HEENT: Head is normocephalic. NECK: Supple. HEART: Regular rate. LUNGS: Show diminished breath sounds at the base. ABDOMEN: Soft, nontender to palpation without rebound or guarding. EXTREMITIES: Negative for clubbing, cyanosis, no edema. DERMATOLOGIC: No rashes. MUSCULOSKELETAL: No joint effusion. NEUROLOGIC: No change in exam. MEDICATIONS: Reviewed. LABORATORY DATA: Reviewed. ASSESSMENT AND PLAN: 1. Nonoliguric acute kidney injury on top of chronic kidney disease stage IV with previous baseline creatinine of 1.5 to 2.0 mg/dL. Etiology of acute kidney injury is secondary to hemodynamics. Renal function appears to be stabilizing. Continue current treatment plan, supportive care, renally dose all medications. 2. 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 Continue to monitor. Follow up with urology. 3. Anemia. Continue to monitor hemoglobin and hematocrit levels. 4. Mineral bone disorder, monitor calcium and phosphorus levels. 5. Acute on chronic heart failure. The patient appears euvolemic. Continue diuretic regimen. 6. Acute hypoxemic respiratory failure, improved. Continue to monitor. 7. Hematuria secondary to prostate cancer. Continue to monitor. 8. Hypertension. Continue current blood pressure regimen. 9. Diabetes. Continue current insulin regimen. 10. Urinary tract infection. Continue current antibiotic regimen. 11. Paroxysmal atrial fibrillation. Continue medical management. 12. Gastrointestinal and deep vein thrombosis prophylaxis. Dictated By: MARTÍN COSME DO NR/NTS Conf#: [id number] DID#: [id number] CC: CANDY RONQUILLO MD; JOANA SO MD; SPARKLE BARBER MD;*EndCC*
[2019-05-01] MEDS: FERROUS SULFATE (EC) 325 MG TAB PO SCH ×2 (09:44→21:19)
[2019-05-01] MEDS: BUMETANIDE 1 MG TAB PO SCH (09:44)
[2019-05-01] MEDS: AMIODARONE 200 MG TAB PO SCH ×2 (09:44→21:20)
--- NOTE | 2019-05-01 09:49 | PN ---
DATE: 04/30/2019 CARDIOLOGY FOLLOW UP PROGRESS NOTE SUBJECTIVE: Discussed with the staff on telemetry was reviewed. The patient has remained in sinus r hythm with no murmurs of atrial fibrillation over the weekend. No chest pain or pressure, palpitatio n. At this point, he denies PND, orthopnea to me. Stated that his breathing better. He has had wade e hematuria apparently. OBJECTIVE: VITAL SIGNS: Temperature 97.3, heart of 77, blood pressure 114/59, respiratory rate of 18, satting 9 9% on room air. HEENT: Normocephalic, atraumatic, no acute distress. Pupils equal, round. CARDIOVASCULAR: Regular rate and rhythm, systolic murmur. PULMONARY: Anteriorly with mild rhonchi at the bases, but no wheezes. GASTROINTESTINAL: Soft, nontender. No rebound or guarding. EXTREMITIES: With mild lower extremity edema. NEUROLOGIC: Awake, alert x3. PSYCHIATRIC: Appears to be calm and pleasant. LABORATORY: Sodium 139, potassium 4.4, BUN of 36, creatinine of 2.1, glucose 187. Mag is 2.1, album in 3.3. ASSESSMENT AND PLAN: 1. Paroxysmal atrial fibrillation, currently back in sinus rhythm. 2. Severe cardiomyopathy. 3. Recurrent hematuria. 4. History of prostate cancer as well as benign prostatic hypertrophy. 5. Hypertension. 6. Anemia. 7. Renal insufficiency. 8. Diabetes. RECOMMENDATIONS: 1. Unfortunately, I have not been able to give the patient aspirin and Plavix for full anticoagulati on due to recurrent hematuria and anemia. 2. Diuretic will be deferred to renal recommendations given his renal insufficiency. 3. Continue with the Coreg. Amiodarone will be continued p.o. as well. Antibiotic managed as per i nternal medicine. Follow up with urology recommendations. Correct the electrolyte as needed to keep the potassium more than 4 and magnesium more than 2.0. Dictated By: PARTH GALINDO/CATHI Conf#: [id number] DID#: [id number]
[2019-05-01] MEDS: BICALUTAMIDE 50 MG TAB PO SCH (10:28)
[2019-05-01] MEDS: INSULIN GLARGINE [LANTus] (100 UNITS/ML) SYG SC SCH (10:29)
[2019-05-01] MEDS ORDERED: SOD CHLORIDE 0.9% 250 ML IV* ONE (12:39)
--- NOTE | 2019-05-01 14:00 | PN ---
Date/Time of Note Date/Time of Note DATE: 05/01/19 TIME: 13:56 Objective Vitals Vital Signs Date Temp Pulse Resp B/P (MAP) Pulse Ox O2 O2 Flow FiO2 Time Delivery Rate 05/01/19 79 12:41 05/01/19 98.3 18 119/57 98 11:03 (77) 04/30/19 21 20:46 04/30/19 Room Air 15:06 Intake and Output 04/30/19 04/30/19 05/01/19 1515:00 23:00 07:00 IntakeIntake Total 500 ml 560 ml OutputOutput Total 500 ml 500 ml BalanceBalance 0 ml 60 ml Results Result Diagram: 04/30/1961804/30/19618 Medications Medications Current Medications Carvedilol (Coreg) 3.125 mg BID PO Last administered on 04/30/19 21:10; Admin Dose 3.125 MG; Start 04/23/19 at 21:00 Ferrous Sulfate (Ferrous Sulfate (Ec)) 325 mg BID PO Last administered on 05/01/19 09:44; Admin Dose 325 MG; Start 04/23/19 at 21:00 Pantoprazole (Protonix Tab) 40 mg DAILY@0600 PO Last administered on 05/01/19 06:02; Admin Dose 40 MG; Start 04/24/19 at 06:00 Tamsulosin HCl (Flomax) 0.4 mg HS PO Last administered on 04/30/19 21:09; Admin Dose 0.4 MG; Start 04/23/19 at 21:00 IV Flush (NS 3 ml) 3 ml PER PROTOCOL IV ; Start 04/23/19 at 19:00 Ondansetron HCl (Zofran Inj) 4 mg Q6H PRN IV NAUSEA/VOMITING Last administered on 04/27/19 08:46; Admin Dose 4 MG; Start 04/23/19 at 19:00 Nitroglycerin (Nitroglycerin (Sl Tab) 0.4 Mg) 1 tab Q5M PRN SL .CHEST PAIN; Start 04/23/19 at 19:00 Acetaminophen (Tylenol Tab) 650 mg Q6H PRN PO .PAIN 1-3 OR TEMP Last administered on 04/26/19 13:42; Admin Dose 650 MG; Start 04/23/19 at 19:00 Docusate Sodium (Colace) 100 mg Q12H PRN PO .CONSTIPATION Last administered on 04/27/19 18:07; Admin Dose 100 MG; Start 04/23/19 at 19:00 Magnesium Hydroxide (Milk Of Mag) 30 ml DAILY PRN PO .CONSTIPATION Last adminis tered on 04/27/19 18:07; Admin Dose 30 ML; Start 04/23/19 at 19:00 Miscellaneous Information 1 ea NOTE XX ; Start 04/23/19 at 19:30 Glucose (Glutose) 15 gm Q15M PRN PO DECREASED GLUCOSE; Start 04/23/19 at 19:30 Glucose (Glutose) 22.5 gm Q15M PRN PO DECREASED GLUCOSE; Start 04/23/19 at 19:30 Dextrose (D50w Syringe) 25 ml Q15M PRN IV DECREASED GLUCOSE; Start 04/23/19 at 19:30 Dextrose (D50w Syringe) 50 ml Q15M PRN IV DECREASED GLUCOSE; Start 04/23/19 at 19:30 Glucagon (Glucagen) 1 mg Q15M PRN IM DECREASED GLUCOSE; Start 04/23/19 at 19:30 Glucose (Glutose) 15 gm Q15M PRN BUCCAL DECREASED GLUCOSE; Start 04/23/19 at 19:30 Ceftriaxone Sodium 50 ml @ 100 mls/hr Q24H IVPB Last administered on 04/30/19 18:18; Admin Dose 100 MLS/HR; Start 04/24/19 at 19:00 Diltiazem HCl 125 mg/Sodium Chloride 125 ml @ 5 mls/hr TITRATE IV Last administered on 04/25/19 03:05; Admin Dose 5 MLS/HR; Start 04/24/19 at 19:30 Amiodarone HCl (Cordarone) 200 mg BID PO Last administered on 05/01/19 09:44; Admin Dose 200 MG; Start 04/26/19 at 09:00 Insulin Aspart (Novolog Insulin Pen) NOVOLOG *MILD* ALGORITHM WITH MEALS BEDTIME SC Last administered on 04/30/19 21:16; Admin Dose 3 UNIT; Start 04/26/19 at 11:50 Tramadol HCl (Ultram) 50 mg Q6H PRN PO MODERATE PAIN LEVEL 4-6 Last administered on 04/26/19 16:56; Admin Dose 50 MG; Start 04/26/19 at 16:30 Bisacodyl (Dulcolax Supp) 10 mg DAILY PRN [place] CONSTIPATION; Start 04/28/19 at 11:00 Docusate Sodium (Colace) 100 mg BID PO Last administered on 04/30/19at 21:09; Admin Dose 100 MG; Start 04/28/19 at 15:00 Bicalutamide (Casodex) 50 mg DAILY PO Last administered on 05/01/19 10:28; Admin Dose 50 MG; Start 04/28/19 at 16:00 Patient Own Medication 1 ea DAILY PRN PO CONSTIPATION; Start 04/28/19 at 16:00 Insulin Aspart (Novolog Insulin Pen) 12 unit WITH MEALS SC Last administered on 04/30/19 18:02; Admin Dose 12 UNIT; Start 04/29/19 at 11:50 Insulin Glargine (Lantus) 38 units QAM SC Last administered on 05/01/19 10:29; Admin Dose 38 UNITS; Start 04/30/19 at 09:00 Bumetanide (Bumex) 1 mg DAILY PO Last administered on 05/01/19 09:44; Admin Dose 1 MG; Start 04/30/19 at 09:00 Ciprofloxacin (Cipro) 250 mg BID@06,18 PO ; Start 05/01/19 at 18:00 VTE Prophylaxis Risk score (from Nsg)>0 risk: 5 SCD applied (from Nsg): No SCD contraindication: other Lines/Catheters IV Catheter Type: Martins in Place: No Assessment/Plan Hospital Course Subjective No acute overnight events Objective Physical exam General: Patient is laying in bed and answers questions appropriately Mentation: Patient is alert and oriented 4, Head: Normocephalic atraumatic Eyes: EOMI, pupils reactive to light Neck: Supple, nontender, midline Respiratory: Clear to auscultation bilaterally Cardiovascular: regular rate, no obvious murmurs Gastrointestinal: non-tender to palpation, bowel sounds heard. Neurological: Moves all extremities spontaneously Skin: No new skin lesions Assessment/Plan 1. 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 Urology discussed at length with patient and patient's family and decided that patient is stable at the moment and patient is not currently stable enough to undergo surgical intervention. Patient and patient's family agree and will follow up with urology 2. Hematuria- on and off - Urology consultation appreciated. - Hgb levels still keep fluctuating - antiplatelets on hold -After speaking with urology, family understands that they will follow-up with patient's urologist, patient will likely have some form of chronic hematuria as he is not a good candidate for surgery at this time. -We will give patient additional unit of blood before being discharged Urinary tract infection -Patient's renal function and particular bacterial infection that grew on culture makes it difficult to choose an appropriate antibiotic, patient's creatinine clearance is very borderline for Cipro, other possibilities are mostly IV formulations, will get infectious disease input on antibiotic choice before discharge. 3. Acute on chronic systolic heart failure - Cardiology on board and appreciate recommendations - nephrology assisting with diuretics in setting of CKD 4. Dilated cardiomyopathy - Recent ejection fraction of 25 to 30% 5. Iron deficiency anemia, acute on chronic - blood loss as well as renal function most likely contributing to anemia - no need for transfusions at this time 6. CASEY on CKD - Nephrology on board and appreciate recommendations. #1 most likely con tributing to renal impairment. 7. HTN - Continue home medications 8. DM - A1c noted - Lantus on board - sugars controlled - ISS and accuchecks 9. Constipation- resolved 10. Disposition Awaiting infectious disease consultation, likely DC tomorrow.. CANDY RONQUILLO May 01, 2019 14:00
--- NOTE | 2019-05-01 17:17 | CONS ---
DATE OF ADMISSION: 04/23/2019 DATE OF CONSULTATION: 05/01/2019 TYPE OF CONSULTATION: Infectious Disease. REASON FOR CONSULTATION: Antibiotic management. HISTORY OF PRESENT ILLNESS: Vinicius Ribeiro is an 88-year-old [place] male with a history of invasive prostate CA and numerous other problems who comes in with gross hematuria, increasing sh ortness of breath and dyspnea on exertion. Past problems include: 1. Systolic congestive heart failure with left ventricular ejection fraction of 25%. 2. Prostate cancer with bladder invasion. 3. Hypertension. 4. Diabetes mellitus. 5. Anemia of chronic disease. 6. Acute renal failure. 7. Peripheral edema. 8. Status post TURP. 9. Pneumonia. 10. Hypertension. 11. Diabetes mellitus. Acutely, the patient comes in with shortness of breath, dyspnea on exertion, and orthopnea without fe james or chills. PAST MEDICAL HISTORY: As outlined. FAMILY HISTORY: Noncontributory. SOCIAL HISTORY: Does not smoke, drink or abuse drugs. ALLERGIES: NONE TO PENICILLIN, SULFA OR FOODS. MEDICATIONS: Per chart. REVIEW OF SYSTEMS: On admission, his white count is 12.4, H and H of 8.5 and 27.6, platelet count 32 5,000 with 75% neutrophils. BUN and creatinine is 33/1.73, glucose of 308. The patient was started on Lasix for congestive heart failure. HOSPITAL COURSE: The patient with prostate cancer that extended into bladder with bilateral hydronep hrosis. Previous CT scan showed prostate cancer extending into the bladder. The patient was seen by Dr. Oleary for chronic renal disease. His creatinine is 1.5 to 2, and currently is 1.9. The patie nt had gross hematuria. He has evidence of pyuria, hematuria, possible urinary tract infection. His urine grew out Achromobacter species and mixed gram-positive organisms. Patient was placed on Cipro and ceftriaxone. I do not have sensitivities on the Achromobacter. The patient was followed by Dr. Dale for cardiology, Dr. Avilez and Dr. Alarcon. On the 1st, the patient was comfortable, compla ining of constipation. White count was 8.7. Renal ultrasound showed bilateral hydronephrosis and a very large prostatic mass protruding into the bladder that could be causing the obstruction of his ur eters and hydronephrosis. The patient passed a clot on the 2nd. He is on ferrous sulfate for his ir on deficiency anemia. Currently, his white count is 7.3, H and H 7.5 and 24.8, platelet count 338,00 0 with BUN and creatinine of 36/2.1. Patient's creatinine clearance is borderline for Cipro. I mark felipa that we could use another UA and C and S to see what he is growing and make a determination. We will also check on the sensitivities of the Achromobacter if they have it in the microbiology lab. I will dictate my findings to the hospitalist and the aforementioned consultants. Dictated By: NAVIN GARRIDO MD, JD/CATHI Conf#: [id number] DID#: [id number]
[2019-05-01] MEDS: CIPROFLOXACIN 250 MG TAB PO SCH (18:08)
[2019-05-01] MEDS: CEFTRIAXONE 1 GM/50 ML (PMX) 50 ML IVPB SCH (18:11)
[2019-05-01] MEDS: TAMSULOSIN (SR) 0.4 MG CAP PO SCH (21:20)
[2019-05-02] VITALS (7 sets, daily range): BP systolic 114–147; BP diastolic 58–95; PULSE 73–83; RESP 18
[2019-05-02] MEDS: CIPROFLOXACIN 250 MG TAB PO SCH (06:28)
[2019-05-02] MEDS: PANTOPRAZOLE (EC) 40 MG TAB PO SCH (06:28)
[2019-05-02] MEDS: INSULIN ASPART [NOVOLOG] 3 ML PEN SC SCH ×4 (07:55→11:50)
[2019-05-02] MEDS: BUMETANIDE 1 MG TAB PO SCH (08:57)
[2019-05-02] MEDS: BICALUTAMIDE 50 MG TAB PO SCH (08:59)
[2019-05-02] MEDS: INSULIN GLARGINE [LANTus] (100 UNITS/ML) SYG SC SCH (09:00)
[2019-05-02] MEDS: DOCUSATE SODIUM 100 MG CAP PO SCH (09:01)
[2019-05-02] MEDS: AMIODARONE 200 MG TAB PO SCH (09:01)
[2019-05-02] MEDS: FERROUS SULFATE (EC) 325 MG TAB PO SCH (09:01)
--- NOTE | 2019-05-02 09:23 | CONS ---
Consult Date/Type/Reason Admit Date/Time April 23, 2019 at 19:06 Initial Consult Date 04/24/19 Type of Consultation: cv Requesting Provider: JOANA SO MD Date/Time of Note DATE: 05/02/19 TIME: 09:22 Subjective Interventional cardiology consultation Subjective: Case discussed with the staff telemetry was reviewed patient has remained in NSR Patient with no chest pain or pressure he denies shortness of breath and orthopnea No PND no bleeding now . denies hematuria now no n/v he wants to go home Objective: General: no acute distress HEENT: NC/AT. pupils are equal. round. NECK: NO JVD. no stridor. CV:RRR. systolic murmur; no gallop or rubs. PULM: no wheezing or rhonchi. GI: SOFT, NT, ND, no rebound or guarding Extremity: 1+ B/L LE edema. no clubbing. neuro: awake and alert, OX3. Psych: calm and pleasant rectal: deferred Echocardiogram done on February 11, 2019 shows: Normal left ventricular cavity size. Severe global left ventricular systolic dysfunction. Ejection fraction is visually estimated at 25-30 %. Tissue Doppler/Mitral Doppler indices are consistent with pseudonormalization with mildly elevated left atrial pressure (Stage II diastolic dysfunction). Objective Vitals Vital Signs Date Temp Pulse Resp B/P (MAP) Pulse Ox O2 O2 Flow FiO2 Time Delivery Rate 05/02/19 75 08:12 05/02/19 97.9 18 122/58 98 Room Air 07:21 (79) 04/30/19 21 20:46 Intake and Output 05/01/19 05/01/19 05/02/19 1515:00 23:00 07:00 IntakeIntake Total 550 ml 500 ml OutputOutput Total 600 ml BalanceBalance 550 ml -100 ml Results/Medications Result Diagram: 05/02/19 0649 05/02/19 0649 Results 24 hrs Laboratory Tests Test 05/01/19 12:24 05/01/19 13:38 05/01/19 17:36 05/01/19 21:17 Bedside Glucose 134 177 131 White Blood Count 6.9 Red Blood Count 3.27 L Hemoglobin 8.0 L Hematocrit 26.5 L Mean Corpuscular 81.0 L Volume Mean Corpuscular 24.5 L Hemoglobin Mean Corpuscular 30.2 L Hemoglobin Concent Red Cell 15.2 H Distribution Width Platelet Count 384 Mean Platelet 9.9 Volume Immature 0.400 Granulocytes % Neutrophils % 58.0 Lymphocytes % 29.9 Monocytes % 9.1 Eosinophils % 2.2 Basophils % 0.4 Nucleated Red Blood 0.0 Cells % Immature 0.030 Granulocytes # Neutrophils # 4.0 Lymphocytes # 2.1 Monocytes # 0.6 Eosinophils # 0.2 Basophils # 0.0 Nucleated Red Blood 0.0 Cells # Sodium Level 141 Potassium Level 4.4 Chloride Level 105 Carbon Dioxide 28 Level Anion Gap 8 Blood Urea Nitrogen 35 H Creatinine 2.11 H Glucose Level 126 # Calcium Level 8.9 Phosphorus Level 4.3 Magnesium Level 1.9 Albumin 3.7 Test 05/02/19 02:26 05/02/19 02:45 05/02/19 03:07 05/02/19 04:02 Bedside Glucose 63 L 68 L 106 181 Test 05/02/19 06:49 05/02/19 07:06 05/02/19 08:15 White Blood Count 7.1 Red Blood Count 3.35 L Hemoglobin 8.2 L Hematocrit 27.7 L Mean Corpuscular 82.7 Volume Mean Corpuscular 24.5 L Hemoglobin Mean Corpuscular 29.6 L Hemoglobin Concent Red Cell 15.2 H Distribution Width Platelet Count 357 Mean Platelet 10.3 Volume Immature 0.600 H Granulocytes % Neutrophils % 60.0 Lymphocytes % 26.3 Monocytes % 10.5 Eosinophils % 2.0 Basophils % 0.6 Nucleated Red Blood 0.0 Cells % Immature 0.040 H Granulocytes # Neutrophils # 4.3 Lymphocytes # 1.9 Monocytes # 0.8 Eosinophils # 0.1 Basophils # 0.0 Nucleated Red Blood 0.0 Cells # Sodium Level 145 H Potassium Level 4.7 Chloride Level 109 Carbon Dioxide 30 Level Anion Gap 6 Blood Urea Nitrogen 35 H Creatinine 2.04 H Glucose Level 113 Calcium Level 8.6 Phosphorus Level 4.5 Magnesium Level 2.0 Albumin 3.3 Lab Scanned Report BLOOD TRANSFUSION Bedside Glucose 133 Home Meds Active Scripts Pantoprazole* (Protonix*) 40 Mg Tablet.dr, 40 MG PO DAILY for 30 Days, TAB Prov:HUSSEIN SHUKLA MD 02/16/19 Ferrous Sulfate* (Ferrous Sulfate*) 325 Mg Tabec, 325 MG PO BID for 30 Days, TAB Prov:HUSSEIN SHUKLA MD 02/16/19 Spironolactone* (Aldactone*) 25 Mg Tablet, 25 MG PO DAILY for 30 Days, TAB Prov:HUSSEIN SHUKLA MD 02/16/19 Losartan Potassium* (Cozaar*) 25 Mg Tablet, 25 MG PO DAILY for 30 Days, TAB Prov:HUSSEIN SHUKLA MD 02/16/19 Carvedilol* (Carvedilol*) 6.25 Mg Tablet, 3.125 MG PO BID for 60 Days, TAB Prov:HUSSEIN SHUKLA MD 02/16/19 Reported Medications Linaclotide (LINZESS) 290 Mcg Capsule, 290 MCG PO DAILY, #30 CAP 04/28/19 Tamsulosin Hcl* (Tamsulosin Hcl*) 0.4 Mg Cap.er.24h, 0.4 MG PO HS, CAP 02/11/19 Insulin Lispro (Humalog Kwikpen U-100) 100 Unit/1 Ml Insuln.pen, 10 UNIT SQ AC E, EA 02/11/19 Insulin Glargine* (Lantus*) 100 Unit/Ml Soln, 15-20 UNIT SC QHS, #1 VIAL 02/11/19 Insulin Glargine* (Lantus*) 100 Unit/Ml Soln, 35 UNIT SC QAM, #1 VIAL 02/11/19 Medications Current Medications Carvedilol (Coreg) 3.125 mg BID PO Last administered on 05/02/19at 09:02; Admin Dose 3.125 MG; Start 04/23/19 at 21:00 Ferrous Sulfate (Ferrous Sulfate (Ec)) 325 mg BID PO Last administered on 05/02/19at 09:01; Admin Dose 325 MG; Start 04/23/19 at 21:00 Pantoprazole (Protonix Tab) 40 mg DAILY@0600 PO Last administered on 05/02/19at 06:28; Admin Dose 40 MG; Start 04/24/19 at 06:00 Tamsulosin HCl (Flomax) 0.4 mg HS PO Last administered on 05/01/19at 21:20; Admin Dose 0.4 MG; Start 04/23/19 at 21:00 IV Flush (NS 3 ml) 3 ml PER PROTOCOL IV ; Start 04/23/19 at 19:00 Ondansetron HCl (Zofran Inj) 4 mg Q6H PRN IV NAUSEA/VOMITING Last administered on 04/27/19 08:46; Admin Dose 4 MG; Start 04/23/19 at 19:00 Nitroglycerin (Nitroglycerin (Sl Tab) 0.4 Mg) 1 tab Q5M PRN SL .CHEST PAIN; Start 04/23/19 at 19:00 Acetaminophen (Tylenol Tab) 650 mg Q6H PRN PO .PAIN 1-3 OR TEMP Last a dministered on 04/26/19 13:42; Admin Dose 650 MG; Start 04/23/19 at 19:00 Docusate Sodium (Colace) 100 mg Q12H PRN PO .CONSTIPATION Last administered on 04/27/19 18:07; Admin Dose 100 MG; Start 04/23/19 at 19:00 Magnesium Hydroxide (Milk Of Mag) 30 ml DAILY PRN PO .CONSTIPATION Last administered on 04/27/19 18:07; Admin Dose 30 ML; Start 04/23/19 at 19:00 Miscellaneous Information 1 ea NOTE XX ; Start 04/23/19 at 19:30 Glucose (Glutose) 15 gm Q15M PRN PO DECREASED GLUCOSE; Start 04/23/19 at 19:30 Glucose (Glutose) 22.5 gm Q15M PRN PO DECREASED GLUCOSE; Start 04/23/19 at 19:30 Dextrose (D50w Syringe) 25 ml Q15M PRN IV DECREASED GLUCOSE; Start 04/23/19 at 19:30 Dextrose (D50w Syringe) 50 ml Q15M PRN IV DECREASED GLUCOSE; Start 04/23/19 at 19:30 Glucagon (Glucagen) 1 mg Q15M PRN IM DECREASED GLUCOSE; Start 04/23/19 at 19:30 Glucose (Glutose) 15 gm Q15M PRN BUCCAL DECREASED GLUCOSE; Start 04/23/19 at 19:30 Diltiazem HCl 125 mg/Sodium Chloride 125 ml @ 5 mls/hr TITRATE IV Last a dministered on 04/25/19 03:05; Admin Dose 5 MLS/HR; Start 04/24/19 at 19:30 Amiodarone HCl (Cordarone) 200 mg BID PO Last administered on 05/02/19 09:01; Admin Dose 200 MG; Start 04/26/19 at 09:00 Insulin Aspart (Novolog Insulin Pen) NOVOLOG *MILD* ALGORITHM WITH MEALS BEDTIME SC Last administered on 05/01/19 17:55; Admin Dose 1 UNIT; Start 04/26/19 at 11:50 Tramadol HCl (Ultram) 50 mg Q6H PRN PO MODERATE PAIN LEVEL 4-6 Last administered on 04/26/19 16:56; Admin Dose 50 MG; Start 04/26/19 at 16:30 Bisacodyl (Dulcolax Supp) 10 mg DAILY PRN [place] CONSTIPATION; Start 04/28/19 at 11:00 Docusate Sodium (Colace) 100 mg BID PO Last administered on 05/02/19 09:01; Admin Dose 100 MG; Start 04/28/19 at 15:00 Bicalutamide (Casodex) 50 mg DAILY PO Last administered on 05/02/19 08:59; Admin Dose 50 MG; Start 04/28/19 at 16:00 Patient Own Medication 1 ea DAILY PRN PO CONSTIPATION; Start 04/28/19 at 16:00 Insulin Aspart (Novolog Insulin Pen) 12 unit WITH MEALS SC Last administered on 05/02/19 09:01; Admin Dose 12 UNIT; Start 04/29/19 at 11:50 Insulin Glargine (Lantus) 38 units QAM SC Last administered on 05/02/19 09:00; Admin Dose 38 UNITS; Start 04/30/19 at 09:00 Bumetanide (Bumex) 1 mg DAILY PO Last administered on 05/02/19 08:57; Admin Dose 1 MG; Start 04/30/19 at 09:00 Ciprofloxacin (Cipro) 250 mg BID@,18 PO Last administered on 05/02/19 06:28; Admin Dose 250 MG; Start 05/01/19 at 18:00 Assessment/Plan Hospital Course (Demo Recall) 1. 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 Hematuria 3. Hypertension 4. Chronic kidney disease 5. History of prostate cancer and BPH 6. Anemia 7. Diabetes 8. Paroxysmal atrial fibrillation rapid ventricular response: Converted back to NSR on amiodarone now Recommendations: Unfortunately unable to give aspirin and Plavix or full anticoagulation at this point given his recurrent hematuria Diuretic as per renal given his renal insufficiency. Currently appears to be euvolemic Continue with Coreg as tolerated Off of ARB or DAR inhibitor due to his renal insufficiency Antibiotic as per internal medicine recommendation cont amiodarone po to try to keep him in sinus rhythm. Correct electrolytes to keep magnesium more than 2.0 and potassium more than 4.0 dc planning as per IM Thank you for his referral. PARTH MERCER MD [facility] PARTH MERCER MD May 02, 2019 09:23
[2019-05-02] MEDS ORDERED: AMIO200T4 PO (12:17)
[2019-05-02] MEDS ORDERED: BICA50TA5 PO (12:17)
[2019-05-02] MEDS ORDERED: BUME1TAB PO (12:17)
[2019-05-02] MEDS ORDERED: CARV3.1260 PO (12:17)
--- NOTE | 2019-05-02 12:20 | PDOCDIS ---
Discharge Instructions CONDITION [id number] Patient Condition: [id number] Stable FOLLOW UP/APPOINTMENTS Follow-up Plan 1. Please follow-up with your urologist and cancer doctor for further work-up regarding your prostate issues 2. Please continue following up with urologist for continued urological issues, and continue new medication 3. Please obtain repeat renal and blood values within 1 week 4. Please follow-up with your primary care provider as soon as possible 5. Please follow-up with your pest control pilot as soon as possible 6. Please follow-up with the hospital within 1 week in order to find out results of urine culture and if further antibiotics are needed CANDY RONQUILLO May 02, 2019 12:20
--- NOTE | 2019-05-02 12:25 | DS ---
Date/Time of Note Date/Time of Note DATE: 05/02/19 TIME: 12:24 Discharge Summary Admission/Discharge Info Admit Date/Time April 23, 2019 at 19:06 Discharge Date/Time Patient Condition: Stable Hospital Course Patient is a male with a past medical history significant for with prostate cancer and CHF, systolic and CKD, hypertension, diabetes mellitus who presents to [facility] and diagnosed with hematuria with extension of prostate cancer extending to the bladder with bilateral hydronephrosis. Patient was seen by urology, nephrology during the stay and after a long conversation for the urologist with family and patient they decided that the patient was too high risk for any interventional procedures at this time and patient would likely benefit from following up with his primary care provider and urologist for further care. Patient and patient's family is agreeable to this plan and although patient still has some mild hematuria that is intermittent it was recommended that the patient get weekly blood test to evaluate if patient would need continued blood transfusions. Patient heart medications were adjusted by riverboat captain and nephrology also adjusted medications according to the renal function as well. Patient's daughter was informed on all events and was informed to follow-up as soon as possible with oncology, urology, primary care for provider as well as cardiology. Of note patient did have was diagnosed as a urinary tract infection and did receive 7 days of antibiotics, infectious disease was consulted, however they believe at this time that it is a contaminant and will discontinue antibiotics at discharge. Patient did have a repeat urine culture done and if there is further growth of bacteria patient will be called and he was also urged the patient get a repeat UA at his urologist office within 1 week. Patient's family understands and will have him follow-up with his multiple specialist as soon as possible. Discharge diagnosis Prostate cancer with extension to the bladder with bilateral hydronephrosis, stable, follow with palpation urology Hematuria, intermittent, stable, follow-up with urology Urinary tract infection, likely contaminant, follow-up with urology for repeat UA Acute on chronic systolic heart failure, stable Dilated cardiomyopathy, stable Iron deficiency anemia, stable Acute kidney injury on chronic kidney disease, resolving Hypertension Diabetes mellitus Home Meds Active Scripts Bumetanide* (Bumetanide*) 1 Mg Tablet, 1 MG PO DAILY for 30 Days, #30 TAB Prov:CANDY RONQUILLO 05/02/19 Amiodarone Hcl* (Amiodarone Hcl*) 200 Mg Tablet, 200 MG PO BID for 30 Days, #60 TAB Prov:CANDY RONQUILLO J 05/02/19 Bicalutamide* (Casodex*) 50 Mg Tablet, 50 MG PO DAILY for 30 Days, #30 TAB Prov:CANDY RONQUILLO J 05/02/19 Carvedilol* (Carvedilol*) 3.125 Mg Tablet, 3.125 MG PO BID, #60 TAB Prov:CANDY RONQUILLO J 05/02/19 Pantoprazole* (Protonix*) 40 Mg Tablet.dr, 40 MG PO DAILY for 30 Days, TAB Prov:HUSSEIN SHUKLA MD 02/16/19 Ferrous Sulfate* (Ferrous Sulfate*) 325 Mg Tabec, 325 MG PO BID for 30 Days, TAB Prov:HUSSEIN SHUKLA MD 02/16/19 Reported Medications Linaclotide (LINZESS) 290 Mcg Capsule, 290 MCG PO DAILY, #30 CAP 04/28/19 Tamsulosin Hcl* (Tamsulosin Hcl*) 0.4 Mg Cap.er.24h, 0.4 MG PO HS, CAP 02/11/19 Insulin Lispro (Humalog Kwikpen U-100) 100 Unit/1 Ml Insuln.pen, 10 UNIT SQ AC E, EA 02/11/19 Insulin Glargine* (Lantus*) 100 Unit/Ml Soln, 15-20 UNIT SC QHS, #1 VIAL 02/11/19 Insulin Glargine* (Lantus*) 100 Unit/Ml Soln, 35 UNIT SC QAM, #1 VIAL 02/11/19 Discontinued Scripts Spironolactone* (Aldactone*) 25 Mg Tablet, 25 MG PO DAILY for 30 Days, TAB Prov:HUSSEIN SHUKLA MD 02/16/19 Losartan Potassium* (Cozaar*) 25 Mg Tablet, 25 MG PO DAILY for 30 Days, TAB Prov:HUSSEIN SHUKLA MD 02/16/19 Carvedilol* (Carvedilol*) 6.25 Mg Tablet, 3.125 MG PO BID for 60 Days, TAB Prov:HUSSEIN SHUKLA MD 02/16/19 Follow-up Plan 1. Please follow-up with your urologist and cancer doctor for further work-up regarding your prostate issues 2. Please continue following up with urologist for continued urological issues, and continue new medication 3. Please obtain repeat renal and blood values within 1 week 4. Please follow-up with your primary care provider as soon as possible 5. Please follow-up with your riverboat captain as soon as possible 6. Please follow-up with the hospital within 1 week in order to find out results of urine culture and if further antibiotics are needed Primary Care Provider Not On Staff Doctor Time spent on discharge: > 30 minutes Pending Labs Laboratory Tests Test 05/01/19 13:38 05/01/19 17:36 05/01/19 21:17 05/02/19 02:26 White Blood 6.9 Count 10^3/ul (4.8-10 .8) Red Blood 3.27 Count 10^6/ul (4.70-6 .10) Hemoglobin 8.0 g/dl (14.0-18.0 ) Hematocrit 26.5 % (42.0-52.0) Mean 81.0 Corpuscular fl (82.0-101.0) Volume Mean 24.5 Corpuscular pg (29.0-33.0) Hemoglobin Mean 30.2 Corpuscular g/dl (32.0-37.0 Hemoglobin Conc ) ent Red Cell 15.2 Distribution % (11.5-14.5) Width Platelet Count 384 10^3/UL (140-41 5) Mean Platelet 9.9 Volume fl (7.4-10.4) Immature 0.400 Granulocytes % % (0.001-0.429) Neutrophils % 58.0 % (39.0-77.0) Lymphocytes % 29.9 % (15.0-51.0) Monocytes % 9.1 % (0.0-11.0) Eosinophils % 2.2 % (0.0-7.0) Basophils % 0.4 % (0.0-2.0) Nucleated Red 0.0 Blood Cells % /100WBC (0.0-0. 0) Immature 0.030 Granulocytes # 10^3/ul (0.0-0. 031) Neutrophils # 4.0 10^3/ul (1.6-7. 5) Lymphocytes # 2.1 10^3/ul (0.8-2. 9) Monocytes # 0.6 10^3/ul (0.3-0. 9) Eosinophils # 0.2 10^3/ul (0.0-0. 5) Basophils # 0.0 10^3/ul (0.0-0. 1) Nucleated Red 0.0 Blood Cells # 10^3/ul (0.0-0. 0) Sodium Level 141 mmol/L (135-144 ) Potassium 4.4 Level mmol/L (3.5-5.1 ) Chloride Level 105 mmol/L (97-110) Carbon Dioxide 28 Level mmol/L (21-31) Anion Gap 8 (5-13) Blood Urea 35 mg/dl (7-20) Nitrogen Creatinine 2.11 mg/dl (0.61-1.2 4) Glucose Level 126 mg/dl (70-220) Calcium Level 8.9 mg/dl (8.4-10.2 ) Phosphorus 4.3 Level mg/dl (2.5-4.9) Magnesium 1.9 Level mg/dl (1.7-2.5) Albumin 3.7 g/dl (3.3-4.9) Bedside 177 131 63 Glucose mg/dL (70-220) mg/dL (70-220) mg/dL (70-220) Test 05/02/19 02:45 05/02/19 03:07 05/02/19 04:02 05/02/19 06:49 Bedside 68 106 181 Glucose mg/dL (70-220) mg/dL (70-220) mg/dL (70-220) White Blood 7.1 Count 10^3/ul (4.8-1 0.8) Red Blood 3.35 Count 10^6/ul (4.70- 6.10) Hemoglobin 8.2 g/dl (14.0-18. 0) Hematocrit 27.7 % (42.0-52.0) Mean 82.7 Corpuscular fl (82.0-101.0 Volume ) Mean 24.5 Corpuscular pg (29.0-33.0) Hemoglobin Mean 29.6 Corpuscular g/dl (32.0-37. Hemoglobin Conc 0) ent Red Cell 15.2 Distribution % (11.5-14.5) Width Platelet Count 357 10^3/UL (140-4 15) Mean Platelet 10.3 Volume fl (7.4-10.4) Immature 0.600 Granulocytes % % (0.001-0.429 ) Neutrophils % 60.0 % (39.0-77.0) Lymphocytes % 26.3 % (15.0-51.0) Monocytes % 10.5 % (0.0-11.0) Eosinophils % 2.0 % (0.0-7.0) Basophils % 0.6 % (0.0-2.0) Nucleated Red 0.0 Blood Cells % /100WBC (0.0-0 .0) Immature 0.040 Granulocytes # 10^3/ul (0.0-0 .031) Neutrophils # 4.3 10^3/ul (1.6-7 .5) Lymphocytes # 1.9 10^3/ul (0.8-2 .9) Monocytes # 0.8 10^3/ul (0.3-0 .9) Eosinophils # 0.1 10^3/ul (0.0-0 .5) Basophils # 0.0 10^3/ul (0.0-0 .1) Nucleated Red 0.0 Blood Cells # 10^3/ul (0.0-0 .0) Sodium Level 145 mmol/L (135-14 4) Potassium 4.7 Level mmol/L (3.5-5. 1) Chloride Level 109 mmol/L (97-110 ) Carbon Dioxide 30 Level mmol/L (21-31) Anion Gap 6 (5-13) Blood Urea 35 Nitrogen mg/dl (7-20) Creatinine 2.04 mg/dl (0.61-1. 24) Glucose Level 113 mg/dl (70-220) Calcium Level 8.6 mg/dl (8.4-10. 2) Phosphorus 4.5 Level mg/dl (2.5-4.9 ) Magnesium 2.0 Level mg/dl (1.7-2.5 ) Albumin 3.3 g/dl (3.3-4.9) Test 05/02/19 07:06 05/02/19 08:15 Lab Scanned BLOOD TRANSFUSI Report ON Bedside 133 Glucose mg/dL (70-220) Microbiology Date/Time Source Procedure Growth Status 05/01/19 18:00 Clean Catch Urine Urine Culture - Preliminary Gram Resulted Negative Sohail CANDY RONQUILLO May 02, 2019 12:25
--- NOTE | 2019-05-02 13:20 | PN ---
DATE: 05/02/2019 SUBJECTIVE: The patient is stable. No events overnight. OBJECTIVE: VITAL SIGNS: Blood pressure is 122/58, pulse 73, respiration 19, temperature 97.9. HEENT: Head is normocephalic. NECK: Supple. HEART: Regular rate. LUNGS: Show diminished breath sounds at the base. ABDOMEN: Soft, nontender to palpation without rebound or guarding. EXTREMITIES: Negative for clubbing, cyanosis. No edema. DERMATOLOGIC: No rashes. MUSCULOSKELETAL: No joint effusion. NEUROLOGIC: No change in exam. MEDICATIONS: Have been reviewed. LABORATORY DATA: Have been reviewed. IMAGING STUDIES: Have been reviewed. ASSESSMENT AND PLAN: 1. Nonoliguric acute kidney injury on top of chronic kidney disease stage IV with previous baseline creatinine of 1.5 to 2.0 mg/dL. Etiology of acute kidney injury is secondary to hemodynamics. Renal function has stabilized. Continue current treatment plan, supportive care, renally dose all meds. 2. Bilateral hydronephrosis secondary to bladder mass. Continue to monitor. Follow up with urology . 3. Anemia. Monitor hemoglobin and hematocrit levels. 4. Mineral bone disorder. Monitor calcium and phosphatase levels. 5. Gross hematuria, improving. Continue to monitor. 6. Acute on chronic heart failure. The patient appears euvolemic. Continue current diuretic regime n. 7. Acute hypoxic respiratory failure, improved. Continue to monitor. 8. Hypertension. Continue current blood pressure regimen. 9. Diabetes. Continue current insulin regimen. 10. Urinary tract infection. Continue current antibiotic regimen. 11. Paroxysmal atrial fibrillation. 12. Gastrointestinal and deep vein thrombosis prophylaxis. Dictated By: MARTÍN COSME DO NR/NTS Conf#: [id number] DID#: [id number] CC: CANDY RONQUILLO MD; SPARKLE BARBER MD; JOANA SO MD;*EndCC*
== END 2019-05-02 14:45 | disposition home or self-care (01) | DRG 291 ==
LOC: E/R 16:54 → TEL 19:06
PROVIDERS: ADMIT Internal Medicine; ATTEND Internal Medicine
PROC: 5A09357 Assistance with Respiratory Ventilation, Less than 24 Consecutive Hours, Continuous Positive Airway Pressure (ICD-10-PCS; principal; 2019-04-23)
PROC: 30233N1 Transfusion of Nonautologous Red Blood Cells into Peripheral Vein, Percutaneous Approach (ICD-10-PCS; 2019-05-01)
DX: I13.0 Hypertensive heart and chronic kidney disease with heart failure and stage 1 through stage 4 chronic kidney disease, or unspecified chronic kidney disease (principal); I50.23 Acute on chronic systolic (congestive) heart failure; J96.01 Acute respiratory failure with hypoxia; N17.9 Acute kidney failure, unspecified; C79.11 Secondary malignant neoplasm of bladder; N39.0 Urinary tract infection, site not specified; N18.4 Chronic kidney disease, stage 4 (severe); N13.6 Pyonephrosis; N13.30 Unspecified hydronephrosis; I42.9 Cardiomyopathy, unspecified; E11.22 Type 2 diabetes mellitus with diabetic chronic kidney disease; C61 Malignant neoplasm of prostate; I48.0 Paroxysmal atrial fibrillation; B96.20 Unspecified Escherichia coli [E. coli] as the cause of diseases classified elsewhere; R31.0 Gross hematuria; Z91.14 Patient's other noncompliance with medication regimen; D50.0 Iron deficiency anemia secondary to blood loss (chronic)
CPT/HCPCS: 36415; 36430; 36600; 71045; 76775; 80048; 80053; 80069; 81001; 81003; 82043; 82550; 82803; 82962; 83036; 83690; 83735; 83880; 84100; 84153; 84154; 84155; 84300; 84484; 85025; 85610; 85730; 86850; 86900; 86901; 86920; 87086; 93005; 94660; 96374; 97161; 97166; J0282; J0696; J1815; J1940; J2060; J2405; J3475; J7040; J7060; P9016

== ENCOUNTER 2019-05-04 12:07 | Inpatient (IN) | payer MEDICARE, OTHER ==
[~2019-05-04] VITALS: Ht 170.2 cm; Wt 86.0 kg
[~2019-05-04 12:07] MED LIST changes: +AMIO200T4 PO; +BICA50TA5 PO; +BUME1TAB PO; +CARV3.1260 PO; -CARV6.2579 PO; +LINA290C PO; -LOSA25TA2 PO; -SPIR25TA PO
--- NOTE | 2019-05-04 12:54 | HP ---
Date/Time of Note Date/Time of Note DATE: 05/04/19 TIME: 12:53 Assessment/Plan VTE Prophylaxis Pharmacological prophylaxis: other Assessment/Plan Hospital Course Patient is a male with past medical history significant for prostate cancer who presents to [facility] as a: As he was recently discharged when he was admitted for hematuria. Patient's urine culture came back positive for ESBL and will need IV antibiotics. Patient feeling well with no acute complaints at this time. Patient denies chest pain, shortness of breath, nausea, vomiting, abdominal pain, leg pain. Objective Physical exam General: Patient is laying in bed and answers questions appropriately Mentation: Patient is alert and oriented 4, Head: Normocephalic atraumatic Eyes: EOMI, pupils reactive to light Neck: Supple, nontender, midline Respiratory: Clear to auscultation bilaterally Cardiovascular: regular rate, no obvious murmurs Gastrointestinal: non-tender to palpation, bowel sounds heard. Neurological: Moves all extremities spontaneously Skin: No new skin lesions Assessment/Plan Prostate cancer extended to bladder with bilateral hydro - Renal US noted and per Urology most likely large prostate mass that is causing blockage of ureters. Urology discussed at length with patient and patient's family and decided that patient is stable at the moment and patient is not currently stable enough to undergo surgical intervention. Patient and patient's family agree and will follow up with urology Hematuria- on and off - urology saw patient during previous admission with results as above. - antiplatelets on hold -After speaking with urology, family understands that they will follow-up with patient's urologist, patient will likely have some form of chronic hematuria as he is not a good candidate for surgery at this time. Urinary tract infection-ESBL -Patient was called back in from home for IV antibiotics, will start ertapenem, spoke with infectious disease who recommends 7-day course of ertapenem, will arrange case management and home health IV antibiotics. chronic systolic heart failure -Continue home medications Dilated cardiomyopathy - Recent ejection fraction of 25 to 30% Iron deficiency anemia, acute on chronic - blood loss as well as renal function most likely contributing to anemia - no need for transfusions at this time CASEY on CKD -Monitor closely, consult nephrology if needed HTN - Continue home medications DM - A1c noted - Lantus on board - ISS and accuchecks Disposition -Case management on board for IV antibiotic home health and PICC line placement, will discharge once home health IV antibiotics as arranged. HPI/ROS Admit Date/Time Admit Date/Time PMH/Family/Social Past Medical History Medications Current Medications Ondansetron HCl (Zofran Inj) 4 mg BRIDGE ORDER PRN IV NAUSEA/VOMITING; Start 05/04/19 at 13:00; Stop 05/05/19 at 12:59 Acetaminophen (Tylenol Tab) 650 mg ER BRIDGE PRN PO .MILD PAIN 1-3 OR TEMP; Start 05/04/19 at 13:00; Stop 05/05/19 at 12:59 Amiodarone HCl (Cordarone) 200 mg BID PO ; Start 05/04/19 at 21:00; Status UNV Bicalutamide (Casodex) 50 mg DAILY PO ; Start 05/05/19 at 09:00; Status UNV Bumetanide (Bumex) 1 mg DAILY PO ; Start 05/05/19 at 09:00; Status UNV Carvedilol (Coreg) 3.125 mg BID PO ; Start 05/04/19 at 21:00; Status UNV Ferrous Sulfate (Ferrous Sulfate (Ec)) 325 mg BID PO ; Start 05/04/19 at 21:00; Status UNV Pantoprazole (Protonix Tab) 40 mg DAILY PO ; Start 05/05/19 at 09:00; Status UNV Tamsulosin HCl (Flomax) 0.4 mg HS PO ; Start 05/04/19 at 21:00; Status UNV IV Flush (NS 3 ml) 3 ml PER PROTOCOL IV ; Start 05/04/19 at 13:00; Status UNV Ondansetron HCl (Zofran Inj) 4 mg Q6H PRN IV NAUSEA/VOMITING; Start 05/04/19 at 13:00; Status UNV Acetaminophen (Tylenol Tab) 650 mg Q6H PRN PO .PAIN 1-3 OR TEMP; Start 05/04/19 at 13:00; Status UNV Acetaminophen/ Hydrocodone Bitart ([place] (5/325)) 1 tab Q6H PRN PO .PAIN 4-6; Start 05/04/19 at 13:00; Status UNV Lidocaine (Xylocaine 1% (Mpf)) 5 ml ONCE ONCE SC ; Start 05/04/19 at 13:00; Stop 05/04/19 at 13:01; Status UNV Ertapenem 1 gm/ Sodium Chloride 100 ml @ 200 mls/hr Q24H IVPB ; Start 05/04/19 at 13:00; Status UNV Coded Allergies: No Known Allergy (Unverified , 04/29/19) Past Surgical History Past Surgical Hx: other Family History Significant Family History: no pertinent family hx Social History Smoking Status: Never smoker Exam/Review of Systems Vital Signs Vitals Vital Signs Date Temp Pulse Resp B/P (MAP) Pulse Ox O2 O2 Flow FiO2 Time Delivery Rate 05/04/19 98.1 72 18 119/57 99 12:21 (77) CANDY RONQUILLO May 04, 2019 12:54
[2019-05-04] MEDS ORDERED: LIDOCAINE 1% (MPF) 5 ML VIAL SC ONE (13:00)
[2019-05-04] MEDS ORDERED: ONDANSETRON 4 MG INJ IV PRN ×2 (13:00)
[2019-05-04] MEDS ORDERED: HYDROCODONE/APAP (5/325) TAB PO PRN (13:00)
[2019-05-04] MEDS ORDERED: ACETAMINOPHEN 325 MG TAB PO PRN ×2 (13:00)
[2019-05-04] MEDS ORDERED: NACL 0.9% 3 ML SYG IV SCH (13:00)
[2019-05-04] MEDS ORDERED: GLUCOSE GEL 15 GRAM TUBE BUCCAL PRN (13:30)
[2019-05-04] MEDS ORDERED: GLUCOSE GEL 15 GRAM TUBE PO PRN ×2 (13:30)
[2019-05-04] MEDS ORDERED: GLUCAGON 1 MG INJ IM PRN (13:30)
[2019-05-04] MEDS ORDERED: DEXTROSE 50% 50 ML SYRINGE IV PRN ×2 (13:30)
[2019-05-04 13:58] VITALS: BP 131/61; PULSE 78; RESP 18
[2019-05-04 14:16] VITALS: Ht 170.2 cm; Wt 86.0 kg
[2019-05-04] MEDS: ERTAPENEM SODIUM 1 GM in SOD CHLORIDE 0.9% 100 ML IVPB SCH (16:16)
[2019-05-04] MEDS: INSULIN ASPART [NOVOLOG] 3 ML PEN SC SCH ×3 (17:51→20:27)
--- NOTE | 2019-05-04 19:58 | ERD ---
ER Documentation Chief Complaint Chief Complaint SENT BY MD FOR ADMISSION DUE TO URINE INFECTION HPI This is an 88-year-old male that returns to the emergency department as his urine culture indicated he had ESBL. Patient was recently admitted to the hospital at [facility]. He was called back by Dr. Ronquillo. The patient has had no fevers or shaking or chills. He denies any abdominal pain. He denies any chest pain or shortness of breath. He does complain of frequency urgency dysuria. ROS All systems reviewed and are negative except as per history of present illness. Medications Home Meds Active Scripts Bumetanide* (Bumetanide*) 1 Mg Tablet, 1 MG PO DAILY for 30 Days, #30 TAB Prov:CANDY RONQUILLO 05/02/19 Amiodarone Hcl* (Amiodarone Hcl*) 200 Mg Tablet, 200 MG PO BID for 30 Days, #60 TAB Prov:CANDY RONQUILLO 05/02/19 Bicalutamide* (Casodex*) 50 Mg Tablet, 50 MG PO DAILY for 30 Days, #30 TAB Prov:CANDY RONQUILLO 05/02/19 Carvedilol* (Carvedilol*) 3.125 Mg Tablet, 3.125 MG PO BID, #60 TAB Prov:CANDY RONQUILLO 05/02/19 Pantoprazole* (Protonix*) 40 Mg Tablet.dr, 40 MG PO DAILY for 30 Days, TAB Prov:HUSSEIN SHUKLA MD 02/16/19 Ferrous Sulfate* (Ferrous Sulfate*) 325 Mg Tabec, 325 MG PO BID for 30 Days, TAB Prov:HUSSEIN SHUKLA MD 02/16/19 Reported Medications Linaclotide (LINZESS) 290 Mcg Capsule, 290 MCG PO DAILY, #30 CAP 04/28/19 Tamsulosin Hcl* (Tamsulosin Hcl*) 0.4 Mg Cap.er.24h, 0.4 MG PO HS, CAP 02/11/19 Insulin Lispro (Humalog Kwikpen U-100) 100 Unit/1 Ml Insuln.pen, 10 UNIT SQ AC E, EA 02/11/19 Insulin Glargine* (Lantus*) 100 Unit/Ml Soln, 15-20 UNIT SC QHS, #1 VIAL 02/11/19 Insulin Glargine* (Lantus*) 100 Unit/Ml Soln, 35 UNIT SC QAM, #1 VIAL 02/11/19 Discontinued Scripts Spironolactone* (Aldactone*) 25 Mg Tablet, 25 MG PO DAILY for 30 Days, TAB Prov:HUSSEIN SHUKLA MD 02/16/19 Losartan Potassium* (Cozaar*) 25 Mg Tablet, 25 MG PO DAILY for 30 Days, TAB Prov:HUSSEIN SHUKLA MD 02/16/19 Carvedilol* (Carvedilol*) 6.25 Mg Tablet, 3.125 MG PO BID for 60 Days, TAB Prov:HUSSEIN SHUKLA MD 02/16/19 Allergies Allergies: Coded Allergies: No Known Allergy (Unverified , 04/29/19) PMhx/Soc History of Surgery: Yes (TURP 2014, angiogram ble x2 2015) Anesthesia Reaction: No Hx Neurological Disorder: No Hx Respiratory Disorders: Yes (pna) Hx Cardiac Disorders: Yes (htn, chf,cardiomyopathy) Hx Psychiatric Problems: No Hx Miscellaneous Medical Probl: No Hx Alcohol Use: No Hx Substance Use: No Hx Tobacco Use: No Smoking Status: Never smoker Physical Exam Vitals Vital Signs Date Temp Pulse Resp B/P (MAP) Pulse Ox O2 O2 Flow FiO2 Time Delivery Rate 05/04/19 98.1 72 18 119/57 99 12:21 (77) Physical Exam Constitutional:Well-developed. Well-nourished. Respiratory: Not using accessory muscles of respiration.Lungs were clear to auscultation bilaterally. No rhonchi. No rales. No wheezing. Cardiovascular: Regular rate regular rhythm.No murmurs. No rubs were appreciated.S1, S2 normal. Distal pulses are palpable 2+ bilaterally. Skin: No petechia, no purpura. No lesions on the palms or the soles of the feet. No maculopapular rash. NEURO: Patient was alert, awake, orientated x3. No focal neurological deficits. Result Diagram: 05/04/19 1259 05/04/19 1258 Procedures/MDM This patient return to the emergency department for a positive urine culture with ESBL. Susceptible to meropenem. This will be started by the admitting physician Dr. Ronquillo. I obtained ancillary laboratory work and there is no leukocytosis. Patient was afebrile. He will be admitted to the medical surgical floor. Departure Diagnosis: Primary Impression: Urinary tract infection Urinary tract infection type: acute cystitis Hematuria presence: without hematuria Qualified Codes: N30.00 - Acute cystitis without hematuria Condition: JATINDER Epstein MD May 04, 2019 19:58
[2019-05-04 20:13] VITALS: BP 119/58; PULSE 82; RESP 18
[2019-05-04] MEDS: FERROUS SULFATE (EC) 325 MG TAB PO SCH (20:26)
[2019-05-04] MEDS: TAMSULOSIN (SR) 0.4 MG CAP PO SCH (20:26)
[2019-05-04] MEDS: AMIODARONE 200 MG TAB PO SCH (20:27)
[2019-05-04] MEDS: INSULIN GLARGINE [LANTus] (100 UNITS/ML) SYG SC SCH (20:32)
[2019-05-05] MEDS: ACCU-CHEK XX SCH (02:00)
[2019-05-05 02:08] VITALS: BP 118/59; PULSE 85; RESP 18
[2019-05-05 07:15] VITALS: BP 122/62; PULSE 79; RESP 18
[2019-05-05] MEDS: BUMETANIDE 1 MG TAB PO SCH (08:13)
[2019-05-05] MEDS: AMIODARONE 200 MG TAB PO SCH ×2 (08:17→21:02)
[2019-05-05] MEDS: PANTOPRAZOLE (EC) 40 MG TAB PO SCH (08:19)
[2019-05-05] MEDS: FERROUS SULFATE (EC) 325 MG TAB PO SCH ×2 (08:19→21:02)
[2019-05-05] MEDS: INSULIN ASPART [NOVOLOG] 3 ML PEN SC SCH ×7 (08:23→21:08)
--- NOTE | 2019-05-05 11:53 | PDOCDIS ---
Discharge Instructions CONDITION [id number] Patient Condition: [id number] Stable FOLLOW UP/APPOINTMENTS Follow-up Plan 1. Please follow-up with your primary care provider and neurologist as soon as possible 2. Please follow-up with your primary care provider and let them know that you are treated for E. coli, ESBL bacteria with ertapenem for 7 days. CANDY RONQUILLO May 05, 2019 11:53
--- NOTE | 2019-05-05 11:57 | DS ---
Date/Time of Note Date/Time of Note DATE: 05/05/19 TIME: 11:57 Discharge Summary Admission/Discharge Info Admit Date/Time May 04, 2019 at 12:43 Discharge Date/Time Patient Condition: Stable Hospital Course Patient is a male with past medical history significant for prostate cancer, chronic hematuria, systolic heart failure, dilated cardiomyopathy, iron deficiency anemia, chronic kidney disease, hypertension, diabetes mellitus who presents to [facility] after I called patient to come back to the hospital for IV antibiotics due to positive urine culture. Patient is completely asymptomatic at this time, hematuria has resolved, blood work looks even better than when he was discharged and patient will follow up with his outpatient primary care physician as well as urologist. Case management is working on approval for IV antibiotics and patient will finish a 7-day course of ertapenem for his ESBL E. coli UTI. Otherwise patient feels well and will be discharged once case management has arranged this. Discharge diagnosis Prostate cancer Hematuria Chronic bilateral hydronephrosis Urinary tract infection Systolic heart failure Iron deficiency anemia Chronic kidney disease Hypertension Diabetes mellitus Home Meds Active Scripts Bumetanide* (Bumetanide*) 1 Mg Tablet, 1 MG PO DAILY for 30 Days, #30 TAB Prov:CANDY RONQUILLO 05/02/19 Amiodarone Hcl* (Amiodarone Hcl*) 200 Mg Tablet, 200 MG PO BID for 30 Days, #60 TAB Prov:CANDY RONQUILLO 05/02/19 Bicalutamide* (Casodex*) 50 Mg Tablet, 50 MG PO DAILY for 30 Days, #30 TAB Prov:CANDY RONQUILLO 05/02/19 Carvedilol* (Carvedilol*) 3.125 Mg Tablet, 3.125 MG PO BID, #60 TAB Prov:CANDY RONQUILLO 05/02/19 Pantoprazole* (Protonix*) 40 Mg Tablet.dr, 40 MG PO DAILY for 30 Days, TAB Prov:HUSSEIN SHUKLA MD 02/16/19 Ferrous Sulfate* (Ferrous Sulfate*) 325 Mg Tabec, 325 MG PO BID for 30 Days, TAB Prov:HUSSEIN SHUKLA MD 02/16/19 Reported Medications Linaclotide (LINZESS) 290 Mcg Capsule, 290 MCG PO DAILY, #30 CAP 04/28/19 Tamsulosin Hcl* (Tamsulosin Hcl*) 0.4 Mg Cap.er.24h, 0.4 MG PO HS, CAP 02/11/19 Insulin Lispro (Humalog Kwikpen U-100) 100 Unit/1 Ml Insuln.pen, 10 UNIT SQ AC E, EA 02/11/19 Insulin Glargine* (Lantus*) 100 Unit/Ml Soln, 15-20 UNIT SC QHS, #1 VIAL 02/11/19 Insulin Glargine* (Lantus*) 100 Unit/Ml Soln, 35 UNIT SC QAM, #1 VIAL 02/11/19 Discontinued Scripts Spironolactone* (Aldactone*) 25 Mg Tablet, 25 MG PO DAILY for 30 Days, TAB Prov:HUSSEIN SHUKLA MD 02/16/19 Losartan Potassium* (Cozaar*) 25 Mg Tablet, 25 MG PO DAILY for 30 Days, TAB Prov:HUSSEIN SHUKLA MD 02/16/19 Carvedilol* (Carvedilol*) 6.25 Mg Tablet, 3.125 MG PO BID for 60 Days, TAB Prov:HUSSEIN SHUKLA MD 02/16/19 Follow-up Plan 1. Please follow-up with your primary care provider and neurologist as soon as possible 2. Please follow-up with your primary care provider and let them know that you are treated for E. coli, ESBL bacteria with ertapenem for 7 days. Primary Care Provider Not On Staff Doctor Time spent on discharge: > 30 minutes Pending Labs Laboratory Tests Test 05/04/19 12:45 05/04/19 12:58 05/04/19 12:59 05/04/19 17:51 Urine Color YELLOW (YELLOW) Urine Clarity CLOUDY (CLEAR) Urine pH 6.0 (5.0-9.0) Urine Specific 1.008 (1.003-1. [place] 030) Urine Ketones NEGATIVE mg/dL (NEGATIVE ) Urine Nitrite POSITIVE mg/dL (NEGATIVE ) Urine NEGATIVE Bilirubin mg/dL (NEGATIVE ) Urine NEGATIVE Urobilinogen mg/dL (NEGATIVE ) Urine Leukocyte 3+ Esterase Parminder/ul (NEGATIV E) Urine 162 /HPF (0-5) Microscopic RBC Urine > 182 Microscopic /HPF (0-5) WBC Urine Bacteria FEW /HPF (NONE SEEN) Urine Yeast MANY /HPF (NONE (Budding) SEEN) Urine 3+ Hemoglobin mg/dL (NEGATIVE ) Urine Glucose NEGATIVE mg/dL (NEGATIVE ) Urine Total 1+ Protein mg/dl (NEGATIVE ) Prothrombin 13.6 Time Sec (11.9-14.9 ) Prothrombin 1.1 Time Ratio INR 1.03 International Normalized Rati o Activated 27.8 Partial Thrombo Sec (23.0-35.0 plast Time ) Sodium Level 143 mmol/L (135-14 4) Potassium 5.0 Level mmol/L (3.5-5. 1) Chloride Level 106 mmol/L (97-110 ) Carbon Dioxide 26 Level mmol/L (21-31) Anion Gap 11 (5-13) Blood Urea 34 Nitrogen mg/dl (7-20) Creatinine 1.98 mg/dl (0.61-1. 24) Est Glomerular mL/min (>60) Filtrat Rate mL/min Glucose Level 117 mg/dl (70-220) Calcium Level 8.7 mg/dl (8.4-10. 2) Total 0.3 Bilirubin mg/dl (0.2-1.3 ) Direct 0.00 Bilirubin mg/dl (0.00-0. 20) Indirect 0.3 Bilirubin mg/dl (0-1.1) Aspartate Amino 14 Transf (AST/SGO IU/L (15-46) T) Alanine 9 IU/L (13-69) Aminotransferas e (ALT/SGPT) Alkaline 77 Phosphatase IU/L (42-121) Total Protein 7.3 g/dl (6.1-8.1) Albumin 3.5 g/dl (3.3-4.9) Globulin 3.80 g/dl (1.3-3.2) Albumin/Globuli 0.92 n Ratio White Blood 7.9 Count 10^3/ul (4.8-1 0.8) Red Blood 3.47 Count 10^6/ul (4.70- 6.10) Hemoglobin 8.7 g/dl (14.0-18. 0) Hematocrit 28.4 % (42.0-52.0) Mean 81.8 Corpuscular fl (82.0-101.0 Volume ) Mean 25.1 Corpuscular pg (29.0-33.0) Hemoglobin Mean 30.6 Corpuscular g/dl (32.0-37. Hemoglobin Conc 0) ent Red Cell 15.3 Distribution % (11.5-14.5) Width Platelet Count 369 10^3/UL (140-4 15) Mean Platelet 9.2 Volume fl (7.4-10.4) Immature 0.300 Granulocytes % % (0.001-0.429 ) Neutrophils % 60.9 % (39.0-77.0) Lymphocytes % 28.1 % (15.0-51.0) Monocytes % 8.1 % (0.0-11.0) Eosinophils % 2.0 % (0.0-7.0) Basophils % 0.6 % (0.0-2.0) Nucleated Red 0.0 Blood Cells % /100WBC (0.0-0 .0) Immature 0.020 Granulocytes # 10^3/ul (0.0-0 .031) Neutrophils # 4.8 10^3/ul (1.6-7 .5) Lymphocytes # 2.2 10^3/ul (0.8-2 .9) Monocytes # 0.6 10^3/ul (0.3-0 .9) Eosinophils # 0.2 10^3/ul (0.0-0 .5) Basophils # 0.1 10^3/ul (0.0-0 .1) Nucleated Red 0.0 Blood Cells # 10^3/ul (0.0-0 .0) Bedside 102 Glucose mg/dL (70-220) Test 05/04/19 20:24 05/05/19 01:50 05/05/19 05:23 05/05/19 07:56 Bedside 126 211 176 Glucose mg/dL (70-220) mg/dL (70-220) mg/dL (70-220) White Blood 7.4 Count 10^3/ul (4.8-1 0.8) Red Blood 3.26 Count 10^6/ul (4.70- 6.10) Hemoglobin 8.0 g/dl (14.0-18. 0) Hematocrit 26.6 % (42.0-52.0) Mean 81.6 Corpuscular fl (82.0-101.0 Volume ) Mean 24.5 Corpuscular pg (29.0-33.0) Hemoglobin Mean 30.1 Corpuscular g/dl (32.0-37. Hemoglobin Conc 0) ent Red Cell 15.8 Distribution % (11.5-14.5) Width Platelet Count 373 10^3/UL (140-4 15) Mean Platelet 9.9 Volume fl (7.4-10.4) Immature 0.400 Granulocytes % % (0.001-0.429 ) Neutrophils % 60.4 % (39.0-77.0) Lymphocytes % 28.2 % (15.0-51.0) Monocytes % 8.3 % (0.0-11.0) Eosinophils % 2.0 % (0.0-7.0) Basophils % 0.7 % (0.0-2.0) Nucleated Red 0.0 Blood Cells % /100WBC (0.0-0 .0) Immature 0.030 Granulocytes # 10^3/ul (0.0-0 .031) Neutrophils # 4.5 10^3/ul (1.6-7 .5) Lymphocytes # 2.1 10^3/ul (0.8-2 .9) Monocytes # 0.6 10^3/ul (0.3-0 .9) Eosinophils # 0.2 10^3/ul (0.0-0 .5) Basophils # 0.1 10^3/ul (0.0-0 .1) Nucleated Red 0.0 Blood Cells # 10^3/ul (0.0-0 .0) Sodium Level 141 mmol/L (135-14 4) Potassium 4.7 Level mmol/L (3.5-5. 1) Chloride Level 108 mmol/L (97-110 ) Carbon Dioxide 25 Level mmol/L (21-31) Anion Gap 8 (5-13) Blood Urea 33 Nitrogen mg/dl (7-20) Creatinine 1.94 mg/dl (0.61-1. 24) Est Glomerular mL/min (>60) Filtrat Rate mL/min Glucose Level 226 mg/dl (70-220) Calcium Level 8.3 mg/dl (8.4-10. 2) Magnesium 1.7 Level mg/dl (1.7-2.5 ) Total 0.2 Bilirubin mg/dl (0.2-1.3 ) Direct 0.00 Bilirubin mg/dl (0.00-0. 20) Indirect 0.2 Bilirubin mg/dl (0-1.1) Aspartate Amino 13 Transf (AST/SGO IU/L (15-46) T) Alanine 9 IU/L (13-69) Aminotransferas e (ALT/SGPT) Alkaline 74 Phosphatase IU/L (42-121) Total Protein 6.2 g/dl (6.1-8.1) Albumin 3.0 g/dl (3.3-4.9) Globulin 3.20 g/dl (1.3-3.2) Albumin/Globuli 0.93 n Ratio Microbiology Date/Time Source Procedure Growth Status 05/04/19 12:45 Catheter Urine Urine Culture - Preliminary NO GROWTH Resulted AFTER 24 HOURS CANDY RONQUILLO May 05, 2019 11:57
[2019-05-05] MEDS: ERTAPENEM SODIUM 1 GM in SOD CHLORIDE 0.9% 100 ML IVPB SCH (13:07)
[2019-05-05] MEDS: BICALUTAMIDE 50 MG TAB PO SCH (13:29)
[2019-05-05 14:07] VITALS: BP 133/62; PULSE 84; RESP 18
[2019-05-05 20:04] VITALS: BP 138/65; PULSE 84; RESP 18
[2019-05-05] MEDS: TAMSULOSIN (SR) 0.4 MG CAP PO SCH (21:04)
[2019-05-05] MEDS: INSULIN GLARGINE [LANTus] (100 UNITS/ML) SYG SC SCH (21:06)
[2019-05-06] MEDS: ACCU-CHEK XX SCH (01:44)
[2019-05-06 01:58] VITALS: BP 124/61; PULSE 81; RESP 17
[2019-05-06] MEDS: FERROUS SULFATE (EC) 325 MG TAB PO SCH ×2 (08:08→20:57)
[2019-05-06] MEDS: AMIODARONE 200 MG TAB PO SCH ×2 (08:08→21:00)
[2019-05-06] MEDS: PANTOPRAZOLE (EC) 40 MG TAB PO SCH (08:08)
[2019-05-06] MEDS: BUMETANIDE 1 MG TAB PO SCH (08:09)
[2019-05-06] MEDS: INSULIN ASPART [NOVOLOG] 3 ML PEN SC SCH ×7 (08:10→21:00)
[2019-05-06] MEDS: BICALUTAMIDE 50 MG TAB PO SCH (08:10)
[2019-05-06 08:17] VITALS: BP 153/70; PULSE 88; RESP 18
[2019-05-06] MEDS: ERTAPENEM SODIUM 1 GM in SOD CHLORIDE 0.9% 100 ML IVPB SCH (13:07)
--- NOTE | 2019-05-06 13:49 | PN ---
Date/Time of Note Date/Time of Note DATE: 05/06/19 TIME: 13:46 Objective Vitals Vital Signs Date Temp Pulse Resp B/P (MAP) Pulse Ox O2 O2 Flow FiO2 Time Delivery Rate 05/06/19 98.2 88 18 153/70 96 08:17 (97) 05/05/19 Room Air 14:07 Intake and Output 05/05/19 05/05/19 05/06/19 1515:00 23:00 07:00 IntakeIntake Total 700 ml 600 ml 300 ml OutputOutput Total 400 ml 550 ml 600 ml BalanceBalance 300 ml 50 ml -300 ml Results Result Diagram: 05/05/19 0523 05/05/19522 Medications Medications Current Medications Amiodarone HCl (Cordarone) 200 mg BID PO Last administered on 05/06/19 08:08; Admin Dose 200 MG; Start 05/04/19 at 21:00 Bicalutamide (Casodex) 50 mg DAILY PO Last administered on 05/06/19 08:10; Ad min Dose 50 MG; Start 05/05/19 at 09:00 Bumetanide (Bumex) 1 mg DAILY PO Last administered on 05/06/19 08:09; Admin Dose 1 MG; Start 05/05/19 at 09:00 Carvedilol (Coreg) 3.125 mg BID PO Last administered on 05/06/19 08:09; Admin Dose 3.125 MG; Start 05/04/19 at 21:00 Ferrous Sulfate (Ferrous Sulfate (Ec)) 325 mg BID PO Last administered on 05/06/19 08:08; Admin Dose 325 MG; Start 05/04/19 at 21:00 Pantoprazole (Protonix Tab) 40 mg DAILY PO Last administered on 05/06/19 08:08; Admin Dose 40 MG; Start 05/05/19 at 09:00 Tamsulosin HCl (Flomax) 0.4 mg HS PO Last administered on 05/05/19 21:04; Admin Dose 0.4 MG; Start 05/04/19 at 21:00 IV Flush (NS 3 ml) 3 ml PER PROTOCOL IV ; Start 05/04/19 at 13:00 Ondansetron HCl (Zofran Inj) 4 mg Q6H PRN IV NAUSEA/VOMITING; Start 05/04/19 at 13:00 Acetaminophen (Tylenol Tab) 650 mg Q6H PRN PO .PAIN 1-3 OR TEMP; Start 05/04/19 at 13:00 Acetaminophen/ Hydrocodone Bitart ([place] (5/325)) 1 tab Q6H PRN PO .PAIN 4-6; Start 05/04/19 at 13:00 Ertapenem 1 gm/ Sodium Chloride 100 ml @ 200 mls/hr Q24H IVPB Last administered on 05/06/19at 13:07; Admin Dose 200 MLS/HR; Start 05/04/19 at 13:00 Diagnostic Test (Pha) (Accu-Chek) 1 ea 02 XX Last administered on 05/06/19at 01:44; Admin Dose 1 EA; Start 05/05/19 at 02:00 Insulin Glargine (Lantus) 38 units DAILY@2000 SC Last administered on 05/05/19at 21:06; Admin Dose 38 UNITS; Start 05/04/19 at 20:00 Insulin Aspart (Novolog Insulin Pen) 12 unit WITH MEALS SC Last administered on 05/06/19at 08:10; Admin Dose 12 UNIT; Start 05/04/19 at 18:00 Insulin Aspart (Novolog Insulin Pen) NOVOLOG *MILD* ALGORITHM WITH MEALS BED TIME SC Last administered on 05/06/19at 08:11; Admin Dose 1 UNIT; Start 05/04/19 at 18:00 Miscellaneous Information 1 ea NOTE XX ; Start 05/04/19 at 13:30 Glucose (Glutose) 15 gm Q15M PRN PO DECREASED GLUCOSE; Start 05/04/19 at 13:30 Glucose (Glutose) 22.5 gm Q15M PRN PO DECREASED GLUCOSE; Start 05/04/19 at 13:30 Dextrose (D50w Syringe) 25 ml Q15M PRN IV DECREASED GLUCOSE; Start 05/04/19 at 13:30 Dextrose (D50w Syringe) 50 ml Q15M PRN IV DECREASED GLUCOSE; Start 05/04/19 at 13:30 Glucagon (Glucagen) 1 mg Q15M PRN IM DECREASED GLUCOSE; Start 05/04/19 at 13:30 Glucose (Glutose) 15 gm Q15M PRN BUCCAL DECREASED GLUCOSE; Start 05/04/19 at 13:30 VTE Prophylaxis Risk score (from Nsg)>0 risk: 6 SCD applied (from Nsg): No SCD contraindication: other Lines/Catheters IV Catheter Type: Martins in Place: No Assessment/Plan Hospital Course Subjective Patient doing well, no acute events overnight Objective Physical exam General: Patient is laying in bed and answers questions appropriately Mentation: Patient is alert and oriented 4, Head: Normocephalic atraumatic Eyes: EOMI, pupils reactive to light Neck: Supple, nontender, midline Respiratory: Clear to auscultation bilaterally Cardiovascular: regular rate, no obvious murmurs Gastrointestinal: non-tender to palpation, bowel sounds heard. Neurological: Moves all extremities spontaneously Skin: No new skin lesions Assessment/Plan Anemia -Chronic however acute on chronic currently, mild drop from admission -We will need to monitor overnight and repeat hemoglobin in the morning Prostate cancer extended to bladder with bilateral hydro - Renal US noted and per Urology most likely large prostate mass that is causing blockage of ureters. Urology discussed at length with patient and patient's fa aicha and decided that patient is stable at the moment and patient is not currently stable enough to undergo surgical intervention. Patient and patient's family agree and will follow up with urology Hematuria- on and off - urology saw patient during previous admission with results as above. - antiplatelets on hold -After speaking with urology, family understands that they will follow-up with patient's urologist, patient will likely have some form of chronic hematuria as he is not a good candidate for surgery at this time. Urinary tract infection-ESBL -Patient was called back in from home for IV antibiotics, will start ertapenem, spoke with infectious disease who recommends 7-day course of ertapenem, will arrange case management and home health IV antibiotics. chronic systolic heart failure -Continue home medications Dilated cardiomyopathy - Recent ejection fraction of 25 to 30% Iron deficiency anemia, acute on chronic - blood loss as well as renal function most likely contributing to anemia - no need for transfusions at this time CASEY on CKD -Monitor closely, consult nephrology if needed HTN - Continue home medications DM - A1c noted - Lantus on board - ISS and accuchecks Disposition -We will need to monitor overnight and repeat hemoglobin tomorrow morning for anemia, patient may or may not need additional transfusions because patient has chronic intermittent hematuria. -Patient's family and patient appears to have changed her mind and would like to finish antibiotics while in-house. Patient and patient's family states that they would feel more comfortable from a safety standpoint to finish IV antibiotics in-house for the duration of the 1 week total. Patient does have 4 more doses. In the meantime if patient wishes to go home with home health and IV antibiotics that can be arranged very easily CANDY RONQUILLO May 06, 2019 13:49
[2019-05-06 14:44] VITALS: BP 115/58; PULSE 76; RESP 18
[2019-05-06 19:26] VITALS: BP 123/58; PULSE 87; RESP 18
[2019-05-06] MEDS ORDERED: INSULIN GLARGINE [LANTus] (100 UNITS/ML) SYG SC SCH (20:00)
[2019-05-06] MEDS: TAMSULOSIN (SR) 0.4 MG CAP PO SCH (20:57)
[2019-05-07 01:11] VITALS: BP 106/53; PULSE 84; RESP 18
[2019-05-07] MEDS: ACCU-CHEK XX SCH (02:00)
[2019-05-07] MEDS: INSULIN ASPART [NOVOLOG] 3 ML PEN SC SCH ×4 (08:24→13:22)
[2019-05-07 08:30] VITALS: BP 133/63; PULSE 87; RESP 16
[2019-05-07] MEDS: AMIODARONE 200 MG TAB PO SCH (08:30)
[2019-05-07] MEDS: PANTOPRAZOLE (EC) 40 MG TAB PO SCH (08:30)
[2019-05-07] MEDS: FERROUS SULFATE (EC) 325 MG TAB PO SCH (08:30)
[2019-05-07] MEDS: BUMETANIDE 1 MG TAB PO SCH (08:30)
[2019-05-07] MEDS: BICALUTAMIDE 50 MG TAB PO SCH (08:34)
--- NOTE | 2019-05-07 12:15 | PN ---
Assessment/Plan VTE Prophylaxis Risk score (from Ns)>0 risk: 6 Assessment/Plan Result Diagram: 05/07/19 0527 05/07/19 0527 Results 24hrs Laboratory Tests Test 05/06/19 12:20 05/06/19 12:46 05/06/19 16:15 05/06/19 17:40 Bedside Glucose 87 137 211 261 H Test 05/06/19 20:55 05/07/19 03:54 05/07/19 05:27 05/07/19 08:20 Bedside Glucose 93 137 151 White Blood Count 7.4 Red Blood Count 3.48 L Hemoglobin 8.6 L Hematocrit 28.5 L Mean Corpuscular 81.9 L Volume Mean Corpuscular 24.7 L Hemoglobin Mean Corpuscular 30.2 L Hemoglobin Concent Red Cell Distribution 15.8 H Width Platelet Count 372 Mean Platelet Volume 9.8 Immature Granulocytes 0.300 % Neutrophils % 59.7 Lymphocytes % 28.3 Monocytes % 8.8 Eosinophils % 2.2 Basophils % 0.7 Nucleated Red Blood 0.0 Cells % Immature Granulocytes 0.020 # Neutrophils # 4.4 Lymphocytes # 2.1 Monocytes # 0.7 Eosinophils # 0.2 Basophils # 0.1 Nucleated Red Blood 0.0 Cells # Sodium Level 144 Potassium Level 4.7 Chloride Level 110 Carbon Dioxide Level 27 Anion Gap 7 Blood Urea Nitrogen 32 H Creatinine 2.16 H Est Glomerular Filtrat Rate mL/min Glucose Level 109 Calcium Level 8.6 Phosphorus Level 5.1 H Magnesium Level 1.8 Exam/Review of Systems Results Results 24hrs Medications Medication SALVATORE ROLDAN NP May 07, 2019 12:15
[2019-05-07] MEDS: ERTAPENEM SODIUM 1 GM in SOD CHLORIDE 0.9% 100 ML IVPB SCH (13:01)
--- NOTE | 2019-05-07 13:34 | CONS ---
Assessment/Plan Assessment/Plan Hospital Course (Demo Recall) No acute events overnight patient is alert denies pain no nausea vomiting diarrhea WBC 7.4 no shift no bands BUN 32 creatinine 2.16 Microbiology: Urine culture on May 01 grew E. coli ESBL, repeat urine culture still growing gram-negative rods Antimicrobials: Invanz Physical examination: Obese well-developed elderly [place] man who is alert in no distress. Head atraumatic normocephalic neck is supple chest rise symmetrical breath sounds clear heart S1-S2 abdomen soft bowel sounds present extremities without cyanosis Assessment: 1. E. coli ESBL UTI with hematuria. 2. Coronary artery disease 3. Obesity 4. Diabetes 5. Acute on chronic kidney disease Plan: Patient remains stable, continue on current antibiotics, follow repeat urine culture, urology recommendations, anticipate discharge on current antibiotics for 7 more days Consultation Date/Type/Reason Admit Date/Time May 06, 2019 at 13:20 Initial Consult Date Type of Consult id Date/Time of Note DATE: 05/07/19 TIME: 13:34 Exam/Review of Systems Exam Vitals Vital Signs Date Temp Pulse Resp B/P (MAP) Pulse Ox O2 O2 Flow FiO2 Time Delivery Rate 05/07/19 98.0 87 16 133/63 96 08:30 (86) 05/05/19 Room Air 14:07 Intake and Output 05/06/19 05/06/19 05/07/19 1515:00 23:00 07:00 IntakeIntake Total 460 ml 240 ml OutputOutput Total 550 ml 300 ml 300 ml BalanceBalance -90 ml -60 ml -300 ml Results Result Diagram: 05/07/19 0527 05/07/19 0527 Results 24hrs Laboratory Tests Test 05/06/19 16:15 05/06/19 17:40 05/06/19 20:55 05/07/19 03:54 Bedside Glucose 211 261 H 93 137 Test 05/07/19 05:27 05/07/19 08:20 05/07/19 13:19 White Blood Count 7.4 Red Blood Count 3.48 L Hemoglobin 8.6 L Hematocrit 28.5 L Mean Corpuscular 81.9 L Volume Mean Corpuscular 24.7 L Hemoglobin Mean Corpuscular 30.2 L Hemoglobin Concent Red Cell 15.8 H Distribution Width Platelet Count 372 Mean Platelet Volume 9.8 Immature 0.300 Granulocytes % Neutrophils % 59.7 Lymphocytes % 28.3 Monocytes % 8.8 Eosinophils % 2.2 Basophils % 0.7 Nucleated Red Blood 0.0 Cells % Immature 0.020 Granulocytes # Neutrophils # 4.4 Lymphocytes # 2.1 Monocytes # 0.7 Eosinophils # 0.2 Basophils # 0.1 Nucleated Red Blood 0.0 Cells # Sodium Level 144 Potassium Level 4.7 Chloride Level 110 Carbon Dioxide Level 27 Anion Gap 7 Blood Urea Nitrogen 32 H Creatinine 2.16 H Est Glomerular Filtrat Rate mL/min Glucose Level 109 Calcium Level 8.6 Phosphorus Level 5.1 H Magnesium Level 1.8 Bedside Glucose 151 76 Medications Medication Current Medications Amiodarone HCl (Cordarone) 200 mg BID PO Last administered on 05/07/19 08:30; Admin Dose 200 MG; Start 05/04/19 at 21:00 Bicalutamide (Casodex) 50 mg DAILY PO Last administered on 05/07/19 08:34; Admin Dose 50 MG; Start 05/05/19 at 09:00 Bumetanide (Bumex) 1 mg DAILY PO Last administered on 05/07/19 08:30; Admin Dose 1 MG; Start 05/05/19 at 09:00 Carvedilol (Coreg) 3.125 mg BID PO Last administered on 05/06/19 08:09; Admin Dose 3.125 MG; Start 05/04/19 at 21:00 Ferrous Sulfate (Ferrous Sulfate (Ec)) 325 mg BID PO Last administered on 05/07/19 08:30; Admin Dose 325 MG; Start 05/04/19 at 21:00 Pantoprazole (Protonix Tab) 40 mg DAILY PO Last administered on 05/07/19 08:30; Admin Dose 40 MG; Start 05/05/19 at 09:00 Tamsulosin HCl (Flomax) 0.4 mg HS PO Last administered on 05/06/19 20:57; Admin Dose 0.4 MG; Start 05/04/19 at 21:00 IV Flush (NS 3 ml) 3 ml PER PROTOCOL IV ; Start 05/04/19 at 13:00 Ondansetron HCl (Zofran Inj) 4 mg Q6H PRN IV NAUSEA/VOMITING; Start 05/04/19 at 13:00 Acetaminophen (Tylenol Tab) 650 mg Q6H PRN PO .PAIN 1-3 OR TEMP; Start 05/04/19 at 13:00 Acetaminophen/ Hydrocodone Bitart ([place] (5/325)) 1 tab Q6H PRN PO .PAIN 4-6; Start 05/04/19 at 13:00 Ertapenem 1 gm/ Sodium Chloride 100 ml @ 200 mls/hr Q24H IVPB Last administered on 05/07/19at 13:01; Admin Dose 200 MLS/HR; Start 05/04/19 at 13:00 Diagnostic Test (Pha) (Accu-Chek) 1 ea 02 XX Last administered on 05/06/19at 01:44; Admin Dose 1 EA; Start 05/05/19 at 02:00 Insulin Aspart (Novolog Insulin Pen) NOVOLOG *MILD* ALGORITHM WITH MEALS BEDTIME SC Last administered on 05/07/19 08:24; Admin Dose 1 UNIT; Start 05/04/19 at 18:00 Miscellaneous Information 1 ea NOTE XX ; Start 05/04/19 at 13:30 Glucose (Glutose) 15 gm Q15M PRN PO DECREASED GLUCOSE; Start 05/04/19 at 13:30 Glucose (Glutose) 22.5 gm Q15M PRN PO DECREASED GLUCOSE; Start 05/04/19 at 13:30 Dextrose (D50w Syringe) 25 ml Q15M PRN IV DECREASED GLUCOSE; Start 05/04/19 at 13:30 Dextrose (D50w Syringe) 50 ml Q15M PRN IV DECREASED GLUCOSE; Start 05/04/19 at 13:30 Glucagon (Glucagen) 1 mg Q15M PRN IM DECREASED GLUCOSE; Start 05/04/19 at 13:30 Glucose (Glutose) 15 gm Q15M PRN BUCCAL DECREASED GLUCOSE; Start 05/04/19 at 13:30 Insulin Aspart (Novolog Insulin Pen) 8 unit WITH MEALS SC Last administered on 05/07/19at 08:24; Admin Dose 8 UNIT; Start 05/06/19 at 18:00 Insulin Glargine (Lantus) 30 units DAILY@2000 SC Last administered on 05/06/19at 21:07; Admin Dose 30 UNITS; Start 05/06/19 at 20:00 JESSICA SAEZ NP May 07, 2019 13:34
--- NOTE | 2019-05-07 14:33 | DS ---
Date/Time of Note Date/Time of Note DATE: 05/07/19 TIME: 14:31 Discharge Summary Admission/Discharge Info Admit Date/Time May 06, 2019 at 13:20 Discharge Date/Time Discharge Diagnosis 1. E. coli ESBL UTI. 2. 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 3. Microcytic, hypochromic anemia. 4. Cardiomyopathy with ejection fraction of 20-25%. 5. Paroxysmal atrial fibrillation. 6. Diabetes mellitus. 7. Acute on chronic kidney disease. 8. Hypertension. Patient Condition: Stable Consults 1. Endy Aldridge MD, Infectious Diseases. Hx of Present Illness This is an 88-year-old male with comorbidities including prostate cancer on the Casodex, dilated cardiomyopathy with ejection fraction of 25 to 30%, chronic kidney disease, hypertension, paroxysmal atrial fibrillation, diabetes mellitus, and anemia who was recently discharged from [facility] on 05/02/2019. The patient was called back for IV antibiotic therapy because the patient's urine culture showed E. coli ESBL. Therefore, the patient was admitted back to [facility] on 05/04/2019. Hospital Course The patient had E. coli ESBL that was sensitive to carbapenems. As per the conversation with the infectious diseases, they recommended continuing the patient on IV carbapenems for 1 week. Initially, the patient did not want to complete his IV antibiotic therapy at home. Nevertheless, the patient later changed his mind and wanted to complete his IV antibiotic therapy at home. Therefore, home health was arranged on this patient for IV antibiotic therapy to complete the course of 7 days of ertapenem. 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 The patient was continued on Casodex. The patient needs outpatient urology evaluation for possible surgical intervention for this. The patient has underlying microcytic, hypochromic anemia. The patient was maintained on iron supplements. Patient has underlying cardiomyopathy with ejection fraction of 20 to 25%. He was maintained on beta- blockers. The patient was not maintained on any ARBs or DAR inhibitors because of underlying borderline elevated renal function. The patient has underlying paroxysmal atrial fibrillation. He was maintained on amiodarone for the same. The patient is not an adequate candidate for anticoagulation because of underlying anemia and on and off hematuria. The patient has underlying diabetes mellitus. The patient's hemoglobin A1c from 04/26/2019 was 10.1. The patient was continued on sliding scale insulin along with basal insulin. The patient has underlying chronic kidney disease. The patient's BUN/creatinine was monitored closely. The patient has underlying hypertension and he was maintained on antihypertensives. The patient had a stable hospital course. The patient is stable to be discharged home, to complete the course of IV antibiotic therapy. The patient was seen in collaboration with Dr. Yoder. Home Meds Active Scripts Bumetanide* (Bumetanide*) 1 Mg Tablet, 1 MG PO DAILY for 30 Days, #30 TAB Prov:CANDY RONQUILLO 05/02/19 Amiodarone Hcl* (Amiodarone Hcl*) 200 Mg Tablet, 200 MG PO BID for 30 Days, #60 TAB Prov:CANDY RONQUILLO 05/02/19 Bicalutamide* (Casodex*) 50 Mg Tablet, 50 MG PO DAILY for 30 Days, #30 TAB Prov:CANDY RONQUILLO 05/02/19 Carvedilol* (Carvedilol*) 3.125 Mg Tablet, 3.125 MG PO BID, #60 TAB Prov:CANDY RONQUILLO 05/02/19 Pantoprazole* (Protonix*) 40 Mg Tablet.dr, 40 MG PO DAILY for 30 Days, TAB Prov:HUSSEIN SHUKLA MD 02/16/19 Ferrous Sulfate* (Ferrous Sulfate*) 325 Mg Tabec, 325 MG PO BID for 30 Days, TAB Prov:HUSSEIN SHUKLA MD 02/16/19 Reported Medications Linaclotide (LINZESS) 290 Mcg Capsule, 290 MCG PO DAILY, #30 CAP 04/28/19 Tamsulosin Hcl* (Tamsulosin Hcl*) 0.4 Mg Cap.er.24h, 0.4 MG PO HS, CAP 02/11/19 Insulin Lispro (Humalog Kwikpen U-100) 100 Unit/1 Ml Insuln.pen, 10 UNIT SQ AC E, EA 02/11/19 Insulin Glargine* (Lantus*) 100 Unit/Ml Soln, 15-20 UNIT SC QHS, #1 VIAL 02/11/19 Insulin Glargine* (Lantus*) 100 Unit/Ml Soln, 35 UNIT SC QAM, #1 VIAL 02/11/19 Discontinued Scripts Spironolactone* (Aldactone*) 25 Mg Tablet, 25 MG PO DAILY for 30 Days, TAB Prov:HUSSEIN SHUKLA MD 02/16/19 Losartan Potassium* (Cozaar*) 25 Mg Tablet, 25 MG PO DAILY for 30 Days, TAB Prov:HUSSEIN SHUKLA MD 02/16/19 Carvedilol* (Carvedilol*) 6.25 Mg Tablet, 3.125 MG PO BID for 60 Days, TAB Prov:HUSSEIN SHUKLA MD 02/16/19 Follow-up Plan 1. Please follow-up with your primary care provider and neurologist as soon as possible 2. Please follow-up with your primary care provider and let them know that you are treated for E. coli, ESBL bacteria with ertapenem for 7 days. Primary Care Provider Not On Staff Doctor Time spent on discharge: > 30 minutes Pending Labs Laboratory Tests Test 05/06/19 16:15 05/06/19 17:40 05/06/19 20:55 05/07/19 03:54 Bedside 211 261 93 137 Glucose mg/dL (70-220) mg/dL (70-220) mg/dL (70-220) mg/dL (70-220) Test 05/07/19 05:27 05/07/19 08:20 05/07/19 13:19 White Blood 7.4 Count 10^3/ul (4.8-10 .8) Red Blood 3.48 Count 10^6/ul (4.70-6 .10) Hemoglobin 8.6 g/dl (14.0-18.0 ) Hematocrit 28.5 % (42.0-52.0) Mean 81.9 Corpuscular fl (82.0-101.0) Volume Mean 24.7 Corpuscular pg (29.0-33.0) Hemoglobin Mean 30.2 Corpuscular g/dl (32.0-37.0 Hemoglobin Conc ) ent Red Cell 15.8 Distribution % (11.5-14.5) Width Platelet Count 372 10^3/UL (140-41 5) Mean Platelet 9.8 Volume fl (7.4-10.4) Immature 0.300 Granulocytes % % (0.001-0.429) Neutrophils % 59.7 % (39.0-77.0) Lymphocytes % 28.3 % (15.0-51.0) Monocytes % 8.8 % (0.0-11.0) Eosinophils % 2.2 % (0.0-7.0) Basophils % 0.7 % (0.0-2.0) Nucleated Red 0.0 Blood Cells % /100WBC (0.0-0. 0) Immature 0.020 Granulocytes # 10^3/ul (0.0-0. 031) Neutrophils # 4.4 10^3/ul (1.6-7. 5) Lymphocytes # 2.1 10^3/ul (0.8-2. 9) Monocytes # 0.7 10^3/ul (0.3-0. 9) Eosinophils # 0.2 10^3/ul (0.0-0. 5) Basophils # 0.1 10^3/ul (0.0-0. 1) Nucleated Red 0.0 Blood Cells # 10^3/ul (0.0-0. 0) Sodium Level 144 mmol/L (135-144 ) Potassium 4.7 Level mmol/L (3.5-5.1 ) Chloride Level 110 mmol/L (97-110) Carbon Dioxide 27 Level mmol/L (21-31) Anion Gap 7 (5-13) Blood Urea 32 mg/dl (7-20) Nitrogen Creatinine 2.16 mg/dl (0.61-1.2 4) Est Glomerular mL/min (>60) Filtrat Rate mL/min Glucose Level 109 mg/dl (70-220) Calcium Level 8.6 mg/dl (8.4-10.2 ) Phosphorus 5.1 Level mg/dl (2.5-4.9) Magnesium 1.8 Level mg/dl (1.7-2.5) Bedside 151 76 Glucose mg/dL (70-220) mg/dL (70-220) SALVATORE ROLDAN NP May 07, 2019 14:33
[2019-05-07 15:07] VITALS: BP 141/66; PULSE 66; RESP 16
== END 2019-05-07 16:20 | disposition home health service (06) | DRG 690 ==
LOC: E/R 12:07 → 2NE 12:43 → OBSVTOIN 05-06 13:20
PROVIDERS: ADMIT Internal Medicine; ATTEND Internal Medicine
DX: N39.0 Urinary tract infection, site not specified (principal); C79.11 Secondary malignant neoplasm of bladder; N17.9 Acute kidney failure, unspecified; B96.20 Unspecified Escherichia coli [E. coli] as the cause of diseases classified elsewhere; C61 Malignant neoplasm of prostate; N13.30 Unspecified hydronephrosis; I48.91 Unspecified atrial fibrillation; I12.9 Hypertensive chronic kidney disease with stage 1 through stage 4 chronic kidney disease, or unspecified chronic kidney disease; N18.9 Chronic kidney disease, unspecified; D50.9 Iron deficiency anemia, unspecified; E11.9 Type 2 diabetes mellitus without complications
CPT/HCPCS: 36415; 80048; 80053; 81001; 82962; 83735; 84100; 85025; 85610; 85730; 87086; G0378; J1335; J1815

== ENCOUNTER 2019-06-30 19:01 | Inpatient (IN) | payer MEDICARE, OTHER ==
[~2019-06-30] VITALS: Ht 175.3 cm; Wt 89.9 kg
[~2019-06-30 19:01] MED LIST changes: +ACET325T33 PO; +CIPR-193 PO; +FINA5TAB4 PO; +POTA20PA23 PO; +SENOKOTS PO; +THIA100T56 PO
--- NOTE | 2019-06-30 19:12 | ERD ---
ER Documentation Chief Complaint Chief Complaint Shortness of breath, difficulty urinating HPI 89-year-old male with a history of prostate cancer and CHF brought in by ambulance for shortness of breath and urinary retention. Per family, patient is unaware of his prostate cancer but he does have chronic hematuria. Patient states that he has been unable to urinate well for the last few days. He does have some pain with urination. He also complains of difficulty sleeping due to shortness of breath which seemingly has become more worse than usual. Denies any associated chest pain, dizziness, nausea, vomiting, diarrhea, fever or chills. He does have some lower abdominal discomfort with no alleviating or exacerbating factors. ROS All systems reviewed and are negative except as per history of present illness. Medications Home Meds Active Scripts Bumetanide* (Bumetanide*) 1 Mg Tablet, 1 MG PO DAILY for 30 Days, #30 TAB Prov:CANDY RONQUILLO 05/02/19 Amiodarone Hcl* (Amiodarone Hcl*) 200 Mg Tablet, 200 MG PO BID for 30 Days, #60 TAB Prov:CANDY RONQUILLO 05/02/19 Bicalutamide* (Casodex*) 50 Mg Tablet, 50 MG PO DAILY for 30 Days, #30 TAB Prov:CANDY RONQUILLO 05/02/19 Carvedilol* (Carvedilol*) 3.125 Mg Tablet, 3.125 MG PO BID, #60 TAB Prov:CANDY RONQUILLO 05/02/19 Pantoprazole* (Protonix*) 40 Mg Tablet.dr, 40 MG PO DAILY for 30 Days, TAB Prov:HUSSEIN SHUKLA MD 02/16/19 Ferrous Sulfate* (Ferrous Sulfate*) 325 Mg Tabec, 325 MG PO BID for 30 Days, TAB Prov:HUSSEIN SHUKLA MD 02/16/19 Reported Medications Linaclotide (LINZESS) 290 Mcg Capsule, 290 MCG PO DAILY, #30 CAP 04/28/19 Tamsulosin Hcl* (Tamsulosin Hcl*) 0.4 Mg Cap.er.24h, 0.4 MG PO HS, CAP 02/11/19 Insulin Lispro (Humalog Kwikpen U-100) 100 Unit/1 Ml Insuln.pen, 10 UNIT SQ AC E, EA 02/11/19 Insulin Glargine* (Lantus*) 100 Unit/Ml Soln, 15-20 UNIT SC QHS, #1 VIAL 02/11/19 Insulin Glargine* (Lantus*) 100 Unit/Ml Soln, 35 UNIT SC QAM, #1 VIAL 02/11/19 Allergies Allergies: Coded Allergies: No Known Allergy (Unverified , 04/29/19) PMhx/Soc History of Surgery: Yes (TURP 2014, angiogram ble x2 2015) Anesthesia Reaction: No Hx Neurological Disorder: No Hx Respiratory Disorders: Yes (pna) Hx Cardiac Disorders: Yes (htn, chf,cardiomyopathy) Hx Psychiatric Problems: No Hx Miscellaneous Medical Probl: No Hx Alcohol Use: No Hx Substance Use: No Hx Tobacco Use: No FmHx Family History: No diabetes Physical Exam Vitals Vital Signs Date Temp Pulse Resp B/P (MAP) Pulse Ox O2 O2 Flow FiO2 Time Delivery Rate 06/30/19 97.9 88 19 136/66 98 19:49 (89) 06/30/19 97.6 82 24 134/58 97 19:11 (83) Physical Exam Const: No acute distress Head: Atraumatic Eyes: Normal Conjunctiva ENT: Normal External Ears, Nose and Mouth. Neck: Full range of motion. No meningismus. Resp: Bibasilar crackles. Mild expiratory wheezing Cardio: Regular rate and rhythm, no murmurs Abd: Soft, non tender, non distended. Normal bowel sounds Skin: No petechiae or rashes Back: No midline or flank tenderness Ext: No cyanosis, or edema Neur: Awake and alert Psych: Normal Mood and Affect Result Diagram: 07/03/19 0528 07/03/1928 Results 24 hrs Laboratory Tests Test 06/30/19 19:26 06/30/19 19:35 06/30/19 19:48 White Blood Count 9.3 10^3/ul Red Blood Count 3.40 10^6/ul Hemoglobin 8.7 g/dl Hematocrit 27.9 % Mean Corpuscular Volume 82.1 fl Mean Corpuscular Hemoglobin 25.6 pg Mean Corpuscular 31.2 g/dl Hemoglobin Concent Red Cell Distribution Width 15.1 % Platelet Count 297 10^3/UL Mean Platelet Volume 10.4 fl Immature Granulocytes % 0.500 % Neutrophils % 78.8 % Lymphocytes % 12.1 % Monocytes % 7.7 % Eosinophils % 0.5 % Basophils % 0.4 % Nucleated Red Blood Cells % 0.0 /100WBC Immature Granulocytes # 0.050 10^3/ul Neutrophils # 7.3 10^3/ul Lymphocytes # 1.1 10^3/ul Monocytes # 0.7 10^3/ul Eosinophils # 0.1 10^3/ul Basophils # 0.0 10^3/ul Nucleated Red Blood Cells # 0.0 10^3/ul Prothrombin Time 12.6 Sec Prothrombin Time Ratio 1.0 INR International 0.93 Normalized Ratio Activated Partial Thromboplast 28.0 Sec Time Sodium Level 141 mmol/L Potassium Level 4.2 mmol/L Chloride Level 99 mmol/L Carbon Dioxide Level 33 mmol/L Anion Gap 9 Blood Urea Nitrogen 37 mg/dl Creatinine 2.26 mg/dl Est Glomerular Filtrat mL/min Rate mL/min Glucose Level 69 mg/dl Calcium Level 8.6 mg/dl Total Bilirubin 0.4 mg/dl Direct Bilirubin 0.00 mg/dl Indirect Bilirubin 0.4 mg/dl Aspartate Amino Transf (AST/SGOT) 36 IU/L Alanine 11 IU/L Aminotransferase (ALT/SGPT) Alkaline Phosphatase 60 IU/L Troponin I < 0.012 ng/ml B-Type Natriuretic Peptide 75908 PG/ML Total Protein 7.8 g/dl Albumin 3.9 g/dl Globulin 3.90 g/dl Albumin/Globulin Ratio 1.00 Bedside Glucose 91 mg/dL Urine Color RED Urine Clarity CLOUDY Urine pH 7.0 Urine Specific [place] 1.010 Urine Ketones NEGATIVE mg/dL Urine Nitrite NEGATIVE mg/dL Urine Bilirubin NEGATIVE mg/dL Urine Urobilinogen NEGATIVE mg/dL Urine Leukocyte Esterase 3+ Parminder/ul Urine Microscopic RBC > 182 /HPF Urine Microscopic WBC > 182 /HPF Urine Bacteria FEW /HPF Urine Hemoglobin 3+ mg/dL Urine Glucose 3+ mg/dL Urine Total Protein 2+ mg/dl Current Medications Medications Dose Sig/Clare Start Time Status Last (Trade) Ordered Route PRN Stop Time Admin Dose Reason Admin 1 tab ONCE ONCE 06/30/19 DC 06/30/19 Trimethoprim/ PO 20:30 06/30/19 20:40 20:31 Sulfamethoxaz ole (Bactrim (Ds)) Bumetanide 1 mg NOW ONCE 06/30/19 DC 06/30/19 (Bumex) IV 20:30 06/30/19 20:40 20:31 Procedures/MDM EMERGENT LABS AND DIAGNOSTIC STUDIES: Lab Results above were reviewed and interpreted by me. CBC: Notable for anemia CMP: Elevated BUN and creatinine, consistent with renal insufficiency. No evidence of clinically significant electrolyte abnormality, acidosis, hypoglycemia, liver disease, or biliary obstruction BNP significantly elevated, consistent with heart failure exacerbation Troponin within normal limits, not indicative of cardiac ischemia UA: Findings consistent with infection 12-lead EKG was interpreted by Jonathon Munoz MD: Normal Sinus Rhythm with ventricular rate of 89 beats per minute Normal axis Normal intervals Anterior Q waves, likely due to old infarct No acute ST or T wave changes suggestive of acute ischemia or STEMI. Radiology Results as interpreted by Radiology below were reviewed by Karla Munoz MD: Chest x-ray shows signs of fluid overload Initial Nursing notes reviewed. Previous Medical Records requested via the Electronic Health Record. EMERGENCY DEPARTMENT COURSE / MEDICAL DECISION MAKING: Patient's presentation is consistent with acute decompensation of his chronic heart failure. He also has urinary retention which was relieved by placing a Martins with subsequent hematuria noted. Urinalysis is consistent with infection, for which she was started on antibiotics. He was given Bumex IV for his CHF exacerbation. Seems like his kidney function is at his baseline. Patient feels more comfortable staying here and being stabilized and does not feel comfortable going home. Family is agreeable. Patient will be admitted for further stabilization Accepting Care Team: Current data and ongoing care discussed. Time: Time of admission Primary Provider: Daria Departure Diagnosis: Primary Impression: CHF exacerbation Heart failure type: unspecified Qualified Codes: I50.9 - Heart failure, unspecified Additional Impressions: CKD (chronic kidney disease) Chronic kidney disease stage: unspecified stage Qualified Codes: N18.9 - Chronic kidney disease, unspecified UTI (urinary tract infection) Urinary tract infection type: acute cystitis Hematuria presence: with hematuria Qualified Codes: N30.01 - Acute cystitis with hematuria Urinary retention Condition: BUCK Rosales MD Jun 30, 2019 19:12
[2019-06-30] MEDS ORDERED: TRIMETHOPRIM/SULFAMETHOX (DS) TAB PO ONE (20:30)
[2019-06-30] MEDS ORDERED: BUMETANIDE 1 MG INJ IV ONE (20:30)
[2019-06-30] MEDS ORDERED: ONDANSETRON 4 MG INJ IV PRN (21:00)
[2019-06-30] MEDS ORDERED: ACETAMINOPHEN 325 MG TAB PO PRN (21:00)
[2019-06-30 21:59] VITALS: Ht 175.3 cm; Wt 89.9 kg
[2019-06-30 22:06] VITALS: BP 122/58; PULSE 86; RESP 20
--- NOTE | 2019-06-30 22:15 | HP ---
Date/Time of Note Date/Time of Note DATE: 06/30/19 TIME: 22:15 Assessment/Plan VTE Prophylaxis SCD applied (from Nsg): Yes Pharmacological prophylaxis: other Lines/Catheters IV Catheter Type (from Nrsg): Saline Lock Urinary Cath still in place: Yes Reason Cath still needed: terminal illness/intractable pain Assessment/Plan Assessment/Plan 1. Urinary retention/hematuria -Patient with a history of prostate cancer with extension to the bladder -Matrins was placed in the ER -Treat UTI -Urology consult 2. Acute on chronic CHF exacerbation, systolic: EF 20-25% -Status post IV Bumex in the ER -Continue cardiac meds. Will diurese 3. 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 Family did not tell him about the diagnosis and that they do not want to know 4. CKD: Nephrology consult 5. Atrial fibrillation: Rate controlled, sinus - Continue Amiodarone and Coreg 6. UTI: Patient with a history of ESBL UTI admitted here a month ago -Meropenem -Follow-up culture results 7. Diabetes: Insulin while in-house 8. Anemia: Secondary to blood loss and metastatic prostate cancer -Transfuse PRBCs as needed - Result Diagram: 06/30/19192506/30/191925 Results 24hrs Laboratory Tests Test 06/30/19 19:26 06/30/19 19:35 06/30/19 19:48 White Blood Count 9.3 # Red Blood Count 3.40 L Hemoglobin 8.7 L Hematocrit 27.9 L Mean Corpuscular Volume 82.1 Mean Corpuscular Hemoglobin 25.6 L Mean Corpuscular Hemoglobin Concent 31.2 L Red Cell Distribution Width 15.1 H Platelet Count 297 # Mean Platelet Volume 10.4 Immature Granulocytes % 0.500 H Neutrophils % 78.8 H Lymphocytes % 12.1 L Monocytes % 7.7 Eosinophils % 0.5 Basophils % 0.4 Nucleated Red Blood Cells % 0.0 Immature Granulocytes # 0.050 H Neutrophils # 7.3 Lymphocytes # 1.1 Monocytes # 0.7 Eosinophils # 0.1 Basophils # 0.0 Nucleated Red Blood Cells # 0.0 Prothrombin Time 12.6 Prothrombin Time Ratio 1.0 INR International Normalized Ratio 0.93 Activated Partial Thromboplast Time 28.0 Sodium Level 141 Potassium Level 4.2 Chloride Level 99 Carbon Dioxide Level 33 H Anion Gap 9 Blood Urea Nitrogen 37 H Creatinine 2.26 H Est Glomerular Filtrat Rate mL/min Glucose Level 69 L Calcium Level 8.6 Total Bilirubin 0.4 Direct Bilirubin 0.00 Indirect Bilirubin 0.4 Aspartate Amino Transf (AST/SGOT) 36 Alanine Aminotransferase (ALT/SGPT) 11 L Alkaline Phosphatase 60 Troponin I < 0.012 B-Type Natriuretic Peptide 41674 H Total Protein 7.8 Albumin 3.9 Globulin 3.90 H Albumin/Globulin Ratio 1.00 Bedside Glucose 91 Urine Color RED Urine Clarity CLOUDY A Urine pH 7.0 Urine Specific [place] 1.010 Urine Ketones NEGATIVE Urine Nitrite NEGATIVE Urine Bilirubin NEGATIVE Urine Urobilinogen NEGATIVE Urine Leukocyte Esterase 3+ H Urine Microscopic RBC > 182 H Urine Microscopic WBC > 182 H Urine Bacteria FEW A Urine Hemoglobin 3+ H Urine Glucose 3+ H Urine Total Protein 2+ H HPI/ROS Admit Date/Time Admit Date/Time Jun 30, 2019 at 20:34 Hx of Present Illness Patient is an 89-year-old male with a history of metastatic prostate cancer with extension to the bladder s/p TURP, on Lupron (patient was diagnosed 8 years ago and the family did not tell him about the diagnosis), cardiomyopathy with systolic dysfunction EF 20 to 25%, CKD, atrial fibrillation, diabetes, ESBL UTI, anemia. Patient presented to ER complaining of shortness of breath, difficulty urination/dysuria and hematuria. Patient had been admitted here multiple times. Last admission was a month ago for ESBL UTI. When presented to ER, vitals were stable. Labs shows hemoglobin of 8.7, which is stable. Creatinine 2.3. Chest x-ray shows mild interstitial edema and a small right pleural effusion. A Martins catheter was placed in the ER with bloody output. BNP 20,000. He was given Bumex. His UA is consistent with UTI. PMH/Family/Social Past Medical History Past Surgical Hx: other (SEE HPI) Family History Significant Family History: no pertinent family hx Social History Alcohol Use: other Smoking Status: Unknown if ever smoked Drug Use: other Exam Constitutional: other (no acute distress) Head: normocephalic, atraumatic Eyes: PERRL Respiratory: normal air movement Cardiovascular: nl pulses Gastrointestinal: soft Extremities: normal pulses Medications Current Medications Ondansetron HCl (Zofran Inj) 4 mg ER BRIDGE PRN IV NAUSEA/VOMITING; Start 06/30/19 at 21:00; Stop 07/01/19 at 20:59 Acetaminophen (Tylenol Tab) 650 mg ER BRIDGE PRN PO .MILD PAIN 1-3 OR TEMP; Start 06/30/19 at 21:00; Stop 07/01/19 at 20:59 Coded Allergies: No Known Allergy (Unverified , 04/29/19) Past Surgical History Past Surgical Hx: other Family History Significant Family History: no pertinent family hx Social History Smoking Status: Never smoker Exam/Review of Systems Vital Signs Vitals Vital Signs Date Temp Pulse Resp B/P (MAP) Pulse Ox O2 O2 Flow FiO2 Time Delivery Rate 06/30/19 97.8 86 20 122/58 92 Room Air 22:06 (79) VIOLET IRVING MD Jun 30, 2019 22:15
[2019-07-01] VITALS: BP 116/56; PULSE 80; RESP 19
[2019-07-01] MEDS ORDERED: ONDANSETRON 4 MG INJ IV PRN (01:00)
[2019-07-01] MEDS ORDERED: ACETAMINOPHEN 325 MG TAB PO PRN (01:00)
[2019-07-01] MEDS ORDERED: NACL 0.9% 3 ML SYG IV SCH (01:00)
[2019-07-01] MEDS ORDERED: ALBUTEROL/IPRATROPIUM (NEB) 3 ML AMP HHN PRN (01:00)
[2019-07-01] MEDS ORDERED: NITROGLYCERIN (SL) 0.4 MG TAB SL PRN (01:00)
[2019-07-01] MEDS: ACCU-CHEK XX SCH (02:00)
[2019-07-01 04:00] VITALS: BP 138/63; PULSE 87; RESP 18
[2019-07-01] MEDS: PANTOPRAZOLE (EC) 40 MG TAB PO SCH (06:43)
[2019-07-01] MEDS: INSULIN ASPART [NOVOLOG] 3 ML PEN SC SCH ×4 (07:39→21:00)
[2019-07-01 07:45] VITALS: BP 134/67; PULSE 88; RESP 18
[2019-07-01] MEDS: BUMETANIDE 1 MG TAB PO SCH (08:17)
[2019-07-01] MEDS: FERROUS SULFATE (EC) 325 MG TAB PO SCH ×2 (08:17→21:18)
[2019-07-01] MEDS: AMIODARONE 200 MG TAB PO SCH ×2 (08:17→21:21)
[2019-07-01] MEDS: BICALUTAMIDE 50 MG TAB PO SCH (08:38)
[2019-07-01] MEDS ORDERED: GLUCOSE GEL 15 GRAM TUBE PO PRN ×2 (09:00)
[2019-07-01] MEDS ORDERED: GLUCAGON 1 MG INJ IM PRN (09:00)
[2019-07-01] MEDS ORDERED: DEXTROSE 50% 50 ML SYRINGE IV PRN ×2 (09:00)
[2019-07-01] MEDS ORDERED: GLUCOSE GEL 15 GRAM TUBE BUCCAL PRN (09:00)
[2019-07-01] MEDS: MEROPENEM 500MG/50 ML (PMX) 50 ML IVPB SCH ×2 (09:34→21:15)
--- NOTE | 2019-07-01 11:19 | CONS ---
Assessment/Plan Cardiology NYHA: III Heart Failure Type: Acute on Chronic Heart Failure Type: Diastolic Assessment/Plan Assessment/Plan (Daily) known severe cardiomyopathy recurrent heart failure chronic renal insufficiency metastatic prostate CA Hematuria PAF on Amiodarone now in sinus unable to consider anticoagulation given hematuria given Bumex in ER with improvement will continue PO Bumex for now and observe, continue Coreg Gu consulted as well for prostate CA and hematuria Consultation Date/Type/Reason Admit Date/Time Jun 30, 2019 at 20:34 Type of Consult Cardiology Date/Time of Note DATE: 07/01/19 TIME: 11:06 This is a pleasant 88-year-old male with a past medical history of chronic kidney disease with previous baseline creatinine around 1.5 to 2.0 mg/dL, history of prostate cancer status post TURP, history of severe cardiomyopathy history of hypertension who presents to the [facility] with shortness of breath and gross hematuria. has had several recent similar admissions. received Bumex in ER breathing improved but still mildly short of breath. He is concerned about danielle hematuria Respiratory: shortness of breath Cardiovascular: no complaints Gastrointestinal: no complaints Genitourinary: bleeding Past Medical History Home Meds Active Scripts Bumetanide* (Bumetanide*) 1 Mg Tablet, 1 MG PO DAILY for 30 Days, #30 TAB Prov:CANDY RONQUILLO 05/02/19 Amiodarone Hcl* (Amiodarone Hcl*) 200 Mg Tablet, 200 MG PO BID for 30 Days, #60 TAB Prov:CANDY RONQUILLO 05/02/19 Bicalutamide* (Casodex*) 50 Mg Tablet, 50 MG PO DAILY for 30 Days, #30 TAB Prov:CANDY RONQUILLO 05/02/19 Carvedilol* (Carvedilol*) 3.125 Mg Tablet, 3.125 MG PO BID, #60 TAB Prov:CANDY RONQUILLO 05/02/19 Pantoprazole* (Protonix*) 40 Mg Tablet.dr, 40 MG PO DAILY for 30 Days, TAB Prov:HUSSEIN SHUKLA MD 02/16/19 Ferrous Sulfate* (Ferrous Sulfate*) 325 Mg Tabec, 325 MG PO BID for 30 Days, TAB Prov:HUSSEIN SHUKLA MD 02/16/19 Reported Medications Linaclotide (LINZESS) 290 Mcg Capsule, 290 MCG PO DAILY, #30 CAP 04/28/19 Tamsulosin Hcl* (Tamsulosin Hcl*) 0.4 Mg Cap.er.24h, 0.4 MG PO HS, CAP 02/11/19 Insulin Lispro (Humalog Kwikpen U-100) 100 Unit/1 Ml Insuln.pen, 10 UNIT SQ AC E, EA 02/11/19 Insulin Glargine* (Lantus*) 100 Unit/Ml Soln, 15-20 UNIT SC QHS, #1 VIAL 02/11/19 Insulin Glargine* (Lantus*) 100 Unit/Ml Soln, 35 UNIT SC QAM, #1 VIAL 02/11/19 Medications Current Medications Ondansetron HCl (Zofran Inj) 4 mg ER BRIDGE PRN IV NAUSEA/VOMITING; Start 06/30/19 at 21:00; Stop 07/01/19 at 20:59 Acetaminophen (Tylenol Tab) 650 mg ER BRIDGE PRN PO .MILD PAIN 1-3 OR TEMP Last administered on 06/30/19at 22:30; Admin Dose 650 MG; Start 06/30/19 at 21:00; Stop 07/01/19 at 20:59 IV Flush (NS 3 ml) 3 ml PER PROTOCOL IV ; Start 07/01/19 at 01:00 Ondansetron HCl (Zofran Inj) 4 mg Q6H PRN IV NAUSEA/VOMITING; Start 07/01/19 at 01:00 Nitroglycerin (Nitroglycerin (Sl Tab) 0.4 Mg) 1 tab Q5M PRN SL .CHEST PAIN; Start 07/01/19 at 01:00 Acetaminophen (Tylenol Tab) 650 mg Q6H PRN PO .PAIN 1-3 OR TEMP; Start 07/01/19 at 01:00 Albuterol/ Ipratropium (Duoneb) 3 ml Q2H RESP THERAPY PRN HHN SHORTNESS OF BREATH; Start 07/01/19 at 01:00 Diagnostic Test (Pha) (Accu-Chek) 1 ea 02 XX ; Start 07/01/19 at 02:00 Insulin Aspart (Novolog Insulin Pen) NOVOLOG *MILD* ALGORITHM WITH MEALS BEDTIME SC ; Start 07/01/19 at 08:00 Amiodarone HCl (Cordarone) 200 mg BID PO Last administered on 07/01/19at 08:17; Admin Dose 200 MG; Start 07/01/19 at 09:00 Bicalutamide (Casodex) 50 mg DAILY PO Last administered on 07/01/19at 08:38; Admin Dose 50 MG; Start 07/01/19 at 09:00 Bumetanide (Bumex) 1 mg DAILY PO Last administered on 07/01/19at 08:17; Admin Dose 1 MG; Start 07/01/19 at 09:00 Carvedilol (Coreg) 3.125 mg BID PO Last administered on 07/01/19at 08:17; Admin Dose 3.125 MG; Start 07/01/19 at 09:00 Ferrous Sulfate (Ferrous Sulfate (Ec)) 325 mg BID PO Last administered on 07/01/19at 08:17; Admin Dose 325 MG; Start 07/01/19 at 09:00 Pantoprazole (Protonix Tab) 40 mg DAILY@0600 PO Last administered on 07/01/19at 06:43; Admin Dose 40 MG; Start 07/01/19 at 06:00 Tamsulosin HCl (Flomax) 0.4 mg HS PO ; Start 07/01/19 at 21:00 Meropenem/Sodium Chloride 50 ml @ 100 mls/hr Q12 IVPB Last administered on 07/01/19at 09:34; Admin Dose 100 MLS/HR; Start 07/01/19 at 09:00 Miscellaneous Information 1 ea NOTE XX ; Start 07/01/19 at 09:00 Glucose (Glutose) 15 gm Q15M PRN PO DECREASED GLUCOSE; Start 07/01/19 at 09:00 Glucose (Glutose) 22.5 gm Q15M PRN PO DECREASED GLUCOSE; Start 07/01/19 at 09:00 Dextrose (D50w Syringe) 25 ml Q15M PRN IV DECREASED GLUCOSE; Start 07/01/19 at 09:00 Dextrose (D50w Syringe) 50 ml Q15M PRN IV DECREASED GLUCOSE; Start 07/01/19 at 09:00 Glucagon (Glucagen) 1 mg Q15M PRN IM DECREASED GLUCOSE; Start 07/01/19 at 09:00 Glucose (Glutose) 15 gm Q15M PRN BUCCAL DECREASED GLUCOSE; Start 07/01/19 at 09:00 Allergies: Coded Allergies: No Known Allergy (Unverified , 04/29/19) Past Surgical History Past Surgical Hx: other Social History Smoking Status: Never smoker Exam/Review of Systems Vital Signs Vitals Vital Signs Date Temp Pulse Resp B/P (MAP) Pulse Ox O2 O2 Flow FiO2 Time Delivery Rate 07/01/19 Bag Valve 2.0 07:52 Mask 07/01/19 98.0 88 18 134/67 97 07:45 (89) Exam Constitutional: alert, oriented Respiratory: diminished breath sounds (slight crackles) Cardiovascular: regular rate and rhythm Gastrointestinal: soft Genitourinary - Male: other (mccollum in place) Extremities: edema (1+) Labs Result Diagram: 06/30/19192506/30/191925 Results 24hrs Laboratory Tests Test 06/30/19 19:26 06/30/19 19:35 06/30/19 19:48 07/01/19 07:39 White Blood Count 9.3 # Red Blood Count 3.40 L Hemoglobin 8.7 L Hematocrit 27.9 L Mean Corpuscular Volume 82.1 Mean Corpuscular 25.6 L Hemoglobin Mean Corpuscular 31.2 L Hemoglobin Concent Red Cell Distribution 15.1 H Width Platelet Count 297 # Mean Platelet Volume 10.4 Immature Granulocytes % 0.500 H Neutrophils % 78.8 H Lymphocytes % 12.1 L Monocytes % 7.7 Eosinophils % 0.5 Basophils % 0.4 Nucleated Red Blood 0.0 Cells % Immature Granulocytes # 0.050 H Neutrophils # 7.3 Lymphocytes # 1.1 Monocytes # 0.7 Eosinophils # 0.1 Basophils # 0.0 Nucleated Red Blood 0.0 Cells # Prothrombin Time 12.6 Prothrombin Time Ratio 1.0 INR International 0.93 Normalized Ratio Activated 28.0 Partial Thromboplast Time Sodium Level 141 Potassium Level 4.2 Chloride Level 99 Carbon Dioxide Level 33 H Anion Gap 9 Blood Urea Nitrogen 37 H Creatinine 2.26 H Est Glomerular Filtrat Rate mL/min Glucose Level 69 L Calcium Level 8.6 Total Bilirubin 0.4 Direct Bilirubin 0.00 Indirect Bilirubin 0.4 Aspartate Amino 36 Transf (AST/SGOT) Alanine 11 L Aminotransferase (ALT/SG PT) Alkaline Phosphatase 60 Troponin I < 0.012 B-Type Natriuretic 93223 H Peptide Total Protein 7.8 Albumin 3.9 Globulin 3.90 H Albumin/Globulin Ratio 1.00 Bedside Glucose 91 76 Urine Color RED Urine Clarity CLOUDY A Urine pH 7.0 Urine Specific [place] 1.010 Urine Ketones NEGATIVE Urine Nitrite NEGATIVE Urine Bilirubin NEGATIVE Urine Urobilinogen NEGATIVE Urine Leukocyte Esterase 3+ H Urine Microscopic RBC > 182 H Urine Microscopic WBC > 182 H Urine Bacteria FEW A Urine Hemoglobin 3+ H Urine Glucose 3+ H Urine Total Protein 2+ H Medications Medications Current Medications Ondansetron HCl (Zofran Inj) 4 mg ER BRIDGE PRN IV NAUSEA/VOMITING; Start 06/30/19 at 21:00; Stop 07/01/19 at 20:59 Acetaminophen (Tylenol Tab) 650 mg ER BRIDGE PRN PO .MILD PAIN 1-3 OR TEMP Last administered on 06/30/19at 22:30; Admin Dose 650 MG; Start 06/30/19 at 21:00; Stop 07/01/19 at 20:59 IV Flush (NS 3 ml) 3 ml PER PROTOCOL IV ; Start 07/01/19 at 01:00 Ondansetron HCl (Zofran Inj) 4 mg Q6H PRN IV NAUSEA/VOMITING; Start 07/01/19 at 01:00 Nitroglycerin (Nitroglycerin (Sl Tab) 0.4 Mg) 1 tab Q5M PRN SL .CHEST PAIN; Start 07/01/19 at 01:00 Acetaminophen (Tylenol Tab) 650 mg Q6H PRN PO .PAIN 1-3 OR TEMP; Start 07/01/19 at 01:00 Albuterol/ Ipratropium (Duoneb) 3 ml Q2H RESP THERAPY PRN HHN SHORTNESS OF BREATH; Start 07/01/19 at 01:00 Diagnostic Test (Pha) (Accu-Chek) 1 ea 02 XX ; Start 07/01/19 at 02:00 Insulin Aspart (Novolog Insulin Pen) NOVOLOG *MILD* ALGORITHM WITH MEALS BEDTIME SC ; Start 07/01/19 at 08:00 Amiodarone HCl (Cordarone) 200 mg BID PO Last administered on 07/01/19at 08:17; Admin Dose 200 MG; Start 07/01/19 at 09:00 Bicalutamide (Casodex) 50 mg DAILY PO Last administered on 07/01/19at 08:38; Admin Dose 50 MG; Start 07/01/19 at 09:00 Bumetanide (Bumex) 1 mg DAILY PO Last administered on 07/01/19at 08:17; Admin Dose 1 MG; Start 07/01/19 at 09:00 Carvedilol (Coreg) 3.125 mg BID PO Last administered on 07/01/19at 08:17; Admin Dose 3.125 MG; Start 07/01/19 at 09:00 Ferrous Sulfate (Ferrous Sulfate (Ec)) 325 mg BID PO Last administered on 07/01/19at 08:17; Admin Dose 325 MG; Start 07/01/19 at 09:00 Pantoprazole (Protonix Tab) 40 mg DAILY@0600 PO Last administered on 07/01/19at 06:43; Admin Dose 40 MG; Start 07/01/19 at 06:00 Tamsulosin HCl (Flomax) 0.4 mg HS PO ; Start 07/01/19 at 21:00 Meropenem/Sodium Chloride 50 ml @ 100 mls/hr Q12 IVPB Last administered on 07/01/19at 09:34; Admin Dose 100 MLS/HR; Start 07/01/19 at 09:00 Miscellaneous Information 1 ea NOTE XX ; Start 07/01/19 at 09:00 Glucose (Glutose) 15 gm Q15M PRN PO DECREASED GLUCOSE; Start 07/01/19 at 09:00 Glucose (Glutose) 22.5 gm Q15M PRN PO DECREASED GLUCOSE; Start 07/01/19 at 09:00 Dextrose (D50w Syringe) 25 ml Q15M PRN IV DECREASED GLUCOSE; Start 07/01/19 at 09:00 Dextrose (D50w Syringe) 50 ml Q15M PRN IV DECREASED GLUCOSE; Start 07/01/19 at 09:00 Glucagon (Glucagen) 1 mg Q15M PRN IM DECREASED GLUCOSE; Start 07/01/19 at 09:00 Glucose (Glutose) 15 gm Q15M PRN BUCCAL DECREASED GLUCOSE; Start 07/01/19 at 09:00 JEFF CASTILLO MD Jul 01, 2019 11:18
[2019-07-01 11:58] VITALS: BP 122/57; PULSE 82; RESP 18
--- NOTE | 2019-07-01 13:06 | PN ---
Date/Time of Note Date/Time of Note DATE: 07/01/19 TIME: 13:02 Assessment/Plan VTE Prophylaxis Risk score (from Ns)>0 risk: 6 SCD applied (from Ns): Yes Pharmacological prophylaxis: NA/contraindicated Pharm contraindication: bleeding Lines/Catheters IV C[facility]from [facility] Saline Lock Urinary Cath still in place: Yes Reason Cath still needed: urinary retention Assessment/Plan Hospital Course S: Patient has less shortness of breath now. Seen by cardiology team earlier today and waiting to be seen by urology team. Hematuria still present. O: VS - see below PE: Gen: No acute distress Head: Atraumatic Eyes: Normal Conjunctiva ENT: Normal External Ears, Nose and Mouth. Neck: Full range of motion. No meningismus. Resp: Clear to auscultation bilaterally Cardio: Regular rate and rhythm, no murmurs Abd: Soft, non tender, non distended. Normal bowel sounds Ext: No bilateral lower extremity edema Neuro: No focal deficits Assessment/Plan: 89-year-old male who presented with: 1. 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 Of note patient does have a history of MDR UTI in the past -Follow-up recommendations from urology consult 2. Acute on chronic CHF exacerbation, systolic: EF 20-25%-Status post IV Bumex in the ER. Patient has less shortness of breath now -Continue cardiac meds. -Continue with p.o. Bumex for now, follow-up further cardiac recommendations 3. 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 Apparently family did not tell him about the diagnosis and that they do not want to know. -Monitor urine output and follow-up urology recommendations -We will also obtain social work consult for further investigation as to why the family does not want the patient to know about his prostate cancer diagnos is, if this is true 4. CKD: Monitor, if worsens will consider nephrology consult 5. Atrial fibrillation: Rate controlled, sinus - Continue Amiodarone and Coreg, follow-up cardiology recommendations 6. UTI: Patient with a history of ESBL UTI admitted here a month ago -For now continue meropenem given history of prior urinary tract infection multidrug-resistant based on the sensitivities at that time -Follow-up culture results 7. Diabetes: Continue insulin while in-house 8. Anemia: Likely secondary to blood loss and metastatic prostate cancer -Monitor, transfuse PRBCs as needed Result Diagram: 06/30/19192506/30/191925 Results 24hrs Laboratory Tests Test 06/30/19 19:26 06/30/19 19:35 06/30/19 19:48 07/01/19 07:39 White Blood Count 9.3 # Red Blood Count 3.40 L Hemoglobin 8.7 L Hematocrit 27.9 L Mean Corpuscular Volume 82.1 Mean Corpuscular 25.6 L Hemoglobin Mean Corpuscular 31.2 L Hemoglobin Concent Red Cell Distribution 15.1 H Width Platelet Count 297 # Mean Platelet Volume 10.4 Immature Granulocytes % 0.500 H Neutrophils % 78.8 H Lymphocytes % 12.1 L Monocytes % 7.7 Eosinophils % 0.5 Basophils % 0.4 Nucleated Red Blood 0.0 Cells % Immature Granulocytes # 0.050 H Neutrophils # 7.3 Lymphocytes # 1.1 Monocytes # 0.7 Eosinophils # 0.1 Basophils # 0.0 Nucleated Red Blood 0.0 Cells # Prothrombin Time 12.6 Prothrombin Time Ratio 1.0 INR International 0.93 Normalized Ratio Activated 28.0 Partial Thromboplast Time Sodium Level 141 Potassium Level 4.2 Chloride Level 99 Carbon Dioxide Level 33 H Anion Gap 9 Blood Urea Nitrogen 37 H Creatinine 2.26 H Est Glomerular Filtrat Rate mL/min Glucose Level 69 L Calcium Level 8.6 Total Bilirubin 0.4 Direct Bilirubin 0.00 Indirect Bilirubin 0.4 Aspartate Amino 36 Transf (AST/SGOT) Alanine 11 L Aminotransferase (ALT/SG PT) Alkaline Phosphatase 60 Troponin I < 0.012 B-Type Natriuretic 91898 H Peptide Total Protein 7.8 Albumin 3.9 Globulin 3.90 H Albumin/Globulin Ratio 1.00 Bedside Glucose 91 76 Urine Color RED Urine Clarity CLOUDY A Urine pH 7.0 Urine Specific [place] 1.010 Urine Ketones NEGATIVE Urine Nitrite NEGATIVE Urine Bilirubin NEGATIVE Urine Urobilinogen NEGATIVE Urine Leukocyte Esterase 3+ H Urine Microscopic RBC > 182 H Urine Microscopic WBC > 182 H Urine Bacteria FEW A Urine Hemoglobin 3+ H Urine Glucose 3+ H Urine Total Protein 2+ H Test 07/01/19 12:12 Bedside Glucose 106 Exam/Review of Systems Exam Vitals Vital Signs Date Temp Pulse Resp B/P (MAP) Pulse Ox O2 O2 Flow FiO2 Time Delivery Rate 07/01/19 97.8 82 18 122/57 97 11:58 (78) 07/01/19 Bag Valve 2.0 07:52 Mask Results Results 24hrs Laboratory Tests Test 06/30/19 19:26 06/30/19 19:35 06/30/19 19:48 07/01/19 07:39 White Blood Count 9.3 # Red Blood Count 3.40 L Hemoglobin 8.7 L Hematocrit 27.9 L Mean Corpuscular Volume 82.1 Mean Corpuscular 25.6 L Hemoglobin Mean Corpuscular 31.2 L Hemoglobin Concent Red Cell Distribution 15.1 H Width Platelet Count 297 # Mean Platelet Volume 10.4 Immature Granulocytes % 0.500 H Neutrophils % 78.8 H Lymphocytes % 12.1 L Monocytes % 7.7 Eosinophils % 0.5 Basophils % 0.4 Nucleated Red Blood 0.0 Cells % Immature Granulocytes # 0.050 H Neutrophils # 7.3 Lymphocytes # 1.1 Monocytes # 0.7 Eosinophils # 0.1 Basophils # 0.0 Nucleated Red Blood 0.0 Cells # Prothrombin Time 12.6 Prothrombin Time Ratio 1.0 INR International 0.93 Normalized Ratio Activated 28.0 Partial Thromboplast Time Sodium Level 141 Potassium Level 4.2 Chloride Level 99 Carbon Dioxide Level 33 H Anion Gap 9 Blood Urea Nitrogen 37 H Creatinine 2.26 H Est Glomerular Filtrat Rate mL/min Glucose Level 69 L Calcium Level 8.6 Total Bilirubin 0.4 Direct Bilirubin 0.00 Indirect Bilirubin 0.4 Aspartate Amino 36 Transf (AST/SGOT) Alanine 11 L Aminotransferase (ALT/SG PT) Alkaline Phosphatase 60 Troponin I < 0.012 B-Type Natriuretic 25222 H Peptide Total Protein 7.8 Albumin 3.9 Globulin 3.90 H Albumin/Globulin Ratio 1.00 Bedside Glucose 91 76 Urine Color RED Urine Clarity CLOUDY A Urine pH 7.0 Urine Specific [place] 1.010 Urine Ketones NEGATIVE Urine Nitrite NEGATIVE Urine Bilirubin NEGATIVE Urine Urobilinogen NEGATIVE Urine Leukocyte Esterase 3+ H Urine Microscopic RBC > 182 H Urine Microscopic WBC > 182 H Urine Bacteria FEW A Urine Hemoglobin 3+ H Urine Glucose 3+ H Urine Total Protein 2+ H Test 07/01/19 12:12 Bedside Glucose 106 Medications Medication Current Medications Ondansetron HCl (Zofran Inj) 4 mg ER BRIDGE PRN IV NAUSEA/VOMITING; Start 06/30/19 at 21:00; Stop 07/01/19 at 20:59 Acetaminophen (Tylenol Tab) 650 mg ER BRIDGE PRN PO .MILD PAIN 1-3 OR TEMP Last administered on 06/30/19at 22:30; Admin Dose 650 MG; Start 06/30/19 at 21:00; Stop 07/01/19 at 20:59 IV Flush (NS 3 ml) 3 ml PER PROTOCOL IV ; Start 07/01/19 at 01:00 Ondansetron HCl (Zofran Inj) 4 mg Q6H PRN IV NAUSEA/VOMITING; Start 07/01/19 at 01:00 Nitroglycerin (Nitroglycerin (Sl Tab) 0.4 Mg) 1 tab Q5M PRN SL .CHEST PAIN; Start 07/01/19 at 01:00 Acetaminophen (Tylenol Tab) 650 mg Q6H PRN PO .PAIN 1-3 OR TEMP; Start 07/01/19 at 01:00 Albuterol/ Ipratropium (Duoneb) 3 ml Q2H RESP THERAPY PRN HHN SHORTNESS OF BREATH; Start 07/01/19 at 01:00 Diagnostic Test (Pha) (Accu-Chek) 1 ea 02 XX ; Start 07/01/19 at 02:00 Insulin Aspart (Novolog Insulin Pen) NOVOLOG *MILD* ALGORITHM WITH MEALS BEDTIME SC ; Start 07/01/19 at 08:00 Amiodarone HCl (Cordarone) 200 mg BID PO Last administered on 07/01/19at 08:17; Admin Dose 200 MG; Start 07/01/19 at 09:00 Bicalutamide (Casodex) 50 mg DAILY PO Last administered on 07/01/19at 08:38; Admin Dose 50 MG; Start 07/01/19 at 09:00 Bumetanide (Bumex) 1 mg DAILY PO Last administered on 07/01/19 08:17; Admin Dose 1 MG; Start 07/01/19 at 09:00 Carvedilol (Coreg) 3.125 mg BID PO Last administered on 07/01/19at 08:17; Admin Dose 3.125 MG; Start 07/01/19 at 09:00 Ferrous Sulfate (Ferrous Sulfate (Ec)) 325 mg BID PO Last administered on 07/01/19at 08:17; Admin Dose 325 MG; Start 07/01/19 at 09:00 Pantoprazole (Protonix Tab) 40 mg DAILY@0600 PO Last administered on 07/01/19at 06:43; Admin Dose 40 MG; Start 07/01/19 at 06:00 Tamsulosin HCl (Flomax) 0.4 mg HS PO ; Start 07/01/19 at 21:00 Meropenem/Sodium Chloride 50 ml @ 100 mls/hr Q12 IVPB Last administered on 07/01/19at 09:34; Admin Dose 100 MLS/HR; Start 07/01/19 at 09:00 Miscellaneous Information 1 ea NOTE XX ; Start 07/01/19 at 09:00 Glucose (Glutose) 15 gm Q15M PRN PO DECREASED GLUCOSE; Start 07/01/19 at 09:00 Glucose (Glutose) 22.5 gm Q15M PRN PO DECREASED GLUCOSE; Start 07/01/19 at 09:00 Dextrose (D50w Syringe) 25 ml Q15M PRN IV DECREASED GLUCOSE; Start 07/01/19 at 09:00 Dextrose (D50w Syringe) 50 ml Q15M PRN IV DECREASED GLUCOSE; Start 07/01/19 at 09:00 Glucagon (Glucagen) 1 mg Q15M PRN IM DECREASED GLUCOSE; Start 07/01/19 at 09:00 Glucose (Glutose) 15 gm Q15M PRN BUCCAL DECREASED GLUCOSE; Start 07/01/19 at 09:00 BERTHA FERRARI Jul 01, 2019 13:06
[2019-07-01 15:45] VITALS: BP 122/66; PULSE 85; RESP 20
--- NOTE | 2019-07-01 19:13 | CONS ---
Assessment/Plan Assessment/Plan Hospital Course (Demo Recall) 89-year-old male is known to me from prior admission. Patient does have a history of metastatic prostate cancer and has been on Lupron Depot injections. The last injection was 2 months ago at his urologist in [place] and that was for 6 months. The patient presented to the emergency room with a complaint of gross hematuria and difficulty urinating. A Martins catheter was inserted and the urine is now blood-tinged. He has had a history of urinary tract infection with ESBL, history of cardiomyopathy with systolic dysfunction and ejection fraction at 25%. He is also have a history of atrial fibrillation and diabetes mellitus. Impression: Metastatic prostate cancer and gross hematuria. Patient has had a transurethral resection of the prostate in the past and urinary tract infection with E. coli ESBL. He is on Lupron Depo injections and he did receive a 6 months injection about 2 months ago. He is also on bicalutamide. Plan: Keep the Martins catheter in place ~urine is completely clear. Continue the bicalutamide and tamsulosin. Add finasteride 5 mg daily and treat any infect ion. Consultation Date/Type/Reason Admit Date/Time Jun 30, 2019 at 20:34 Date of Consultation: Jul 01, 2019 Type of Consult Urology Reason for Consultation Gross hematuria Requesting Provider: BERTHA FERRARI Date/Time of Note DATE: 07/01/19 TIME: 19:00 Hx of Present Illness 89-year-old male is known to me from prior admission. Patient does have a history of metastatic prostate cancer and has been on Lupron Depot injections. The last injection was 2 months ago at his urologist in [place] and that was for 6 months. The patient presented to the emergency room with a complaint of gross hematuria and difficulty urinating. A Martins catheter was inserted and the urine is now blood-tinged. He has had a history of urinary tract infection with the ESBL, history of cardiomyopathy with systolic dysfunction and ejection fraction at 25%. He is also have a history of atrial fibrillation and diabetes mellitus. Constitutional: no complaints, other (He is feeling cold in the room because of the air conditioning) Eyes: no complaints ENT: no complaints Respiratory: shortness of breath (With exertion) Cardiovascular: No chest pain Gastrointestinal: No nausea, No vomiting Genitourinary: hematuria Musculoskeletal: no complaints Skin: no complaints Neurologic: no complaints Past Medical History Medical History: cancer (Prostate), coronary artery disease, diabetes, hypertension, renal disease, urinary tract infection, other (Anemia) Home Meds Active Scripts Bumetanide* (Bumetanide*) 1 Mg Tablet, 1 MG PO DAILY for 30 Days, #30 TAB Prov:CANDY RONQUILLO 05/02/19 Amiodarone Hcl* (Amiodarone Hcl*) 200 Mg Tablet, 200 MG PO BID for 30 Days, #60 TAB Prov:CANDY RONQUILLO 05/02/19 Bicalutamide* (Casodex*) 50 Mg Tablet, 50 MG PO DAILY for 30 Days, #30 TAB Prov:CANDY RONQUILLO 05/02/19 Carvedilol* (Carvedilol*) 3.125 Mg Tablet, 3.125 MG PO BID, #60 TAB Prov:CANDY RONQUILLO 05/02/19 Pantoprazole* (Protonix*) 40 Mg Tablet.dr, 40 MG PO DAILY for 30 Days, TAB Prov:HUSSEIN SHUKLA MD 02/16/19 Ferrous Sulfate* (Ferrous Sulfate*) 325 Mg Tabec, 325 MG PO BID for 30 Days, TAB Prov:HUSSEIN SHUKLA MD 02/16/19 Reported Medications Linaclotide (LINZESS) 290 Mcg Capsule, 290 MCG PO DAILY, #30 CAP 04/28/19 Tamsulosin Hcl* (Tamsulosin Hcl*) 0.4 Mg Cap.er.24h, 0.4 MG PO HS, CAP 02/11/19 Insulin Lispro (Humalog Kwikpen U-100) 100 Unit/1 Ml Insuln.pen, 10 UNIT SQ AC E, EA 02/11/19 Insulin Glargine* (Lantus*) 100 Unit/Ml Soln, 15-20 UNIT SC QHS, #1 VIAL 02/11/19 Insulin Glargine* (Lantus*) 100 Unit/Ml Soln, 35 UNIT SC QAM, #1 VIAL 02/11/19 Medications Current Medications Ondansetron HCl (Zofran Inj) 4 mg ER BRIDGE PRN IV NAUSEA/VOMITING; Start 06/30/19 at 21:00; Stop 07/01/19 at 20:59 Acetaminophen (Tylenol Tab) 650 mg ER BRIDGE PRN PO .MILD PAIN 1-3 OR TEMP Last administered on 06/30/19at 22:30; Admin Dose 650 MG; Start 06/30/19 at 21:00; Stop 07/01/19 at 20:59 IV Flush (NS 3 ml) 3 ml PER PROTOCOL IV ; Start 07/01/19 at 01:00 Ondansetron HCl (Zofran Inj) 4 mg Q6H PRN IV NAUSEA/VOMITING; Start 07/01/19 at 01:00 Nitroglycerin (Nitroglycerin (Sl Tab) 0.4 Mg) 1 tab Q5M PRN SL .CHEST PAIN; Start 07/01/19 at 01:00 Acetaminophen (Tylenol Tab) 650 mg Q6H PRN PO .PAIN 1-3 OR TEMP; Start 07/01/19 at 01:00 Albuterol/ Ipratropium (Duoneb) 3 ml Q2H RESP THERAPY PRN HHN SHORTNESS OF BR EATH; Start 07/01/19 at 01:00 Diagnostic Test (Pha) (Accu-Chek) 1 ea 02 XX ; Start 07/01/19 at 02:00 Insulin Aspart (Novolog Insulin Pen) NOVOLOG *MILD* ALGORITHM WITH MEALS BEDTIME SC ; Start 07/01/19 at 08:00 Amiodarone HCl (Cordarone) 200 mg BID PO Last administered on 07/01/19 08:17; Admin Dose 200 MG; Start 07/01/19 at 09:00 Bicalutamide (Casodex) 50 mg DAILY PO Last administered on 07/01/19at 08:38; Admin Dose 50 MG; Start 07/01/19 at 09:00 Bumetanide (Bumex) 1 mg DAILY PO Last administered on 07/01/19 08:17; Admin Dose 1 MG; Start 07/01/19 at 09:00 Carvedilol (Coreg) 3.125 mg BID PO Last administered on 07/01/19 08:17; Admin Dose 3.125 MG; Start 07/01/19 at 09:00 Ferrous Sulfate (Ferrous Sulfate (Ec)) 325 mg BID PO Last administered on 07/01/19 08:17; Admin Dose 325 MG; Start 07/01/19 at 09:00 Pantoprazole (Protonix Tab) 40 mg DAILY@0600 PO Last administered on 07/01/19at 06:43; Admin Dose 40 MG; Start 07/01/19 at 06:00 Tamsulosin HCl (Flomax) 0.4 mg HS PO ; Start 07/01/19 at 21:00 Meropenem/Sodium Chloride 50 ml @ 100 mls/hr Q12 IVPB Last administered on 07/01/19at 09:34; Admin Dose 100 MLS/HR; Start 07/01/19 at 09:00 Miscellaneous Information 1 ea NOTE XX ; Start 07/01/19 at 09:00 Glucose (Glutose) 15 gm Q15M PRN PO DECREASED GLUCOSE; Start 07/01/19 at 09:00 Glucose (Glutose) 22.5 gm Q15M PRN PO DECREASED GLUCOSE; Start 07/01/19 at 09:00 Dextrose (D50w Syringe) 25 ml Q15M PRN IV DECREASED GLUCOSE; Start 07/01/19 at 09:00 Dextrose (D50w Syringe) 50 ml Q15M PRN IV DECREASED GLUCOSE; Start 07/01/19 at 09:00 Glucagon (Glucagen) 1 mg Q15M PRN IM DECREASED GLUCOSE; Start 07/01/19 at 09:00 Glucose (Glutose) 15 gm Q15M PRN BUCCAL DECREASED GLUCOSE; Start 07/01/19 at 09:00 Allergies: Coded Allergies: No Known Allergy (Unverified , 04/29/19) Past Surgical History Past Surgical Hx: other (Transurethral resection of prostate) Social History Alcohol Use: none Smoking Status: Never smoker Drug Use: none Exam/Review of Systems Exam Vitals Vital Signs Date Temp Pulse Resp B/P (MAP) Pulse Ox O2 O2 Flow FiO2 Time Delivery Rate 07/01/19 98.3 85 20 122/66 91 15:45 (84) 07/01/19 Bag Valve 2.0 07:52 Mask Constitutional: alert, oriented Psych: no complaints Head: normocephalic Eyes: nl conjunctiva ENMT: nl external ears & nose Neck: supple Respiratory: No wheezing Cardiovascular: No jugular venous distention (JVD) Gastrointestinal: soft Genitourinary - Male: other (Martins catheter draining blood-tinged urine but the most recent urine in the tubing is yellow clear.) Extremities: No calf tenderness Results Result Diagram: 06/30/19192506/30/191925 Results 24hrs Laboratory Tests Test 06/30/19 19:26 06/30/19 19:35 06/30/19 19:48 07/01/19 07:39 White Blood Count 9.3 # Red Blood Count 3.40 L Hemoglobin 8.7 L Hematocrit 27.9 L Mean Corpuscular Volume 82.1 Mean Corpuscular 25.6 L Hemoglobin Mean Corpuscular 31.2 L Hemoglobin Concent Red Cell Distribution 15.1 H Width Platelet Count 297 # Mean Platelet Volume 10.4 Immature Granulocytes % 0.500 H Neutrophils % 78.8 H Lymphocytes % 12.1 L Monocytes % 7.7 Eosinophils % 0.5 Basophils % 0.4 Nucleated Red Blood 0.0 Cells % Immature Granulocytes # 0.050 H Neutrophils # 7.3 Lymphocytes # 1.1 Monocytes # 0.7 Eosinophils # 0.1 Basophils # 0.0 Nucleated Red Blood 0.0 Cells # Prothrombin Time 12.6 Prothrombin Time Ratio 1.0 INR International 0.93 Normalized Ratio Activated 28.0 Partial Thromboplast Time Sodium Level 141 Potassium Level 4.2 Chloride Level 99 Carbon Dioxide Level 33 H Anion Gap 9 Blood Urea Nitrogen 37 H Creatinine 2.26 H Est Glomerular Filtrat Rate mL/min Glucose Level 69 L Calcium Level 8.6 Total Bilirubin 0.4 Direct Bilirubin 0.00 Indirect Bilirubin 0.4 Aspartate Amino 36 Transf (AST/SGOT) Alanine 11 L Aminotransferase (ALT/SG PT) Alkaline Phosphatase 60 Troponin I < 0.012 B-Type Natriuretic 59810 H Peptide Total Protein 7.8 Albumin 3.9 Globulin 3.90 H Albumin/Globulin Ratio 1.00 Bedside Glucose 91 76 Urine Color RED Urine Clarity CLOUDY A Urine pH 7.0 Urine Specific [place] 1.010 Urine Ketones NEGATIVE Urine Nitrite NEGATIVE Urine Bilirubin NEGATIVE Urine Urobilinogen NEGATIVE Urine Leukocyte Esterase 3+ H Urine Microscopic RBC > 182 H Urine Microscopic WBC > 182 H Urine Bacteria FEW A Urine Hemoglobin 3+ H Urine Glucose 3+ H Urine Total Protein 2+ H Test 07/01/19 12:12 07/01/19 17:18 Bedside Glucose 106 133 Medications Medication Current Medications Ondansetron HCl (Zofran Inj) 4 mg ER BRIDGE PRN IV NAUSEA/VOMITING; Start 06/30/19 at 21:00; Stop 07/01/19 at 20:59 Acetaminophen (Tylenol Tab) 650 mg ER BRIDGE PRN PO .MILD PAIN 1-3 OR TEMP Last administered on 06/30/19at 22:30; Admin Dose 650 MG; Start 06/30/19 at 21:00; Stop 07/01/19 at 20:59 IV Flush (NS 3 ml) 3 ml PER PROTOCOL IV ; Start 07/01/19 at 01:00 Ondansetron HCl (Zofran Inj) 4 mg Q6H PRN IV NAUSEA/VOMITING; Start 07/01/19 at 01:00 Nitroglycerin (Nitroglycerin (Sl Tab) 0.4 Mg) 1 tab Q5M PRN SL .CHEST PAIN; Start 07/01/19 at 01:00 Acetaminophen (Tylenol Tab) 650 mg Q6H PRN PO .PAIN 1-3 OR TEMP; Start 07/01/19 at 01:00 Albuterol/ Ipratropium (Duoneb) 3 ml Q2H RESP THERAPY PRN HHN SHORTNESS OF BREATH; Start 07/01/19 at 01:00 Diagnostic Test (Pha) (Accu-Chek) 1 ea 02 XX ; Start 07/01/19 at 02:00 Insulin Aspart (Novolog Insulin Pen) NOVOLOG *MILD* ALGORITHM WITH MEALS BEDTIME SC ; Start 07/01/19 at 08:00 Amiodarone HCl (Cordarone) 200 mg BID PO Last administered on 07/01/19 08:17; Admin Dose 200 MG; Start 07/01/19 at 09:00 Bicalutamide (Casodex) 50 mg DAILY PO Last administered on 07/01/19at 08:38; Admin Dose 50 MG; Start 07/01/19 at 09:00 Bumetanide (Bumex) 1 mg DAILY PO Last administered on 07/01/19 08:17; Admin Dose 1 MG; Start 07/01/19 at 09:00 Carvedilol (Coreg) 3.125 mg BID PO Last administered on 07/01/19 08:17; Admin Dose 3.125 MG; Start 07/01/19 at 09:00 Ferrous Sulfate (Ferrous Sulfate (Ec)) 325 mg BID PO Last administered on 07/01/19 08:17; Admin Dose 325 MG; Start 07/01/19 at 09:00 Pantoprazole (Protonix Tab) 40 mg DAILY@0600 PO Last administered on 07/01/19at 06:43; Admin Dose 40 MG; Start 07/01/19 at 06:00 Tamsulosin HCl (Flomax) 0.4 mg HS PO ; Start 07/01/19 at 21:00 Meropenem/Sodium Chloride 50 ml @ 100 mls/hr Q12 IVPB Last administered on 07/01/19at 09:34; Admin Dose 100 MLS/HR; Start 07/01/19 at 09:00 Miscellaneous Information 1 ea NOTE XX ; Start 07/01/19 at 09:00 Glucose (Glutose) 15 gm Q15M PRN PO DECREASED GLUCOSE; Start 07/01/19 at 09:00 Glucose (Glutose) 22.5 gm Q15M PRN PO DECREASED GLUCOSE; Start 07/01/19 at 09:00 Dextrose (D50w Syringe) 25 ml Q15M PRN IV DECREASED GLUCOSE; Start 07/01/19 at 09:00 Dextrose (D50w Syringe) 50 ml Q15M PRN IV DECREASED GLUCOSE; Start 07/01/19 at 09:00 Glucagon (Glucagen) 1 mg Q15M PRN IM DECREASED GLUCOSE; Start 07/01/19 at 09:00 Glucose (Glutose) 15 gm Q15M PRN BUCCAL DECREASED GLUCOSE; Start 07/01/19 at 09:00 SPARKLE BARBER MD Jul 01, 2019 19:12
[2019-07-01 19:22] VITALS: BP 126/56; PULSE 91; RESP 18
[2019-07-01] MEDS: TAMSULOSIN (SR) 0.4 MG CAP PO SCH (21:18)
[2019-07-02] VITALS: BP 93/53; PULSE 88; RESP 18
[2019-07-02] MEDS: ACCU-CHEK XX SCH (01:36)
[2019-07-02 03:51] VITALS: BP 119/54; PULSE 85; RESP 18
[2019-07-02] MEDS: PANTOPRAZOLE (EC) 40 MG TAB PO SCH (06:05)
[2019-07-02 07:17] VITALS: BP 123/60; PULSE 86; RESP 20
[2019-07-02] MEDS: BUMETANIDE 1 MG TAB PO SCH (08:00)
[2019-07-02] MEDS: FERROUS SULFATE (EC) 325 MG TAB PO SCH ×2 (08:00→21:08)
[2019-07-02] MEDS: AMIODARONE 200 MG TAB PO SCH ×2 (08:00→21:09)
[2019-07-02] MEDS: MEROPENEM 500MG/50 ML (PMX) 50 ML IVPB SCH ×2 (08:01→21:08)
[2019-07-02] MEDS: FINASTERIDE 5 MG TAB PO SCH (08:05)
[2019-07-02] MEDS: BICALUTAMIDE 50 MG TAB PO SCH (08:14)
[2019-07-02] MEDS: INSULIN ASPART [NOVOLOG] 3 ML PEN SC SCH ×6 (08:14→22:26)
--- NOTE | 2019-07-02 11:21 | PN ---
Date/Time of Note Date/Time of Note DATE: 07/02/19 TIME: 11:16 Assessment/Plan VTE Prophylaxis Risk score (from [facility])>0 risk: 6 SCD applied (from [facility]): No SCD contraindicated: low risk/ambulating Pharmacological prophylaxis: NA/contraindicated Pharm contraindication: bleeding Lines/Catheters IV [facility]ter [facility]from [facility] [place] Urinary Cath still in place: Yes Reason Cath still needed: urinary retention Assessment/Plan Hospital Course Assessment and plan 1. Gross hematuria, continue Martins until clear 2. Urinary retention, meds adjusted, continue Martins 3. CKD ~4/5, w fluctuation. Baseline 1.7. Treat obstructive uropathy and fluid overload 4. 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 Coronary artery disease, suspected 6. Chronic hypertension 7. Type 2 diabetes A1c 10.1 8. Anemia possibly acute blood loss but likely more chronic disease related 9. 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 He does not know if this diagnosis and family has requested to keep it this way; will defer to pcp/ oncology. 10. Chr A fib not a candidate for anticoagulation. Needs advanced care planning reevaluated S: Mild hematuria no fever O: Vital signs stable PE No pallor JVD Regular no murmur of gallop Mostly clear no tachypnea Bs+ nt nd no RRG No edema Result Diagram: 07/02/19 0551 07/02/19 0551 Results 24hrs Laboratory Tests Test 07/01/19 12:12 07/01/19 17:18 07/01/19 21:24 07/02/19 05:51 Bedside Glucose 106 133 131 White Blood Count 9.4 Red Blood Count 3.19 L Hemoglobin 8.1 L Hematocrit 26.3 L Mean Corpuscular Volume 82.4 Mean Corpuscular 25.4 L Hemoglobin Mean Corpuscular 30.8 L Hemoglobin Concent Red Cell Distribution 15.4 H Width Platelet Count 296 Mean Platelet Volume 10.3 Immature Granulocytes % 0.500 H Neutrophils % 72.1 Lymphocytes % 16.9 Monocytes % 9.6 Eosinophils % 0.5 Basophils % 0.4 Nucleated Red Blood 0.0 Cells % Immature Granulocytes # 0.050 H Neutrophils # 6.8 Lymphocytes # 1.6 Monocytes # 0.9 Eosinophils # 0.1 Basophils # 0.0 Nucleated Red Blood 0.0 Cells # Sodium Level 143 Potassium Level 3.7 Chloride Level 101 Carbon Dioxide Level 31 Anion Gap 11 Blood Urea Nitrogen 32 H Creatinine 2.52 H Est Glomerular Filtrat Rate mL/min Glucose Level 188 # Calcium Level 8.4 Magnesium Level 1.6 L Total Bilirubin 0.4 Direct Bilirubin 0.00 Indirect Bilirubin 0.4 Aspartate Amino 31 Transf (AST/SGOT) Alanine 18 Aminotransferase (ALT/SG PT) Alkaline Phosphatase 74 Total Protein 6.7 # Albumin 3.4 Globulin 3.30 H Albumin/Globulin Ratio 1.03 Test 07/02/19 08:06 Bedside Glucose 265 H Exam/Review of Systems Exam Vitals Vital Signs Date Temp Pulse Resp B/P (MAP) Pulse Ox O2 O2 Flow FiO2 Time Delivery Rate 07/02/19 Nasal 2.0 08:35 Cannula 07/02/19 98.0 86 20 123/60 97 07:17 (81) Intake and Output 07/01/19 07/01/19 07/02/19 1515:00 23:00 07:00 IntakeIntake Total 290 ml OutputOutput Total 700 ml 650 ml 200 ml BalanceBalance -700 ml -360 ml -200 ml Results Results 24hrs Laboratory Tests Test 07/01/19 12:12 07/01/19 17:18 07/01/19 21:24 07/02/19 05:51 Bedside Glucose 106 133 131 White Blood Count 9.4 Red Blood Count 3.19 L Hemoglobin 8.1 L Hematocrit 26.3 L Mean Corpuscular Volume 82.4 Mean Corpuscular 25.4 L Hemoglobin Mean Corpuscular 30.8 L Hemoglobin Concent Red Cell Distribution 15.4 H Width Platelet Count 296 Mean Platelet Volume 10.3 Immature Granulocytes % 0.500 H Neutrophils % 72.1 Lymphocytes % 16.9 Monocytes % 9.6 Eosinophils % 0.5 Basophils % 0.4 Nucleated Red Blood 0.0 Cells % Immature Granulocytes # 0.050 H Neutrophils # 6.8 Lymphocytes # 1.6 Monocytes # 0.9 Eosinophils # 0.1 Basophils # 0.0 Nucleated Red Blood 0.0 Cells # Sodium Level 143 Potassium Level 3.7 Chloride Level 101 Carbon Dioxide Level 31 Anion Gap 11 Blood Urea Nitrogen 32 H Creatinine 2.52 H Est Glomerular Filtrat Rate mL/min Glucose Level 188 # Calcium Level 8.4 Magnesium Level 1.6 L Total Bilirubin 0.4 Direct Bilirubin 0.00 Indirect Bilirubin 0.4 Aspartate Amino 31 Transf (AST/SGOT) Alanine 18 Aminotransferase (ALT/SG PT) Alkaline Phosphatase 74 Total Protein 6.7 # Albumin 3.4 Globulin 3.30 H Albumin/Globulin Ratio 1.03 Test 07/02/19 08:06 Bedside Glucose 265 H Medications Medication Current Medications IV Flush (NS 3 ml) 3 ml PER PROTOCOL IV ; Start 07/01/19 at 01:00 Ondansetron HCl (Zofran Inj) 4 mg Q6H PRN IV NAUSEA/VOMITING; Start 07/01/19 at 01:00 Nitroglycerin (Nitroglycerin (Sl Tab) 0.4 Mg) 1 tab Q5M PRN SL .CHEST PAIN; Start 07/01/19 at 01:00 Acetaminophen (Tylenol Tab) 650 mg Q6H PRN PO .PAIN 1-3 OR TEMP; Start 07/01/19 at 01:00 Albuterol/ Ipratropium (Duoneb) 3 ml Q2H RESP THERAPY PRN HHN SHORTNESS OF BREATH; Start 07/01/19 at 01:00 Diagnostic Test (Pha) (Accu-Chek) 1 ea 02 XX ; Start 07/01/19 at 02:00 Insulin Aspart (Novolog Insulin Pen) NOVOLOG *MILD* ALGORITHM WITH MEALS BEDTIME SC Last administered on 07/02/19 08:14; Admin Dose 4 UNIT; Start 07/01/19 at 08:00 Amiodarone HCl (Cordarone) 200 mg BID PO Last administered on 07/02/19 08:00; Admin Dose 200 MG; Start 07/01/19 at 09:00 Bicalutamide (Casodex) 50 mg DAILY PO Last administered on 07/02/19 08:14; Admin Dose 50 MG; Start 07/01/19 at 09:00 Bumetanide (Bumex) 1 mg DAILY PO Last administered on 07/02/19 08:00; Admin Dose 1 MG; Start 07/01/19 at 09:00 Carvedilol (Coreg) 3.125 mg BID PO Last administered on 07/02/19 08:01; Admin Dose 3.125 MG; Start 07/01/19 at 09:00 Ferrous Sulfate (Ferrous Sulfate (Ec)) 325 mg BID PO Last administered on 8/5/19at 08:00; Admin Dose 325 MG; Start 07/01/19 at 09:00 Pantoprazole (Protonix Tab) 40 mg DAILY@0600 PO Last administered on 07/02/19at 06:05; Admin Dose 40 MG; Start 07/01/19 at 06:00 Tamsulosin HCl (Flomax) 0.4 mg HS PO Last administered on 07/01/19at 21:18; Admin Dose 0.4 MG; Start 07/01/19 at 21:00 Meropenem/Sodium Chloride 50 ml @ 100 mls/hr Q12 IVPB Last administered on 07/02/19at 08:01; Admin Dose 100 MLS/HR; Start 07/01/19 at 09:00 Miscellaneous Information 1 ea NOTE XX ; Start 07/01/19 at 09:00 Glucose (Glutose) 15 gm Q15M PRN PO DECREASED GLUCOSE; Start 07/01/19 at 09:00 Glucose (Glutose) 22.5 gm Q15M PRN PO DECREASED GLUCOSE; Start 07/01/19 at 09:00 Dextrose (D50w Syringe) 25 ml Q15M PRN IV DECREASED GLUCOSE; Start 07/01/19 at 09:00 Dextrose (D50w Syringe) 50 ml Q15M PRN IV DECREASED GLUCOSE; Start 07/01/19 at 09:00 Glucagon (Glucagen) 1 mg Q15M PRN IM DECREASED GLUCOSE; Start 07/01/19 at 09:00 Glucose (Glutose) 15 gm Q15M PRN BUCCAL DECREASED GLUCOSE; Start 07/01/19 at 09:00 Finasteride (Proscar) 5 mg DAILY PO Last administered on 07/02/19at 08:05; Admin Dose 5 MG; Start 07/02/19 at 09:00 ADITI WILSON MD Jul 02, 2019 11:21
[2019-07-02 11:55] VITALS: BP 113/57; PULSE 94; RESP 20
[2019-07-02] MEDS: SENNA/DOCUSATE NA (8.6MG/50MG) TAB PO SCH (12:04)
[2019-07-02] MEDS: THIAMINE 100 MG TAB PO SCH (12:04)
[2019-07-02] MEDS: FAMOTIDINE 20 MG TAB PO SCH (12:04)
[2019-07-02] MEDS ORDERED: MAGNESIUM SULFATE 2 GM/50 ML 50 ML IVPB ONE (12:30)
[2019-07-02 15:30] VITALS: BP 122/58; PULSE 83; RESP 20
[2019-07-02] MEDS ORDERED: INSULIN ASPART [NOVOLOG] 3 ML PEN SC SCH (17:00)
[2019-07-02] MEDS ORDERED: INSULIN GLARGINE [LANTus] (100 UNITS/ML) SYG SC SCH (20:00)
[2019-07-02 20:03] VITALS: BP 118/58; PULSE 89; RESP 18
[2019-07-02] MEDS: LACTOBACILLUS RHAMNOSUS CAP PO SCH (21:08)
[2019-07-02] MEDS: TAMSULOSIN (SR) 0.4 MG CAP PO SCH (21:08)
--- NOTE | 2019-07-02 21:46 | CONS ---
Consult Date/Type/Reason Admit Date/Time Jun 30, 2019 at 20:34 Initial Consult Date 07/01/19 Type of Consultation: Urology Reason for Consultation Gross hematuria and metastatic prostate cancer Requesting Provider: BERTHA FERRARI Date/Time of Note DATE: 07/02/19 TIME: 21:43 Subjective Patient presently is sitting up in a chair and is comfortable and he denies having any pain Objective Vitals Vital Signs Date Temp Pulse Resp B/P (MAP) Pulse Ox O2 O2 Flow FiO2 Time Delivery Rate 07/02/19 98.2 89 18 118/58 95 20:03 (78) 07/02/19 Nasal 2.0 08:35 Cannula Intake and Output 07/01/19 07/01/19 07/02/19 1414:59 22:59 06:59 IntakeIntake Total 290 ml OutputOutput Total 700 ml 650 ml 200 ml BalanceBalance -700 ml -360 ml -200 ml Exam The urine in the tubing is clear but he does have some blood in the drainage bag Results/Medications Result Diagram: 07/02/19 0551 07/02/19 0551 Results 24 hrs Laboratory Tests Test 07/02/19 05:51 07/02/19 08:06 07/02/19 12:13 07/02/19 16:40 White Blood Count 9.4 Red Blood Count 3.19 L Hemoglobin 8.1 L Hematocrit 26.3 L Mean Corpuscular Volume 82.4 Mean Corpuscular 25.4 L Hemoglobin Mean Corpuscular 30.8 L Hemoglobin Concent Red Cell Distribution 15.4 H Width Platelet Count 296 Mean Platelet Volume 10.3 Immature Granulocytes % 0.500 H Neutrophils % 72.1 Lymphocytes % 16.9 Monocytes % 9.6 Eosinophils % 0.5 Basophils % 0.4 Nucleated Red Blood 0.0 Cells % Immature Granulocytes # 0.050 H Neutrophils # 6.8 Lymphocytes # 1.6 Monocytes # 0.9 Eosinophils # 0.1 Basophils # 0.0 Nucleated Red Blood 0.0 Cells # Sodium Level 143 Potassium Level 3.7 Chloride Level 101 Carbon Dioxide Level 31 Anion Gap 11 Blood Urea Nitrogen 32 H Creatinine 2.52 H Est Glomerular Filtrat Rate mL/min Glucose Level 188 # Calcium Level 8.4 Magnesium Level 1.6 L Total Bilirubin 0.4 Direct Bilirubin 0.00 Indirect Bilirubin 0.4 Aspartate Amino 31 Transf (AST/SGOT) Alanine 18 Aminotransferase (ALT/SG PT) Alkaline Phosphatase 74 Total Protein 6.7 # Albumin 3.4 Globulin 3.30 H Albumin/Globulin Ratio 1.03 Bedside Glucose 265 H 318 H 408 *H Test 07/02/19 18:12 07/02/19 21:12 Bedside Glucose 376 H 306 H Home Meds Active Scripts Bumetanide* (Bumetanide*) 1 Mg Tablet, 1 MG PO DAILY for 30 Days, #30 TAB Prov:CANDY RONQUILLO 05/02/19 Amiodarone Hcl* (Amiodarone Hcl*) 200 Mg Tablet, 200 MG PO BID for 30 Days, #60 TAB Prov:CANDY RONQUILLO 05/02/19 Bicalutamide* (Casodex*) 50 Mg Tablet, 50 MG PO DAILY for 30 Days, #30 TAB Prov:CANDY RONQUILLO 05/02/19 Carvedilol* (Carvedilol*) 3.125 Mg Tablet, 3.125 MG PO BID, #60 TAB Prov:CANDY RONQUILLO 05/02/19 Pantoprazole* (Protonix*) 40 Mg Tablet.dr, 40 MG PO DAILY for 30 Days, TAB Prov:HUSSEIN SHUKLA MD 02/16/19 Ferrous Sulfate* (Ferrous Sulfate*) 325 Mg Tabec, 325 MG PO BID for 30 Days, TAB Prov:HUSSEIN SHUKLA MD 02/16/19 Reported Medications Linaclotide (LINZESS) 290 Mcg Capsule, 290 MCG PO DAILY, #30 CAP 04/28/19 Tamsulosin Hcl* (Tamsulosin Hcl*) 0.4 Mg Cap.er.24h, 0.4 MG PO HS, CAP 02/11/19 Insulin Lispro (Humalog Kwikpen U-100) 100 Unit/1 Ml Insuln.pen, 10 UNIT SQ AC E, EA 02/11/19 Insulin Glargine* (Lantus*) 100 Unit/Ml Soln, 15-20 UNIT SC QHS, #1 VIAL 02/11/19 Insulin Glargine* (Lantus*) 100 Unit/Ml Soln, 35 UNIT SC QAM, #1 VIAL 02/11/19 Medications Current Medications IV Flush (NS 3 ml) 3 ml PER PROTOCOL IV ; Start 07/01/19 at 01:00 Ondansetron HCl (Zofran Inj) 4 mg Q6H PRN IV NAUSEA/VOMITING; Start 07/01/19 at 01:00 Nitroglycerin (Nitroglycerin (Sl Tab) 0.4 Mg) 1 tab Q5M PRN SL .CHEST PAIN; Start 07/01/19 at 01:00 Acetaminophen (Tylenol Tab) 650 mg Q6H PRN PO .PAIN 1-3 OR TEMP; Start 07/01/19 at 01:00 Albuterol/ Ipratropium (Duoneb) 3 ml Q2H RESP THERAPY PRN HHN SHORTNESS OF BREATH; Start 07/01/19 at 01:00 Amiodarone HCl (Cordarone) 200 mg BID PO Last administered on 07/02/19at 08:00; Admin Dose 200 MG; Start 07/01/19 at 09:00 Bicalutamide (Casodex) 50 mg DAILY PO Last administered on 07/02/19at 08:14; Admin Dose 50 MG; Start 07/01/19 at 09:00 Bumetanide (Bumex) 1 mg DAILY PO Last administered on 07/02/19at 08:00; Admin Dose 1 MG; Start 07/01/19 at 09:00 Carvedilol (Coreg) 3.125 mg BID PO Last administered on 07/02/19at 08:01; Admin Dose 3.125 MG; Start 07/01/19 at 09:00 Ferrous Sulfate (Ferrous Sulfate (Ec)) 325 mg BID PO Last administered on 07/02/19at 08:00; Admin Dose 325 MG; Start 07/01/19 at 09:00 Tamsulosin HCl (Flomax) 0.4 mg HS PO Last administered on 07/01/19at 21:18; Admin Dose 0.4 MG; Start 07/01/19 at 21:00 Meropenem/Sodium Chloride 50 ml @ 100 mls/hr Q12 IVPB Last administered on 07/02/19at 08:01; Admin Dose 100 MLS/HR; Start 07/01/19 at 09:00 Miscellaneous Information 1 ea NOTE XX ; Start 07/01/19 at 09:00 Glucose (Glutose) 15 gm Q15M PRN PO DECREASED GLUCOSE; Start 07/01/19 at 09:00 Glucose (Glutose) 22.5 gm Q15M PRN PO DECREASED GLUCOSE; Start 07/01/19 at 09:00 Dextrose (D50w Syringe) 25 ml Q15M PRN IV DECREASED GLUCOSE; Start 07/01/19 at 09:00 Dextrose (D50w Syringe) 50 ml Q15M PRN IV DECREASED GLUCOSE; Start 07/01/19 at 09:00 Glucagon (Glucagen) 1 mg Q15M PRN IM DECREASED GLUCOSE; Start 07/01/19 at 09:00 Glucose (Glutose) 15 gm Q15M PRN BUCCAL DECREASED GLUCOSE; Start 07/01/19 at 09:00 Finasteride (Proscar) 5 mg DAILY PO Last administered on 07/02/19at 08:05; Admin Dose 5 MG; Start 07/02/19 at 09:00 Senna/Docusate Sodium (Senokot-S) 2 tab DAILY PO Last administered on 07/02/19at 12:04; Admin Dose 2 TAB; Start 07/02/19 at 11:30 Thiamine HCl (Vitamin B1) 100 mg DAILY PO Last administered on 07/02/19at 12:04; Admin Dose 100 MG; Start 07/02/19 at 11:30 Famotidine (Pepcid) 20 mg DAILY PO Last administered on 07/02/19at 12:04; Admin Dose 20 MG; Start 07/02/19 at 11:30 Lactobacillus Acidophilus/ Rhamnosus (Culturelle) 1 cap BID PO ; Start 07/02/19 at 21:00 Insulin Glargine (Lantus) 12 units DAILY@2000 SC ; Start 07/02/19 at 20:00 Insulin Aspart (Novolog Insulin Pen) 4 unit AC MEALS SC Last administered on 07/02/19at 18:14; Admin Dose 4 UNIT; Start 07/02/19 at 17:30 Diagnostic Test (Pha) (Accu-Chek) 1 ea 02 XX ; Start 07/03/19 at 02:00 Insulin Aspart (Novolog Insulin Pen) NOVOLOG *MODERATE* ALGORITHM WITH MEALS BEDTIME SC ; Start 07/02/19 at 18:00 Assessment/Plan Hospital Course (Demo Recall) 89-year-old male is known to me from prior admission. Patient does have a history of metastatic prostate cancer and has been on Lupron Depot injections. The last injection was 2 months ago at his urologist in [place] and that was for 6 months. The patient presented to the emergency room with a complaint of gross hematuria and difficulty urinating. A Martins catheter was inserted and the urine is now blood-tinged. He has had a history of urinary tract infection with ESBL, history of cardiomyopathy with systolic dysfunction and ejection fraction at 25%. He is also have a history of atrial fibrillation and diabetes mellitus. Impression: Metastatic prostate cancer and gross hematuria. Patient has had a transurethral resection of the prostate in the past and urinary tract infection with E. coli ESBL. He is on Lupron Depo injections and he did receive a 6 months injection about 2 months ago. He is also on bicalutamide. The urine is now clear with occasional blood in the tubing. I will discontinue the Martins catheter at 6 AM and see if he does void and check his postvoid residual. SPARKLE BARBER MD Jul 02, 2019 21:46
[2019-07-02] MEDS: INSULIN GLARGINE [LANTus] (100 UNITS/ML) SYG SC SCH (22:26)
[2019-07-03 00:06] VITALS: BP 119/62; PULSE 87; RESP 18
[2019-07-03] MEDS: ACCU-CHEK XX SCH (02:00)
[2019-07-03 04:14] VITALS: BP 98/50; PULSE 81; RESP 18
[2019-07-03] MEDS ORDERED: LORAZEPAM 2 MG INJ IV ONE (07:00)
[2019-07-03] MEDS: FAMOTIDINE 20 MG TAB PO SCH (07:38)
[2019-07-03] MEDS: FERROUS SULFATE (EC) 325 MG TAB PO SCH ×2 (07:38→21:00)
[2019-07-03] MEDS: FINASTERIDE 5 MG TAB PO SCH (07:38)
[2019-07-03] MEDS: SENNA/DOCUSATE NA (8.6MG/50MG) TAB PO SCH (07:38)
[2019-07-03] MEDS: BUMETANIDE 1 MG TAB PO SCH (07:38)
[2019-07-03] MEDS: AMIODARONE 200 MG TAB PO SCH ×2 (07:39→21:00)
[2019-07-03] MEDS: THIAMINE 100 MG TAB PO SCH (07:39)
[2019-07-03] MEDS: LACTOBACILLUS RHAMNOSUS CAP PO SCH ×2 (07:39→21:00)
[2019-07-03] MEDS: MEROPENEM 500MG/50 ML (PMX) 50 ML IVPB SCH ×2 (07:40→21:00)
[2019-07-03] MEDS: INSULIN ASPART [NOVOLOG] 3 ML PEN SC SCH ×7 (07:51→21:00)
[2019-07-03] MEDS: BICALUTAMIDE 50 MG TAB PO SCH (07:52)
[2019-07-03 07:55] VITALS: BP 118/58; PULSE 81; RESP 18
[2019-07-03 12:18] VITALS: BP 116/57; PULSE 69; RESP 18
--- NOTE | 2019-07-03 12:21 | PDOCDIS ---
Discharge Instructions CONDITION [id number] Patient Condition: [id number] Stable HOME CARE INSTRUCTIONS: [id number] Diet Instructions: [id number] Avoid heavy lifting Do not Drive FOLLOW UP/APPOINTMENTS Follow-up Plan appt Dr Alarcon, Cardiology, & PCP 1wk. ADITI WILSON MD Jul 03, 2019 12:21
[2019-07-03] MEDS: POTASSIUM CHLORIDE 20 MEQ POWDER FOR ORAL SOLN PO SCH (12:34)
--- NOTE | 2019-07-03 15:43 | PN ---
Date/Time of Note Date/Time of Note DATE: 07/03/19 TIME: 15:39 Assessment/Plan VTE Prophylaxis Risk score (from Ns)>0 risk: 7 SCD applied (from [facility]): No SCD contraindicated: low risk/ambulating Pharmacological prophylaxis: NA/contraindicated Pharm contraindication: low risk/ambulating Lines/Catheters IV [facility] Type [facility]from [facility] [place] Urinary Cath still in place: No Assessment/Plan Hospital Course A/P 1. Gross hematuria, dced Mccollum yesterday. 2. Urinary retention, meds adjusted, may need home mccollum. 3. CKD ~4/5, w fluctuation. Baseline 1.7. Treat obstructive uropathy and fluid overload 4. Ac/ chr decompensated systolic CHF, stable, cont Bumex as tolerable 5. CAD, suspected 6. Chr htn 7. Type 2 diabetes A1c 10.1 8. Anemia possibly ac blood loss but likely more chr dz related 9. 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 He does not know if this diagnosis and family has requested to keep it this way; will defer to pcp/ oncology. 10. Chr A fib not a candidate for anticoagulation. Needs advanced care planning reevaluated S: 07/02 Mild hematuria no fever 07/03 high post residuals; anxiety. update daughter. O: Vss PE No pallor JVD Reg no mrg Mostly clear no tachypnea Bs+ nt nd no RRG No edema Result Diagram: 07/03/1928 07/03/19527 Results 24hrs Laboratory Tests Test 07/02/19 16:40 07/02/19 18:12 07/02/19 21:12 07/03/19 04:54 Bedside Glucose 408 *H 376 H 306 H 226 H Test 07/03/19 05:28 07/03/19 07:42 07/03/19 11:55 White Blood Count 10.7 Red Blood Count 2.93 L Hemoglobin 7.4 L Hematocrit 23.8 L Mean Corpuscular Volume 81.2 L Mean Corpuscular 25.3 L Hemoglobin Mean Corpuscular 31.1 L Hemoglobin Concent Red Cell Distribution 15.4 H Width Platelet Count 287 Mean Platelet Volume 10.5 H Immature Granulocytes % 0.500 H Neutrophils % 74.4 Lymphocytes % 15.6 Monocytes % 8.6 Eosinophils % 0.6 Basophils % 0.3 Nucleated Red Blood 0.0 Cells % Immature Granulocytes # 0.050 H Neutrophils # 8.0 H Lymphocytes # 1.7 Monocytes # 0.9 Eosinophils # 0.1 Basophils # 0.0 Nucleated Red Blood 0.0 Cells # Sodium Level 138 Potassium Level 3.3 L Chloride Level 98 Carbon Dioxide Level 31 Anion Gap 9 Blood Urea Nitrogen 34 H Creatinine 2.56 H Est Glomerular Filtrat Rate mL/min Glucose Level 190 Calcium Level 8.6 Magnesium Level 1.9 Bedside Glucose 238 H 137 Exam/Review of Systems Exam Vitals Vital Signs Date Temp Pulse Resp B/P (MAP) Pulse Ox O2 O2 Flow FiO2 Time Delivery Rate 07/03/19 98.0 69 18 116/57 98 12:18 (76) 07/03/19 Nasal 2.0 08:34 Cannula 07/03/19 21 02:17 Intake and Output 07/02/19 07/02/19 07/03/19 1515:00 23:00 07:00 IntakeIntake Total 750 ml OutputOutput Total 650 ml 1300 ml BalanceBalance 100 ml -1300 ml Results Results 24hrs Laboratory Tests Test 07/02/19 16:40 07/02/19 18:12 07/02/19 21:12 07/03/19 04:54 Bedside Glucose 408 *H 376 H 306 H 226 H Test 07/03/19 05:28 07/03/19 07:42 07/03/19 11:55 White Blood Count 10.7 Red Blood Count 2.93 L Hemoglobin 7.4 L Hematocrit 23.8 L Mean Corpuscular Volume 81.2 L Mean Corpuscular 25.3 L Hemoglobin Mean Corpuscular 31.1 L Hemoglobin Concent Red Cell Distribution 15.4 H Width Platelet Count 287 Mean Platelet Volume 10.5 H Immature Granulocytes % 0.500 H Neutrophils % 74.4 Lymphocytes % 15.6 Monocytes % 8.6 Eosinophils % 0.6 Basophils % 0.3 Nucleated Red Blood 0.0 Cells % Immature Granulocytes # 0.050 H Neutrophils # 8.0 H Lymphocytes # 1.7 Monocytes # 0.9 Eosinophils # 0.1 Basophils # 0.0 Nucleated Red Blood 0.0 Cells # Sodium Level 138 Potassium Level 3.3 L Chloride Level 98 Carbon Dioxide Level 31 Anion Gap 9 Blood Urea Nitrogen 34 H Creatinine 2.56 H Est Glomerular Filtrat Rate mL/min Glucose Level 190 Calcium Level 8.6 Magnesium Level 1.9 Bedside Glucose 238 H 137 Medications Medication Current Medications IV Flush (NS 3 ml) 3 ml PER PROTOCOL IV ; Start 07/01/19 at 01:00 Ondansetron HCl (Zofran Inj) 4 mg Q6H PRN IV NAUSEA/VOMITING; Start 07/01/19 at 01:00 Nitroglycerin (Nitroglycerin (Sl Tab) 0.4 Mg) 1 tab Q5M PRN SL .CHEST PAIN; Start 07/01/19 at 01:00 Acetaminophen (Tylenol Tab) 650 mg Q6H PRN PO .PAIN 1-3 OR TEMP; Start 07/01/19 at 01:00 Albuterol/ Ipratropium (Duoneb) 3 ml Q2H RESP THERAPY PRN HHN SHORTNESS OF BREATH; Start 07/01/19 at 01:00 Amiodarone HCl (Cordarone) 200 mg BID PO Last administered on 07/03/19at 07:39; Admin Dose 200 MG; Start 07/01/19 at 09:00 Bicalutamide (Casodex) 50 mg DAILY PO Last administered on 07/03/19at 07:52; Admin Dose 50 MG; Start 07/01/19 at 09:00 Bumetanide (Bumex) 1 mg DAILY PO Last administered on 07/03/19at 07:38; Admin Dose 1 MG; Start 07/01/19 at 09:00 Carvedilol (Coreg) 3.125 mg BID PO Last administered on 07/03/19at 08:50; Admin Dose 3.125 MG; Start 07/01/19 at 09:00 Ferrous Sulfate (Ferrous Sulfate (Ec)) 325 mg BID PO Last administered on 07/03/19at 07:38; Admin Dose 325 MG; Start 07/01/19 at 09:00 Tamsulosin HCl (Flomax) 0.4 mg HS PO Last administered on 07/02/19at 21:08; Admin Dose 0.4 MG; Start 07/01/19 at 21:00 Meropenem/Sodium Chloride 50 ml @ 100 mls/hr Q12 IVPB Last administered on 07/03/19at 07:40; Admin Dose 100 MLS/HR; Start 07/01/19 at 09:00 Miscellaneous Information 1 ea NOTE XX ; Start 07/01/19 at 09:00 Glucose (Glutose) 15 gm Q15M PRN PO DECREASED GLUCOSE; Start 07/01/19 at 09:00 Glucose (Glutose) 22.5 gm Q15M PRN PO DECREASED GLUCOSE; Start 07/01/19 at 09:00 Dextrose (D50w Syringe) 25 ml Q15M PRN IV DECREASED GLUCOSE; Start 07/01/19 at 09:00 Dextrose (D50w Syringe) 50 ml Q15M PRN IV DECREASED GLUCOSE; Start 07/01/19 at 09:00 Glucagon (Glucagen) 1 mg Q15M PRN IM DECREASED GLUCOSE; Start 07/01/19 at 09:00 Glucose (Glutose) 15 gm Q15M PRN BUCCAL DECREASED GLUCOSE; Start 07/01/19 at 09:00 Finasteride (Proscar) 5 mg DAILY PO Last administered on 07/03/19 07:38; Admin Dose 5 MG; Start 07/02/19 at 09:00 Senna/Docusate Sodium (Senokot-S) 2 tab DAILY PO Last administered on 07/03/19 07:38; Admin Dose 2 TAB; Start 07/02/19 at 11:30 Thiamine HCl (Vitamin B1) 100 mg DAILY PO Last administered on 07/03/19 07:39; Admin Dose 100 MG; Start 07/02/19 at 11:30 Famotidine (Pepcid) 20 mg DAILY PO Last administered on 07/03/19 07:38; Admin Dose 20 MG; Start 07/02/19 at 11:30 Lactobacillus Acidophilus/ Rhamnosus (Culturelle) 1 cap BID PO Last administered on 07/03/19 07:39; Admin Dose 1 CAP; Start 07/02/19 at 21:00 Insulin Glargine (Lantus) 12 units DAILY@2000 SC Last administered on 07/02/19 22:26; Admin Dose 12 UNITS; Start 07/02/19 at 20:00 Insulin Aspart (Novolog Insulin Pen) 4 unit AC MEALS SC Last administered on 07/03/19 12:01; Admin Dose 4 UNIT; Start 07/02/19 at 17:30 Diagnostic Test (Pha) (Accu-Chek) 1 ea 02 XX Last administered on 07/03/19at 02:00; Admin Dose 1 EA; Start 07/03/19 at 02:00 Insulin Aspart (Novolog Insulin Pen) NOVOLOG *MODERATE* ALGORITHM WITH MEALS BEDTIME SC Last administered on 07/03/19at 07:51; Admin Dose 6 UNIT; Start 07/02/19 at 18:00 Potassium Chloride (Potassium Chloride Pwd/Soln) 40 meq DAILY PO Last administered on 07/03/19at 12:34; Admin Dose 40 MEQ; Start 07/03/19 at 12:30 Ciprofloxacin (Cipro) 250 mg BID@06,18 PO ; Start 07/04/19 at 09:00; Stop 07/08/19 at 23:00 Acetaminophen/ Hydrocodone Bitart ([place] (5/325)) 1 tab Q6 PRN PO MODERATE PAIN LEVEL 4-6; Start 07/03/19 at 12:30 ADITI WILSON MD Jul 03, 2019 15:43
[2019-07-03] MEDS ORDERED: ALPRAZOLAM 0.25 MG TAB PO ONE (16:00)
[2019-07-03 17:06] VITALS: BP 122/53; PULSE 83; RESP 18
[2019-07-03] MEDS: CIPROFLOXACIN 250 MG TAB PO SCH (18:32)
--- NOTE | 2019-07-03 18:32 | CONS ---
Consult Date/Type/Reason Admit Date/Time Jun 30, 2019 at 20:34 Initial Consult Date 07/01/19 Type of Consultation: Urology Reason for Consultation Metastatic adenocarcinoma of the prostate, hematuria and urinary retention Requesting Provider: BERTHA FERRARI Date/Time of Note DATE: 07/03/19 TIME: 18:28 Subjective The patient remains sitting on the chair. Since the catheter was removed he has not been able to urinate. Objective Vitals Vital Signs Date Temp Pulse Resp B/P (MAP) Pulse Ox O2 O2 Flow FiO2 Time Delivery Rate 07/03/19 98.0 83 18 122/53 98 17:06 (76) 07/03/19 Nasal 2.0 08:34 Cannula 07/03/19 21 02:17 Intake and Output 07/02/19 07/02/19 07/03/19 1515:00 23:00 07:00 IntakeIntake Total 750 ml OutputOutput Total 650 ml 1300 ml BalanceBalance 100 ml -1300 ml Exam He does have significant swelling of his lower extremities as he is sitting most of the time and dangling his feet down. He has not been able to urinate and the nurse did catheterize him 2 times. Results/Medications Result Diagram: 07/03/19 0528 07/03/19 0528 Results 24 hrs Laboratory Tests Test 07/02/19 21:12 07/03/19 04:54 07/03/19 05:28 07/03/19 07:42 Bedside Glucose 306 H 226 H 238 H White Blood Count 10.7 Red Blood Count 2.93 L Hemoglobin 7.4 L Hematocrit 23.8 L Mean Corpuscular Volume 81.2 L Mean Corpuscular 25.3 L Hemoglobin Mean Corpuscular 31.1 L Hemoglobin Concent Red Cell Distribution 15.4 H Width Platelet Count 287 Mean Platelet Volume 10.5 H Immature Granulocytes % 0.500 H Neutrophils % 74.4 Lymphocytes % 15.6 Monocytes % 8.6 Eosinophils % 0.6 Basophils % 0.3 Nucleated Red Blood 0.0 Cells % Immature Granulocytes # 0.050 H Neutrophils # 8.0 H Lymphocytes # 1.7 Monocytes # 0.9 Eosinophils # 0.1 Basophils # 0.0 Nucleated Red Blood 0.0 Cells # Sodium Level 138 Potassium Level 3.3 L Chloride Level 98 Carbon Dioxide Level 31 Anion Gap 9 Blood Urea Nitrogen 34 H Creatinine 2.56 H Est Glomerular Filtrat Rate mL/min Glucose Level 190 Calcium Level 8.6 Magnesium Level 1.9 Test 07/03/19 11:55 07/03/19 17:10 Bedside Glucose 137 291 H Urine culture no growth in 24 hours Home Meds Active Scripts Bumetanide* (Bumetanide*) 1 Mg Tablet, 1 MG PO DAILY for 30 Days, #30 TAB Prov:CANDY RONQUILLO 05/02/19 Amiodarone Hcl* (Amiodarone Hcl*) 200 Mg Tablet, 200 MG PO BID for 30 Days, #60 TAB Prov:CANDY RONQUILLO 05/02/19 Bicalutamide* (Casodex*) 50 Mg Tablet, 50 MG PO DAILY for 30 Days, #30 TAB Prov:CANDY RONQUILLO 05/02/19 Carvedilol* (Carvedilol*) 3.125 Mg Tablet, 3.125 MG PO BID, #60 TAB Prov:CANDY RONQUILLO 05/02/19 Pantoprazole* (Protonix*) 40 Mg Tablet.dr, 40 MG PO DAILY for 30 Days, TAB Prov:HUSSEIN SHUKLA MD 02/16/19 Ferrous Sulfate* (Ferrous Sulfate*) 325 Mg Tabec, 325 MG PO BID for 30 Days, TAB Prov:HUSSEIN SHUKLA MD 02/16/19 Reported Medications Linaclotide (LINZESS) 290 Mcg Capsule, 290 MCG PO DAILY, #30 CAP 04/28/19 Tamsulosin Hcl* (Tamsulosin Hcl*) 0.4 Mg Cap.er.24h, 0.4 MG PO HS, CAP 02/11/19 Insulin Lispro (Humalog Kwikpen U-100) 100 Unit/1 Ml Insuln.pen, 10 UNIT SQ AC E, EA 02/11/19 Insulin Glargine* (Lantus*) 100 Unit/Ml Soln, 15-20 UNIT SC QHS, #1 VIAL 02/11/19 Insulin Glargine* (Lantus*) 100 Unit/Ml Soln, 35 UNIT SC QAM, #1 VIAL 02/11/19 Medications Current Medications IV Flush (NS 3 ml) 3 ml PER PROTOCOL IV ; Start 07/01/19 at 01:00 Ondansetron HCl (Zofran Inj) 4 mg Q6H PRN IV NAUSEA/VOMITING; Start 8/4/19 at 01:00 Nitroglycerin (Nitroglycerin (Sl Tab) 0.4 Mg) 1 tab Q5M PRN SL .CHEST PAIN; Start 07/01/19 at 01:00 Acetaminophen (Tylenol Tab) 650 mg Q6H PRN PO .PAIN 1-3 OR TEMP; Start 07/01/19 at 01:00 Albuterol/ Ipratropium (Duoneb) 3 ml Q2H RESP THERAPY PRN HHN SHORTNESS OF BREATH; Start 07/01/19 at 01:00 Amiodarone HCl (Cordarone) 200 mg BID PO Last administered on 07/03/19 07:39; Admin Dose 200 MG; Start 07/01/19 at 09:00 Bicalutamide (Casodex) 50 mg DAILY PO Last administered on 07/03/19 07:52; Admin Dose 50 MG; Start 07/01/19 at 09:00 Bumetanide (Bumex) 1 mg DAILY PO Last administered on 07/03/19at 07:38; Admin Dose 1 MG; Start 07/01/19 at 09:00 Carvedilol (Coreg) 3.125 mg BID PO Last administered on 07/03/19at 08:50; Admin Dose 3.125 MG; Start 07/01/19 at 09:00 Ferrous Sulfate (Ferrous Sulfate (Ec)) 325 mg BID PO Last administered on 07/03/19 07:38; Admin Dose 325 MG; Start 07/01/19 at 09:00 Tamsulosin HCl (Flomax) 0.4 mg HS PO Last administered on 07/02/19at 21:08; Admin Dose 0.4 MG; Start 07/01/19 at 21:00 Meropenem/Sodium Chloride 50 ml @ 100 mls/hr Q12 IVPB Last administered on 07/03/19at 07:40; Admin Dose 100 MLS/HR; Start 07/01/19 at 09:00 Miscellaneous Information 1 ea NOTE XX ; Start 07/01/19 at 09:00 Glucose (Glutose) 15 gm Q15M PRN PO DECREASED GLUCOSE; Start 07/01/19 at 09:00 Glucose (Glutose) 22.5 gm Q15M PRN PO DECREASED GLUCOSE; Start 07/01/19 at 09:00 Dextrose (D50w Syringe) 25 ml Q15M PRN IV DECREASED GLUCOSE; Start 07/01/19 at 09:00 Dextrose (D50w Syringe) 50 ml Q15M PRN IV DECREASED GLUCOSE; Start 07/01/19 at 09:00 Glucagon (Glucagen) 1 mg Q15M PRN IM DECREASED GLUCOSE; Start 07/01/19 at 09:00 Glucose (Glutose) 15 gm Q15M PRN BUCCAL DECREASED GLUCOSE; Start 07/01/19 at 09:00 Finasteride (Proscar) 5 mg DAILY PO Last administered on 07/03/19 07:38; Admin Dose 5 MG; Start 07/02/19 at 09:00 Senna/Docusate Sodium (Senokot-S) 2 tab DAILY PO Last administered on 07/03/19 07:38; Admin Dose 2 TAB; Start 07/02/19 at 11:30 Thiamine HCl (Vitamin B1) 100 mg DAILY PO Last administered on 07/03/19 07:39; Admin Dose 100 MG; Start 07/02/19 at 11:30 Famotidine (Pepcid) 20 mg DAILY PO Last administered on 07/03/19 07:38; Admin Dose 20 MG; Start 07/02/19 at 11:30 Lactobacillus Acidophilus/ Rhamnosus (Culturelle) 1 cap BID PO Last administ ered on 07/03/19 07:39; Admin Dose 1 CAP; Start 07/02/19 at 21:00 Insulin Glargine (Lantus) 12 units DAILY@2000 SC Last administered on 07/02/19 22:26; Admin Dose 12 UNITS; Start 07/02/19 at 20:00 Insulin Aspart (Novolog Insulin Pen) 4 unit AC MEALS SC Last administered on 07/03/19 17:46; Admin Dose 4 UNIT; Start 07/02/19 at 17:30 Diagnostic Test (Pha) (Accu-Chek) 1 ea 02 XX Last administered on 07/03/19at 02:00; Admin Dose 1 EA; Start 07/03/19 at 02:00 Insulin Aspart (Novolog Insulin Pen) NOVOLOG *MODERATE* ALGORITHM WITH MEALS BEDTIME SC Last administered on 07/03/19 17:19; Admin Dose 8 UNIT; Start 07/02/19 at 18:00 Potassium Chloride (Potassium Chloride Pwd/Soln) 40 meq DAILY PO Last admi nistered on 07/03/19at 12:34; Admin Dose 40 MEQ; Start 07/03/19 at 12:30 Acetaminophen/ Hydrocodone Bitart ([place] (5/325)) 1 tab Q6 PRN PO MODERATE PAIN LEVEL 4-6; Start 07/03/19 at 12:30 Ciprofloxacin (Cipro) 250 mg BID@06,18 PO ; Start 07/03/19 at 18:00 Assessment/Plan Hospital Course (Demo Recall) 89-year-old male is known to me from prior admission. Patient does have a history of metastatic prostate cancer and has been on Lupron Depot injections. The last injection was 2 months ago at his urologist in [place] and that was for 6 months. The patient presented to the emergency room with a complaint of gross hematuria and difficulty urinating. A Martins catheter was inserted and the urine is now blood-tinged. He has had a history of urinary tract infection with ESBL, history of cardiomyopathy with systolic dysfunction and ejection fraction at 25%. He is also have a history of atrial fibrillation and diabetes mellitus. Impression: Metastatic prostate cancer and gross hematuria. Patient has had a transurethral resection of the prostate in the past and urinary tract infection with E. coli ESBL. He is on Lupron Depo injections and he did receive a 6 months injection about 2 months ago. He is also on bicalutamide. The Martins catheter was removed earlier this morning and the patient has not been able to urinate and had to be catheterized twice. If he still unable to urinate then recommendation would be to insert the Martins catheter and connected to a leg bag and then he could go home with the catheter and follow-up with his own urologist. SPARKLE BARBER MD Jul 03, 2019 18:32
[2019-07-03 20:00] VITALS: BP 108/55; PULSE 86; RESP 18
[2019-07-03] MEDS: INSULIN GLARGINE [LANTus] (100 UNITS/ML) SYG SC SCH (20:00)
[2019-07-03] MEDS: TAMSULOSIN (SR) 0.4 MG CAP PO SCH (21:00)
[2019-07-03] MEDS: HYDROCODONE/APAP (5/325) TAB PO PRN (21:00)
[2019-07-04] VITALS: BP 107/55; PULSE 69; RESP 18
[2019-07-04] MEDS: ACCU-CHEK XX SCH (02:00)
[2019-07-04 04:00] VITALS: BP 97/53; PULSE 66; RESP 18
[2019-07-04] MEDS: HYDROCODONE/APAP (5/325) TAB PO PRN ×2 (04:35→15:18)
[2019-07-04] MEDS: CIPROFLOXACIN 250 MG TAB PO SCH (05:42)
[2019-07-04 07:42] VITALS: BP 112/57; PULSE 74; RESP 22
[2019-07-04 07:47] VITALS: BP 117/58; PULSE 55; RESP 22
--- NOTE | 2019-07-04 08:19 | CONS ---
Consult Date/Type/Reason Admit Date/Time Jun 30, 2019 at 20:34 Initial Consult Date 07/01/19 Type of Consultation: Urology Reason for Consultation Metastatic prostate cancer with urinary retention and hematuria Requesting Provider: BERTHA FERRARI Date/Time of Note DATE: 07/04/19 TIME: 08:15 Subjective Patient was not able to urinate and had a Martins catheter inserted last night. He did have pain during the night which was caused by a blood clot blocking the catheter. The catheter was irrigated and the clot was removed and the patient has been feeling better since. His urine is blood-tinged but the most recent u rine in the tubing is clear Objective Vitals Vital Signs Date Temp Pulse Resp B/P (MAP) Pulse Ox O2 O2 Flow FiO2 Time Delivery Rate 07/04/19 98.0 74 22 112/57 96 Nasal 07:42 (75) Cannula 07/04/19 2.0 28 01:33 Intake and Output 07/03/19 07/03/19 07/04/19 1515:00 23:00 07:00 IntakeIntake Total 240 ml OutputOutput Total 600 ml BalanceBalance 240 ml -600 ml Exam The Martins catheter is draining blood-tinged urine. The most recent urine in the tubing is clear. Patient still have edema of the lower extremities. He looks pale and is anemic Results/Medications Result Diagram: 07/03/19 0528 07/04/19 0459 Results 24 hrs Laboratory Tests Test 07/03/19 11:55 07/03/19 17:10 07/03/19 21:13 07/04/19 03:42 Bedside Glucose 137 291 H 284 H 173 Test 07/04/19 04:59 Sodium Level 138 Potassium Level 4.2 Chloride Level 98 Carbon Dioxide Level 31 Anion Gap 9 Blood Urea Nitrogen 41 H Creatinine 2.62 H Est Glomerular Filtrat Rate mL/min Glucose Level 163 Calcium Level 8.6 Magnesium Level 1.9 Home Meds Active Scripts Bumetanide* (Bumetanide*) 1 Mg Tablet, 1 MG PO DAILY for 30 Days, #30 TAB Prov:CANDY RONQUILLO 05/02/19 Amiodarone Hcl* (Amiodarone Hcl*) 200 Mg Tablet, 200 MG PO BID for 30 Days, #60 TAB Prov:CANDY RONQUILLO 05/02/19 Bicalutamide* (Casodex*) 50 Mg Tablet, 50 MG PO DAILY for 30 Days, #30 TAB Prov:CANDY RONQUILLO 05/02/19 Carvedilol* (Carvedilol*) 3.125 Mg Tablet, 3.125 MG PO BID, #60 TAB Prov:CANDY RONQUILLO 05/02/19 Pantoprazole* (Protonix*) 40 Mg Tablet.dr, 40 MG PO DAILY for 30 Days, TAB Prov:HUSSEIN SHUKLA MD 02/16/19 Ferrous Sulfate* (Ferrous Sulfate*) 325 Mg Tabec, 325 MG PO BID for 30 Days, TAB Prov:HUSSEIN SHUKLA MD 02/16/19 Reported Medications Linaclotide (LINZESS) 290 Mcg Capsule, 290 MCG PO DAILY, #30 CAP 04/28/19 Tamsulosin Hcl* (Tamsulosin Hcl*) 0.4 Mg Cap.er.24h, 0.4 MG PO HS, CAP 02/11/19 Insulin Lispro (Humalog Kwikpen U-100) 100 Unit/1 Ml Insuln.pen, 10 UNIT SQ AC E, EA 02/11/19 Insulin Glargine* (Lantus*) 100 Unit/Ml Soln, 15-20 UNIT SC QHS, #1 VIAL 02/11/19 Insulin Glargine* (Lantus*) 100 Unit/Ml Soln, 35 UNIT SC QAM, #1 VIAL 02/11/19 Medications Current Medications IV Flush (NS 3 ml) 3 ml PER PROTOCOL IV ; Start 07/01/19 at 01:00 Ondansetron HCl (Zofran Inj) 4 mg Q6H PRN IV NAUSEA/VOMITING; Start 07/01/19 at 01:00 Nitroglycerin (Nitroglycerin (Sl Tab) 0.4 Mg) 1 tab Q5M PRN SL .CHEST PAIN; Start 07/01/19 at 01:00 Acetaminophen (Tylenol Tab) 650 mg Q6H PRN PO .PAIN 1-3 OR TEMP; Start 07/01/19 at 01:00 Albuterol/ Ipratropium (Duoneb) 3 ml Q2H RESP THERAPY PRN HHN SHORTNESS OF BREATH; Start 07/01/19 at 01:00 Amiodarone HCl (Cordarone) 200 mg BID PO Last administered on 07/03/19 21:00; Admin Dose 200 MG; Start 07/01/19 at 09:00 Bicalutamide (Casodex) 50 mg DAILY PO Last administered on 07/03/19 07:52; Admin Dose 50 MG; Start 07/01/19 at 09:00 Bumetanide (Bumex) 1 mg DAILY PO Last administered on 07/03/19 07:38; Admin Dose 1 MG; Start 07/01/19 at 09:00 Carvedilol (Coreg) 3.125 mg BID PO Last administered on 07/03/19 21:00; Admin Dose 3.125 MG; Start 07/01/19 at 09:00 Ferrous Sulfate (Ferrous Sulfate (Ec)) 325 mg BID PO Last administered on 07/03/19 21:00; Admin Dose 325 MG; Start 07/01/19 at 09:00 Tamsulosin HCl (Flomax) 0.4 mg HS PO Last administered on 07/03/19 21:00; Admin Dose 0.4 MG; Start 07/01/19 at 21:00 Meropenem/Sodium Chloride 50 ml @ 100 mls/hr Q12 IVPB Last administered on 07/03/19 21:00; Admin Dose 100 MLS/HR; Start 07/01/19 at 09:00 Miscellaneous Information 1 ea NOTE XX ; Start 07/01/19 at 09:00 Glucose (Glutose) 15 gm Q15M PRN PO DECREASED GLUCOSE; Start 07/01/19 at 09:00 Glucose (Glutose) 22.5 gm Q15M PRN PO DECREASED GLUCOSE; Start 07/01/19 at 09:00 Dextrose (D50w Syringe) 25 ml Q15M PRN IV DECREASED GLUCOSE; Start 07/01/19 at 09:00 Dextrose (D50w Syringe) 50 ml Q15M PRN IV DECREASED GLUCOSE; Start 07/01/19 at 09:00 Glucagon (Glucagen) 1 mg Q15M PRN IM DECREASED GLUCOSE; Start 07/01/19 at 09:00 Glucose (Glutose) 15 gm Q15M PRN BUCCAL DECREASED GLUCOSE; Start 07/01/19 at 09:00 Finasteride (Proscar) 5 mg DAILY PO Last administered on 07/03/19 07:38; Admin Dose 5 MG; Start 07/02/19 at 09:00 Senna/Docusate Sodium (Senokot-S) 2 tab DAILY PO Last administered on 07/03/19 07:38; Admin Dose 2 TAB; Start 07/02/19 at 11:30 Thiamine HCl (Vitamin B1) 100 mg DAILY PO Last administered on 07/03/19 07:39; Admin Dose 100 MG; Start 07/02/19 at 11:30 Famotidine (Pepcid) 20 mg DAILY PO Last administered on 07/03/19 07:38; Admin Dose 20 MG; Start 07/02/19 at 11:30 Lactobacillus Acidophilus/ Rhamnosus (Culturelle) 1 cap BID PO Last administered on 07/03/19 21:00; Admin Dose 1 CAP; Start 07/02/19 at 21:00 Insulin Glargine (Lantus) 12 units DAILY@2000 SC Last administered on 07/03/19 20:00; Admin Dose 12 UNITS; Start 07/02/19 at 20:00 Insulin Aspart (Novolog Insulin Pen) 4 unit AC MEALS SC Last administered on 07/03/19 17:46; Admin Dose 4 UNIT; Start 07/02/19 at 17:30 Diagnostic Test (Pha) (Accu-Chek) 1 ea 02 XX Last administered on 07/04/19 02:00; Admin Dose 1 EA; Start 07/03/19 at 02:00 Insulin Aspart (Novolog Insulin Pen) NOVOLOG *MODERATE* ALGORITHM WITH MEALS BEDTIME SC Last administered on 07/03/19 21:00; Admin Dose 3 UNIT; Start 07/02/19 at 18:00 Potassium Chloride (Potassium Chloride Pwd/Soln) 40 meq DAILY PO Last administered on 07/03/19 12:34; Admin Dose 40 MEQ; Start 07/03/19 at 12:30 Acetaminophen/ Hydrocodone Bitart (Floyd (5/325)) 1 tab Q6 PRN PO MODERATE PAIN LEVEL 4-6 Last administered on 07/04/19 04:35; Admin Dose 1 TAB; Start 07/03/19 at 12:30 Ciprofloxacin (Cipro) 250 mg BID@06,18 PO Last administered on 07/04/19 05:42; Admin Dose 250 MG; Start 07/03/19 at 18:00 Assessment/Plan Hospital Course (Demo Recall) 89-year-old male is known to me from prior admission. Patient does have a history of metastatic prostate cancer and has been on Lupron Depot injections. The last injection was 2 months ago at his urologist in [place] and that was for 6 months. The patient presented to the emergency room with a complaint of gross hematuria and difficulty urinating. A Martins catheter was inserted and the urine is now blood-tinged. He has had a history of urinary tract infection with ESBL, history of cardiomyopathy with systolic dysfunction and ejection fraction at 25%. He is also have a history of atrial fibrillation and diabetes mellitus. Impression: Metastatic prostate cancer and gross hematuria. Patient has had a transurethral resection of the prostate in the past and urinary tract infection with E. coli ESBL. He is on Lupron Depo injections and he did receive a 6 months injection about 2 months ago. He is also on bicalutamide. Yesterday the Martins catheter was removed to see if the patient is able to urinate on his own. He was not able to urinate and had a straight cath twice then I ordered to insert the Martins catheter and keep it in. Initially the urine was clear then he had some blood and blood clot blocking the catheter that caused him pain. The catheter was irrigated and the clot was removed and he is feeling better. The urine is blood-tinged but the most recent urine in the tubi ng is clear. Patient may go home with the Martins catheter in the leg bag. Encourage him to drink more fluids to try to keep the urine clear. He should follow-up with his urologist. SPARKLE BARBER MD Jul 04, 2019 08:19
[2019-07-04] MEDS: AMIODARONE 200 MG TAB PO SCH (08:38)
[2019-07-04] MEDS: FAMOTIDINE 20 MG TAB PO SCH (08:38)
[2019-07-04] MEDS: THIAMINE 100 MG TAB PO SCH (08:38)
[2019-07-04] MEDS: FINASTERIDE 5 MG TAB PO SCH (08:38)
[2019-07-04] MEDS: POTASSIUM CHLORIDE 20 MEQ POWDER FOR ORAL SOLN PO SCH (08:39)
[2019-07-04] MEDS: FERROUS SULFATE (EC) 325 MG TAB PO SCH (08:39)
[2019-07-04] MEDS: BUMETANIDE 1 MG TAB PO SCH (08:39)
[2019-07-04] MEDS: SENNA/DOCUSATE NA (8.6MG/50MG) TAB PO SCH (08:39)
[2019-07-04] MEDS: MEROPENEM 500MG/50 ML (PMX) 50 ML IVPB SCH (08:40)
[2019-07-04] MEDS: LACTOBACILLUS RHAMNOSUS CAP PO SCH (08:40)
[2019-07-04] MEDS: BICALUTAMIDE 50 MG TAB PO SCH (08:44)
[2019-07-04] MEDS ORDERED: CIPROFLOXACIN 250 MG TAB PO SCH (09:00)
[2019-07-04] MEDS: INSULIN ASPART [NOVOLOG] 3 ML PEN SC SCH ×4 (09:01→12:00)
--- NOTE | 2019-07-04 10:10 | DS ---
Date/Time of Note Date/Time of Note DATE: 07/04/19 TIME: 10:06 Discharge Summary Admission/Discharge Info Admit Date/Time Jun 30, 2019 at 20:34 Discharge Date/Time Patient Condition: Fair Consults Ashkanmagaly Rashida? Procedures Chest x-ray chest x-ray IMPRESSION: 1. Mild interstitial pulmonary edema, improved. 2. Small right pleural effusion and right basilar atelectasis. 3. Cardiomegaly and atherosclerosis. 4. Otherwise unremarkable chest radiograph. Hx of Present Illness Patient admitted with gross hematuria. Possible history of cancer which the family is aware of but have not updated and are not informing their family member. Hospital Course Hospital course Evaluated/ managed for gross hematuria. Seen by urology. We treated a UTI. Home on Cipro. Culture at this time negative for any growth. Probably due to retention issues. Patient had a Mccollum placed, medications adjusted and Mccollum was removed. However still had symptoms of retention and therefore Mccollum was reinserted. Patient to go home with Mccollum and altered medications. Needs to follow-up with his usual urologist. I spoke with the patient and daughter regarding his comorbidities. I think he i s leaning towards a DNR but definitely needs this on paper soon. A/P 1. Gross hematuria, stable home on Mccollum 2. Urinary retention, meds adjusted, home w mccollum. 3. CKD ~4/5, w fluctuation. Baseline 1.7. Now 2.5. Treat obstructive uropathy 4. Ac/ chr decompensated systolic CHF, stable, cont Bumex as tolerable 5. CAD, suspected 6. Chr htn 7. Type 2 diabetes A1c 10.1; refusing dietary instructions care plan. High risk for DKA. 8. Anemia possibly ac blood loss but likely more chr dz related stable observe 9. 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 He does not know if this diagnosis and family has requested to keep it this way; will defer to pcp/ oncology. 10. Chr A fib not a candidate for anticoagulation due to present comorbidities. Needs advanced care planning reevaluated S: 07/02 Mild hematuria no fever 07/03 high post residuals; anxiety. update daughter. 07/04 no distress still requiring Mccollum for retention, mild hematuria Home Meds Active Scripts Finasteride* (Finasteride*) 5 Mg Tablet, 5 MG PO DAILY for 14 Days, #15 TAB Prov:ADITI WILSON MD 07/04/19 Thiamine* (Vitamin B-1*) 100 Mg Tablet, 100 MG PO DAILY for 30 Days, #30 TAB Prov:ADITI WILSON MD 07/04/19 Sennosides/Docusate Sodium (Dok Plus Tablet) 1 Each Tablet, 2 TAB PO DAILY for 5 Days, #10 TAB 2 Refills Prov:ADITI WILSON MD 07/04/19 Potassium Chloride (Potassium Chloride) 20 Meq Packet, 40 MEQ PO DAILY for 3 Days, #3 PACKET Prov:ADITI WILSON MD 07/04/19 Acetaminophen* (Tylenol*) 325 Mg Tablet, 650 MG PO Q6H PRN for .PAIN 1-3 OR TEMP for 1 Day, TAB Prov:ADITI WILSON MD 07/04/19 Ciprofloxacin Hcl* (Ciprofloxacin Hcl*) 250 Mg Tablet, 250 MG PO BID@06,18 for 5 Days, #10 TAB Prov:ADITI WILSON MD 07/04/19 Bumetanide* (Bumetanide*) 1 Mg Tablet, 1 MG PO DAILY for 30 Days, #30 TAB Prov:CANDY RONQUILLO 05/02/19 Amiodarone Hcl* (Amiodarone Hcl*) 200 Mg Tablet, 200 MG PO BID for 30 Days, #60 TAB Prov:CANDY RONQUILLO 05/02/19 Bicalutamide* (Casodex*) 50 Mg Tablet, 50 MG PO DAILY for 30 Days, #30 TAB Prov:CANDY RONQUILLO 05/02/19 Carvedilol* (Carvedilol*) 3.125 Mg Tablet, 3.125 MG PO BID, #60 TAB Prov:CANDY RONQUILLO 05/02/19 Pantoprazole* (Protonix*) 40 Mg Tablet.dr, 40 MG PO DAILY for 30 Days, TAB Prov:HUSSEIN SHUKLA MD 02/16/19 Ferrous Sulfate* (Ferrous Sulfate*) 325 Mg Tabec, 325 MG PO BID for 30 Days, TAB Prov:HUSSEIN SHUKLA MD 02/16/19 Reported Medications Linaclotide (LINZESS) 290 Mcg Capsule, 290 MCG PO DAILY, #30 CAP 04/28/19 Tamsulosin Hcl* (Tamsulosin Hcl*) 0.4 Mg Cap.er.24h, 0.4 MG PO HS, CAP 02/11/19 Insulin Lispro (Humalog Kwikpen U-100) 100 Unit/1 Ml Insuln.pen, 10 UNIT SQ AC E, EA 02/11/19 Insulin Glargine* (Lantus*) 100 Unit/Ml Soln, 15-20 UNIT SC QHS, #1 VIAL 02/11/19 Insulin Glargine* (Lantus*) 100 Unit/Ml Soln, 35 UNIT SC QAM, #1 VIAL 02/11/19 Follow-up Plan appt Dr Alarcon, Cardiology, & PCP 1wk. Primary Care Provider Not On Staff Doctor Time spent on discharge: > 30 minutes Pending Labs Laboratory Tests Test 07/03/19 11:55 07/03/19 17:10 07/03/19 21:13 07/04/19 03:42 Bedside 137 291 284 173 Glucose mg/dL (70-220) mg/dL (70-220) mg/dL (70-220) mg/dL (70-220) Test 07/04/19 04:59 07/04/19 08:36 Sodium Level 138 mmol/L (135-144 ) Potassium 4.2 Level mmol/L (3.5-5.1 ) Chloride Level 98 mmol/L (97-110) Carbon Dioxide 31 Level mmol/L (21-31) Anion Gap 9 (5-13) Blood Urea 41 mg/dl (7-20) Nitrogen Creatinine 2.62 mg/dl (0.61-1.2 4) Est Glomerular mL/min (>60) Filtrat Rate mL/min Glucose Level 163 mg/dl (70-220) Calcium Level 8.6 mg/dl (8.4-10.2 ) Magnesium 1.9 Level mg/dl (1.7-2.5) Bedside 321 Glucose mg/dL (70-220) ADITI WILSON MD Jul 04, 2019 10:10
[2019-07-04 11:47] VITALS: BP 103/53; PULSE 65; RESP 22
== END 2019-07-04 15:30 | disposition home or self-care (01) | DRG 291 ==
LOC: E/R 19:01 → 6WM 20:34
PROVIDERS: ADMIT Internal Medicine; ATTEND Internal Medicine
PROC: 0T9B70Z Drainage of Bladder with Drainage Device, Via Natural or Artificial Opening (ICD-10-PCS; principal; 2019-06-30)
DX: I13.2 Hypertensive heart and chronic kidney disease with heart failure and with stage 5 chronic kidney disease, or end stage renal disease (principal); I50.23 Acute on chronic systolic (congestive) heart failure; N30.01 Acute cystitis with hematuria; C79.11 Secondary malignant neoplasm of bladder; N18.5 Chronic kidney disease, stage 5; D62 Acute posthemorrhagic anemia; C79.82 Secondary malignant neoplasm of genital organs; I42.9 Cardiomyopathy, unspecified; E11.22 Type 2 diabetes mellitus with diabetic chronic kidney disease; C61 Malignant neoplasm of prostate; D63.0 Anemia in neoplastic disease; I48.2 Chronic atrial fibrillation; R33.9 Retention of urine, unspecified; I25.10 Atherosclerotic heart disease of native coronary artery without angina pectoris; Z79.818 Long term (current) use of other agents affecting estrogen receptors and estrogen levels
CPT/HCPCS: 36415; 71045; 80048; 80053; 81001; 82962; 83735; 83880; 84484; 85025; 85610; 85730; 87086; 93005; 97161; J1815; J2185; J3475